=== PATIENT | female | born 1960 | race Caucasian/White ===

== ENCOUNTER 2017-03-21 20:43 | Emergency (ER) | payer SELFPAY ==
[~2017-03-21] VITALS: Ht 180.3 cm; Wt 134.7 kg
[2017-03-21] MEDS ORDERED: CYCLOBENZAPRINE10 MG PO (21:22)
== END 2017-03-21 21:47 | disposition home or self-care (01) ==
LOC: ED 20:43
DX: M62.830 Muscle spasm of back (principal); Z90.49 Acquired absence of other specified parts of digestive tract; Z90.710 Acquired absence of both cervix and uterus; Z91.018 Allergy to other foods; Z88.8 Allergy status to other drugs, medicaments and biological substances; Z88.1 Allergy status to other antibiotic agents; Z88.5 Allergy status to narcotic agent
CPT/HCPCS: 99283

== ENCOUNTER 2020-10-14 17:49 | Emergency (ER) | payer MEDICARE ==
[~2020-10-14] VITALS: Ht 180.3 cm; Wt 141.0 kg
[~2020-10-14 17:49] MED LIST: CYCLOBENZAPRINE10 MG PO
[2020-10-14] MEDS ORDERED: LIPITOR40 MG PO (18:13)
[2020-10-14] MEDS ORDERED: COREG25 MG PO (18:13)
[2020-10-14] MEDS ORDERED: LASIX20 MG PO (18:14)
[2020-10-14] MEDS ORDERED: LEVOTHYROXINE75 MC1 PO (18:14)
[2020-10-14] MEDS ORDERED: NEURONTIN100 MG PO (18:14)
[2020-10-14] MEDS ORDERED: JANTOVEN10 MG PO (18:15)
[2020-10-14] MEDS ORDERED: JANTOVEN7.5 MG PO (18:15)
[2020-10-14] MEDS ORDERED: COZAAR25 MG PO (18:16)
[2020-10-14] MEDS ORDERED: CITALOPRAM HBR10 MG PO (18:16)
[2020-10-14] MEDS ORDERED: POTASSIUM CHLO10 MEQ PO (23:16)
--- NOTE | 2020-10-15 13:01 | EKG ---
[facility] [address] [facility] [place] [address] Signed Sinus rhythm with occasional premature ventricular complexes Possible Left atrial enlargement Inferior infarct , age undetermined Cannot rule out Anteroseptal infarct , age undetermined ST \T\ T wave abnormality, consider lateral ischemia Abnormal ECG No previous ECGs available Confirmed by NATHALIE EDMONDS DO ([id number]) on 10/15/2020 1:01:46 PM Electronically Signed By: NATHALIE EDMONDS DO 10/15/20 1301 PATIENT NAME: NINI MARTINEZ Electrocardiogram DATE OF : 56 PHYSICIAN: NATHALIE EDMONDS DO REPORT #: [id number] REPORT IS CONFIDENTIAL AND NOT TO BE RELEASED WITHOUT AUTHORIZATION
== END 2020-10-14 23:35 | disposition home or self-care (01) ==
LOC: ED 17:49
DX: I50.9 Heart failure, unspecified (principal); Z20.822 Contact with and (suspected) exposure to COVID-19; Z88.8 Allergy status to other drugs, medicaments and biological substances; Z88.1 Allergy status to other antibiotic agents; Z88.5 Allergy status to narcotic agent; Z91.018 Allergy to other foods; Z79.899 Other long term (current) drug therapy; Z79.01 Long term (current) use of anticoagulants
CPT/HCPCS: 71045; 71260; 80053; 83880; 84484; 85025; 85379; 85610; 93005; 93010; 99285-25; C9803; J1940; Q9967; U0003

== ENCOUNTER 2020-11-01 17:13 | Emergency (ER) | payer MEDICARE ==
[~2020-11-01] VITALS: Ht 185.4 cm; Wt 140.6 kg
[~2020-11-01 17:13] MED LIST changes: +CITALOPRAM HBR10 MG PO; +COREG25 MG PO; +COZAAR25 MG PO; +JANTOVEN10 MG PO; +JANTOVEN7.5 MG PO; +LASIX20 MG PO; +LEVOTHYROXINE75 MC1 PO; +LIPITOR40 MG PO; +NEURONTIN100 MG PO; +POTASSIUM CHLO10 MEQ PO
--- NOTE | 2020-11-01 20:21 | EKG ---
[facility] [address] [facility] [place] [address] Signed Sinus rhythm with occasional premature ventricular complexes ST \T\ T wave abnormality, consider inferolateral ischemia Prolonged QT Abnormal ECG When compared with ECG of 14-OCT-2020 18:06, Minimal criteria for Anteroseptal infarct are no longer present Criteria for Inferior infarct are no longer present Confirmed by PLACIDO PAULSON MD ([id number]) on 11/01/2020 8:21:17 PM Electronically Signed By: PLACIDO PAULSON MD 11/01/202020 PATIENT NAME: NINI MARTINEZ Electrocardiogram DATE OF : 56 PHYSICIAN: PLACIDO PAULSON MD REPORT #: [id number] REPORT IS CONFIDENTIAL AND NOT TO BE RELEASED WITHOUT AUTHORIZATION
--- NOTE | 2020-11-01 20:21 | EKG ---
[facility] [address] [facility] [place] [address] Signed Normal sinus rhythm Anteroseptal infarct , age undetermined T wave abnormality, consider inferolateral ischemia Abnormal ECG When compared with ECG of 01-NOV-2020 17:16, (Unconfirmed) premature ventricular complexes are no longer present Confirmed by PLACIDO PAULSON MD ([id number]) on 11/01/2020 8:21:30 PM Electronically Signed By: PLACIDO PAULSON MD 11/01/202020 PATIENT NAME: NINI MARTINEZ Electrocardiogram DATE OF : 56 PHYSICIAN: PLACIDO PAULSON MD REPORT #: [id number] REPORT IS CONFIDENTIAL AND NOT TO BE RELEASED WITHOUT AUTHORIZATION
== END 2020-11-01 21:16 | disposition home or self-care (01) ==
LOC: ED 17:13
DX: R07.2 Precordial pain (principal); Z88.8 Allergy status to other drugs, medicaments and biological substances; Z88.1 Allergy status to other antibiotic agents; Z88.5 Allergy status to narcotic agent; Z79.899 Other long term (current) drug therapy; Z79.01 Long term (current) use of anticoagulants
CPT/HCPCS: 71045; 71275; 80053; 83735; 84484; 85025; 85610; 93005; 93010; 99285-25; Q9967

== ENCOUNTER 2020-12-30 23:38 | Emergency (ER) | payer MEDICARE ==
[~2020-12-30] VITALS: Ht 185.4 cm; Wt 140.6 kg
--- NOTE | 2020-12-31 16:39 | EKG ---
[facility] [address] [facility] [place] [address] Signed Sinus rhythm with occasional premature ventricular complexes Possible Inferior infarct , age undetermined Cannot rule out Anterior infarct (cited on or before 14-OCT-2020) ST \T\ T wave abnormality, consider lateral ischemia Abnormal ECG When compared with ECG of 01-NOV-2020 18:37, premature ventricular complexes are now present Borderline criteria for Inferior infarct are now present Questionable change in initial forces of Septal leads Confirmed by PLACIDO PAULSON MD ([id number]) on 12/31/2020 4:39:43 PM Electronically Signed By: PLACIDO PAULSON MD 12/31/20 1639 PATIENT NAME: NINI MARTINEZ Electrocardiogram DATE OF : 56 PHYSICIAN: PLACIDO PAULSON MD REPORT #: [id number] REPORT IS CONFIDENTIAL AND NOT TO BE RELEASED WITHOUT AUTHORIZATION
== END 2020-12-31 04:06 | disposition home or self-care (01) ==
LOC: ED 23:38
DX: R07.89 Other chest pain (principal); Z88.8 Allergy status to other drugs, medicaments and biological substances; Z88.1 Allergy status to other antibiotic agents; Z88.5 Allergy status to narcotic agent; Z79.899 Other long term (current) drug therapy; Z79.01 Long term (current) use of anticoagulants
CPT/HCPCS: 71045; 71275; 74174; 80053; 83735; 84484; 85025; 85610; 93005; 93010; 99285-25; Q9967

== ENCOUNTER 2021-02-01 04:29 | Emergency (ER) | payer MEDICARE ==
[~2021-02-01] VITALS: Ht 185.4 cm; Wt 140.6 kg
--- NOTE | 2021-02-03 18:03 | EKG ---
[facility] [address] [facility] [place] [address] Signed Sinus rhythm with occasional premature ventricular complexes Septal infarct (cited on or before 14-OCT-2020) Possible Inferior infarct (cited on or before 14-OCT-2020) T wave abnormality, consider lateral ischemia Abnormal ECG When compared with ECG of 30-DEC-2020 23:45, No significant change was found Confirmed by SHAVON MARTIN MD ([id number]) on 02/03/2021 6:03:36 PM Electronically Signed By: SHAVON MARTIN MD 02/03/21 180 PATIENT NAME: NINI MARTINEZ Electrocardiogram DATE OF : 56 PHYSICIAN: SHAVON MARTIN MD REPORT #: [id number] REPORT IS CONFIDENTIAL AND NOT TO BE RELEASED WITHOUT AUTHORIZATION
== END 2021-02-01 07:28 | disposition home or self-care (01) ==
LOC: ED 04:29
DX: R07.9 Chest pain, unspecified (principal); Q87.40 Marfan syndrome, unspecified; Z90.710 Acquired absence of both cervix and uterus; Z90.89 Acquired absence of other organs; Z91.018 Allergy to other foods; Z88.1 Allergy status to other antibiotic agents; Z88.5 Allergy status to narcotic agent; Z88.8 Allergy status to other drugs, medicaments and biological substances; Z79.01 Long term (current) use of anticoagulants; Z79.899 Other long term (current) drug therapy
CPT/HCPCS: 71045; 71275; 74174; 80053; 84484; 85025; 85610; 85730; 93005; 93010; 99285-25; Q9967

== ENCOUNTER 2021-02-13 08:32 | Emergency (ER) | payer MEDICARE ==
[~2021-02-13] VITALS: Ht 185.4 cm; Wt 140.6 kg
--- NOTE | 2021-02-13 17:35 | EKG ---
[facility] [address] [facility] [place] [address] Signed Sinus rhythm with occasional premature ventricular complexes Inferior infarct (cited on or before 14-OCT-2020) Abnormal ECG When compared with ECG of 01-FEB-2021 04:35, Nonspecific T wave abnormality has replaced inverted T waves in Inferior leads Confirmed by PLACIDO PAULSON MD ([id number]) on 02/13/2021 5:35:29 PM Electronically Signed By: PLACIDO PAULSON MD 02/13/21 1735 PATIENT NAME: NINI MARTINEZ Electrocardiogram DATE OF : 56 PHYSICIAN: PLACIDO PAULSON MD REPORT #: [id number] REPORT IS CONFIDENTIAL AND NOT TO BE RELEASED WITHOUT AUTHORIZATION
== END 2021-02-13 13:20 | disposition home or self-care (01) ==
LOC: ED 08:32
DX: R07.2 Precordial pain (principal); Z90.710 Acquired absence of both cervix and uterus; Z90.89 Acquired absence of other organs; Z91.018 Allergy to other foods; Z88.1 Allergy status to other antibiotic agents; Z88.8 Allergy status to other drugs, medicaments and biological substances; Z88.5 Allergy status to narcotic agent; Z79.01 Long term (current) use of anticoagulants; Z79.899 Other long term (current) drug therapy
CPT/HCPCS: 71045; 71275; 74174; 80053; 83735; 84484; 85025; 85610; 93005; 93010; 99285-25; Q9967

== ENCOUNTER 2021-03-25 02:29 | Emergency (ER) | payer MEDICARE ==
[~2021-03-25] VITALS: Ht 185.4 cm; Wt 141.5 kg
[2021-03-25] MEDS ORDERED: OXYCODONE HCL5 MG PO (02:41)
[2021-03-25] MEDS ORDERED: HYDROCODON-ACE1 EA10 PO (05:33)
[2021-03-25] MEDS ORDERED: CEPHALEXIN500 MG PO (05:33)
== END 2021-03-25 05:50 | disposition home or self-care (01) ==
LOC: ED 02:29
DX: R10.9 Unspecified abdominal pain (principal); Z88.8 Allergy status to other drugs, medicaments and biological substances; Z88.1 Allergy status to other antibiotic agents; Z88.5 Allergy status to narcotic agent; Z79.899 Other long term (current) drug therapy; Z79.01 Long term (current) use of anticoagulants
CPT/HCPCS: 74176; 80053; 81001; 85025; 87088; 99284-25; J7030

== ENCOUNTER 2021-04-22 12:09 | Emergency (ER) | payer MEDICARE ==
[~2021-04-22] VITALS: Ht 185.4 cm; Wt 146.4 kg
[~2021-04-22 12:09] MED LIST changes: +CENTRUM SILVER1 EAC3 PO; +CEPHALEXIN500 MG PO; +HYDROCODON-ACE1 EA10 PO; +OXYCODONE HCL5 MG PO
== END 2021-04-22 16:48 | disposition home or self-care (01) ==
LOC: ED 12:09
DX: S70.01XA Contusion of right hip, initial encounter (principal); S90.32XA Contusion of left foot, initial encounter; S80.01XA Contusion of right knee, initial encounter; S40.012A Contusion of left shoulder, initial encounter; S20.212A Contusion of left front wall of thorax, initial encounter; W17.89XA Other fall from one level to another, initial encounter; Z88.8 Allergy status to other drugs, medicaments and biological substances; Z88.5 Allergy status to narcotic agent; Z88.1 Allergy status to other antibiotic agents; Z91.018 Allergy to other foods; Z79.899 Other long term (current) drug therapy; Z79.01 Long term (current) use of anticoagulants
CPT/HCPCS: 71045; 73030; 73502; 73560; 73630; 96374; 99283-25; A9270; J3010

== ENCOUNTER 2021-10-31 19:02 | Emergency (ER) | payer MEDICARE ==
[~2021-10-31] VITALS: Ht 180.3 cm; Wt 142.9 kg
[~2021-10-31 19:02] MED LIST changes: +FUROSEMIDE40 MG PO; +LOSARTAN POTASS25 MG PO; +METOPROLOL SUCC25 MG PO; +VALSARTAN80 MG PO
[2021-11-01] MEDS ORDERED: HYDROCODON-ACE1 EA10 PO (02:01)
== END 2021-11-01 02:15 | disposition home or self-care (01) ==
LOC: ED 19:02
DX: M25.531 Pain in right wrist (principal); Z88.8 Allergy status to other drugs, medicaments and biological substances; Z88.5 Allergy status to narcotic agent; Z88.1 Allergy status to other antibiotic agents; Z88.6 Allergy status to analgesic agent; Z79.899 Other long term (current) drug therapy; Z79.01 Long term (current) use of anticoagulants
CPT/HCPCS: 36415; 73206; 80053; 85025; 85610; 85730; 93931; 96374; 96375; 96376; 99284-25; A9270; J1170; J2405; Q9967

== ENCOUNTER 2022-01-27 11:27 | Emergency (ER) | payer MEDICARE ==
[~2022-01-27] VITALS: Ht 180.3 cm; Wt 142.9 kg
== END 2022-01-27 15:25 | disposition home or self-care (01) ==
LOC: ED 11:27
DX: H43.812 Vitreous degeneration, left eye (principal); M19.90 Unspecified osteoarthritis, unspecified site; Z88.8 Allergy status to other drugs, medicaments and biological substances; Z88.1 Allergy status to other antibiotic agents; Z88.5 Allergy status to narcotic agent; Z79.899 Other long term (current) drug therapy; Z79.01 Long term (current) use of anticoagulants
CPT/HCPCS: 99283

== ENCOUNTER 2022-03-02 02:07 | Emergency (ER) | payer MEDICARE ==
[~2022-03-02] VITALS: Ht 180.3 cm; Wt 143.2 kg
[2022-03-02] MEDS ORDERED: BENZONATATE100 MG PO (04:11)
[2022-03-02] MEDS ORDERED: MILLIPRED DP5 MG PO (04:47)
--- NOTE | 2022-03-03 13:11 | EKG ---
[facility] [address] [facility] [place] [address] Signed Sinus rhythm with marked sinus arrhythmia with frequent premature ventricular complexes Possible Inferior infarct , age undetermined ST \T\ T wave abnormality, consider lateral ischemia Abnormal ECG When compared with ECG of 16-APR-2021 09:37, No significant change was found Confirmed by SHAVON MARTIN MD ([id number]) on 03/03/2022 1:11:02 PM Electronically Signed By: SHAVON MARTIN MD 03/03/22 1311 PATIENT NAME: NINI MARTINEZ Electrocardiogram DATE OF : 56 PHYSICIAN: SHAVON MARTIN MD REPORT #: [id number] REPORT IS CONFIDENTIAL AND NOT TO BE RELEASED WITHOUT AUTHORIZATION
== END 2022-03-02 04:58 | disposition home or self-care (01) ==
LOC: ED 02:07
DX: R05.9 Cough, unspecified (principal); B97.4 Respiratory syncytial virus as the cause of diseases classified elsewhere; M19.90 Unspecified osteoarthritis, unspecified site; Z88.8 Allergy status to other drugs, medicaments and biological substances; Z88.1 Allergy status to other antibiotic agents; Z88.5 Allergy status to narcotic agent; Z79.899 Other long term (current) drug therapy; Z79.01 Long term (current) use of anticoagulants; Z20.822 Contact with and (suspected) exposure to COVID-19
CPT/HCPCS: 36415; 71045; 80053; 81001; 83735; 85025; 87502; 93005; 93010; 96374; 99285-25; C9803; J1170; U0003

== ENCOUNTER 2022-04-22 14:47 | Emergency (ER) | payer MEDICARE ==
[~2022-04-22] VITALS: Ht 180.3 cm; Wt 143.2 kg
[~2022-04-22 14:47] MED LIST changes: +BENZONATATE100 MG PO; +MILLIPRED DP5 MG PO
[2022-04-22] MEDS ORDERED: FUROSEMIDE20 MG PO (15:02)
[2022-04-22] MEDS ORDERED: ATORVASTATIN CA40 MG PO (15:02)
[2022-04-22] MEDS ORDERED: LEVOTHYROXINE75 MCG PO (15:03)
[2022-04-22] MEDS ORDERED: LASIX40 MG PO (19:16)
--- NOTE | 2022-04-25 12:25 | EKG ---
[facility] [address] [facility] [place] [address] Signed Sinus bradycardia Possible Inferior infarct , age undetermined ST \T\ T wave abnormality, consider anterolateral ischemia Abnormal ECG No previous ECGs available Confirmed by Chantelle Eng MD () on 04/23/2022 11:26:16 PM Electronically Signed By: CHANTELLE ENG MD 04/23/22 2326 Electronically Signed By: CHANTELLE ENG MD 04/25/22 1225 PATIENT NAME: OBIE MARTINEZH ROBINSON Electrocardiogram DATE OF : 56 PHYSICIAN: CHANTELLE ENG MD REPORT #: [id number] REPORT IS CONFIDENTIAL AND NOT TO BE RELEASED WITHOUT AUTHORIZATION
== END 2022-04-22 19:27 | disposition home or self-care (01) ==
LOC: ED 14:47
DX: I50.9 Heart failure, unspecified (principal); Z88.8 Allergy status to other drugs, medicaments and biological substances; Z91.018 Allergy to other foods; Z88.5 Allergy status to narcotic agent; Z79.899 Other long term (current) drug therapy; Z79.01 Long term (current) use of anticoagulants; Z20.822 Contact with and (suspected) exposure to COVID-19
CPT/HCPCS: 36415; 71045; 71275; 74174; 80053; 83735; 83880; 84484; 85025; 85610; 87502; 93005; 93010; 99285-25; C9803; U0003

== ENCOUNTER 2022-07-01 10:14 | Emergency (ER) | payer MEDICARE ==
[~2022-07-01] VITALS: Ht 185.4 cm; Wt 156.3 kg
[~2022-07-01 10:14] MED LIST changes: +ATORVASTATIN CA40 MG PO; +ENTRESTO 24 MG1 EACH PO; +FUROSEMIDE20 MG PO; +JARDIANCE10 MG PO; +LASIX40 MG PO; +LEVOTHYROXINE75 MCG PO; +NITROGLYCERIN0.4 MG SL; +SPIRONOLACTONE25 MG PO
--- NOTE | 2022-07-02 07:12 | EKG ---
[facility] [address] [facility] [place] [address] Signed Sinus bradycardia Possible Inferior infarct (cited on or before 02-MAR-2022) ST \T\ T wave abnormality, consider lateral ischemia Abnormal ECG When compared with ECG of 22-APR-2022 14:55, T wave inversion less evident in Inferior leads Confirmed by PLACIDO PAULSON MD ([id number]) on 07/02/2022 7:11:58 AM Electronically Signed By: PLACIDO PAULSON MD 07/02/22 0712 PATIENT NAME: NINI MARTINEZ Electrocardiogram DATE OF : 56 PHYSICIAN: PLACIDO PAULSON MD REPORT #: [id number] REPORT IS CONFIDENTIAL AND NOT TO BE RELEASED WITHOUT AUTHORIZATION
== END 2022-07-01 13:59 | disposition home or self-care (01) ==
LOC: ED 10:14
DX: I67.9 Cerebrovascular disease, unspecified (principal); Q87.40 Marfan syndrome, unspecified; M19.90 Unspecified osteoarthritis, unspecified site; Z88.8 Allergy status to other drugs, medicaments and biological substances; Z91.018 Allergy to other foods; Z88.5 Allergy status to narcotic agent; Z79.899 Other long term (current) drug therapy; Z79.01 Long term (current) use of anticoagulants
CPT/HCPCS: 36415; 70450; 70496; 70498; 71045; 80053; 85025; 85610; 93005; 93010; 96360; 96361; 99285-25; J7030; Q9967

== ENCOUNTER 2022-07-17 20:06 | Emergency (ER) | payer MEDICARE ==
[~2022-07-17] VITALS: Ht 185.4 cm; Wt 152.9 kg
[~2022-07-17 20:06] MED LIST changes: +GABAPENTIN100 MG PO
--- NOTE | 2022-07-19 13:29 | EKG ---
[facility] [address] [facility] [place] [address] Signed Sinus rhythm with frequent and consecutive premature ventricular complexes Possible Inferior infarct (cited on or before 02-MAR-2022) ST \T\ T wave abnormality, consider lateral ischemia Abnormal ECG When compared with ECG of 01-JUL-2022 10:30, premature ventricular complexes are now present Confirmed by SHAVON MARTIN MD ([id number]) on 07/19/2022 1:29:28 PM Electronically Signed By: SHAVON MARTIN MD 07/19/22 1329 PATIENT NAME: NINI MARTINEZ Electrocardiogram DATE OF : 56 PHYSICIAN: SHAVON MARTIN MD REPORT #: [id number] REPORT IS CONFIDENTIAL AND NOT TO BE RELEASED WITHOUT AUTHORIZATION
== END 2022-07-17 23:30 | disposition home or self-care (01) ==
LOC: ED 20:06
DX: I50.9 Heart failure, unspecified (principal); M19.90 Unspecified osteoarthritis, unspecified site; Z88.8 Allergy status to other drugs, medicaments and biological substances; Z88.1 Allergy status to other antibiotic agents; Z91.018 Allergy to other foods; Z79.899 Other long term (current) drug therapy; Z79.01 Long term (current) use of anticoagulants
CPT/HCPCS: 36415; 71045; 71260; 71275; 74175; 80053; 83880; 84484; 85025; 85610; 85730; 93005; 93010; 99285-25; C9803; J1940; Q9967

== ENCOUNTER 2022-11-28 11:30 | Emergency (ER) | payer MEDICARE ==
[~2022-11-28] VITALS: Ht 185.4 cm; Wt 159.7 kg
--- OUTSIDE RECORDS SUMMARY | ~2022-11-28 | XMS | Continuity of Care Document ---
Demographics + + + | Address | [address] | | | [place] [address] | + + + | Preferred Language | Unknown | + + + | Marital Status | | + + + | Mandaen Affiliation | Unknown | + + + | Race | White | + + + | Ethnic Group | Not or | + + + Author + + + | Author | [facility] | + + + | Organization | [facility] | + + + | Address | [address] | | | [place] [address] | + + + | Phone | | + + + Care Team Providers + + + + | Care Overlock Elastic Attacher Name | Role | Phone | + [...] 2022-01-27 00:00 | No vaccine administered | [facility] | + + + + | 2022-03-02 00:00 | No vaccine administered | [facility] | + + + + Medications + + + + | date | description | facility | + + + + | 2022-01-27 00:00 | GABAPENTIN | [facility] | + + + + | 2022-03-02 00:00 | GABAPENTIN | [facility] | + + + + | 2022-04-22 00:00 | GABAPENTIN | [facility] | + + + + | 2022-05-01 00:00 | GABAPENTIN | [facility] | + + + + | 2022-07-01 00:00 | GABAPENTIN | [facility] | + + + + | 2022-01-27 00:00 | gabapentin 100 MG Oral | [facility] | | | Capsule [Neurontin] | | + + + + | 2022-03-02 00:00 | gabapentin 100 MG Oral | [facility] | | | Capsule [Neurontin] | | + + + + | 2022-03-02 00:00 | Millipred DP 6 Day Dose | [facility] | | | Pack | | + + + + | 2022-03-02 00:00 | PREDNISOLONE | [facility] | + + + + | 2022-07-01 00:00 | EMPAGLIFLOZIN | [facility] | + + + + | 2022-07-17 00:00 | EMPAGLIFLOZIN | [facility] | + + + + | 2022-07-01 00:00 | SACUBITRIL/VALSARTAN | [facility] | + + + + | 2022-03-02 00:00 | BENZONATATE | [facility] | + + + + | 2022-03-02 00:00 | BENZONATATE | [facility] | + + + + | 2022-03-02 00:00 | BENZONATATE | [facility] | + + + + | 2022-03-02 00:00 | benzonatate 100 MG Oral | [facility] | | | Capsule | | + + + + | 2022-07-01 00:00 | NITROGLYCERIN | [facility] | + + + + | 2022-07-17 00:00 | NITROGLYCERIN | [facility] | + + + + | 2022-04-22 00:00 | FUROSEMIDE | [facility] | + + + + | 2022-04-22 00:00 | FUROSEMIDE | [facility] | + + + + | 2022-01-27 00:00 | CITALOPRAM HYDROBROMIDE | [facility] | + + + + | 2022-03-02 00:00 | CITALOPRAM HYDROBROMIDE | [facility] | + + + + | 2022-04-22 00:00 | CITALOPRAM HYDROBROMIDE | [facility] | + + + + | 2022-05-01 00:00 | CITALOPRAM HYDROBROMIDE | [facility] | + + + + | 2022-07-01 00:00 | CITALOPRAM HYDROBROMIDE | [facility] | + + + + | 2022-07-17 00:00 | CITALOPRAM HYDROBROMIDE | [facility] | + + + + | 2022-01-27 00:00 | citalopram 10 MG Oral | [facility] | | | Tablet | | + + + + | 2022-03-02 00:00 | citalopram 10 MG Oral | [facility] | | | Tablet | | + + + + | 2022-04-22 00:00 | FUROSEMIDE | [facility] | + + + + | 2022-07-17 00:00 | FUROSEMIDE | [facility] | + + + + | 2022-07-17 00:00 | GABAPENTIN | [facility] | + + + + | 2020-10-14 00:00 | POTASSIUM CHLORIDE | [facility] | + + + + | 2020-10-14 00:00 | POTASSIUM CHLORIDE | [facility] | + + + + | 2020-10-14 00:00 | POTASSIUM CHLORIDE | [facility] | + + + + | 2020-10-14 00:00 | POTASSIUM CHLORIDE | [facility] | + + + + | 2020-10-14 00:00 | POTASSIUM CHLORIDE | [facility] | + + + + | 2020-10-14 00:00 | potassium chloride 10 MEQ | [facility] | | | Extended Release Oral | | | | Capsule | | + + + + | 2022-07-01 00:00 | SPIRONOLACTONE | [facility] | + + + + | 2022-07-17 00:00 | SPIRONOLACTONE | [facility] | + + + + | 2022-01-27 00:00 | FUROSEMIDE | [facility] | + + + + | 2022-03-02 00:00 | FUROSEMIDE | [facility] | + + + + | 2022-01-27 00:00 | furosemide 40 MG Oral | [facility] | | | Tablet | | + + + + | 2022-03-02 00:00 | furosemide 40 MG Oral | [facility] | | | Tablet | | + + + + | 2022-01-27 00:00 | VALSARTAN | [facility] | + + + + | 2022-03-02 00:00 | VALSARTAN | [facility] | + + + + | 2022-04-22 00:00 | VALSARTAN | [facility] | + + + + | 2022-05-01 00:00 | VALSARTAN | [facility] | + + + + | 2022-07-17 00:00 | VALSARTAN | [facility] | + + + + | 2022-01-27 00:00 | valsartan 80 MG Oral | [facility] | | | Tablet | | + + + + | 2022-03-02 00:00 | valsartan 80 MG Oral | [facility] | | | Tablet | | + + + + | 2022-01-27 00:00 | ATORVASTATIN | [facility] | + + + + | 2022-03-02 00:00 | ATORVASTATIN | [facility] | + + + + | 2022-04-22 00:00 | ATORVASTATIN | [facility] | + + + + | 2022-05-01 00:00 | ATORVASTATIN | [facility] | + + + + | 2022-07-01 00:00 | ATORVASTATIN | [facility] | + + + + | 2022-07-17 00:00 | ATORVASTATIN | [facility] | + + + + | 2022-01-27 00:00 | atorvastatin 40 MG Oral | [facility] | | | Tablet [Lipitor] | | + + + + | 2022-03-02 00:00 | atorvastatin 40 MG Oral | [facility] | | | Tablet [Lipitor] | | + + + + | 2017-03-21 00:00 | CYCLOBENZAPRINE HCL | [facility] | + + + + | 2017-03-21 00:00 | CYCLOBENZAPRINE HCL | [facility] | + + + + | 2017-03-21 00:00 | CYCLOBENZAPRINE HCL | [facility] | + + + + | 2017-03-21 00:00 | CYCLOBENZAPRINE HCL | [facility] | + + + + | 2017-03-21 00:00 | CYCLOBENZAPRINE HCL | [facility] | + + + + | 2017-03-21 00:00 | cyclobenzaprine | [facility] | | | hydrochloride 10 MG Oral | | | | Tablet | | + + + + | 2022-01-27 00:00 | WARFARIN SODIUM | [facility] | + + + + | 2022-03-02 00:00 | WARFARIN SODIUM | [facility] | + + + + | 2022-04-22 00:00 | WARFARIN SODIUM | [facility] | + + + + | 2022-05-01 00:00 | WARFARIN SODIUM | [facility] | + + + + | 2022-07-01 00:00 | WARFARIN SODIUM | [facility] | + + + + | 2022-07-17 00:00 | WARFARIN SODIUM | [facility] | + + + + | 2022-01-27 00:00 | warfarin sodium 10 MG Oral | [facility] | | | Tablet [Jantoven] | | + + + + | 2022-03-02 00:00 | warfarin sodium 10 MG Oral | [facility] | | | Tablet [Jantoven] | | + + + + | 2022-01-27 00:00 | 24 HR metoprolol succinate | [facility] | | | 25 MG Extended Release | | | | Oral Table | | + + + + | 2022-03-02 00:00 | 24 HR metoprolol succinate | [facility] | | | 25 MG Extended Release | | | | Oral Table | | + + + + | 2022-01-27 00:00 | METOPROLOL SUCCINATE | [facility] | + + + + | 2022-03-02 00:00 | METOPROLOL SUCCINATE | [facility] | + + + + | 2022-04-22 00:00 | METOPROLOL SUCCINATE | [facility] | + + + + | 2022-05-01 00:00 | METOPROLOL SUCCINATE | [facility] | + + + + | 2022-07-01 00:00 | METOPROLOL SUCCINATE | [facility] | + + + + | 2022-07-17 00:00 | METOPROLOL SUCCINATE | [facility] | + + + + | 2022-01-27 00:00 | Levothyroxine Sodium | [facility] | + + + + | 2022-03-02 00:00 | Levothyroxine Sodium | [facility] | + + + + | 2022-01-27 00:00 | levothyroxine sodium 0.075 | [facility] | | | MG Oral Capsule | | + + + + | 2022-03-02 00:00 | levothyroxine sodium 0.075 | [facility] | | | MG Oral Capsule | | + + + + | 2022-04-22 00:00 | LEVOTHYROXINE SODIUM | [facility] | + + + + | 2022-05-01 00:00 | LEVOTHYROXINE SODIUM | [facility] | + + + + | 2022-07-01 00:00 | LEVOTHYROXINE SODIUM | [facility] | + + + + | 2022-07-17 00:00 | LEVOTHYROXINE SODIUM | [facility] | + + + + | 2022-01-27 00:00 | LOSARTAN POTASSIUM | [facility] | + + + + | 2022-03-02 00:00 | LOSARTAN POTASSIUM | [facility] | + + + + | 2022-04-22 00:00 | LOSARTAN POTASSIUM | [facility] | + + + + | 2022-05-01 00:00 | LOSARTAN POTASSIUM | [facility] | + + + + | 2022-07-01 00:00 | LOSARTAN POTASSIUM | [facility] | + + + + | 2022-07-17 00:00 | LOSARTAN POTASSIUM | [facility] | + + + + | 2022-01-27 00:00 | losartan potassium 25 MG | [facility] | | | Oral Tablet [Cozaar] | | + + + + | 2022-03-02 00:00 | losartan potassium 25 MG | [facility] | | | Oral Tablet [Cozaar] | | + + + + Problems + + + + | date | description | facility | + + + + | 2020-10-14 00:00 | CHF (congestive heart | [facility] | | | failure) | | + + + + | 2020-10-14 00:00 | Congestive heart failure | [facility] | + + + + | 2020-10-14 00:00 | Congestive heart failure | [facility] | + + + + | 2020-10-14 00:00 | Congestive heart failure | [facility] | + + + + | 2020-10-14 00:00 | Congestive heart failure | [facility] | + + + + | 2020-10-14 00:00 | Congestive heart failure | [facility] | + + + + | 2020-10-14 00:00 | Dyspnea | [facility] | + + + + | 2020-10-14 00:00 | Dyspnea | [facility] | + + + + | 2020-10-14 00:00 | Dyspnea | [facility] | + + + + | 2020-10-14 00:00 | Dyspnea | [facility] | + + + + | 2020-10-14 00:00 | Dyspnea | [facility] | + + + + | 2020-11-01 00:00 | Chest pain | [facility] | + + + + | 2020-11-01 00:00 | Chest pain | [facility] | + + + + | 2020-11-01 00:00 | Chest pain | [facility] | + + + + | 2020-11-01 00:00 | Chest pain | [facility] | + + + + | 2020-11-01 00:00 | Chest pain | [facility] | + + + + | 2021-03-25 00:00 | Right flank pain | [facility] | + + + + | 2021-03-25 00:00 | Right flank pain | [facility] | + + + + | 2021-03-25 00:00 | Right flank pain | [facility] | + + + + | 2021-03-25 00:00 | Right flank pain | [facility] | + + + + | 2021-03-25 00:00 | Right flank pain | [facility] | + + + + | 2021-03-25 02:29 | UNSPECIFIED ABDOMINAL PAIN | [facility] | | | | | + + + + | 2021-03-25 02:29 | FDC (CURRENT) USE OF | [facility] | | | 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 | | + + + + | 2021-03-25 02:29 | OTHER FDC (CURRENT) | [facility] | | | DRUG [...] | 2021-04-16 00:00 | Near syncope | [facility] | + + + + | 2021-04-16 00:00 | Transient hypotension | [facility] | + + + + | 2021-04-16 00:00 | Transient hypotension | [facility] | + + + + | 2021-04-16 00:00 | Transient hypotension | [facility] | + + + + | 2021-04-16 00:00 | Transient hypotension | [facility] | + + + + | 2021-04-16 00:00 | Transient hypotension | [facility] | + + + + | 2021-04-16 00:00 | Pre-syncope | [facility] | + + + + | 2021-04-16 00:00 | Pre-syncope | [facility] | + + + + | 2021-04-16 00:00 | Pre-syncope | [facility] | + + + + | 2021-04-16 00:00 | Pre-syncope | [facility] | + + + + | 2021-04-16 00:00 | Pre-syncope | [facility] | + + + + [...] + + + | 2021-04-22 12:11 | FDC (CURRENT) USE OF | [facility] | | | 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 | | + + + + | 2021-04-22 12:11 | OTHER LEAD CYTOGENETIC TECHNOLOGIST (CURRENT) | [facility] | | | DRUG [...] + + + | 2021-05-21 13:05 | LEAD CYTOGENETIC TECHNOLOGIST (CURRENT) USE OF | [facility] | | | 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 | | + + + + | 2021-05-21 13:05 | 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 | | + + + + | 2021-11-01 00:00 | Right wrist pain | [facility] | + + + + | 2021-11-01 00:00 | Right wrist pain | [facility] | + + + + | 2021-11-01 00:00 | Right wrist pain | [facility] | + + + + | 2021-11-01 00:00 | Right wrist pain | [facility] | + + + + | 2021-11-01 00:00 | Right wrist pain | [facility] | + + + + | 2022-01-27 00:00 | Vitreous detachment | [facility] | + + + + | 2022-01-27 00:00 | Vitreous detachment | [facility] | + + + + | 2022-01-27 00:00 | Vitreous detachment | [facility] | + + + + | 2022-01-27 00:00 | Vitreous detachment | [facility] | + + + + | 2022-01-27 00:00 | Vitreous detachment | [facility] | + + + + | 2022-01-27 11:27 | VITREOUS DEGENERATION, | [facility]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 | | + + + + | 2022-01-27 11:27 | UNSPECIFIED | [facility] | | | OSTEOARTHRITIS, UNSPECIFIED | | | | SITE | | + + + + | 2022-01-27 11:27 | FDC (CURRENT) USE OF | [facility] | | | 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 | | + + + + | 2022-01-27 11:27 | OTHER LEAD CYTOGENETIC TECHNOLOGIST (CURRENT) | [facility] | | | DRUG [...] + + + | 2022-02-25 14:00 | FDC (CURRENT) USE OF | [facility] | | | 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 | | + + + + | 2022-02-25 14:00 | 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 | | + + + + | 2022-03-02 00:00 | RSV infection | [facility] | + + + + | 2022-03-02 00:00 | Infection due to | [facility] | | | respiratory syncytial virus | | | | (RSV) | | + + + + | 2022-03-02 00:00 | Infection due to | [facility] | | | respiratory syncytial virus | | | | (RSV) | | + + + + | 2022-03-02 00:00 | Infection due to | [facility] | | | respiratory syncytial virus | | | | (RSV) | | + + + + | 2022-03-02 00:00 | Infection due to | [facility] | | | respiratory syncytial virus | | | | (RSV) | | + + + + | 2022-03-02 00:00 | Infection due to | [facility] | | | respiratory syncytial [...] + + + | 2022-03-02 02:09 | LEAD CYTOGENETIC TECHNOLOGIST (CURRENT) USE OF | [facility] | | | 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 | | + + + + | 2022-03-02 02:09 | OTHER LEAD CYTOGENETIC TECHNOLOGIST (CURRENT) | [facility] | | | DRUG [...] + + + | 2022-03-25 14:30 | LEAD CYTOGENETIC TECHNOLOGIST (CURRENT) USE OF | [facility] | | | 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 | | + + + + | 2022-03-25 14:30 | 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 | | + + + + | 2022-04-22 13:40 | ENCOUNTER FOR THERAPEUTIC | [facility] | | | DRUG LEVEL MONITORING | | + + + + | 2022-04-22 13:40 | LEAD CYTOGENETIC TECHNOLOGIST (CURRENT) USE OF | [facility] | | [...] + + + | 2022-04-22 14:48 | LEAD CYTOGENETIC TECHNOLOGIST (CURRENT) USE OF | [facility] | | | 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 | | + + + + | 2022-04-22 14:48 | OTHER FDC (CURRENT) | [facility] | | | DRUG [...] 2022-05-01 00:00 | Encounter for medical | [facility] | | | screening examination | | + + + + | 2022-05-01 00:00 | Encounter for medical | [facility] | | | screening examination | | + + + + | 2022-05-01 00:00 | Encounter for medical | [facility] | | | screening examination | | + + + + | 2022-05-20 14:30 | ENCOUNTER FOR THERAPEUTIC | [facility] | | | DRUG LEVEL MONITORING | | + + + + | 2022-05-20 14:30 | LEAD CYTOGENETIC TECHNOLOGIST (CURRENT) USE OF | [facility] | | | 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 | | + + + + | 2022-05-20 14:30 | 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 | | + + + + | 2022-06-17 14:20 | ENCOUNTER FOR THERAPEUTIC | [facility] | | | DRUG LEVEL MONITORING | | + + + + | 2022-06-17 14:20 | FDC (CURRENT) USE OF | [facility] | | [...] + + + | 2022-07-01 10:14 | LEAD CYTOGENETIC TECHNOLOGIST (CURRENT) USE OF | [facility] | | | 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 | | + + + + | 2022-07-01 10:14 | OTHER LEAD CYTOGENETIC TECHNOLOGIST (CURRENT) | [facility] | | | DRUG [...] + + + | 2022-07-15 14:20 | FDC (CURRENT) USE OF | [facility] | | [...] + + + | 2022-07-17 20:06 | LEAD CYTOGENETIC TECHNOLOGIST (CURRENT) USE OF | [facility] | | | 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 | | + + + + | 2022-07-17 20:06 | OTHER FDC (CURRENT) | [facility] | | | DRUG [...] + + + | 2022-08-12 14:15 | FDC (CURRENT) USE OF | [facility] | | [...] + + | 2022-08-21 12:31 | OTHER LEAD CYTOGENETIC TECHNOLOGIST (CURRENT) | [facility] | | | DRUG THERAPY | | + + + + | 2022-08-26 14:16 | ENCOUNTER FOR THERAPEUTIC | [facility] | | | DRUG LEVEL MONITORING | | + + + + | 2022-08-26 14:16 | FDC (CURRENT) USE OF | [facility] | | [...] + + + | 2022-09-02 14:55 | FDC (CURRENT) USE OF | [facility] | | [...] + + + | 2022-09-09 14:25 | LEAD CYTOGENETIC TECHNOLOGIST (CURRENT) USE OF | [facility] | | [...] + + + | 2022-09-16 11:00 | LEAD CYTOGENETIC TECHNOLOGIST (CURRENT) USE OF | [facility] | | [...] + + + | 2022-09-30 10:35 | LEAD CYTOGENETIC TECHNOLOGIST (CURRENT) USE OF | [facility] | | [...] + + + | 2022-10-14 14:35 | LEAD CYTOGENETIC TECHNOLOGIST (CURRENT) USE OF | [facility] | | [...] + + + | 2022-10-28 14:40 | LEAD CYTOGENETIC TECHNOLOGIST (CURRENT) USE OF | [facility] | | [...] + + + | 2022-11-25 14:05 | FDC (CURRENT) USE OF | [facility] | | | 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 | | + + + + Procedures [...] 5 | + + + + + +-------+---------+ + | | 2022-03-02 | [facility] | 148 | mg/dL | (missing) | | (unavailable | 02:40 | [facility] | | | | + + + +-------+---------+ + + + | Result panel 6 | + + + + + +------+---------+ + | | 2022-03-02 | [facility] | 24 | mg/dL | (missing) | | (unavailable | 02:40 | [facility] | | | | + + + +------+---------+ + + + | Result panel 7 | + + + + + +--------+---------+ + | | 2022-03-02 | [facility] | 1.12 | mg/dL | (missing) | | (unavailable | 02:40 | [facility] | | | | + + + +--------+---------+ + + + | Result panel 8 | + + + + + +------+ + + | | 2022-03-02 | [facility] | 55 | (missing) | (missing) | | (unavailable | 02:40 | [facility] | | | | + + + +------+ + + + + | Result panel 9 | + + + + + +---------+ + + | | 2022-03-02 | [facility] | 21.42 | (missing) | (missing) | | (unavailable | 02:40 | [facility] | | | | + + + +---------+ + + + + | Result panel 10 | + + + + + +-------+ + + | | 2022-03-02 | [facility] | 136 | (missing) | (missing) | | (unavailable | 02:40 | [facility] | | | | + + + +-------+ + + + + | Result panel 11 | + + + + + +-------+ + + | | 2022-03-02 | [facility] | 4.1 | (missing) | (missing) | | (unavailable | 02:40 | [facility] | | | | + + + +-------+ + + + + | Result panel 12 | + + + + + +-------+ + + | | 2022-03-02 | [facility] | 102 | (missing) | (missing) | | (unavailable | 02:40 | [facility] | | | | + + + +-------+ + + + + | Result panel 13 | + + + + + +------+ [...] 15 | + + + + + +-------+---------+ + | | 2022-03-02 | [facility] | 8.3 | mg/dL | (missing) | | (unavailable | 02:40 | [facility] | | | | + + + +-------+---------+ + + + | Result panel 16 | + + + + + +-------+---------+ + | | 2022-03-02 | [facility] | 2.0 | mg/dL | (missing) | | (unavailable | 02:40 | [facility] | | | | + + + +-------+---------+ + + + | Result panel 17 [...] 19 | + + + + + +-------+ + + | | 2022-03-02 | [facility] | 4.8 | (missing) | (missing) | | (unavailable | 02:40 | [facility] | | | | + + + +-------+ + + + + | Result panel 20 | + + + + + +--------+ + + | | 2022-03-02 | [facility] | 0.67 | (missing) | (missing) | | (unavailable | 02:40 | [facility] | | | | + + + +--------+ + + + + | Result panel 21 | + + + + + +-------+ + + | | 2022-03-02 | [facility] | 0.7 | (missing) | (missing) | | (unavailable | 02:40 | [facility] | | | | + + + +-------+ + + + + | Result panel 22 [...] 23 | + + + + + +------+ [...] 26 | + + + + + +--------+ + + | | 2022-03-02 | [facility] | 4.34 | (missing) | (missing) | | (unavailable | 02:40 | [facility] | | | | + + + +--------+ + + + + | Result panel 27 | + + + + + +--------+ [...] 29 | + + + + + +--------+ + + | | 2022-03-02 | [facility] | 91.3 | (missing) | (missing) | | (unavailable | 02:40 | [facility] | | | | + + + +--------+ + + + + | Result panel 30 | + + + + + +--------+ + + | | 2022-03-02 | [facility] | 29.2 | (missing) | (missing) | | (unavailable | 02:40 | [facility] | | | | + + + +--------+ + + + + | Result panel 31 | + + + + + +--------+ + + | | 2022-03-02 | [facility] | 32.0 | (missing) | (missing) | | (unavailable | 02:40 | [facility] | | | | + + + +--------+ + + + + | Result panel 32 | + + + + + +--------+ [...] 35 | + + + + + +--------+ + + | | 2022-03-02 | [facility] | 13.3 | (missing) | (missing) | | (unavailable | 02:40 | [facility] | | | | + + + +--------+ + + + + | Result panel 36 | + + + + + +--------+ + + | | 2022-03-02 | [facility] | 10.4 | (missing) | (missing) | | (unavailable | 02:40 | [facility] | | | | + + + +--------+ + + + + | Result panel 37 | + + + + + +-------+ [...] 39 | + + + + + +-------+ + + | | 2022-03-02 | [facility] | 0-1 | (missing) | (missing) | | (unavailable | 03:42 | [facility] | | | | + + + +-------+ + + + + | Result panel 40 | + + + + + +-----+ + + | | 2022-03-02 | [facility] | 0 | (missing) | (missing) | | (unavailable | 03:42 | [facility] | | | | + + + +-----+ + + + + | Result panel 41 | + + + + + +------+ + + | | 2022-03-02 | [facility] | No | (missing) | (missing) | | (unavailable | 03:42 | [facility] | | | | + + + +------+ + + + + | Result panel 42 | + + + + + +--------+ [...] 44 | + + + + + +---------+ + + | | 2022-03-02 | [facility] | CLEAR | (missing) | (missing) | | (unavailable | 03:42 | [facility] | | | | + + + +---------+ + + + + | Result panel 45 | + + + + + + + + + | | 2022-03-02 | [facility] | NEGATIVE | (missing) | (missing) | | (unavailable | 03:42 | [facility] | | | | + + + + + + + + + | Result panel 46 | + + + + + + [...] 48 | + + + + + + + + + | | 2022-03-02 | [facility] | >=1.030 | (missing) | (missing) | | (unavailable | 03:42 | [facility] | | | | + + + + + + + + + | Result panel 49 | + + + + + +---------+ + + | | 2022-03-02 | [facility] | SMALL | (missing) | (missing) | | (unavailable | 03:42 | [facility] | | | | + + + +---------+ + + + + | Result panel 50 | + + + + + +-------+ + + | | 2022-03-02 | [facility] | 5.5 | (missing) | (missing) | | (unavailable | 03:42 | [facility] | | | | + + + +-------+ + + + + | Result panel 51 | + + + + + + [...] 53 | + + + + + + + + + | | 2022-03-02 | [facility] | NEGATIVE | (missing) | (missing) | | (unavailable | 03:42 | [facility] | | | | + + + + + + + + + | Result panel 54 | + + + + + + + + + | | 2022-03-02 | [facility] | NEGATIVE | (missing) | (missing) | | (unavailable | 03:42 | [facility] | | | | + + + + + + + + + | Result panel 55 | + + + + + +-------+ [...] (missing) | | (unavailable | 10:45:08 | [facility] | | | | | [...] 176 | + + + + + +-------+ + + | | 2022-07-17 | [facility] | 9.4 | (missing) | (missing) | | (unavailable | 20:20:08 | [facility] | | | | + + + +-------+ + + + + | Result panel 177 | + + + + + +-------+ + + | | 2022-07-17 | [facility] | 3.4 | (missing) | (missing) | | (unavailable | 20:20:08 | [facility] | | | | + + + +-------+ + + + + | Result panel 178 | + + + + + +-------+ [...] 181 | + + + + + +--------+ + + | | 2022-07-17 | [facility] | 36.4 | (missing) | (missing) | | (unavailable | 20:20:08 | [facility] | | | | + + + +--------+ + + + + | Result panel 182 | + + + + + +-------+---------+ + | | 2022-07-17 | [facility] | 101 | mg/dL | (missing) | | (unavailable | 20:20:08 | [facility] | | | | + + + +-------+---------+ + + + | Result panel 183 | + + + + + +------+---------+ + | | 2022-07-17 | [facility] | 13 | mg/dL | (missing) | | (unavailable | 20:20:08 | [facility] | | | | + + + +------+---------+ + + + | Result panel 184 | + + + + + +--------+ + + | | 2022-07-17 | [facility] | 4.23 | (missing) | (missing) | | (unavailable | 20:20:08 | [facility] | | | | + + + +--------+ + + + + | Result panel 185 | + + + + + +--------+---------+ + | | 2022-07-17 | [facility] | 1.10 | mg/dL | (missing) | | (unavailable | 20:20:08 | [facility] | | | | + + + +--------+---------+ + + + | Result panel 186 | + + + + + +------+ + + | | 2022-07-17 | [facility] | 56 | (missing) | (missing) | | (unavailable | 20:20:08 | [facility] | | | | + + + +------+ + + + + | Result panel 187 | + + + + + +---------+ [...] 189 | + + + + + +-------+ + + | | 2022-07-17 | [facility] | 3.4 | (missing) | (missing) | | (unavailable | 20:20:08 | [facility] | | | | + + + +-------+ + + + + | Result panel 190 | + + + + + +-------+ + + | | 2022-07-17 | [facility] | 105 | (missing) | (missing) | | (unavailable | 20:20:08 | [facility] | | | | + + + +-------+ + + + + | Result panel 191 | + + + + + +------+ [...] 193 | + + + + + +-------+---------+ + | | 2022-07-17 | [facility] | 8.4 | mg/dL | (missing) | | (unavailable | 20:20:08 | [facility] | | | | + + + +-------+---------+ + + + | Result panel 194 | + + + + + +-------+ [...] 200 | + + + + + +------+ + + | | 2022-07-17 | [facility] | 17 | (missing) | (missing) | | (unavailable | 20:20:08 | [facility] | | | | + + + +------+ + + + + | Result panel 201 | + + + + + +------+ [...] 205 | + + + + + +--------+ + + | | 2022-07-17 | [facility] | 92.1 | (missing) | (missing) | | (unavailable | 20:20:08 | [facility] | | | | + + + +--------+ + + + + | Result panel 206 | + + + + + +--------+ + + | | 2022-07-17 | [facility] | 29.4 | (missing) | (missing) | | (unavailable | 20:20:08 | [facility] | | | | + + + +--------+ + + + + | Result panel 207 | + + + + + +--------+ + + | | 2022-07-17 | [facility] | 31.9 | (missing) | (missing) | | (unavailable | 20:20:08 | [facility] | | | | + + + +--------+ + + + + | Result panel 208 | + + + + + +--------+ + + | | 2022-07-17 | [facility] | 16.2 | (missing) | (missing) | | (unavailable | 20:20:08 | [facility] | | | | + + + +--------+ + + + + | Result panel 209 | + + + + + +-------+ [...] | 2022-01-27 00:00 | Never smoker | [facility] | + + + + | 2022-03-02 00:00 | Never smoker | [facility] | + + + + [...] 337 | lb | + + + +---------+"
--- OUTSIDE RECORDS SUMMARY | ~2022-11-28 | XMS | Continuity of Care Document ---
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 | Role | Phone | + [...] 2022-01-27 00:00 | No vaccine administered | [facility] | + + + + | 2022-03-02 00:00 | No vaccine administered | [facility] | + + + + Medications + + + + | date | description | facility | + + + + | 2022-01-27 00:00 | GABAPENTIN | [facility] | + + + + | 2022-03-02 00:00 | GABAPENTIN | [facility] | + + + + | 2022-04-22 00:00 | GABAPENTIN | [facility] | + + + + | 2022-05-01 00:00 | GABAPENTIN | [facility] | + + + + | 2022-07-01 00:00 | GABAPENTIN | [facility] | + + + + | 2022-01-27 00:00 | gabapentin 100 MG Oral | [facility] | | | Capsule [Neurontin] | | + + + + | 2022-03-02 00:00 | gabapentin 100 MG Oral | [facility] | | | Capsule [Neurontin] | | + + + + | 2022-03-02 00:00 | Millipred DP 6 Day Dose | [facility] | | | Pack | | + + + + | 2022-03-02 00:00 | PREDNISOLONE | [facility] | + + + + | 2022-07-01 00:00 | EMPAGLIFLOZIN | [facility] | + + + + | 2022-07-17 00:00 | EMPAGLIFLOZIN | [facility] | + + + + | 2022-07-01 00:00 | SACUBITRIL/VALSARTAN | [facility] | + + + + | 2022-03-02 00:00 | BENZONATATE | [facility] | + + + + | 2022-03-02 00:00 | BENZONATATE | [facility] | + + + + | 2022-03-02 00:00 | BENZONATATE | [facility] | + + + + | 2022-03-02 00:00 | benzonatate 100 MG Oral | [facility] | | | Capsule | | + + + + | 2022-07-01 00:00 | NITROGLYCERIN | [facility] | + + + + | 2022-07-17 00:00 | NITROGLYCERIN | [facility] | + + + + | 2022-04-22 00:00 | FUROSEMIDE | [facility] | + + + + | 2022-04-22 00:00 | FUROSEMIDE | [facility] | + + + + | 2022-01-27 00:00 | CITALOPRAM HYDROBROMIDE | [facility] | + + + + | 2022-03-02 00:00 | CITALOPRAM HYDROBROMIDE | [facility] | + + + + | 2022-04-22 00:00 | CITALOPRAM HYDROBROMIDE | [facility] | + + + + | 2022-05-01 00:00 | CITALOPRAM HYDROBROMIDE | [facility] | + + + + | 2022-07-01 00:00 | CITALOPRAM HYDROBROMIDE | [facility] | + + + + | 2022-07-17 00:00 | CITALOPRAM HYDROBROMIDE | [facility] | + + + + | 2022-01-27 00:00 | citalopram 10 MG Oral | [facility] | | | Tablet | | + + + + | 2022-03-02 00:00 | citalopram 10 MG Oral | [facility] | | | Tablet | | + + + + | 2022-04-22 00:00 | FUROSEMIDE | [facility] | + + + + | 2022-07-17 00:00 | FUROSEMIDE | [facility] | + + + + | 2022-07-17 00:00 | GABAPENTIN | [facility] | + + + + | 2020-10-14 00:00 | POTASSIUM CHLORIDE | [facility] | + + + + | 2020-10-14 00:00 | POTASSIUM CHLORIDE | [facility] | + + + + | 2020-10-14 00:00 | POTASSIUM CHLORIDE | [facility] | + + + + | 2020-10-14 00:00 | POTASSIUM CHLORIDE | [facility] | + + + + | 2020-10-14 00:00 | POTASSIUM CHLORIDE | [facility] | + + + + | 2020-10-14 00:00 | potassium chloride 10 MEQ | [facility] | | | Extended Release Oral | | | | Capsule | | + + + + | 2022-07-01 00:00 | SPIRONOLACTONE | [facility] | + + + + | 2022-07-17 00:00 | SPIRONOLACTONE | [facility] | + + + + | 2022-01-27 00:00 | FUROSEMIDE | [facility] | + + + + | 2022-03-02 00:00 | FUROSEMIDE | [facility] | + + + + | 2022-01-27 00:00 | furosemide 40 MG Oral | [facility] | | | Tablet | | + + + + | 2022-03-02 00:00 | furosemide 40 MG Oral | [facility] | | | Tablet | | + + + + | 2022-01-27 00:00 | VALSARTAN | [facility] | + + + + | 2022-03-02 00:00 | VALSARTAN | [facility] | + + + + | 2022-04-22 00:00 | VALSARTAN | [facility] | + + + + | 2022-05-01 00:00 | VALSARTAN | [facility] | + + + + | 2022-07-17 00:00 | VALSARTAN | [facility] | + + + + | 2022-01-27 00:00 | valsartan 80 MG Oral | [facility] | | | Tablet | | + + + + | 2022-03-02 00:00 | valsartan 80 MG Oral | [facility] | | | Tablet | | + + + + | 2022-01-27 00:00 | ATORVASTATIN | [facility] | + + + + | 2022-03-02 00:00 | ATORVASTATIN | [facility] | + + + + | 2022-04-22 00:00 | ATORVASTATIN | [facility] | + + + + | 2022-05-01 00:00 | ATORVASTATIN | [facility] | + + + + | 2022-07-01 00:00 | ATORVASTATIN | [facility] | + + + + | 2022-07-17 00:00 | ATORVASTATIN | [facility] | + + + + | 2022-01-27 00:00 | atorvastatin 40 MG Oral | [facility] | | | Tablet [Lipitor] | | + + + + | 2022-03-02 00:00 | atorvastatin 40 MG Oral | [facility] | | | Tablet [Lipitor] | | + + + + | 2017-03-21 00:00 | CYCLOBENZAPRINE HCL | [facility] | + + + + | 2017-03-21 00:00 | CYCLOBENZAPRINE HCL | [facility] | + + + + | 2017-03-21 00:00 | CYCLOBENZAPRINE HCL | [facility] | + + + + | 2017-03-21 00:00 | CYCLOBENZAPRINE HCL | [facility] | + + + + | 2017-03-21 00:00 | CYCLOBENZAPRINE HCL | [facility] | + + + + | 2017-03-21 00:00 | cyclobenzaprine | [facility] | | | hydrochloride 10 MG Oral | | | | Tablet | | + + + + | 2022-01-27 00:00 | WARFARIN SODIUM | [facility] | + + + + | 2022-03-02 00:00 | WARFARIN SODIUM | [facility] | + + + + | 2022-04-22 00:00 | WARFARIN SODIUM | [facility] | + + + + | 2022-05-01 00:00 | WARFARIN SODIUM | [facility] | + + + + | 2022-07-01 00:00 | WARFARIN SODIUM | [facility] | + + + + | 2022-07-17 00:00 | WARFARIN SODIUM | [facility] | + + + + | 2022-01-27 00:00 | warfarin sodium 10 MG Oral | [facility] | | | Tablet [Jantoven] | | + + + + | 2022-03-02 00:00 | warfarin sodium 10 MG Oral | [facility] | | | Tablet [Jantoven] | | + + + + | 2022-01-27 00:00 | 24 HR metoprolol succinate | [facility] | | | 25 MG Extended Release | | | | Oral Table | | + + + + | 2022-03-02 00:00 | 24 HR metoprolol succinate | [facility] | | | 25 MG Extended Release | | | | Oral Table | | + + + + | 2022-01-27 00:00 | METOPROLOL SUCCINATE | [facility] | + + + + | 2022-03-02 00:00 | METOPROLOL SUCCINATE | [facility] | + + + + | 2022-04-22 00:00 | METOPROLOL SUCCINATE | [facility] | + + + + | 2022-05-01 00:00 | METOPROLOL SUCCINATE | [facility] | + + + + | 2022-07-01 00:00 | METOPROLOL SUCCINATE | [facility] | + + + + | 2022-07-17 00:00 | METOPROLOL SUCCINATE | [facility] | + + + + | 2022-01-27 00:00 | Levothyroxine Sodium | [facility] | + + + + | 2022-03-02 00:00 | Levothyroxine Sodium | [facility] | + + + + | 2022-01-27 00:00 | levothyroxine sodium 0.075 | [facility] | | | MG Oral Capsule | | + + + + | 2022-03-02 00:00 | levothyroxine sodium 0.075 | [facility] | | | MG Oral Capsule | | + + + + | 2022-04-22 00:00 | LEVOTHYROXINE SODIUM | [facility] | + + + + | 2022-05-01 00:00 | LEVOTHYROXINE SODIUM | [facility] | + + + + | 2022-07-01 00:00 | LEVOTHYROXINE SODIUM | [facility] | + + + + | 2022-07-17 00:00 | LEVOTHYROXINE SODIUM | [facility] | + + + + | 2022-01-27 00:00 | LOSARTAN POTASSIUM | [facility] | + + + + | 2022-03-02 00:00 | LOSARTAN POTASSIUM | [facility] | + + + + | 2022-04-22 00:00 | LOSARTAN POTASSIUM | [facility] | + + + + | 2022-05-01 00:00 | LOSARTAN POTASSIUM | [facility] | + + + + | 2022-07-01 00:00 | LOSARTAN POTASSIUM | [facility] | + + + + | 2022-07-17 00:00 | LOSARTAN POTASSIUM | [facility] | + + + + | 2022-01-27 00:00 | losartan potassium 25 MG | [facility] | | | Oral Tablet [Cozaar] | | + + + + | 2022-03-02 00:00 | losartan potassium 25 MG | [facility] | | | Oral Tablet [Cozaar] | | + + + + Problems + + + + | date | description | facility | + + + + | 2020-10-14 00:00 | CHF (congestive heart | [facility] | | | failure) | | + + + + | 2020-10-14 00:00 | Congestive heart failure | [facility] | + + + + | 2020-10-14 00:00 | Congestive heart failure | [facility] | + + + + | 2020-10-14 00:00 | Congestive heart failure | [facility] | + + + + | 2020-10-14 00:00 | Congestive heart failure | [facility] | + + + + | 2020-10-14 00:00 | Congestive heart failure | [facility] | + + + + | 2020-10-14 00:00 | Dyspnea | [facility] | + + + + | 2020-10-14 00:00 | Dyspnea | [facility] | + + + + | 2020-10-14 00:00 | Dyspnea | [facility] | + + + + | 2020-10-14 00:00 | Dyspnea | [facility] | + + + + | 2020-10-14 00:00 | Dyspnea | [facility] | + + + + | 2020-11-01 00:00 | Chest pain | [facility] | + + + + | 2020-11-01 00:00 | Chest pain | [facility] | + + + + | 2020-11-01 00:00 | Chest pain | [facility] | + + + + | 2020-11-01 00:00 | Chest pain | [facility] | + + + + | 2020-11-01 00:00 | Chest pain | [facility] | + + + + | 2021-03-25 00:00 | Right flank pain [facility] | + + + + | 2021-03-25 00:00 | Right flank pain | [facility] | + + + + | 2021-03-25 00:00 | Right flank pain | [facility] | + + + + | 2021-03-25 00:00 | Right flank pain | [facility] | + + + + | 2021-03-25 00:00 | Right flank pain | [facility] | + + + + | 2021-03-25 02:29 | UNSPECIFIED ABDOMINAL PAIN | [facility] | | | | | + + + + | 2021-03-25 02:29 | SHELTER (CURRENT) USE OF | [facility] | | | 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 | | + + + + | 2021-03-25 02:29 | OTHER SHELTER (CURRENT) | [facility] | | | DRUG [...] | 2021-04-16 00:00 | Near syncope | [facility] | + + + + | 2021-04-16 00:00 | Transient hypotension | [facility] | + + + + | 2021-04-16 00:00 | Transient hypotension | [facility] | + + + + | 2021-04-16 00:00 | Transient hypotension | [facility] | + + + + | 2021-04-16 00:00 | Transient hypotension | [facility] | + + + + | 2021-04-16 00:00 | Transient hypotension | [facility] | + + + + | 2021-04-16 00:00 | Pre-syncope | [facility] | + + + + | 2021-04-16 00:00 | Pre-syncope | [facility] | + + + + | 2021-04-16 00:00 | Pre-syncope | [facility] | + + + + | 2021-04-16 00:00 | Pre-syncope | [facility] | + + + + | 2021-04-16 00:00 | Pre-syncope | [facility] | + + + + [...] + + + | 2021-04-22 12:11 | SHELTER (CURRENT) USE OF | [facility] | | | 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 | | + + + + | 2021-04-22 12:11 | OTHER PLAN CHECKER (CURRENT) | [facility] | | | DRUG [...] + + + | 2021-05-21 13:05 | PLAN CHECKER (CURRENT) USE OF | [facility] | | | 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 | | + + + + | 2021-05-21 13:05 | 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 | | + + + + | 2021-11-01 00:00 | Right wrist pain [facility] | + + + + | 2021-11-01 00:00 | Right wrist pain | [facility] | + + + + | 2021-11-01 00:00 | Right wrist pain | [facility] | + + + + | 2021-11-01 00:00 | Right wrist pain | [facility] | + + + + | 2021-11-01 00:00 | Right wrist pain | [facility] | + + + + | 2022-01-27 00:00 | Vitreous detachment | [facility] | + + + + | 2022-01-27 00:00 | Vitreous detachment | [facility] | + + + + | 2022-01-27 00:00 | Vitreous detachment | [facility] | + + + + | 2022-01-27 00:00 | Vitreous detachment | [facility] | + + + + | 2022-01-27 00:00 | Vitreous detachment | [facility] | + + + + | 2022-01-27 11:27 | VITREOUS DEGENERATION, | [facility]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 | | + + + + | 2022-01-27 11:27 | UNSPECIFIED | [facility] | | | OSTEOARTHRITIS, UNSPECIFIED | | | | SITE | | + + + + | 2022-01-27 11:27 | SHELTER (CURRENT) USE OF | [facility] | | | 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 | | + + + + | 2022-01-27 11:27 | OTHER PLAN CHECKER (CURRENT) | [facility] | | | DRUG [...] + + + | 2022-02-25 14:00 | SHELTER (CURRENT) USE OF | [facility] | | | 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 | | + + + + | 2022-02-25 14:00 | 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 | | + + + + | 2022-03-02 00:00 | RSV infection | [facility] | + + + + | 2022-03-02 00:00 | Infection due to | [facility] | | | respiratory syncytial virus | | | | (RSV) | | + + + + | 2022-03-02 00:00 | Infection due to | [facility] | | | respiratory syncytial virus | | | | (RSV) | | + + + + | 2022-03-02 00:00 | Infection due to | [facility] | | | respiratory syncytial virus | | | | (RSV) | | + + + + | 2022-03-02 00:00 | Infection due to | [facility] | | | respiratory syncytial virus | | | | (RSV) | | + + + + | 2022-03-02 00:00 | Infection due to | [facility] | | | respiratory syncytial [...] + + + | 2022-03-02 02:09 | PLAN CHECKER (CURRENT) USE OF | [facility] | | | 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 | | + + + + | 2022-03-02 02:09 | OTHER PLAN CHECKER (CURRENT) | [facility] | | | DRUG [...] + + + | 2022-03-25 14:30 | PLAN CHECKER (CURRENT) USE OF | [facility] | | | 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 | | + + + + | 2022-03-25 14:30 | 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 | | + + + + | 2022-04-22 13:40 | ENCOUNTER FOR THERAPEUTIC | [facility] | | | DRUG LEVEL MONITORING | | + + + + | 2022-04-22 13:40 | PLAN CHECKER (CURRENT) USE OF | [facility] | | [...] + + + | 2022-04-22 14:48 | PLAN CHECKER (CURRENT) USE OF | [facility] | | | 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 | | + + + + | 2022-04-22 14:48 | OTHER SHELTER (CURRENT) | [facility] | | | DRUG [...] 2022-05-01 00:00 | Encounter for medical | [facility] | | | screening examination | | + + + + | 2022-05-01 00:00 | Encounter for medical | [facility] | | | screening examination | | + + + + | 2022-05-01 00:00 | Encounter for medical | [facility] | | | screening examination | | + + + + | 2022-05-20 14:30 | ENCOUNTER FOR THERAPEUTIC | [facility] | | | DRUG LEVEL MONITORING | | + + + + | 2022-05-20 14:30 | PLAN CHECKER (CURRENT) USE OF | [facility] | | | 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 | | + + + + | 2022-05-20 14:30 | 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 | | + + + + | 2022-06-17 14:20 | ENCOUNTER FOR THERAPEUTIC | [facility] | | | DRUG LEVEL MONITORING | | + + + + | 2022-06-17 14:20 | SHELTER (CURRENT) USE OF | [facility] | | [...] + + + | 2022-07-01 10:14 | PLAN CHECKER (CURRENT) USE OF | [facility] | | | 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 | | + + + + | 2022-07-01 10:14 | OTHER PLAN CHECKER (CURRENT) | [facility] | | | DRUG [...] + + + | 2022-07-15 14:20 | SHELTER (CURRENT) USE OF | [facility] | | [...] + + + | 2022-07-17 20:06 | PLAN CHECKER (CURRENT) USE OF | [facility] | | | 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 | | + + + + | 2022-07-17 20:06 | OTHER SHELTER (CURRENT) | [facility] | | | DRUG [...] + + + | 2022-08-12 14:15 | SHELTER (CURRENT) USE OF | [facility] | | [...] + + | 2022-08-21 12:31 | OTHER PLAN CHECKER (CURRENT) | [facility] | | | DRUG THERAPY | | + + + + | 2022-08-26 14:16 | ENCOUNTER FOR THERAPEUTIC | [facility] | | | DRUG LEVEL MONITORING | | + + + + | 2022-08-26 14:16 | SHELTER (CURRENT) USE OF | [facility] | | [...] + + + | 2022-09-02 14:55 | SHELTER (CURRENT) USE OF | [facility] | | [...] + + + | 2022-09-09 14:25 | PLAN CHECKER (CURRENT) USE OF | [facility] | | [...] + + + | 2022-09-16 11:00 | PLAN CHECKER (CURRENT) USE OF | [facility] | | [...] + + + | 2022-09-30 10:35 | PLAN CHECKER (CURRENT) USE OF | [facility] | | [...] + + + | 2022-10-14 14:35 | PLAN CHECKER (CURRENT) USE OF | [facility] | | [...] + + + | 2022-10-28 14:40 | PLAN CHECKER (CURRENT) USE OF | [facility] | | [...] + + + | 2022-11-25 14:05 | SHELTER (CURRENT) USE OF | [facility] | | [...] (missing) | | (unavailable | 20:20:08 | [facility] | | | | | [...] (missing) | | (unavailable | 20:20:08 | [facility] | | | | | [...] | 2022-01-27 00:00 | Never smoker | [facility] | + + + + | 2022-03-02 00:00 | Never smoker | [facility] | + + + + [...]
[~2022-11-28 11:30] MED LIST changes: +AMIODARONE HCL200 MG PO; +FLUCONAZOLE100 MG PO
[2022-11-28] MEDS ORDERED: CITALOPRAM HBR20 MG PO (12:21)
[2022-11-28] MEDS ORDERED: WARFARIN SODIUM10 MG PO (12:23)
[2022-11-28] MEDS ORDERED: K-TAB ER20 MEQ PO (15:17)
[2022-11-28 15:57] VITALS: BP 136/77
--- NOTE | 2022-11-29 06:25 | EKG ---
[facility] [address] [place] [address] Signed Junctional rhythm Possible Inferior infarct (cited on or before 02-MAR-2022) Abnormal ECG When compared with ECG of 17-JUL-2022 20:36, Junctional rhythm has replaced Sinus rhythm ST no longer depressed in Lateral leads Confirmed by ARTIE RAMON MD ([id number]) on 11/29/2022 6:24:43 AM Electronically Signed By: ARTIE RAMON 11/29/22 0625 PATIENT NAME: NINI MARTINEZ Electrocardiogram DATE OF : 56 PHYSICIAN: ARTIE RAMON REPORT #: [id number] REPORT IS CONFIDENTIAL AND NOT TO BE RELEASED WITHOUT AUTHORIZATION
== END 2022-11-28 15:58 | disposition home or self-care (01) ==
LOC: ED 11:30
DX: R06.00 Dyspnea, unspecified (principal); I50.9 Heart failure, unspecified; E87.6 Hypokalemia; Z88.5 Allergy status to narcotic agent; Z88.8 Allergy status to other drugs, medicaments and biological substances; Z91.018 Allergy to other foods; Z79.890 Hormone replacement therapy; Z79.01 Long term (current) use of anticoagulants
CPT/HCPCS: 36415; 71045; 71275; 74174; 80053; 83735; 83880; 84484; 85025; 85379; 85610; 93005; 93010; 94640; A9270; J1170; Q9967

== ENCOUNTER 2022-12-16 18:59 | Emergency (ER) | payer MEDICARE ==
[~2022-12-16] VITALS: Ht 185.4 cm; Wt 159.7 kg
--- OUTSIDE RECORDS SUMMARY | ~2022-12-16 | XMS | Continuity of Care Document ---
Demographics + + + | Address | [address] | | | [place] [address] | + + + | Preferred Language | Unknown | + + + | Marital Status | | + + + | Buddhism Affiliation | Unknown | + + + | Race | White | + + + | Ethnic Group | Not or | + + + Author + + + | Author | [facility] | + + + | Organization | [facility] | + + + | Address | [address] | | | [place] [address] | + + + | Phone | | + + + Care Team Providers + + + + | Care Production Team Leader Name | Role | Phone | + + + + Unavailable | Unavailable | + + + + Unavailable | Unavailable | + + + + Unavailable | Unavailable | + + + + Unavailable | Unavailable | + + + + Unavailable | Unavailable | + + + + Unavailable | Unavailable | + + + + Unavailable | Unavailable | + + + + Allergies and Intolerances + + + + + + | date | description | facility | reaction | severity | + + + + + + | (no date) | Valsartan | [facility] | (no reaction) | (no severity) | | [facility] | | + + + + + + | (no date) | Enoxaparin | [facility] | (no reaction) | (no severity) | | [facility] | | | + + + + + + | (no date) | Silicone | [facility] | (no reaction) | (no severity) | | [facility] | | | + + + + + + | (no date) | Coffee | [facility] | (no reaction) | (no severity) | | [facility] | | | + + + + + + | (no date) | Erythromycin | [facility] | (no reaction) | (no severity) | | [facility] | | | + + + + + + | (no date) | Heparin | [facility] | (no reaction) | (no severity) | | [facility] | | | + + + + + + | (no date) | Morphine | [facility] | (no reaction) | (no severity) | | [facility] | | | + + + + + + | (no date) | Meperidine | [facility] | (no reaction) | (no severity) | | [facility] | | | + + + + + + | (no date) | Anaphylaxis | [facility] | (no reaction) | (no severity) | | [facility] | | + + + + + + | (no date) | Dizziness | [facility] | (no reaction) | (no severity) | | [facility] | | | + + + + + + | (no date) | Itching | [facility] | (no reaction) | (no severity) | | [facility] | | | + + + + + + | (no date) | Heparin | [facility] | (no reaction) | (no severity) | | [facility] | | | + + + + + + | (no date) | heparin | [facility] | (no reaction) | (no severity) | | [facility] | | | + + + + + + | (no date) | Enoxaparin | [facility] | (no reaction) | (no severity) | | [facility] | | | + + + + + + | (no date) | enoxaparin | [facility] | (no reaction) | (no severity) | | [facility] | | + + + + + + | (no date) | Meperidine | [facility] | (no reaction) | (no severity) | | [facility] | | | + + + + + + | (no date) | meperidine | [facility] | (no reaction) | (no severity) | | [facility] | | | + + + + + + | (no date) | Valsartan | [facility] | (no reaction) | (no severity) | | [facility] | | | + + + + + + | (no date) | Morphine | [facility] | (no reaction) | (no severity) | | [facility] | | | + + + + + + | (no date) | morphine | [facility] | (no reaction) | (no severity) | | [facility] | | | + + + + + + | (no date) | Morphine | [facility] | (no reaction) | (no severity) | | [facility] | | | + + + + + + | (no date) | Valsartan | [facility] | (no reaction) | (no severity) | | [facility] | | | + + + + + + | (no date) | Meperidine | [facility] | (no reaction) | (no severity) | | [facility] | | | + + + + + + | (no date) | Enoxaparin | [facility] | (no reaction) | (no severity) | | [facility] | | | + + + + + + | (no date) | morphine | [facility] | (no reaction) | (no severity) | + + + + + + | (no date) | erythromycin | [facility] | (no reaction) | (no severity) | | | base | | | | + + + + + + | (no date) | enoxaparin | [facility] | (no reaction) | (no severity) | + + + + + + | (no date) | meperidine | [facility] | (no reaction) | (no severity) | + + + + + + | (no date) | valsartan | [facility] | (no reaction) | (no severity) | + + + + + + | (no date) | silicone | [facility] | (no reaction) | (no severity) | + + + + + + | (no date) | coffee (Coffea | [facility] | (no reaction) | (no severity) | | | [facility]) | | | | + + + + + + | (no date) | heparin | [facility] | (no reaction) | (no severity) | + + + + + + | (no date) | sacubitril | [facility] | (no reaction) | (no severity) | + + + + + + | (no date) | Coffee | [facility] | (no reaction) | (no severity) | | [facility] | | | + + + + + + | (no date) | coffee (Coffea | [facility] | (no reaction) | (no severity) | | | arabica) | [facility] | | | + + + + + + | (no date) | Silicone | [facility] | (no reaction) | (no severity) | | [facility] | | | + + + + + + | (no date) | silicone | [facility] | (no reaction) | (no severity) | | [facility] | | | + + + + + + | (no date) | Erythromycin | [facility] | (no reaction) | (no severity) | | | base | [facility] | | | + + + + + + | (no date) | erythromycin | [facility] | (no reaction) | (no severity) | | | base | [facility] | | | + + + + + + | (no date) | Heparin | [facility] | (no reaction) | (no severity) | | [facility] | | | + + + + + + Encounters No information. Functional Status No information. Immunizations + + + + | date | description | facility | + + + + | 2022-01-27 00:00 | No vaccine administered | [facility] | + + + + | 2022-03-02 00:00 | No vaccine administered | [facility] | + + + + Medications + + + + | date | description | facility | + + + + | 2022-01-27 00:00 | GABAPENTIN | [facility] | + + + + | 2022-03-02 00:00 | GABAPENTIN | [facility] | + + + + | 2022-04-22 00:00 | GABAPENTIN | [facility] | + + + + | 2022-05-01 00:00 | GABAPENTIN | [facility] | + + + + | 2022-07-01 00:00 | GABAPENTIN | [facility] | + + + + | 2022-01-27 00:00 | gabapentin 100 MG Oral | [facility] | | | Capsule [Neurontin] | | + + + + | 2022-03-02 00:00 | gabapentin 100 MG Oral | [facility] | | | Capsule [Neurontin] | | + + + + | 2022-03-02 00:00 | Millipred DP 6 Day Dose | [facility] | | | Pack | | + + + + | 2022-03-02 00:00 | PREDNISOLONE | [facility] | + + + + | 2022-11-28 00:00 | POTASSIUM CHLORIDE | [facility] | + + + + | 2022-07-01 00:00 | EMPAGLIFLOZIN | [facility] | + + + + | 2022-07-17 00:00 | EMPAGLIFLOZIN | [facility] | + + + + | 2022-11-28 00:00 | EMPAGLIFLOZIN | [facility] | + + + + | 2022-07-01 00:00 | SACUBITRIL/VALSARTAN | [facility] | + + + + | 2022-03-02 00:00 | BENZONATATE | [facility] | + + + + | 2022-03-02 00:00 | BENZONATATE | [facility] | + + + + | 2022-03-02 00:00 | BENZONATATE | [facility] | + + + + | 2022-03-02 00:00 | benzonatate 100 MG Oral | [facility] | | | Capsule | | + + + + | 2022-07-01 00:00 | NITROGLYCERIN | [facility] | + + + + | 2022-07-17 00:00 | NITROGLYCERIN | [facility] | + + + + | 2022-11-28 00:00 | NITROGLYCERIN | [facility] | + + + + | 2022-11-28 00:00 | CITALOPRAM HYDROBROMIDE | [facility] | + + + + | 2022-04-22 00:00 | FUROSEMIDE | [facility] | + + + + | 2022-04-22 00:00 | FUROSEMIDE | [facility] | + + + + | 2022-01-27 00:00 | CITALOPRAM HYDROBROMIDE | [facility] | + + + + | 2022-03-02 00:00 | CITALOPRAM HYDROBROMIDE | [facility] | + + + + | 2022-04-22 00:00 | CITALOPRAM HYDROBROMIDE | [facility] | + + + + | 2022-05-01 00:00 | CITALOPRAM HYDROBROMIDE | [facility] | + + + + | 2022-07-01 00:00 | CITALOPRAM HYDROBROMIDE | [facility] | + + + + | 2022-07-17 00:00 | CITALOPRAM HYDROBROMIDE | [facility] | + + + + | 2022-01-27 00:00 | citalopram 10 MG Oral | [facility] | | | Tablet | | + + + + | 2022-03-02 00:00 | citalopram 10 MG Oral | [facility] | | | Tablet | | + + + + | 2022-04-22 00:00 | FUROSEMIDE | [facility] | + + + + | 2022-07-17 00:00 | FUROSEMIDE | [facility] | + + + + | 2022-07-17 00:00 | GABAPENTIN | [facility] | + + + + | 2022-11-28 00:00 | GABAPENTIN | [facility] | + + + + | 2020-10-14 00:00 | POTASSIUM CHLORIDE | [facility] | + + + + | 2020-10-14 00:00 | POTASSIUM CHLORIDE | [facility] | + + + + | 2020-10-14 00:00 | POTASSIUM CHLORIDE | [facility] | + + + + | 2020-10-14 00:00 | POTASSIUM CHLORIDE | [facility] | + + + + | 2020-10-14 00:00 | POTASSIUM CHLORIDE | [facility] | + + + + | 2020-10-14 00:00 | potassium chloride 10 MEQ | [facility] | | | Extended Release Oral | | | | Capsule | | + + + + | 2022-07-01 00:00 | SPIRONOLACTONE | [facility] | + + + + | 2022-07-17 00:00 | SPIRONOLACTONE | [facility] | + + + + | 2022-11-28 00:00 | SPIRONOLACTONE | [facility] | + + + + | 2022-01-27 00:00 | FUROSEMIDE | [facility] | + + + + | 2022-03-02 00:00 | FUROSEMIDE | [facility] | + + + + | 2022-11-28 00:00 | FUROSEMIDE | [facility] | + + + + | 2022-01-27 00:00 | furosemide 40 MG Oral | [facility] | | | Tablet | | + + + + | 2022-03-02 00:00 | furosemide 40 MG Oral | [facility] | | | Tablet | | + + + + | 2022-01-27 00:00 | VALSARTAN | [facility] | + + + + | 2022-03-02 00:00 | VALSARTAN | [facility] | + + + + | 2022-04-22 00:00 | VALSARTAN | [facility] | + + + + | 2022-05-01 00:00 | VALSARTAN | [facility] | + + + + | 2022-07-17 00:00 | VALSARTAN | [facility] | + + + + | 2022-11-28 00:00 | VALSARTAN | [facility] | + + + + | 2022-01-27 00:00 | valsartan 80 MG Oral | [facility] | | | Tablet | | + + + + | 2022-03-02 00:00 | valsartan 80 MG Oral | [facility] | | | Tablet | | + + + + | 2022-01-27 00:00 | ATORVASTATIN | [facility] | + + + + | 2022-03-02 00:00 | ATORVASTATIN | [facility] | + + + + | 2022-04-22 00:00 | ATORVASTATIN | [facility] | + + + + | 2022-05-01 00:00 | ATORVASTATIN | [facility] | + + + + | 2022-07-01 00:00 | ATORVASTATIN | [facility] | + + + + | 2022-07-17 00:00 | ATORVASTATIN | [facility] | + + + + | 2022-11-28 00:00 | ATORVASTATIN | [facility] | + + + + | 2022-01-27 00:00 | atorvastatin 40 MG Oral | [facility] | | | Tablet [Lipitor] | | + + + + | 2022-03-02 00:00 | atorvastatin 40 MG Oral | [facility] | | | Tablet [Lipitor] | | + + + + | 2017-03-21 00:00 | CYCLOBENZAPRINE HCL | [facility] | + + + + | 2017-03-21 00:00 | CYCLOBENZAPRINE HCL | [facility] | + + + + | 2017-03-21 00:00 | CYCLOBENZAPRINE HCL | [facility] | + + + + | 2017-03-21 00:00 | CYCLOBENZAPRINE HCL | [facility] | + + + + | 2017-03-21 00:00 | CYCLOBENZAPRINE HCL | [facility] | + + + + | 2017-03-21 00:00 | cyclobenzaprine | [facility] | | | hydrochloride 10 MG Oral | | | | Tablet | | + + + + | 2022-11-28 00:00 | AMIODARONE HCL | [facility] | + + + + | 2022-11-28 00:00 | WARFARIN SODIUM | [facility] | + + + + | 2022-01-27 00:00 | WARFARIN SODIUM | [facility] | + + + + | 2022-03-02 00:00 | WARFARIN SODIUM | [facility] | + + + + | 2022-04-22 00:00 | WARFARIN SODIUM | [facility] | + + + + | 2022-05-01 00:00 | WARFARIN SODIUM | [facility] | + + + + | 2022-07-01 00:00 | WARFARIN SODIUM | [facility] | + + + + | 2022-07-17 00:00 | WARFARIN SODIUM | [facility] | + + + + | 2022-11-28 00:00 | WARFARIN SODIUM | [facility] | + + + + | 2022-01-27 00:00 | warfarin sodium 10 MG Oral | [facility] | | | Tablet [Jantoven] | | + + + + | 2022-03-02 00:00 | warfarin sodium 10 MG Oral | [facility] | | | Tablet [Jantoven] | | + + + + | 2022-01-27 00:00 | 24 HR metoprolol succinate | [facility] | | | 25 MG Extended Release | | | | Oral Table | | + + + + | 2022-03-02 00:00 | 24 HR metoprolol succinate | [facility] | | | 25 MG Extended Release | | | | Oral Table | | + + + + | 2022-01-27 00:00 | METOPROLOL SUCCINATE | [facility] | + + + + | 2022-03-02 00:00 | METOPROLOL SUCCINATE | [facility] | + + + + | 2022-04-22 00:00 | METOPROLOL SUCCINATE | [facility] | + + + + | 2022-05-01 00:00 | METOPROLOL SUCCINATE | [facility] | + + + + | 2022-07-01 00:00 | METOPROLOL SUCCINATE | [facility] | + + + + | 2022-07-17 00:00 | METOPROLOL SUCCINATE | [facility] | + + + + | 2022-11-28 00:00 | METOPROLOL SUCCINATE | [facility] | + + + + | 2022-01-27 00:00 | Levothyroxine Sodium | [facility] | + + + + | 2022-03-02 00:00 | Levothyroxine Sodium | [facility] | + + + + | 2022-01-27 00:00 | levothyroxine sodium 0.075 | [facility] | | | MG Oral Capsule | | + + + + | 2022-03-02 00:00 | levothyroxine sodium 0.075 | [facility] | | | MG Oral Capsule | | + + + + | 2022-04-22 00:00 | LEVOTHYROXINE SODIUM | [facility] | + + + + | 2022-05-01 00:00 | LEVOTHYROXINE SODIUM | [facility] | + + + + | 2022-07-01 00:00 | LEVOTHYROXINE SODIUM | [facility] | + + + + | 2022-07-17 00:00 | LEVOTHYROXINE SODIUM | [facility] | + + + + | 2022-11-28 00:00 | LEVOTHYROXINE SODIUM | [facility] | + + + + | 2022-01-27 00:00 | LOSARTAN POTASSIUM | [facility] | + + + + | 2022-03-02 00:00 | LOSARTAN POTASSIUM | [facility] | + + + + | 2022-04-22 00:00 | LOSARTAN POTASSIUM | [facility] | + + + + | 2022-05-01 00:00 | LOSARTAN POTASSIUM | [facility] | + + + + | 2022-07-01 00:00 | LOSARTAN POTASSIUM | [facility] | + + + + | 2022-07-17 00:00 | LOSARTAN POTASSIUM | [facility] | + + + + | 2022-11-28 00:00 | LOSARTAN POTASSIUM | [facility] | + + + + | 2022-01-27 00:00 | losartan potassium 25 MG | [facility] | | | Oral Tablet [Cozaar] | | + + + + | 2022-03-02 00:00 | losartan potassium 25 MG | [facility] | | | Oral Tablet [Cozaar] | | + + + + Problems + + + + | date | description | facility | + + + + | 2020-10-14 00:00 | CHF (congestive heart | [facility] | | | failure) | | + + + + | 2020-10-14 00:00 | Congestive heart failure | [facility] | + + + + | 2020-10-14 00:00 | Congestive heart failure | [facility] | + + + + | 2020-10-14 00:00 | Congestive heart failure | [facility] | + + + + | 2020-10-14 00:00 | Congestive heart failure | [facility] | + + + + | 2020-10-14 00:00 | Congestive heart failure | [facility] | + + + + | 2020-10-14 00:00 | Dyspnea | [facility] | + + + + | 2020-10-14 00:00 | Dyspnea | [facility] | + + + + | 2020-10-14 00:00 | Dyspnea | [facility] | + + + + | 2020-10-14 00:00 | Dyspnea | [facility] | + + + + | 2020-10-14 00:00 | Dyspnea | [facility] | + + + + | 2020-11-01 00:00 | Chest pain | [facility] | + + + + | 2020-11-01 00:00 | Chest pain | [facility] | + + + + | 2020-11-01 00:00 | Chest pain | [facility] | + + + + | 2020-11-01 00:00 | Chest pain | [facility] | + + + + | 2020-11-01 00:00 | Chest pain | [facility] | + + + + | 2021-03-25 00:00 | Right flank pain | [facility] | + + + + | 2021-03-25 00:00 | Right flank pain | [facility] | + + + + | 2021-03-25 00:00 | Right flank pain | [facility] | + + + + | 2021-03-25 00:00 | Right flank pain | [facility] | + + + + | 2021-03-25 00:00 | Right flank pain | [facility] | + + + + | 2021-03-25 02:29 | UNSPECIFIED ABDOMINAL PAIN | [facility] | | | | | + + + + | 2021-03-25 02:29 | 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 | | + + + + | 2021-03-25 02:29 | OTHER CUSTODIAL (CURRENT) | [facility] | | | DRUG THERAPY | | + + + + | 2021-03-25 02:29 | ALLERGY STATUS TO OTHER | [facility] | | | ANTIBIOTIC AGENTS STATUS | | + + + + | 2021-03-25 02:29 | ALLERGY STATUS TO NARCOTIC | [facility] | | | AGENT STATUS | | + + + + | 2021-03-25 02:29 | ALLERGY STATUS TO OTH | [facility] | | | DRUG/MEDS/BIOL SUBST STATUS | | | | | | + + + + | 2021-04-16 00:00 | Near syncope | [facility] | + + + + | 2021-04-16 00:00 | Transient hypotension | [facility] | + + + + | 2021-04-16 00:00 | Transient hypotension | [facility] | + + + + | 2021-04-16 00:00 | Transient hypotension | [facility] | + + + + | 2021-04-16 00:00 | Transient hypotension | [facility] | + + + + | 2021-04-16 00:00 | Transient hypotension | [facility] | + + + + | 2021-04-16 00:00 | Pre-syncope | [facility] | + + + + | 2021-04-16 00:00 | Pre-syncope | [facility] | + + + + | 2021-04-16 00:00 | Pre-syncope | [facility] | + + + + | 2021-04-16 00:00 | Pre-syncope | [facility] | + + + + | 2021-04-16 00:00 | Pre-syncope | [facility] | + + + + | 2021-04-22 12:11 | CHEST PAIN, UNSPECIFIED | [facility] | + + + + | 2021-04-22 12:11 | CONTUSION OF LEFT FRONT | [facility] | | | WALL OF THORAX, INITIAL EN | | + + + + | 2021-04-22 12:11 | CONTUSION OF LEFT | [facility] | | | SHOULDER, INITIAL ENCOUNTER | | | | | | + + + + | 2021-04-22 12:11 | CONTUSION OF RIGHT HIP, | [facility] | | | INITIAL ENCOUNTER | | + + + + | 2021-04-22 12:11 | CONTUSION OF RIGHT KNEE, | [facility] | | | INITIAL ENCOUNTER | | + + + + | 2021-04-22 12:11 | CONTUSION OF LEFT FOOT, | [facility] | | | INITIAL ENCOUNTER | | + + + + | 2021-04-22 12:11 | OTHER FALL FROM ONE LEVEL | [facility] | | | TO ANOTHER, INITIAL ENCO | | + + + + | 2021-04-22 12:11 | 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 | | + + + + | 2021-04-22 12:11 | 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) | [facility] | | | 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 THERAPY | | + + + + | 2021-04-22 12:11 | ALLERGY STATUS TO OTHER | [facility] | | | ANTIBIOTIC AGENTS STATUS | | + + + + | 2021-04-22 12:11 | ALLERGY STATUS TO NARCOTIC | [facility] | | | AGENT STATUS | | + + + + | 2021-04-22 12:11 | ALLERGY STATUS TO OTH | [facility] | | | DRUG/MEDS/BIOL SUBST STATUS | | | | | | + + + + | 2021-04-22 12:11 | ALLERGY TO OTHER FOODS | [facility] | + + + + | 2021-05-21 13:05 | ENCOUNTER FOR THERAPEUTIC | [facility] | | | DRUG LEVEL MONITORING | | + + + + | 2021-05-21 13:05 | CUSTODIAL (CURRENT) USE OF | [facility] | | | 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 | | + + + + | 2021-05-21 13:05 | 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 | | + + + + | 2021-11-01 00:00 | Right wrist pain | [facility] | + + + + | 2021-11-01 00:00 | Right wrist pain | [facility] | + + + + | 2021-11-01 00:00 | Right wrist pain | [facility] | + + + + | 2021-11-01 00:00 | Right wrist pain | [facility] | + + + + | 2021-11-01 00:00 | Right wrist pain | [facility] | + + + + | 2022-01-27 00:00 | Vitreous detachment | [facility] | + + + + | 2022-01-27 00:00 | Vitreous detachment | [facility] | + + + + | 2022-01-27 00:00 | Vitreous detachment | [facility] | + + + + | 2022-01-27 00:00 | Vitreous detachment | [facility] | + + + + | 2022-01-27 00:00 | Vitreous detachment | [facility] | + + + + | 2022-01-27 11:27 | VITREOUS DEGENERATION, | [facility]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 | | + + + + | 2022-01-27 11:27 | UNSPECIFIED | [facility] | | | OSTEOARTHRITIS, UNSPECIFIED | | | | SITE | | + + + + | 2022-01-27 11:27 | CUSTODIAL (CURRENT) USE OF | [facility] | | | 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 | | + + + + | 2022-01-27 11:27 | 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) | [facility] | | | 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 | | + + + + | 2022-01-27 11:27 | ALLERGY STATUS TO OTHER | [facility] | | | ANTIBIOTIC AGENTS STATUS | | + + + + | 2022-01-27 11:27 | ALLERGY STATUS TO NARCOTIC | [facility] | | | AGENT STATUS | | + + + + | 2022-01-27 11:27 | ALLERGY STATUS TO OTH | [facility] | | | DRUG/MEDS/BIOL SUBST STATUS | | | | | | + + + + | 2022-02-25 14:00 | ENCOUNTER FOR THERAPEUTIC | [facility] | | | DRUG LEVEL MONITORING | | + + + + | 2022-02-25 14:00 | CUSTODIAL (CURRENT) USE OF | [facility] | | | 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 | | + + + + | 2022-02-25 14:00 | 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 | | + + + + | 2022-03-02 00:00 | RSV infection | [facility] | + + + + | 2022-03-02 00:00 | Infection due to | [facility] | | | respiratory syncytial virus | | | | (RSV) | | + + + + | 2022-03-02 00:00 | Infection due to | [facility] | | | respiratory syncytial virus | | | | (RSV) | | + + + + | 2022-03-02 00:00 | Infection due to | [facility] | | | respiratory syncytial virus | | | | (RSV) | | + + + + | 2022-03-02 00:00 | Infection due to | [facility] | | | respiratory syncytial virus | | | | (RSV) | | + + + + | 2022-03-02 00:00 | Infection due to | [facility] | | | respiratory syncytial virus | | | | (RSV) | | + + + + | 2022-03-02 02:09 | RESPIRATORY SYNCYTIAL | [facility] | | | VIRUS CAUSING DISEASES | | | | CLASS | | + + + + | 2022-03-02 02:09 | UNSPECIFIED | [facility] | | | OSTEOARTHRITIS, UNSPECIFIED | | | | SITE | | + + + + | 2022-03-02 02:09 | COUGH, UNSPECIFIED | [facility] | + + + + | 2022-03-02 02:09 | 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 | | + + + + | 2022-03-02 02:09 | OTHER CUSTODIAL (CURRENT) | [facility] | | | DRUG THERAPY | | + + + + | 2022-03-02 02:09 | ALLERGY STATUS TO OTHER | [facility] | | | ANTIBIOTIC AGENTS STATUS | | + + + + | 2022-03-02 02:09 | ALLERGY STATUS TO NARCOTIC | [facility] | | | AGENT STATUS | | + + + + | 2022-03-02 02:09 | ALLERGY STATUS TO OTH | [facility] | | | DRUG/MEDS/BIOL SUBST STATUS | | | | | | + + + + | 2022-03-25 14:30 | ENCOUNTER FOR THERAPEUTIC | [facility] | | | DRUG LEVEL MONITORING | | + + + + | 2022-03-25 14:30 | CUSTODIAL (CURRENT) USE OF | [facility] | | | 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 | | + + + + | 2022-03-25 14:30 | 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 | | + + + + | 2022-04-22 13:40 | ENCOUNTER FOR THERAPEUTIC | [facility] | | | DRUG LEVEL MONITORING | | + + + + | 2022-04-22 13:40 | CUSTODIAL (CURRENT) USE OF | [facility] | | | 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 | | + + + + | 2022-04-22 13:40 | 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 | | + + + + | 2022-04-22 14:48 | HEART FAILURE, UNSPECIFIED | [facility] | | | | | + + + + | 2022-04-22 14:48 | PALPITATIONS | [facility] | + + + + | 2022-04-22 14:48 | CUSTODIAL (CURRENT) USE OF | [facility] | | | 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 | | + + + + | 2022-04-22 14:48 | 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) | [facility] | | | DRUG THERAPY | | + + + + | 2022-04-22 14:48 | ALLERGY STATUS TO NARCOTIC | [facility] | | | AGENT STATUS | | + + + + | 2022-04-22 14:48 | ALLERGY STATUS TO OTH | [facility] | | | DRUG/MEDS/BIOL SUBST STATUS | | | | | | + + + + | 2022-04-22 14:48 | ALLERGY TO OTHER FOODS | [facility] | + + + + | 2022-05-01 00:00 | Encounter for medical | [facility] | | | screening examination | | + + + + | 2022-05-01 00:00 | Encounter for medical | [facility] | | | screening examination | | + + + + | 2022-05-01 00:00 | Encounter for medical | [facility] | | | screening examination | | + + + + | 2022-05-20 14:30 | ENCOUNTER FOR THERAPEUTIC | [facility] | | | DRUG LEVEL MONITORING | | + + + + | 2022-05-20 14:30 | CUSTODIAL (CURRENT) USE OF | [facility] | | | 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 | | + + + + | 2022-05-20 14:30 | 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 | | + + + + | 2022-06-17 14:20 | ENCOUNTER FOR THERAPEUTIC | [facility] | | | DRUG LEVEL MONITORING | | + + + + | 2022-06-17 14:20 | 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 | | + + + + | 2022-06-17 14:20 | 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 | | + + + + | 2022-07-01 10:14 | CEREBROVASCULAR DISEASE, | [facility] | | | UNSPECIFIED | | + + + + | 2022-07-01 10:14 | UNSPECIFIED | [facility] | | | OSTEOARTHRITIS, UNSPECIFIED | | | | SITE | | + + + + | 2022-07-01 10:14 | MARFAN'S SYNDROME, | [facility] | | | UNSPECIFIED | | + + + + | 2022-07-01 10:14 | WEAKNESS | [facility] | + + + + | 2022-07-01 10:14 | 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 | | + + + + | 2022-07-01 10:14 | 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) | [facility] | | | DRUG THERAPY | | + + + + | 2022-07-01 10:14 | ALLERGY STATUS TO NARCOTIC | [facility] | | | AGENT STATUS | | + + + + | 2022-07-01 10:14 | ALLERGY STATUS TO OTH | [facility] | | | DRUG/MEDS/BIOL SUBST STATUS | | | | | | + + + + | 2022-07-01 10:14 | ALLERGY TO OTHER FOODS | [facility] | + + + + | 2022-07-08 11:00 | CHRONIC COMBINED SYSTOLIC | [facility] | | | AND DIASTOLIC | | + + + + | 2022-07-08 11:00 | SHORTNESS OF BREATH | [facility] | + + + + | 2022-07-15 14:20 | ENCOUNTER FOR THERAPEUTIC | [facility] | | | DRUG LEVEL MONITORING | | + + + + | 2022-07-15 14:20 | 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 | | + + + + | 2022-07-15 14:20 | 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 | | + + + + | 2022-07-17 20:06 | HEART FAILURE, UNSPECIFIED | [facility] | | | | | + + + + | 2022-07-17 20:06 | UNSPECIFIED | [facility] | | | OSTEOARTHRITIS, UNSPECIFIED | | | | SITE | | + + + + | 2022-07-17 20:06 | SHORTNESS OF BREATH | [facility] | + + + + | 2022-07-17 20:06 | CUSTODIAL (CURRENT) USE OF | [facility] | | | 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 | | + + + + | 2022-07-17 20:06 | OTHER CUSTODIAL (CURRENT) | [facility] | | | DRUG THERAPY | | + + + + | 2022-07-17 20:06 | ALLERGY STATUS TO OTHER | [facility] | | | ANTIBIOTIC AGENTS STATUS | | + + + + | 2022-07-17 20:06 | ALLERGY STATUS TO OTH | [facility] | | | DRUG/MEDS/BIOL SUBST STATUS | | | | | | + + + + | 2022-07-17 20:06 | ALLERGY TO OTHER FOODS | [facility] | + + + + | 2022-08-12 14:15 | CUSTODIAL (CURRENT) USE OF | [facility] | | | 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 | | + + + + | 2022-08-12 14:15 | 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 | | + + + + | 2022-08-13 08:45 | MARFAN'S SYNDROME, | [facility] | | | UNSPECIFIED | | + + + + | 2022-08-19 14:35 | MARFAN'S SYNDROME, | [facility] | | | UNSPECIFIED | | + + + + | 2022-08-21 12:31 | ENCOUNTER FOR THERAPEUTIC | [facility] | | | DRUG LEVEL MONITORING | | + + + + | 2022-08-21 12:31 | OTHER CUSTODIAL (CURRENT) | [facility] | | | DRUG THERAPY | | + + + + | 2022-08-26 14:16 | ENCOUNTER FOR THERAPEUTIC | [facility] | | | DRUG LEVEL MONITORING | | + + + + | 2022-08-26 14:16 | CUSTODIAL (CURRENT) USE OF | [facility] | | | 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 | | + + + + | 2022-08-26 14:16 | 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 | | + + + + | 2022-09-02 14:55 | AORTIC ANEURYSM OF | [facility] | | | UNSPECIFIED SITE, WITHOUT | | | | RUPTU | | + + + + | 2022-09-02 14:55 | MARFAN'S SYNDROME, | [facility] | | | UNSPECIFIED | | + + + + | 2022-09-02 14:55 | ENCOUNTER FOR THERAPEUTIC | [facility] | | | DRUG LEVEL MONITORING | | + + + + | 2022-09-02 14:55 | 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 | | + + + + | 2022-09-02 14:55 | 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 | | + + + + | 2022-09-09 14:25 | AORTIC ANEURYSM OF | [facility] | | | UNSPECIFIED SITE, WITHOUT | | | | RUPTU | | + + + + | 2022-09-09 14:25 | MARFAN'S SYNDROME, | [facility] | | | UNSPECIFIED | | + + + + | 2022-09-09 14:25 | ENCOUNTER FOR THERAPEUTIC | [facility] | | | DRUG LEVEL MONITORING | | + + + + | 2022-09-09 14:25 | CUSTODIAL (CURRENT) USE OF | [facility] | | | 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 | | + + + + | 2022-09-09 14:25 | 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 | | + + + + | 2022-09-16 11:00 | AORTIC ANEURYSM OF | [facility] | | | UNSPECIFIED SITE, WITHOUT | | | | RUPTU | | + + + + | 2022-09-16 11:00 | MARFAN'S SYNDROME, | [facility] | | | UNSPECIFIED | | + + + + | 2022-09-16 11:00 | ENCOUNTER FOR THERAPEUTIC | [facility] | | | DRUG LEVEL MONITORING | | + + + + | 2022-09-16 11:00 | 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 | | + + + + | 2022-09-16 11:00 | 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 | | + + + + | 2022-09-30 10:35 | AORTIC ANEURYSM OF | [facility] | | | UNSPECIFIED SITE, WITHOUT | | | | RUPTU | | + + + + | 2022-09-30 10:35 | MARFAN'S SYNDROME, | [facility] | | | UNSPECIFIED | | + + + + | 2022-09-30 10:35 | ENCOUNTER FOR THERAPEUTIC | [facility] | | | DRUG LEVEL MONITORING | | + + + + | 2022-09-30 10:35 | CUSTODIAL (CURRENT) USE OF | [facility] | | | 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 | | + + + + | 2022-09-30 10:35 | 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 | | + + + + | 2022-10-14 14:35 | AORTIC ANEURYSM OF | [facility] | | | UNSPECIFIED SITE, WITHOUT | | | | RUPTU | | + + + + | 2022-10-14 14:35 | MARFAN'S SYNDROME, | [facility] | | | UNSPECIFIED | | + + + + | 2022-10-14 14:35 | ENCOUNTER FOR THERAPEUTIC | [facility] | | | DRUG LEVEL MONITORING | | + + + + | 2022-10-14 14:35 | CUSTODIAL (CURRENT) USE OF | [facility] | | | 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 | | + + + + | 2022-10-14 14:35 | 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 | | + + + + | 2022-10-28 14:40 | AORTIC ANEURYSM OF | [facility] | | | UNSPECIFIED SITE, WITHOUT | | | | RUPTU | | + + + + | 2022-10-28 14:40 | MARFAN'S SYNDROME, | [facility] | | | UNSPECIFIED | | + + + + | 2022-10-28 14:40 | ENCOUNTER FOR THERAPEUTIC | [facility] | | | DRUG LEVEL MONITORING | | + + + + | 2022-10-28 14:40 | CUSTODIAL (CURRENT) USE OF | [facility] | | | 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 | | + + + + | 2022-10-28 14:40 | 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 | | + + + + | 2022-11-17 10:45 | 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 | | + + + + | 2022-11-17 10:45 | CHRONIC COMBINED SYSTOLIC | [facility] | | | AND DIASTOLIC | | + + + + | 2022-11-17 10:45 | CARDIOMEGALY | [facility] | + + + + | 2022-11-17 11:00 | CHRONIC COMBINED SYSTOLIC | [facility] | | | AND DIASTOLIC | | + + + + | 2022-11-25 14:05 | AORTIC ANEURYSM OF | [facility] | | | UNSPECIFIED SITE, WITHOUT | | | | RUPTU | | + + + + | 2022-11-25 14:05 | ENCOUNTER FOR THERAPEUTIC | [facility] | | | DRUG LEVEL MONITORING | | + + + + | 2022-11-25 14:05 | 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 | | + + + + | 2022-11-28 00:00 | Hypokalemia | [facility] | + + + + | 2022-11-28 00:00 | Dyspnea due to congestive | [facility] | | | heart failure | | + + + + | 2022-11-28 11:31 | HYPOKALEMIA | [facility] | + + + + | 2022-11-28 11:31 | HEART FAILURE, UNSPECIFIED | [facility] | | | | | + + + + | 2022-11-28 11:31 | DYSPNEA, UNSPECIFIED | [facility] | + + + + | 2022-11-28 11:31 | OTHER CHEST PAIN | [facility] | + + + + | 2022-11-28 11:31 | 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 Results/Labs +--------+--------+ +---------+--------+---------+ | test | date | facility | value | unit | notes | +--------+--------+ +---------+--------+---------+ + + | Result panel 1 | + + + + + + + + + | | 2022-03-02 | [facility] | NEGATIVE | (missing) | (missing) | | (unavailable | 02:38 | [facility] | | | | + + + + + + + + + | Result panel 2 | + + + + + + + + + | | 2022-03-02 | [facility] | NEGATIVE | (missing) | (missing) | | (unavailable | 02:38 | [facility] | | | | + + + + + + + + + | Result panel 3 | + + + + + + + + + | | 2022-03-02 | [facility] | NEGATIVE | (missing) | (missing) | | (unavailable | 02:38 | [facility] | | | | + + + + + + + + + | Result panel 4 | + + + + + + + + + | | 2022-03-02 | [facility] | POSITIVE | (missing) | (missing) | | (unavailable | 02:38 | [facility] | | | | + + + + + + + + + | Result panel 5 | + + + + + +-------+ + + | | 2022-03-02 | [facility] | 4.9 | (missing) | (missing) | | (unavailable | 02:40 | [facility] | | | | + + + +-------+ + + + + | Result panel 6 | + + + + + +--------+ + + | | 2022-03-02 | [facility] | 4.34 | (missing) | (missing) | | (unavailable | 02:40 | [facility] | | | | + + + +--------+ + + + + | Result panel 7 | + + + + + +--------+ + + | | 2022-03-02 | [facility] | 12.7 | (missing) | (missing) | | (unavailable | 02:40 | [facility] | | | | + + + +--------+ + + + + | Result panel 8 | + + + + + +--------+ + + | | 2022-03-02 | [facility] | 39.7 | (missing) | (missing) | | (unavailable | 02:40 | [facility] | | | | + + + +--------+ + + + + | Result panel 9 | + + + + + +--------+ + + | | 2022-03-02 | [facility] | 91.3 | (missing) | (missing) | | (unavailable | 02:40 | [facility] | | | | + + + +--------+ + + + + | Result panel 10 | + + + + + +--------+ + + | | 2022-03-02 | [facility] | 29.2 | (missing) | (missing) | | (unavailable | 02:40 | [facility] | | | | + + + +--------+ + + + + | Result panel 11 | + + + + + +--------+ + + | | 2022-03-02 | [facility] | 32.0 | (missing) | (missing) | | (unavailable | 02:40 | [facility] | | | | + + + +--------+ + + + + | Result panel 12 | + + + + + +--------+ + + | | 2022-03-02 | [facility] | 15.9 | (missing) | (missing) | | (unavailable | 02:40 | [facility] | | | | + + + +--------+ + + + + | Result panel 13 | + + + + + +-------+ + + | | 2022-03-02 | [facility] | 232 | (missing) | (missing) | | (unavailable | 02:40 | [facility] | | | | + + + +-------+ + + + + | Result panel 14 | + + + + + +--------+ + + | | 2022-03-02 | [facility] | 70.4 | (missing) | (missing) | | (unavailable | 02:40 | [facility] | | | | + + + +--------+ + + + + | Result panel 15 | + + + + + +--------+ + + | | 2022-03-02 | [facility] | 13.3 | (missing) | (missing) | | (unavailable | 02:40 | [facility] | | | | + + + +--------+ + + + + | Result panel 16 | + + + + + +--------+ + + | | 2022-03-02 | [facility] | 10.4 | (missing) | (missing) | | (unavailable | 02:40 | [facility] | | | | + + + +--------+ + + + + | Result panel 17 | + + + + + +-------+ + + | | 2022-03-02 | [facility] | 5.4 | (missing) | (missing) | | (unavailable | 02:40 | [facility] | | | | + + + +-------+ + + + + | Result panel 18 | + + + + + +-------+ + + | | 2022-03-02 | [facility] | 0.5 | (missing) | (missing) | | (unavailable | 02:40 | [facility] | | | | + + + +-------+ + + + + | Result panel 19 | + + + + + +-------+---------+ + | | 2022-03-02 | [facility] | 148 | mg/dL | (missing) | | (unavailable | 02:40 | [facility] | | | | + + + +-------+---------+ + + + | Result panel 20 | + + + + + +------+---------+ + | | 2022-03-02 | [facility] | 24 | mg/dL | (missing) | | (unavailable | 02:40 | [facility] | | | | + + + +------+---------+ + + + | Result panel 21 | + + + + + +--------+---------+ + | | 2022-03-02 | [facility] | 1.12 | mg/dL | (missing) | | (unavailable | 02:40 | [facility] | | | | + + + +--------+---------+ + + + | Result panel 22 | + + + + + +------+ + + | | 2022-03-02 | [facility] | 55 | (missing) | (missing) | | (unavailable | 02:40 | [facility] | | | | + + + +------+ + + + + | Result panel 23 | + + + + + +---------+ + + | | 2022-03-02 | [facility] | 21.42 | (missing) | (missing) | | (unavailable | 02:40 | [facility] | | | | + + + +---------+ + + + + | Result panel 24 | + + + + + +-------+ + + | | 2022-03-02 | [facility] | 136 | (missing) | (missing) | | (unavailable | 02:40 | [facility] | | | | + + + +-------+ + + + + | Result panel 25 | + + + + + +-------+ + + | | 2022-03-02 | [facility] | 4.1 | (missing) | (missing) | | (unavailable | 02:40 | [facility] | | | | + + + +-------+ + + + + | Result panel 26 | + + + + + +-------+ + + | | 2022-03-02 | [facility] | 102 | (missing) | (missing) | | (unavailable | 02:40 | [facility] | | | | + + + +-------+ + + + + | Result panel 27 | + + + + + +------+ + + | | 2022-03-02 | [facility] | 27 | (missing) | (missing) | | (unavailable | 02:40 | [facility] | | | | + + + +------+ + + + + | Result panel 28 | + + + + + +--------+ + + | | 2022-03-02 | [facility] | 11.1 | (missing) | (missing) | | (unavailable | 02:40 | [facility] | | | | + + + +--------+ + + + + | Result panel 29 | + + + + + +-------+---------+ + | | 2022-03-02 | [facility] | 8.3 | mg/dL | (missing) | | (unavailable | 02:40 | [facility] | | | | + + + +-------+---------+ + + + | Result panel 30 | + + + + + +-------+---------+ + | | 2022-03-02 | [facility] | 2.0 | mg/dL | (missing) | | (unavailable | 02:40 | [facility] | | | | + + + +-------+---------+ + + + | Result panel 31 | + + + + + +-------+ + + | | 2022-03-02 | [facility] | 8.0 | (missing) | (missing) | | (unavailable | 02:40 | [facility] | | | | + + + +-------+ + + + + | Result panel 32 | + + + + + +-------+ + + | | 2022-03-02 | [facility] | 3.2 | (missing) | (missing) | | (unavailable | 02:40 | [facility] | | | | + + + +-------+ + + + + | Result panel 33 | + + + + + +-------+ + + | | 2022-03-02 | [facility] | 4.8 | (missing) | (missing) | | (unavailable | 02:40 | [facility] | | | | + + + +-------+ + + + + | Result panel 34 | + + + + + +--------+ + + | | 2022-03-02 | [facility] | 0.67 | (missing) | (missing) | | (unavailable | 02:40 | [facility] | | | | + + + +--------+ + + + + | Result panel 35 | + + + + + +-------+ + + | | 2022-03-02 | [facility] | 0.7 | (missing) | (missing) | | (unavailable | 02:40 | [facility] | | | | + + + +-------+ + + + + | Result panel 36 | + + + + + +------+ + + | | 2022-03-02 | [facility] | 24 | (missing) | (missing) | | (unavailable | 02:40 | [facility] | | | | + + + +------+ + + + + | Result panel 37 | + + + + + +------+ + + | | 2022-03-02 | [facility] | 22 | (missing) | (missing) | | (unavailable | 02:40 | [facility] | | | | + + + +------+ + + + + | Result panel 38 | + + + + + +-------+ + + | | 2022-03-02 | [facility] | 149 | (missing) | (missing) | | (unavailable | 02:40 | [facility] | | | | + + + +-------+ + + + + | Result panel 39 | + + + + + + + + + | | 2022-03-02 | [facility] | YELLOW | (missing) | (missing) | | (unavailable | 03:42 | [facility] | | | | + + + + + + + + + | Result panel 40 | + + + + + +---------+ + + | | 2022-03-02 | [facility] | CLEAR | (missing) | (missing) | | (unavailable | 03:42 | [facility] | | | | + + + +---------+ + + + + | Result panel 41 | + + + + + + + + + | | 2022-03-02 | [facility] | NEGATIVE | (missing) | (missing) | | (unavailable | 03:42 | [facility] | | | | + + + + + + + + + | Result panel 42 | + + + + + + + + + | | 2022-03-02 | [facility] | NEGATIVE | (missing) | (missing) | | (unavailable | 03:42 | [facility] | | | | + + + + + + + + + | Result panel 43 | + + + + + + + + + | | 2022-03-02 | [facility] | NEGATIVE | (missing) | (missing) | | (unavailable | 03:42 | [facility] | | | | + + + + + + + + + | Result panel 44 | + + + + + + + + + | | 2022-03-02 | [facility] | >=1.030 | (missing) | (missing) | | (unavailable | 03:42 | [facility] | | | | + + + + + + + + + | Result panel 45 | + + + + + +---------+ + + | | 2022-03-02 | [facility] | SMALL | (missing) | (missing) | | (unavailable | 03:42 | [facility] | | | | + + + +---------+ + + + + | Result panel 46 | + + + + + +-------+ + + | | 2022-03-02 | [facility] | 5.5 | (missing) | (missing) | | (unavailable | 03:42 | [facility] | | | | + + + +-------+ + + + + | Result panel 47 | + + + + + + + + + | | 2022-03-02 | [facility] | NEGATIVE | (missing) | (missing) | | (unavailable | 03:42 | [facility] | | | | + + + + + + + + + | Result panel 48 | + + + + + +-------+ + + | | 2022-03-02 | [facility] | 1.0 | (missing) | (missing) | | (unavailable | 03:42 | [facility] | | | | + + + +-------+ + + + + | Result panel 49 | + + + + + + + + + | | 2022-03-02 | [facility] | NEGATIVE | (missing) | (missing) | | (unavailable | 03:42 | [facility] | | | | + + + + + + + + + | Result panel 50 | + + + + + + + + + | | 2022-03-02 | [facility] | NEGATIVE | (missing) | (missing) | | (unavailable | 03:42 | [facility] | | | | + + + + + + + + + | Result panel 51 | + + + + + +-------+ + + | | 2022-03-02 | [facility] | 2-3 | (missing) | (missing) | | (unavailable | 03:42 | [facility] | | | | + + + +-------+ + + + + | Result panel 52 | + + + + + +-------+ + + | | 2022-03-02 | [facility] | 0-1 | (missing) | (missing) | | (unavailable | 03:42 | [facility] | | | | + + + +-------+ + + + + | Result panel 53 | + + + + + +-----+ + + | | 2022-03-02 | [facility] | 0 | (missing) | (missing) | | (unavailable | 03:42 | [facility] | | | | + + + +-----+ + + + + | Result panel 54 | + + + + + +------+ + + | | 2022-03-02 | [facility] | No | (missing) | (missing) | | (unavailable | 03:42 | [facility] | | | | + + + +------+ + + + + | Result panel 55 | + + + + + +--------+ + + | | 2022-03-02 | [facility] | CATH | (missing) | (missing) | | (unavailable | 03:42 | [facility] | | | | + + + +--------+ + + + + | Result panel 56 | + + + + + +-------+ + + | | 2022-04-22 | [facility] | 5.7 | (missing) | (missing) | | (unavailable | 15:09:08 | [facility] | | | | + + + +-------+ + + + + | Result panel 57 | + + + + + +--------+ + + | | 2022-04-22 | [facility] | 4.27 | (missing) | (missing) | | (unavailable | 15:09:08 | [facility] | | | | + + + +--------+ + + + + | Result panel 58 | + + + + + +--------+ + + | | 2022-04-22 | [facility] | 12.9 | (missing) | (missing) | | (unavailable | 15:09:08 | [facility] | | | | + + + +--------+ + + + + | Result panel 59 | + + + + + +--------+ + + | | 2022-04-22 | [facility] | 38.1 | (missing) | (missing) | | (unavailable | 15:09:08 | [facility] | | | | + + + +--------+ + + + + | Result panel 60 | + + + + + +--------+ + + | | 2022-04-22 | [facility] | 89.3 | (missing) | (missing) | | (unavailable | 15::08 | [facility] | | | | + + + +--------+ + + + + | Result panel 61 | + + + + + +--------+ + + | | 2022-04-22 | [facility] | 30.1 | (missing) | (missing) | | (unavailable | 15:09:08 | [facility] | | | | + + + +--------+ + + + + | Result panel 62 | + + + + + +--------+ + + | | 2022-04-22 | [facility] | 33.7 | (missing) | (missing) | | (unavailable | 15:09:08 | [facility] | | | | + + + +--------+ + + + + | Result panel 63 | + + + + + +--------+ + + | | 2022-04-22 | [facility] | 15.8 | (missing) | (missing) | | (unavailable | 15:09:08 | [facility] | | | | + + + +--------+ + + + + | Result panel 64 | + + + + + +-------+ + + | | 2022-04-22 | [facility] | 239 | (missing) | (missing) | | (unavailable | 15:08 | [facility] | | | | + + + +-------+ + + + + | Result panel 65 | + + + + + +--------+ + + | | 2022-04-22 | [facility] | 71.5 | (missing) | (missing) | | (unavailable | 15:09:08 | [facility] | | | | + + + +--------+ + + + + | Result panel 66 | + + + + + +--------+ + + | | 2022-04-22 | [facility] | 14.4 | (missing) | (missing) | | (unavailable | 15:09:08 | [facility] | | | | + + + +--------+ + + + + | Result panel 67 | + + + + + +-------+ + + | | 2022-04-22 | [facility] | 8.8 | (missing) | (missing) | | (unavailable | 15:09:08 | [facility] | | | | + + + +-------+ + + + + | Result panel 68 | + + + + + +-------+ + + | | 2022-04-22 | [facility] | 4.8 | (missing) | (missing) | | (unavailable | 15:09:08 | [facility] | | | | + + + +-------+ + + + + | Result panel 69 | + + + + + +-------+ + + | | 2022-04-22 | [facility] | 0.5 | (missing) | (missing) | | (unavailable | 15::08 | [facility] | | | | + + + +-------+ + + + + | Result panel 70 | + + + + + +--------+ + + | | 2022-04-22 | [facility] | 34.5 | (missing) | (missing) | | (unavailable | 15::08 | [facility] | | | | + + + +--------+ + + + + | Result panel 71 | + + + + + +--------+ + + | | 2022-04-22 | [facility] | 3.55 | (missing) | (missing) | | (unavailable | 15::08 | [facility] | | | | + + + +--------+ + + + + | Result panel 72 | + + + + + +-------+---------+ + | | 2022-04-22 | [facility] | 129 | mg/dL | (missing) | | (unavailable | 15:08 | [facility] | | | | + + + +-------+---------+ + + + | Result panel 73 | + + + + + +------+---------+ + | | 2022-04-22 | [facility] | 20 | mg/dL | (missing) | | (unavailable | 15::08 | [facility] | | | | + + + +------+---------+ + + + | Result panel 74 | + + + + + +--------+---------+ + | | 2022-04-22 | [facility] | 1.26 | mg/dL | (missing) | | (unavailable | 15::08 | [facility] | | | | + + + +--------+---------+ + + + | Result panel 75 | + + + + + +------+ + + | | 2022-04-22 | [facility] | 48 | (missing) | (missing) | | (unavailable | 15::08 | [facility] | | | | + + + +------+ + + + + | Result panel 76 | + + + + + +---------+ + + | | 2022-04-22 | [facility] | 15.87 | (missing) | (missing) | | (unavailable | 15::08 | [facility] | | | | + + + +---------+ + + + + | Result panel 77 | + + + + + +-------+ + + | | 2022-04-22 | [facility] | 139 | (missing) | (missing) | | (unavailable | 15::08 | [facility] | | | | + + + +-------+ + + + + | Result panel 78 | + + + + + +-------+ + + | | 2022-04-22 | [facility] | 4.1 | (missing) | (missing) | | (unavailable | 15:09:08 | [facility] | | | | + + + +-------+ + + + + | Result panel 79 | + + + + + +-------+ + + | | 2022-04-22 | [facility] | 105 | (missing) | (missing) | | (unavailable | 15::08 | [facility] | | | | + + + +-------+ + + + + | Result panel 80 | + + + + + +------+ + + | | 2022-04-22 | [facility] | 26 | (missing) | (missing) | | (unavailable | 15::08 | [facility] | | | | + + + +------+ + + + + | Result panel 81 | + + + + + +--------+ + + | | 2022-04-22 | [facility] | 12.1 | (missing) | (missing) | | (unavailable | 15:08 | [facility] | | | + + + +--------+ + + + + | Result panel 82 | + + + + + +-------+---------+ + | | 2022-04-22 | [facility] | 8.6 | mg/dL | (missing) | | (unavailable | 15:08 | [facility] | | | + + + +-------+---------+ + + + | Result panel 83 | + + + + + +-------+---------+ + | | 2022-04-22 | [facility] | 1.8 | mg/dL | (missing) | | (unavailable | 15:08 | [facility] | | | | + + + +-------+---------+ + + + | Result panel 84 | + + + + + +-------+ + + | | 2022-04-22 | [facility] | 8.0 | (missing) | (missing) | | (unavailable | 15:08 | [facility] | | | + + + +-------+ + + + + | Result panel 85 | + + + + + +-------+ + + | | 2022-04-22 | [facility] | 3.1 | (missing) | (missing) | | (unavailable | 15::08 | [facility] | | | + + + +-------+ + + + + | Result panel 86 | + + + + + +-------+ + + | | 2022-04-22 | [facility] | 4.9 | (missing) | (missing) | | (unavailable | 15::08 | [facility] | | | + + + +-------+ + + + + | Result panel 87 | + + + + + +--------+ + + | | 2022-04-22 | [facility] | 0.63 | (missing) | (missing) | | (unavailable | 15:09:08 | [facility] | | | + + + +--------+ + + + + | Result panel 88 | + + + + + +-------+ + + | | 2022-04-22 | [facility] | 0.6 | (missing) | (missing) | | (unavailable | 15:09:08 | [facility] | | | + + + +-------+ + + + + | Result panel 89 | + + + + + +------+ + + | | 2022-04-22 | [facility] | 19 | (missing) | (missing) | | (unavailable | 15:09:08 | [facility] | | | + + + +------+ + + + + | Result panel 90 | + + + + + +------+ + + | | 2022-04-22 | [facility] | 24 | (missing) | (missing) | | (unavailable | 15:09:08 | [facility] | | | + + + +------+ + + + + | Result panel 91 | + + + + + +-------+ + + | | 2022-04-22 | [facility] | 160 | (missing) | (missing) | | (unavailable | 15:09:08 | [facility] | | | + + + +-------+ + + + + | Result panel 92 | + + + + + +--------+ + + | | 2022-04-22 | [facility] | 13.5 | (missing) | (missing) | | (unavailable | 15:09:08 | [facility] | | | + + + +--------+ + + + + | Result panel 93 | + + + + + +-------+ + + | | 2022-04-22 | [facility] | 5.7 | (missing) | (missing) | | (unavailable | 15:09:08 | [facility] | | | + + + +-------+ + + + + | Result panel 94 | + + + + + +--------+ + + | | 2022-04-22 | [facility] | 4.27 | (missing) | (missing) | | (unavailable | 15::08 | [facility] | | | + + + +--------+ + + + + | Result panel 95 | + + + + + +--------+ + + | | 2022-04-22 | [facility] | 12.9 | (missing) | (missing) | | (unavailable | 15::08 | [facility] | | | + + + +--------+ + + + + | Result panel 96 | + + + + + +--------+ + + | | 2022-04-22 | [facility] | 38.1 | (missing) | (missing) | | (unavailable | 15::08 | [facility] | | | + + + +--------+ + + + + | Result panel 97 | + + + + + +--------+ + + | | 2022-04-22 | [facility] | 89.3 | (missing) | (missing) | | (unavailable | 15::08 | [facility] | | | + + + +--------+ + + + + | Result panel 98 | + + + + + +--------+ + + | | 2022-04-22 | [facility] | 30.1 | (missing) | (missing) | | (unavailable | 15::08 | [facility] | | | + + + +--------+ + + + + | Result panel 99 | + + + + + +--------+ + + | | 2022-04-22 | [facility] | 33.7 | (missing) | (missing) | | (unavailable | 15:09:08 | [facility] | | | + + + +--------+ + + + + | Result panel 100 | + + + + + +--------+ + + | | 2022-04-22 | [facility] | 15.8 | (missing) | (missing) | | (unavailable | 15:09:08 | [facility] | | | + + + +--------+ + + + + | Result panel 101 | + + + + + +-------+ + + | | 2022-04-22 | [facility] | 239 | (missing) | (missing) | | (unavailable | 15:09:08 | [facility] | | | + + + +-------+ + + + + | Result panel 102 | + + + + + +--------+ + + | | 2022-04-22 | [facility] | 71.5 | (missing) | (missing) | | (unavailable | 15:09:08 | [facility] | | | + + + +--------+ + + + + | Result panel 103 | + + + + + +--------+ + + | | 2022-04-22 | [facility] | 14.4 | (missing) | (missing) | | (unavailable | 15:09:08 | [facility] | | | + + + +--------+ + + + + | Result panel 104 | + + + + + +-------+ + + | | 2022-04-22 | [facility] | 8.8 | (missing) | (missing) | | (unavailable | 15:09:08 | [facility] | | | + + + +-------+ + + + + | Result panel 105 | + + + + + +-------+ + + | | 2022-04-22 | [facility] | 4.8 | (missing) | (missing) | | (unavailable | 15::08 | [facility] | | | + + + +-------+ + + + + | Result panel 106 | + + + + + +-------+ + + | | 2022-04-22 | [facility] | 0.5 | (missing) | (missing) | | (unavailable | 15::08 | [facility] | | | + + + +-------+ + + + + | Result panel 107 | + + + + + +--------+ + + | | 2022-04-22 | [facility] | 34.5 | (missing) | (missing) | | (unavailable | 15:09:08 | [facility] | | | + + + +--------+ + + + + | Result panel 108 | + + + + + +--------+ + + | | 2022-04-22 | [facility] | 3.55 | (missing) | (missing) | | (unavailable | 15:09:08 | [facility] | | | + + + +--------+ + + + + | Result panel 109 | + + + + + +-------+---------+ + | | 2022-04-22 | [facility] | 129 | mg/dL | (missing) | | (unavailable | 15:09:08 | [facility] | | | | + + + +-------+---------+ + + + | Result panel 110 | + + + + + +------+---------+ + | | 2022-04-22 | [facility] | 20 | mg/dL | (missing) | | (unavailable | 15:09:08 | [facility] | | | | + + + +------+---------+ + + + | Result panel 111 | + + + + + +--------+---------+ + | | 2022-04-22 | [facility] | 1.26 | mg/dL | (missing) | | (unavailable | 15:09:08 | [facility] | | | + + + +--------+---------+ + + + | Result panel 112 | + + + + + +------+ + + | | 2022-04-22 | [facility] | 48 | (missing) | (missing) | | (unavailable | 15:09:08 | [facility] | | | + + + +------+ + + + + | Result panel 113 | + + + + + +---------+ + + | | 2022-04-22 | [facility] | 15.87 | (missing) | (missing) | | (unavailable | 15:09:08 | [facility] | | | + + + +---------+ + + + + | Result panel 114 | + + + + + +-------+ + + | | 2022-04-22 | [facility] | 139 | (missing) | (missing) | | (unavailable | 15:09:08 | [facility] | | | + + + +-------+ + + + + | Result panel 115 | + + + + + +-------+ + + | | 2022-04-22 | [facility] | 4.1 | (missing) | (missing) | | (unavailable | 15::08 | [facility] | | | + + + +-------+ + + + + | Result panel 116 | + + + + + +-------+ + + | | 2022-04-22 | [facility] | 105 | (missing) | (missing) | | (unavailable | 15:09:08 | [facility] | | | + + + +-------+ + + + + | Result panel 117 | + + + + + +------+ + + | | 2022-04-22 | [facility] | 26 | (missing) | (missing) | | (unavailable | 15:09:08 | [facility] | | | + + + +------+ + + + + | Result panel 118 | + + + + + +--------+ + + | | 2022-04-22 | [facility] | 12.1 | (missing) | (missing) | | (unavailable | 15:09:08 | [facility] | | | + + + +--------+ + + + + | Result panel 119 | + + + + + +-------+---------+ + | | 2022-04-22 | [facility] | 8.6 | mg/dL | (missing) | | (unavailable | 15:08 | [facility] | | | + + + +-------+---------+ + + + | Result panel 120 | + + + + + +-------+---------+ + | | 2022-04-22 | [facility] | 1.8 | mg/dL | (missing) | | (unavailable | 15:09:08 | [facility] | | | + + + +-------+---------+ + + + | Result panel 121 | + + + + + +-------+ + + | | 2022-04-22 | [facility] | 8.0 | (missing) | (missing) | | (unavailable | 15:09:08 | [facility] | | | + + + +-------+ + + + + | Result panel 122 | + + + + + +-------+ + + | | 2022-04-22 | [facility] | 3.1 | (missing) | (missing) | | (unavailable | 15:09:08 | [facility] | | | + + + +-------+ + + + + | Result panel 123 | + + + + + +-------+ + + | | 2022-04-22 | [facility] | 4.9 | (missing) | (missing) | | (unavailable | 15:09:08 | [facility] | | | + + + +-------+ + + + + | Result panel 124 | + + + + + +--------+ + + | | 2022-04-22 | [facility] | 0.63 | (missing) | (missing) | | (unavailable | 15:09:08 | [facility] | | | + + + +--------+ + + + + | Result panel 125 | + + + + + +-------+ + + | | 2022-04-22 | [facility] | 0.6 | (missing) | (missing) | | (unavailable | 15:09:08 | [facility] | | | + + + +-------+ + + + + | Result panel 126 | + + + + + +------+ + + | | 2022-04-22 | [facility] | 19 | (missing) | (missing) | | (unavailable | 15:09:08 | [facility] | | | + + + +------+ + + + + | Result panel 127 | + + + + + +------+ + + | | 2022-04-22 | [facility] | 24 | (missing) | (missing) | | (unavailable | 15:09:08 | [facility] | | | + + + +------+ + + + + | Result panel 128 | + + + + + +-------+ + + | | 2022-04-22 | [facility] | 160 | (missing) | (missing) | | (unavailable | 15::08 | [facility] | | | + + + +-------+ + + + + | Result panel 129 | + + + + + +--------+ + + | | 2022-04-22 | [facility] | 13.5 | (missing) | (missing) | | (unavailable | 15::08 | [facility] | | | + + + +--------+ + + + + | Result panel 130 | + + + + + + + + + | | 2022-04-22 | [facility] | NEGATIVE | (missing) | (missing) | | (unavailable | 15:33:08 | [facility] | | | | + + + + + + + + + | Result panel 131 | + + + + + + + + + | | 2022-04-22 | [facility] | NEGATIVE | (missing) | (missing) | | (unavailable | 15:33:08 | [facility] | | | | + + + + + + + + + | Result panel 132 | + + + + + + + + + | | 2022-04-22 | [facility] | NEGATIVE | (missing) | (missing) | | (unavailable | 15:33:08 | [facility] | | | + + + + + + + + + | Result panel 133 | + + + + + + + + + | | 2022-04-22 | [facility] | NEGATIVE | (missing) | (missing) | | (unavailable | 15:33:08 | [facility] | | | | + + + + + + + + + | Result panel 134 | + + + + + + + + + | | 2022-04-22 | [facility] | NEGATIVE | (missing) | (missing) | | (unavailable | 15:33:08 | [facility] | | | | + + + + + + + + + | Result panel 135 | + + + + + + + + + | | 2022-04-22 | [facility] | NEGATIVE | (missing) | (missing) | | (unavailable | 15:33:08 | [facility] | | | | + + + + + + + + + | Result panel 136 | + + + + + + + + + | | 2022-04-22 | [facility] | NEGATIVE | (missing) | (missing) | | (unavailable | 15:33:08 | [facility] | | | | + + + + + + + + + | Result panel 137 | + + + + + + + + + | | 2022-04-22 | [facility] | NEGATIVE | (missing) | (missing) | | (unavailable | 15:33:08 | [facility] | | | | + + + + + + + + + | Result panel 138 | + + + + + +------+ + + | | 2022-07-01 | [facility] | 25 | (missing) | (missing) | | (unavailable | 10:45:08 | [facility] | | | | + + + +------+ + + + + | Result panel 139 | + + + + + +--------+ + + | | 2022-07-01 | [facility] | 12.6 | (missing) | (missing) | | (unavailable | 10:45:08 | [facility] | | | | + + + +--------+ + + + + | Result panel 140 | + + + + + +-------+---------+ + | | 2022-07-01 | [facility] | 7.7 | mg/dL | (missing) | | (unavailable | 10:45:08 | [facility] | | | | + + + +-------+---------+ + + + | Result panel 141 | + + + + + +-------+ + + | | 2022-07-01 | [facility] | 6.9 | (missing) | (missing) | | (unavailable | 10:45:08 | [facility] | | | | + + + +-------+ + + + + | Result panel 142 | + + + + + +-------+ + + | | 2022-07-01 | [facility] | 2.7 | (missing) | (missing) | | (unavailable | 10:45:08 | [facility] | | | | + + + +-------+ + + + + | Result panel 143 | + + + + + +-------+ + + | | 2022-07-01 | [facility] | 4.2 | (missing) | (missing) | | (unavailable | 10:45:08 | [facility] | | | + + + +-------+ + + + + | Result panel 144 | + + + + + +--------+ + + | | 2022-07-01 | [facility] | 0.64 | (missing) | (missing) | | (unavailable | 10:45:08 | [facility] | | | + + + +--------+ + + + + | Result panel 145 | + + + + + +-------+ + + | | 2022-07-01 | [facility] | 0.6 | (missing) | (missing) | | (unavailable | 10:45:08 | [facility] | | | + + + +-------+ + + + + | Result panel 146 | + + + + + +------+ + + | | 2022-07-01 | [facility] | 18 | (missing) | (missing) | | (unavailable | 10:45:08 | [facility] | | | + + + +------+ + + + + | Result panel 147 | + + + + + +------+ + + | | 2022-07-01 | [facility] | 23 | (missing) | (missing) | | (unavailable | 10:45:08 | [facility] | | | + + + +------+ + + + + | Result panel 148 | + + + + + +-------+ + + | | 2022-07-01 | [facility] | 136 | (missing) | (missing) | | (unavailable | 10:45:08 | [facility] | | | + + + +-------+ + + + + | Result panel 149 | + + + + + +-------+ + + | | 2022-07-01 | [facility] | 4.5 | (missing) | (missing) | | (unavailable | 10:45:08 | [facility] | | | + + + +-------+ + + + + | Result panel 150 | + + + + + +--------+ + + | | 2022-07-01 | [facility] | 3.83 | (missing) | (missing) | | (unavailable | 10:45:08 | [facility] | | | + + + +--------+ + + + + | Result panel 151 | + + + + + +--------+ + + | | 2022-07-01 | [facility] | 11.4 | (missing) | (missing) | | (unavailable | 10:45:08 | [facility] | | | + + + +--------+ + + + + | Result panel 152 | + + + + + +--------+ + + | | 2022-07-01 | [facility] | 35.2 | (missing) | (missing) | | (unavailable | 10:45:08 | [facility] | | | + + + +--------+ + + + + | Result panel 153 | + + + + + +--------+ + + | | 2022-07-01 | [facility] | 91.8 | (missing) | (missing) | | (unavailable | 10:45:08 | [facility] | | | + + + +--------+ + + + + | Result panel 154 | + + + + + +--------+ + + | | 2022-07-01 | [facility] | 29.8 | (missing) | (missing) | | (unavailable | 10:45:08 | [facility] | | | + + + +--------+ + + + + | Result panel 155 | + + + + + +--------+ + + | | 2022-07-01 | [facility] | 32.5 | (missing) | (missing) | | (unavailable | 10:45:08 | [facility] | | | + + + +--------+ + + + + | Result panel 156 | + + + + + +--------+ + + | | 2022-07-01 | [facility] | 16.1 | (missing) | (missing) | | (unavailable | 10:45:08 | [facility] | | | + + + +--------+ + + + + | Result panel 157 | + + + + + +-------+ + + | | 2022-07-01 | [facility] | 208 | (missing) | (missing) | | (unavailable | 10:45:08 | [facility] | | | + + + +-------+ + + + + | Result panel 158 | + + + + + +--------+ + + | | 2022-07-01 | [facility] | 70.3 | (missing) | (missing) | | (unavailable | 10:45:08 | [facility] | | | + + + +--------+ + + + + | Result panel 159 | + + + + + +--------+ + + | | 2022-07-01 | [facility] | 15.6 | (missing) | (missing) | | (unavailable | 10:45:08 | [facility] | | | + + + +--------+ + + + + | Result panel 160 | + + + + + +-------+ + + | | 2022-07-01 | [facility] | 8.8 | (missing) | (missing) | | (unavailable | 10:45:08 [facility] | | | + + + +-------+ + + + + | Result panel 161 | + + + + + +-------+ + + | | 2022-07-01 | [facility] | 4.3 | (missing) | (missing) | | (unavailable | 10:45:08 | [facility] | | | + + + +-------+ + + + + | Result panel 162 | + + + + + +-------+ + + | | 2022-07-01 | [facility] | 1.0 | (missing) | (missing) | | (unavailable | 10:45:08 [facility] | | | + + + +-------+ + + + + | Result panel 163 | + + + + + +--------+ + + | | 2022-07-01 | [facility] | 31.4 | (missing) | (missing) | | (unavailable | 10:45:08 [facility] | | | + + + +--------+ + + + + | Result panel 164 | + + + + + +--------+ + + | | 2022-07-01 | [facility] | 3.15 | (missing) | (missing) | | (unavailable | 10:45:08 [facility] | | | + + + +--------+ + + + + | Result panel 165 | + + + + + +-------+---------+ + | | 2022-07-01 | [facility] | 120 | mg/dL | (missing) | | (unavailable | 10:45:08 | [facility] | | | + + + +-------+---------+ + + + | Result panel 166 | + + + + + +------+---------+ + | | 2022-07-01 | [facility] | 16 | mg/dL | (missing) | | (unavailable | 10:45:08 | [facility] | | | + + + +------+---------+ + + + | Result panel 167 | + + + + + +--------+---------+ + | | 2022-07-01 | [facility] | 1.24 | mg/dL | (missing) | | (unavailable | 10:45:08 [facility] | | | + + + +--------+---------+ + + + | Result panel 168 | + + + + + +------+ + + | | 2022-07-01 | [facility] | 49 | (missing) | (missing) | | (unavailable | 10:45:08 [facility] | | | + + + +------+ + + + + | Result panel 169 | + + + + + +---------+ + + | | 2022-07-01 | [facility] | 12.90 | (missing) | (missing) | | (unavailable | 10:45:08 [facility] | | | + + + +---------+ + + + + | Result panel 170 | + + + + + +-------+ + + | | 2022-07-01 | [facility] | 141 | (missing) | (missing) | | (unavailable | 10:45:08 | [facility] | | | | + + + +-------+ + + + + | Result panel 171 | + + + + + +-------+ + + | | 2022-07-01 | [facility] | 3.6 | (missing) | (missing) | | (unavailable | 10:45:08 [facility] | | | + + + +-------+ + + + + | Result panel 172 | + + + + + +-------+ + + | | 2022-07-01 | [facility] | 107 | (missing) | (missing) | | (unavailable | 10:45:08 [facility] | | | + + + +-------+ + + + + | Result panel 173 | + + + + + +-------+ + + | | 2022-07-17 | [facility] | 5.8 | (missing) | (missing) | | (unavailable | 20:20:08 | [facility] | | | + + + +-------+ + + + + | Result panel 174 | + + + + + +--------+ + + | | 2022-07-17 | [facility] | 4.23 | (missing) | (missing) | | (unavailable | 20:20:08 | [facility] | | | + + + +--------+ + + + + | Result panel 175 | + + + + + +--------+ + + | | 2022-07-17 | [facility] | 12.4 | (missing) | (missing) | | (unavailable | 20:20:08 | [facility] | | | + + + +--------+ + + + + | Result panel 176 | + + + + + +--------+ + + | | 2022-07-17 | [facility] | 39.0 | (missing) | (missing) | | (unavailable | 20:20:08 | [facility] | | | + + + +--------+ + + + + | Result panel 177 | + + + + + +--------+ + + | | 2022-07-17 | [facility] | 92.1 | (missing) | (missing) | | (unavailable | 20:20:08 | [facility] | | | + + + +--------+ + + + + | Result panel 178 | + + + + + +--------+ + + | | 2022-07-17 | [facility] | 29.4 | (missing) | (missing) | | (unavailable | 20:20:08 [facility] | | | + + + +--------+ + + + + | Result panel 179 | + + + + + +--------+ + + | | 2022-07-17 | [facility] | 31.9 | (missing) | (missing) | | (unavailable | 20:20:08 [facility] | | | + + + +--------+ + + + + | Result panel 180 | + + + + + +--------+ + + | | 2022-07-17 | [facility] | 16.2 | (missing) | (missing) | | (unavailable | 20:20:08 | [facility] | | | + + + +--------+ + + + + | Result panel 181 | + + + + + +-------+ + + | | 2022-07-17 | [facility] | 244 | (missing) | (missing) | | (unavailable | 20:20:08 | [facility] | | | + + + +-------+ + + + + | Result panel 182 | + + + + + +--------+ + + | | 2022-07-17 | [facility] | 67.3 | (missing) | (missing) | | (unavailable | 20:20:08 [facility] | | | + + + +--------+ + + + + | Result panel 183 | + + + + + +--------+ + + | | 2022-07-17 | [facility] | 19.2 | (missing) | (missing) | | (unavailable | 20:20:08 | [facility] | | | + + + +--------+ + + + + | Result panel 184 | + + + + + +-------+ + + | | 2022-07-17 | [facility] | 9.4 | (missing) | (missing) | | (unavailable | 20:20:08 | [facility] | | | | + + + +-------+ + + + + | Result panel 185 | + + + + + +-------+ + + | | 2022-07-17 | [facility] | 3.4 | (missing) | (missing) | | (unavailable | 20:20:08 | [facility] | | | | + + + +-------+ + + + + | Result panel 186 | + + + + + +-------+ + + | | 2022-07-17 | [facility] | 0.7 | (missing) | (missing) | | (unavailable | 20:20:08 | [facility] | | | | + + + +-------+ + + + + | Result panel 187 | + + + + + +--------+ + + | | 2022-07-17 | [facility] | 31.9 | (missing) | (missing) | | (unavailable | 20:20:08 | [facility] | | | | + + + +--------+ + + + + | Result panel 188 | + + + + + +--------+ + + | | 2022-07-17 | [facility] | 3.25 | (missing) | (missing) | | (unavailable | 20:20:08 | [facility] | | | | + + + +--------+ + + + + | Result panel 189 | + + + + + +--------+ + + | | 2022-07-17 | [facility] | 36.4 | (missing) | (missing) | | (unavailable | 20:20:08 | [facility] | | | | + + + +--------+ + + + + | Result panel 190 | + + + + + +-------+---------+ + | | 2022-07-17 | [facility] | 101 | mg/dL | (missing) | | (unavailable | 20:20:08 | [facility] | | | | + + + +-------+---------+ + + + | Result panel 191 | + + + + + +------+---------+ + | | 2022-07-17 | [facility] | 13 | mg/dL | (missing) | | (unavailable | 20:20:08 | [facility] | | | | + + + +------+---------+ + + + | Result panel 192 | + + + + + +--------+---------+ + | | 2022-07-17 | [facility] | 1.10 | mg/dL | (missing) | | (unavailable | 20:20:08 | [facility] | | | | + + + +--------+---------+ + + + | Result panel 193 | + + + + + +------+ + + | | 2022-07-17 | [facility] | 56 | (missing) | (missing) | | (unavailable | 20:20:08 | [facility] | | | | + + + +------+ + + + + | Result panel 194 | + + + + + +---------+ + + | | 2022-07-17 | [facility] | 11.81 | (missing) | (missing) | | (unavailable | 20:20:08 | [facility] | | | | + + + +---------+ + + + + | Result panel 195 | + + + + + +-------+ + + | | 2022-07-17 | [facility] | 142 | (missing) | (missing) | | (unavailable | 20:20:08 | [facility] | | | | + + + +-------+ + + + + | Result panel 196 | + + + + + +-------+ + + | | 2022-07-17 | [facility] | 3.4 | (missing) | (missing) | | (unavailable | 20:20:08 | [facility] | | | | + + + +-------+ + + + + | Result panel 197 | + + + + + +-------+ + + | | 2022-07-17 | [facility] | 105 | (missing) | (missing) | | (unavailable | 20:20:08 | [facility] | | | | + + + +-------+ + + + + | Result panel 198 | + + + + + +------+ + + | | 2022-07-17 | [facility] | 29 | (missing) | (missing) | | (unavailable | 20:20:08 | [facility] | | | | + + + +------+ + + + + | Result panel 199 | + + + + + +--------+ + + | | 2022-07-17 | [facility] | 11.4 | (missing) | (missing) | | (unavailable | 20:20:08 | [facility] | | | | + + + +--------+ + + + + | Result panel 200 | + + + + + +-------+---------+ + | | 2022-07-17 | [facility] | 8.4 | mg/dL | (missing) | | (unavailable | 20:20:08 | [facility] | | | | + + + +-------+---------+ + + + | Result panel 201 | + + + + + +-------+ + + | | 2022-07-17 | [facility] | 7.8 | (missing) | (missing) | | (unavailable | 20:20:08 | [facility] | | | | + + + +-------+ + + + + | Result panel 202 | + + + + + +-------+ + + | | 2022-07-17 | [facility] | 3.2 | (missing) | (missing) | | (unavailable | 20:20:08 | [facility] | | | | + + + +-------+ + + + + | Result panel 203 | + + + + + +-------+ + + | | 2022-07-17 | [facility] | 4.6 | (missing) | (missing) | | (unavailable | 20:20:08 | [facility] | | | | + + + +-------+ + + + + | Result panel 204 | + + + + + +--------+ + + | | 2022-07-17 | [facility] | 0.70 | (missing) | (missing) | | (unavailable | 20:20:08 | [facility] | | | | + + + +--------+ + + + + | Result panel 205 | + + + + + +-------+ + + | | 2022-07-17 | [facility] | 0.5 | (missing) | (missing) | | (unavailable | 20:20:08 | [facility] | | | | + + + +-------+ + + + + | Result panel 206 | + + + + + +------+ + + | | 2022-07-17 | [facility] | 17 | (missing) | (missing) | | (unavailable | 20:20:08 | [facility] | | | + + + +------+ + + + + | Result panel 207 | + + + + + +------+ + + | | 2022-07-17 | [facility] | 20 | (missing) | (missing) | | (unavailable | 20:20:08 | [facility] | | | + + + +------+ + + + + | Result panel 208 | + + + + + +-------+ + + | | 2022-07-17 | [facility] | 157 | (missing) | (missing) | | (unavailable | 20:20:08 | [facility] | | | + + + +-------+ + + + + | Result panel 209 | + + + + + +--------+ + + | | 2022-07-17 | [facility] | 23.1 | (missing) | (missing) | | (unavailable | 20:20:08 | [facility] | | | + + + +--------+ + + + + | Result panel 210 | + + + + + +-------+ + + | | 2022-11-28 | [facility] | 4.9 | (missing) | (missing) | | (unavailable | 11:45:07 | [facility] | | | | + + + +-------+ + + + + | Result panel 211 | + + + + + +--------+ + + | | 2022-11-28 | [facility] | 72.1 | (missing) | (missing) | | (unavailable | 11:45:07 | [facility] | | | | + + + +--------+ + + + + | Result panel 212 | + + + + + +--------+ + + | | 2022-11-28 | [facility] | 15.8 | (missing) | (missing) | | (unavailable | 11:45:07 | [facility] | | | | + + + +--------+ + + + + | Result panel 213 | + + + + + +-------+ + + | | 2022-11-28 | [facility] | 8.5 | (missing) | (missing) | | (unavailable | 11:45:07 | [facility] | | | | + + + +-------+ + + + + | Result panel 214 | + + + + + +-------+ + + | | 2022-11-28 | [facility] | 3.0 | (missing) | (missing) | | (unavailable | 11:45:07 | [facility] | | | | + + + +-------+ + + + + | Result panel 215 | + + + + + +-------+ + + | | 2022-11-28 | [facility] | 0.6 | (missing) | (missing) | | (unavailable | 11:45:07 | [facility] | | | | + + + +-------+ + + + + | Result panel 216 | + + + + + +--------+ + + | | 2022-11-28 | [facility] | 4.19 | (missing) | (missing) | | (unavailable | 11:45:07 | [facility] | | | + + + +--------+ + + + + | Result panel 217 | + + + + + +--------+ + + | | 2022-11-28 | [facility] | 12.2 | (missing) | (missing) | | (unavailable | 11:45:07 | [facility] | | | | + + + +--------+ + + + + | Result panel 218 | + + + + + +--------+ + + | | 2022-11-28 | [facility] | 37.5 | (missing) | (missing) | | (unavailable | 11:45:07 | [facility] | | | + + + +--------+ + + + + | Result panel 219 | + + + + + +--------+ + + | | 2022-11-28 | [facility] | 89.4 | (missing) | (missing) | | (unavailable | 11:45:07 | [facility] | | | + + + +--------+ + + + + | Result panel 220 | + + + + + +--------+ + + | | 2022-11-28 | [facility] | 29.2 | (missing) | (missing) | | (unavailable | 11:45:07 | [facility] | | | + + + +--------+ + + + + | Result panel 221 | + + + + + +--------+ + + | | 2022-11-28 | [facility] | 32.6 | (missing) | (missing) | | (unavailable | 11:45:07 | [facility] | | | | + + + +--------+ + + + + | Result panel 222 | + + + + + +--------+ + + | | 2022-11-28 | [facility] | 16.7 | (missing) | (missing) | | (unavailable | 11:45:07 | [facility] | | | | + + + +--------+ + + + + | Result panel 223 | + + + + + +-------+ + + | | 2022-11-28 | [facility] | 253 | (missing) | (missing) | | (unavailable | 11:45:07 | [facility] | | | + + + +-------+ + + + + | Result panel 224 | + + + + + +--------+ + + | | 2022-11-28 | [facility] | 28.5 | (missing) | (missing) | | (unavailable | 12:02:07 | [facility] | | | | + + + +--------+ + + + + | Result panel 225 | + + + + + +--------+ + + | | 2022-11-28 | [facility] | 2.82 | (missing) | (missing) | | (unavailable | 12:02:07 | [facility] | | | | + + + +--------+ + + + + | Result panel 226 | + + + + + +--------+ + + | | 2022-11-28 | [facility] | 2.96 | (missing) | (missing) | | (unavailable | 12:02:07 | [facility] | | | | + + + +--------+ + + + + | Result panel 227 | + + + + + +-------+---------+ + | | 2022-11-28 | [facility] | 115 | mg/dL | (missing) | | (unavailable | 12::07 | [facility] | | | | + + + +-------+---------+ + + + | Result panel 228 | + + + + + +------+---------+ + | | 2022-11-28 | [facility] | 11 | mg/dL | (missing) | | (unavailable | 12::07 | [facility] | | | | + + + +------+---------+ + + + | Result panel 229 | + + + + + +--------+---------+ + | | 2022-11-28 | [facility] | 1.10 | mg/dL | (missing) | | (unavailable | 12:02:07 | [facility] | | | | + + + +--------+---------+ + + + | Result panel 230 | + + + + + +------+ + + | | 2022-11-28 | [facility] | 56 | (missing) | (missing) | | (unavailable | 12:02:07 | [facility] | | | | + + + +------+ + + + + | Result panel 231 | + + + + + +---------+ + + | | 2022-11-28 | [facility] | 10.00 | (missing) | (missing) | | (unavailable | 12:02:07 | [facility] | | | | + + + +---------+ + + + + | Result panel 232 | + + + + + +-------+ + + | | 2022-11-28 | [facility] | 144 | (missing) | (missing) | | (unavailable | 12:02:07 | [facility] | | | | + + + +-------+ + + + + | Result panel 233 | + + + + + +-------+ + + | | 2022-11-28 | [facility] | 2.8 | (missing) | (missing) | | (unavailable | 12:02:07 | [facility] | | | | + + + +-------+ + + + + | Result panel 234 | + + + + + +-------+ + + | | 2022-11-28 | [facility] | 105 | (missing) | (missing) | | (unavailable | 12:02:07 | [facility] | | | | + + + +-------+ + + + + | Result panel 235 | + + + + + +------+ + + | | 2022-11-28 | [facility] | 34 | (missing) | (missing) | | (unavailable | 12::07 | [facility] | | | | + + + +------+ + + + + | Result panel 236 | + + + + + +-------+ + + | | 2022-11-28 | [facility] | 7.8 | (missing) | (missing) | | (unavailable | 12:02:07 | [facility] | | | | + + + +-------+ + + + + | Result panel 237 | + + + + + +-------+---------+ + | | 2022-11-28 | [facility] | 7.6 | mg/dL | (missing) | | (unavailable | | [facility] | | | | + + + +-------+---------+ + + + | Result panel 238 | + + + + + +-------+---------+ + | | 2022-11-28 | [facility] | 1.9 | mg/dL | (missing) | | (unavailable | 12: | [facility] | | | | + + + +-------+---------+ + + + | Result panel 239 | + + + + + +-------+ + + | | 2022-11-28 | [facility] | 7.4 | (missing) | (missing) | | (unavailable | 12: | [facility] | | | | + + + +-------+ + + + + | Result panel 240 | + + + + + +-------+ + + | | 2022-11-28 | [facility] | 2.8 | (missing) | (missing) | | (unavailable | : | [facility] | | | | + + + +-------+ + + + + | Result panel 241 | + + + + + +-------+ + + | | 2022-11-28 | [facility] | 4.6 | (missing) | (missing) | | (unavailable | | [facility] | | | | + + + +-------+ + + + + | Result panel 242 | + + + + + +--------+ + + | | 2022-11-28 | [facility] | 0.61 | (missing) | (missing) | | (unavailable | 12:: | [facility] | | | | + + + +--------+ + + + + | Result panel 243 | + + + + + +-------+ + + | | 2022-11-28 | [facility] | 0.8 | (missing) | (missing) | | (unavailable | 12:02:07 | [facility] | | | | + + + +-------+ + + + + | Result panel 244 | + + + + + +------+ + + | | 2022-11-28 | [facility] | 19 | (missing) | (missing) | | (unavailable | 12:02:07 | [facility] | | | | + + + +------+ + + + + | Result panel 245 | + + + + + +------+ + + | | 2022-11-28 | [facility] | 23 | (missing) | (missing) | | (unavailable | 12:: | [facility] | | | | + + + +------+ + + + + | Result panel 246 | + + + + + +-------+ + + | | 2022-11-28 | [facility] | 138 | (missing) | (missing) | | (unavailable | 12:02:07 | [facility] | | | | + + + +-------+ + + + + | Result panel 247 | + + + + + +--------+ + + | | 2022-11-28 | [facility] | 20.7 | (missing) | (missing) | | (unavailable | 12:02:07 | [facility] | | | | + + + +--------+ + + + + | Automated urine sediment erythrocyte count by microscopy (number/high power field) | + + + + + +-------+ + + | Automated | 2022-03-02 | [facility] | 2-3 | (missing) | (missing) | | urine | 03:42 | [facility] | | | | sediment | | [facility] | | | | | erythrocyte | | | | | | | count by | | | | | | | microscopy | | | | | | | (number/high | | | | | | | power | | | | | | | field) | | | | | | + + + +-------+ + + + + | Serum or plasma alanine aminotransferase measurement (enzymatic activity/volume) | + + + + + +------+ + + | Serum or | 2022-03-02 | [facility] | 22 | (missing) | (missing) | | plasma | 02:40 | [facility] | | | | alanine | | Hospital | | | | | aminotransfe | | | | | | | rase | | | | | | | measurement | | | | | | | (enzymatic | | | | | | | activity/vol | | | | | | | ume) | | | | | | + + + +------+ + + + + | Serum or plasma albumin measurement (mass/volume) | + + + + + +-------+ + + | Serum or | 2022-03-02 | [facility] | 3.2 | (missing) | (missing) | | plasma | 02:40 | [facility] | | | | albumin | | [facility] | | | | | measurement | | | | | | | (mass/volume | | | | | | | ) | | | | | | + + + +-------+ + + + + | Serum or plasma albumin/globulin mass ratio | + + + + + +--------+ + + | Serum or | 2022-03-02 | [facility] | 0.67 | (missing) | (missing) | | plasma | 02:40 | [facility] | | | | albumin/glob | | [facility] | | | | | ulin mass | | | | | | | ratio | | | | | | + + + +--------+ + + + + | Serum or plasma calcium measurement (mass/volume) | + + + + + +-------+ + + | Serum or | 2022-03-02 | [facility] | 8.3 | (missing) | (missing) | | plasma | 02:40 | [facility] | | | | calcium | | [facility] | | | | | measurement | | | | | | | (mass/volume | | | | | | | ) | | | | | | + + + +-------+ + + + + | Serum or plasma anion gap 4 | + + + + + +--------+ + + | Serum or | 2022-03-02 | [facility] | 11.1 | (missing) | (missing) | | plasma anion | 02:40 | [facility] | | | | gap 4 | | [facility] | | | | + + + +--------+ + + + + | Serum or plasma magnesium measurement (mass/volume) | + + + + + +-------+ + + | Serum or | 2022-03-02 | [facility] | 2.0 | (missing) | (missing) | | plasma | 02:40 | [facility] | | | | magnesium | | [facility] | | | | | measurement | | | | | | | (mass/volume | | | | | | | ) | | | | | | + + + +-------+ + + + + | Urinalysis specimen collection method | + + + + + +--------+ + + | Urinalysis | 2022-03-02 | [facility] | CATH | (missing) | (missing) | | specimen | 03:42 | [facility] | | | collection | | [facility] | | | | | method | | | | | | + + + +--------+ + + + + | Serum or plasma aspartate aminotransferase measurement (enzymatic activity/volume) | + + + + + +------+ + + | Serum or | 2022-03-02 | [facility] | 24 | (missing) | (missing) | | plasma | 02:40 | [facility] | | | | | aspartate | | Hospital | | | | | aminotransfe | | | | | | | rase | | | | | | | measurement | | | | | | | (enzymatic | | | | | | | activity/vol | | | | | | | ume) | | | | | | + + + +------+ + + + + | Character of Urine | + + + + + +---------+ + + | Character | 2022-03-02 | [facility] | CLEAR | (missing) | (missing) | | of Urine | 03:42 | [facility] | | | | + + + +---------+ + + + + | Serum or plasma total bilirubin measurement (mass/volume) | + + + + + +-------+ + + | Serum or | 2022-03-02 | [facility] | 0.7 | (missing) | (missing) | | plasma total | 02:40 | [facility] | | | | | bilirubin | | [facility] | | | | | measurement | | | | | | | (mass/volume | | | | | | | ) | | | | | | + + + +-------+ + + + + | Serum or plasma carbon dioxide, total measurement (moles/volume) | + + + + + +------+ + + | Serum or | 2022-03-02 | [facility] | 27 | (missing) | (missing) | | plasma | 02:40 | [facility] | | | | | carbon | | Hospital | | | | | dioxide, | | | | | | | total | | | | | | | measurement | | | | | | | (moles/volum | | | | | | | e) | | | | | | + + + +------+ + + + + | Urobilinogen [Mass/volume] in Urine by Test strip | + + + + + +-------+ + + | | 2022-03-02 | [facility] | 1.0 | (missing) | (missing) | | Urobilinogen | 03:42 | [facility] | | | | | [Mass/volume | | | | | | | ] in Urine | | | | | | | by Test | | | | | | | strip | | | | | | + + + +-------+ + + + + | Serum or plasma chloride measurement (moles/volume) | + + + + + +-------+ + + | Serum or | 2022-03-02 | [facility] | 102 | (missing) | (missing) | | plasma | 02:40 | [facility] | | | | | chloride | | [facility] | | | | | measurement | | | | | | | (moles/volum | | | | | | | e) | | | | | | + + + +-------+ + + + + | Automated erythrocyte distribution width | + + + + + +--------+ + + | Automated | 2022-03-02 | [facility] | 15.9 | (missing) | (missing) | | erythrocyte | 02:40 | [facility] | | | | | distribution | | [facility] | | | | | width | | | | | | + + + +--------+ + + + + | Serum or plasma creatinine measurement (mass/volume) | + + + + + +--------+ + + | Serum or | 2022-03-02 | [facility] | 1.12 | (missing) | (missing) | | plasma | 02:40 | [facility] | | | | creatinine | | [facility] | | | | | measurement | | | | | | | (mass/volume | | | | | | | ) | | | | | | + + + +--------+ + + + + | Serum globulin measurement (mass/volume) | + + + + + +-------+ + + | Serum | 2022-03-02 | [facility] | 4.8 | (missing) | (missing) | | globulin | 02:40 | [facility] | | | | measurement | | [facility] | | | | | (mass/volume | | | | | | | ) | | | | | | + + + +-------+ + + + + | Serum or plasma glucose measurement (mass/volume) | + + + + + +-------+ + + | Serum or | 2022-03-02 | [facility] | 148 | (missing) | (missing) | | plasma | 02:40 | [facility] | | | | | glucose | | [facility] | | | | | measurement | | | | | | | (mass/volume | | | | | | | ) | | | | | | + + + +-------+ + + + + | Urine ketones detection by test strip | + + + + + + + + + | Urine | 2022-03-02 | [facility] | NEGATIVE | (missing) | (missing) | | ketones | 03:42 | [facility] | | | | | detection by | | Hospital | | | | | test strip | | | | | | + + + + + + + + + | Glucose [Presence] in Urine by Test strip | + + + + + + + + + | Glucose | 2022-03-02 | [facility] | NEGATIVE | (missing) | (missing) | | [Presence] | 03:42 | [facility] | | | | | in Urine by | | Hospital | | | | | Test strip | | | | | | + + + + + + + + + | Serum or plasma potassium measurement (moles/volume) | + + + + + +-------+ + + | Serum or | 2022-03-02 | [facility] | 4.1 | (missing) | (missing) | | plasma | 02:40 | [facility] | | | | | potassium | | [facility] | | | | | measurement | | | | | | | (moles/volum | | | | | | | e) | | | | | | + + + +-------+ + + + + | Serum or plasma protein measurement (mass/volume) | + + + + + +-------+ + + | Serum or | 2022-03-02 | [facility] | 8.0 | (missing) | (missing) | | plasma | 02:40 | [facility] | | | | | protein | | [facility] | | | | | measurement | | | | | | | (mass/volume | | | | | | | ) | | | | | | + + + +-------+ + + + + | Serum or plasma sodium measurement (moles/volume) | + + + + + +-------+ + + | Serum or | 2022-03-02 | [facility] | 136 | (missing) | (missing) | | plasma | 02:40 | [facility] | | | | sodium | | [facility] | | | | | measurement | | | | | | | (moles/volum | | | | | | | e) | | | | | | + + + +-------+ + + + + | Serum or plasma urea nitrogen measurement (mass/volume) | + + + + + +------+ + + | Serum or | 2022-03-02 | [facility] | 24 | (missing) | (missing) | | plasma urea | 02:40 | [facility] | | | | | nitrogen | | [facility] | | | | | measurement | | | | | | | (mass/volume | | | | | | | ) | | | | | | + + + +------+ + + + + | Serum or plasma urea nitrogen/creatinine mass ratio | + + + + + +---------+ + + | Serum or | 2022-03-02 | [facility] | 21.42 | (missing) | (missing) | | plasma urea | 02:40 | [facility] | | | | | nitrogen/cre | | [facility] | | | | | atinine mass | | | | | | | ratio | | | | | | + + + +---------+ + + + + | Color of Urine by Auto | + + + + + + + + + | Color of | 2022-03-02 | [facility] | YELLOW | (missing) | (missing) | | Urine by | 03:42 | [facility] | | | | Auto | | [facility] | | | | + + + + + + + + + | Urine total bilirubin detection by test strip | + + + + + + + + + | Urine total | 2022-03-02 | [facility] | NEGATIVE | (missing) | (missing) | | bilirubin | 03:42 | [facility] | | | | | detection by | | Hospital | | | | | test strip | | | | | | + + + + + + + + + | Automated urine sediment epithelial cell count by microscopy (number/high power field) | + + + + + +-----+ + + | Automated | 2022-03-02 | [facility] | 0 | (missing) | (missing) | | urine | 03:42 | [facility] | | | | | sediment | | [facility] | | | | | epithelial | | | | | | | cell count | | | | | | | by | | | | | | | microscopy | | | | | | | (number/high | | | | | | | power | | | | | | | field) | | | | | | + + + +-----+ + + + + | Urine hemoglobin detection by test strip | + + + + + +---------+ + + | Urine | 2022-03-02 | [facility] | SMALL | (missing) | (missing) | | hemoglobin | 03:42 | [facility] | | | | | detection by | | Hospital | | | | | test strip | | | | | | + + + +---------+ + + + + | Urine leukocyte esterase detection by dipstick | + + + + + + + + + | Urine | 2022-03-02 | [facility] | NEGATIVE | (missing) | (missing) | | leukocyte | 03:42 | [facility] | | | | | esterase | | [facility] | | | | | detection by | | | | | | | dipstick | | | | | | + + + + + + + + + | Urine nitrite detection by test strip | + + + + + + + + + | Urine | 2022-03-02 | [facility] | NEGATIVE | (missing) | (missing) | | nitrite | 03:42 | [facility] | | | | | detection by | | Hospital | | | | | test strip | | | | | | + + + + + + + + + | Urine pH measurement by test strip | + + + + + +-------+ + + | Urine pH | 2022-03-02 | [facility] | 5.5 | (missing) | (missing) | | measurement | 03:42 | [facility] | | | | | by test | | Hospital | | | | | strip | | | | | | + + + +-------+ + + + + | Protein urine test strip | + + + + + + + + + | Protein | 2022-03-02 | [facility] | NEGATIVE | (missing) | (missing) | | urine test | 03:42 | [facility] | | | | | strip | | [facility] | | | | + + + + + + + + + | Specific gravity ur dipstick | + + + + + + + + + | Specific | 2022-03-02 | [facility] | >=1.030 | (missing) | (missing) | | gravity ur | 03:42 | [facility] | | | | | dipstick | | [facility] | | | | + + + + + + + + + | Automated urine sediment leukocyte count by microscopy (number/high power field) | + + + + + +-------+ + + | Automated | 2022-03-02 | [facility] | 0-1 | (missing) | (missing) | | urine | 03:42 | [facility] | | | | | sediment | | [facility] | | | | | leukocyte | | | | | | | count by | | | | | | | microscopy | | | | | | | (number/high | | | | | | | power | | | | | | | field) | | | | | | + + + +-------+ + + + + | Automated blood monocyte count as percentage of total leukocytes | + + + + + +--------+ + + | Automated | 2022-03-02 | [facility] | 10.4 | (missing) | (missing) | | blood | 02:40 | [facility] | | | | | monocyte | | [facility] | | | | | count as | | | | | | | percentage | | | | | | | of total | | | | | | | leukocytes | | | | | | + + + +--------+ + + + + | Respiratory syncytial virus (RSV) RNA detection by probe and target amplification | | method in culture isolate | + + + + + + + + + | Respiratory | 2022-03-02 | [facility] | POSITIVE | (missing) | (missing) | | syncytial | 02:38 | [facility] | | | | | virus (RSV) | | Hospital | | | | | RNA | | | | | | | detection by | | | | | | | probe and | | | | | | | target | | | | | | | amplificatio | | | | | | | n method in | | | | | | | culture | | | | | | | isolate | | | | | | + + + + + + + + + | Reflexive urine bacterial culture | + + + + + +------+ + + | Reflexive | 2022-03-02 | [facility] | No | (missing) | (missing) | | urine | 03:42 | [facility] | | | | bacterial | | [facility] | | | | | culture | | | | | | + + + +------+ + + + + | Blood leukocytes automated count (number/volume) | + + + + + +-------+ + + | Blood | 2022-03-02 | [facility] | 4.9 | (missing) | (missing) | | leukocytes | 02:40 | [facility] | | | | | automated | | [facility] | | | | | count | | | | | | | (number/volu | | | | | | | me) | | | | | | + + + +-------+ + + + + | Serum or plasma alkaline phosphatase measurement (enzymatic activity/volume) | + + + + + +-------+ + + | Serum or | 2022-03-02 | [facility] | 149 | (missing) | (missing) | | plasma | 02:40 | [facility] | | | | | alkaline | | [facility] | | | | | phosphatase | | | | | | | measurement | | | | | | | (enzymatic | | | | | | | activity/vol | | | | | | | ume) | | | | | | + + + +-------+ + + + + | Automated blood basophil count as percentage of total leukocytes | + + + + + +-------+ + + | Automated | 2022-03-02 | [facility] | 0.5 | (missing) | (missing) | | blood | 02:40 | [facility] | | | | | basophil | | [facility] | | | | | count as | | | | | | | percentage | | | | | | | of total | | | | | | | leukocytes | | | | | | + + + +-------+ + + + + | Automated blood eosinophil count as percentage of total leukocytes | + + + + + +-------+ + + | Automated | 2022-03-02 | [facility] | 5.4 | (missing) | (missing) | | blood | 02:40 | [facility] | | | | | eosinophil | | Hospital | | | | | count as | | | | | | | percentage | | | | | | | of total | | | | | | | leukocytes | | | | | | + + + +-------+ + + + + | Blood hemoglobin measurement (mass/volume) | + + + + + +--------+ + + | Blood | 2022-03-02 | [facility] | 12.7 | (missing) | (missing) | | hemoglobin | 02:40 | [facility] | | | | | measurement | | Hospital | | | | | (mass/volume | | | | | | | ) | | | | | | + + + +--------+ + + + + | Automated blood hematocrit | + + + + + +--------+ + + | Automated | 2022-03-02 | [facility] | 39.7 | (missing) | (missing) | | blood | 02:40 | [facility] | | | | | hematocrit | | Hospital | | | | + + + +--------+ + + + + | Automated blood lymphocyte count as percentage ot total leukocytes | + + + + + +--------+ + + | Automated | 2022-03-02 | [facility] | 13.3 | (missing) | (missing) | | blood | 02:40 | [facility] | | | | | lymphocyte | | Hospital | | | | | count as | | | | | | | percentage | | | | | | | ot total | | | | | | | leukocytes | | | | | | + + + +--------+ + + + + | Automated blood neutrophil count as percentage of total leukocytes | + + + + + +--------+ + + | Automated | 2022-03-02 | [facility] | 70.4 | (missing) | (missing) | | blood | 02:40 | [facility] | | | | | neutrophil | | Hospital | | | | | count as | | | | | | | percentage | | | | | | | of total | | | | | | | leukocytes | | | | | | + + + +--------+ + + + + | Automated blood platelet count (count/volume) | + + + + + +-------+ + + | Automated | 2022-03-02 | [facility] | 232 | (missing) | (missing) | | blood | 02:40 | [facility] | | | | | platelet | | [facility] | | | | | count | | | | | | | (count/volum | | | | | | | e) | | | | | | + + + +-------+ + + + + | Automated erythrocyte mean corpuscular hemoglobin (mass per erythrocyte) | + + + + + +--------+ + + | Automated | 2022-03-02 | [facility] | 29.2 | (missing) | (missing) | | erythrocyte | 02:40 | [facility] | | | | | mean | | Hospital | | | | | corpuscular | | | | | | | hemoglobin | | | | | | | (mass per | | | | | | | erythrocyte) | | | | | | | | | | | | | + + + +--------+ + + + + | Automated erythrocyte mean corpuscular hemoglobin concentration measurement | | (mass/volume) | + + + + + +--------+ + + | Automated | 2022-03-02 | [facility] | 32.0 | (missing) | (missing) | | erythrocyte | 02:40 | [facility] | | | | | mean | | [facility] | | | | | corpuscular | | | | | | | hemoglobin | | | | | | | concentratio | | | | | | | n | | | | | | | measurement | | | | | | | (mass/volume | | | | | | | ) | | | | | | + + + +--------+ + + + + | Automated erythrocyte mean corpuscular volume | + + + + + +--------+ + + | Automated | 2022-03-02 | [facility] | 91.3 | (missing) | (missing) | | erythrocyte | 02:40 | [facility] | | | | | mean | | [facility] | | | | | corpuscular | | | | | | | volume | | | | | | + + + +--------+ + + + + | Blood erythrocytes automated count (number/volume) | + + + + + +--------+ + + | Blood | 2022-03-02 | [facility] | 4.34 | (missing) | (missing) | | erythrocytes | 02:40 | [facility] | | | | | automated | | [facility] | | | | | count | | | | | | | (number/volu | | | | | | | me) | | | | | | + + + +--------+ + + + + | Influenza virus B RNA [Presence] in Respiratory specimen by [facility] withprobe detection | + + + + + + + + + | Influenza | 2022-03-02 | [facility] | NEGATIVE | (missing) | (missing) | | virus B RNA | 02:38 | [facility] | | | | | [Presence] | | [facility] | | | | | in | | | | | | | Respiratory | | | | | | | specimen by | | | | | | | [facility] | | | | | | | withprobe | | | | | | | detection | | | | | | + + + + + + + + + | Influenza virus A RNA [Presence] in Respiratory specimen by [facility] withprobe detection | + + + + + + + + + | Influenza | 2022-03-02 | [facility] | NEGATIVE | (missing) | (missing) | | virus A RNA | 02:38 | [facility] | | | | | [Presence] | | [facility] | | | | | in | | | | | | | Respiratory | | | | | | | specimen by | | | | | | | [facility] | | | | | | | withprobe | | | | | | | detection | | | | | | + + + + + + + + + | Respiratory specimen 2019 novel coronavirus RNA detection | + + + + + + + + + | Respiratory | 2022-03-02 | [facility] | NEGATIVE | (missing) | (missing) | | specimen | 02:38 | [facility] | | | | | 2019 novel | | Hospital | | | | | coronavirus | | | | | | | RNA | | | | | | | detection | | | | | | + + + + + + + + + | Glomerular filtration rate/1.73 sq M.predicted [Volume Rate/Area] inSerum, Plasma or | | Blood by Creatinine-based formula (CKD-EPI 2020) | + + + + + +------+ + + | Glomerular | 2022-03-02 | [facility] | 55 | (missing) | (missing) | | filtration | 02:40 | [facility] | | | | | rate/1.73 sq | | Hospital | | | | | M.predicted | | | | | | | [Volume | | | | | | | Rate/Area] | | | | | | | inSerum, | | | | | | | Plasma or | | | | | | | Blood by | | | | | | | Creatinine-b | | | | | | | ased formula | | | | | | | (CKD-EPI | | | | | | | 2020) | | | | | | + + + +------+ + + Social History + + + + | date | description | facility | + + + + | 2022-01-27 00:00 | Never smoker | [facility] | + + + + | 2022-03-02 00:00 | Never smoker | [facility] | + + + + Vital Signs + + + +---------+ | date | measurement | value | units | + + + +---------+ | 2022-01-21 00:00 | BP_diastolic | 66 | mmHg | + + + +---------+ | 2022-01-21 00:00 | BP_systolic | 107 | mmHg | + + + +---------+ | 2022-01-21 00:00 | heart_rate | 83 | /min | + + + +---------+ | 2022-01-27 00:00 | BMI | 43.9 | kg/m2 | + + + +---------+ | 2022-01-27 00:00 | BP_diastolic | 70 | mmHg | + + + +---------+ | 2022-01-27 00:00 | BP_systolic | 105 | mmHg | + + + +---------+ | 2022-01-27 00:00 | heart_rate | 68 | /min | + + + +---------+ | 2022-01-27 00:00 | height_metric | 180.34 | cm | + + + +---------+ | 2022-01-27 00:00 | height_standard | 71 | in | + + + +---------+ | 2022-01-27 00:00 | o2_saturation | 99 | % | + + + +---------+ | 2022-01-27 00:00 | respiration_rate | 16 | /min | + + + +---------+ | 2022-01-27 00:00 | temperature_metric | 36.72 | C | | | | | | + + + +---------+ | 2022-01-27 00:00 | | 98.1 | F | | | temperature_standar | | | | | d | | | + + + +---------+ | 2022-01-27 00:00 | weight_metric | 142.88 | kg | + + + +---------+ | 2022-01-27 00:00 | weight_standard | 315 | lb | + + + +---------+ | 2022-02-25 00:00 | BP_diastolic | 70 | mmHg | + + + +---------+ | 2022-02-25 00:00 | BP_systolic | 108 | mmHg | + + + +---------+ | 2022-02-25 00:00 | heart_rate | 40 | /min | + + + +---------+ | 2022-03-02 00:00 | BMI | 44.0 | kg/m2 | + + + +---------+ | 2022-03-02 00:00 | BP_diastolic | 80 | mmHg | + + + +---------+ | 2022-03-02 00:00 | BP_systolic | 142 | mmHg | + + + +---------+ | 2022-03-02 00:00 | heart_rate | 69 | /min | + + + +---------+ | 2022-03-02 00:00 | height_metric | 180.34 | cm | + + + +---------+ | 2022-03-02 00:00 | height_standard | 71 | in | + + + +---------+ | 2022-03-02 00:00 | o2_saturation | 95 | % | + + + +---------+ | 2022-03-02 00:00 | respiration_rate | 28 | /min | + + + +---------+ | 2022-03-02 00:00 | temperature_metric | 36.72 | C | | | | | | + + + +---------+ | 2022-03-02 00:00 | | 98.1 | F | | | temperature_standar | | | | | d | | | + + + +---------+ | 2022-03-02 00:00 | weight_metric | 143.25 | kg | + + + +---------+ | 2022-03-02 00:00 | weight_standard | 315.81 | lb | + + + +---------+ | 2022-03-25 00:00 | BP_diastolic | 66 | mmHg | + + + +---------+ | 2022-03-25 00:00 | BP_systolic | 111 | mmHg | + + + +---------+ | 2022-03-25 00:00 | heart_rate | 66 | /min | + + + +---------+ | 2022-04-22 00:00 | BMI | 44.0 | kg/m2 | + + + +---------+ | 2022-04-22 00:00 | BP_diastolic | 55 | mmHg | + + + +---------+ | 2022-04-22 00:00 | BP_diastolic | 91 | mmHg | + + + +---------+ | 2022-04-22 00:00 | BP_systolic | 150 | mmHg | + + + +---------+ | 2022-04-22 00:00 | BP_systolic | 99 | mmHg | + + + +---------+ | 2022-04-22 00:00 | heart_rate | 66 | /min | + + + +---------+ | 2022-04-22 00:00 | heart_rate | 68 | /min | + + + +---------+ | 2022-04-22 00:00 | height_metric | 180.34 | cm | + + + +---------+ | 2022-04-22 00:00 | height_standard | 71 | in | + + + +---------+ | 2022-04-22 00:00 | o2_saturation | 99 | % | + + + +---------+ | 2022-04-22 00:00 | respiration_rate | 19 | /min | + + + +---------+ | 2022-04-22 00:00 | temperature_metric | 36.22 | C | | | | | | + + + +---------+ | 2022-04-22 00:00 | | 97.2 | F | | | temperature_standar | | | | | d | | | + + + +---------+ | 2022-04-22 00:00 | weight_metric | 143.25 | kg | + + + +---------+ | 2022-04-22 00:00 | weight_standard | 315.81 | lb | + + + +---------+ | 2022-05-01 00:00 | BMI | 46.1 | kg/m2 | + + + +---------+ | 2022-05-01 00:00 | BP_diastolic | 51 | mmHg | + + + +---------+ | 2022-05-01 00:00 | BP_systolic | 110 | mmHg | + + + +---------+ | 2022-05-01 00:00 | heart_rate | 69 | /min | + + + +---------+ | 2022-05-01 00:00 | height_metric | 180.34 | cm | + + + +---------+ | 2022-05-01 00:00 | height_standard | 71 | in | + + + +---------+ | 2022-05-01 00:00 | o2_saturation | 97 | % | + + + +---------+ | 2022-05-01 00:00 | respiration_rate | 18 | /min | + + + +---------+ | 2022-05-01 00:00 | temperature_metric | 36.89 | C | | | | | | + + + +---------+ | 2022-05-01 00:00 | | 98.4 | F | | | temperature_standar | | | | | d | | | + + + +---------+ | 2022-05-01 00:00 | weight_metric | 150 | kg | + + + +---------+ | 2022-05-01 00:00 | weight_standard | 330.69 | lb | + + + +---------+ | 2022-06-17 00:00 | BP_diastolic | 69 | mmHg | + + + +---------+ | 2022-06-17 00:00 | BP_systolic | 105 | mmHg | + + + +---------+ | 2022-06-17 00:00 | heart_rate | 74 | /min | + + + +---------+ | 2022-07-01 00:00 | BMI | 45.5 | kg/m2 | + + + +---------+ | 2022-07-01 00:00 | BP_diastolic | 64 | mmHg | + + + +---------+ | 2022-07-01 00:00 | BP_systolic | 130 | mmHg | + + + +---------+ | 2022-07-01 00:00 | heart_rate | 51 | /min | + + + +---------+ | 2022-07-01 00:00 | height_metric | 185.42 | cm | + + + +---------+ | 2022-07-01 00:00 | height_standard | 73 | in | + + + +---------+ | 2022-07-01 00:00 | o2_saturation | 99 | % | + + + +---------+ | 2022-07-01 00:00 | respiration_rate | 19 | /min | + + + +---------+ | 2022-07-01 00:00 | temperature_metric | 36 | C | | | | | | + + + +---------+ | 2022-07-01 00:00 | | 96.8 | F | | | temperature_standar | | | | | d | | | + + + +---------+ | 2022-07-01 00:00 | weight_metric | 156.3 | kg | + + + +---------+ | 2022-07-01 00:00 | weight_standard | 344.58 | lb | + + + +---------+ | 2022-07-15 00:00 | BP_diastolic | 55 | mmHg | + + + +---------+ | 2022-07-15 00:00 | BP_systolic | 113 | mmHg | + + + +---------+ | 2022-07-15 00:00 | heart_rate | 68 | /min | + + + +---------+ | 2022-07-17 00:00 | BMI | 44.5 | kg/m2 | + + + +---------+ | 2022-07-17 00:00 | BP_diastolic | 70 | mmHg | + + + +---------+ | 2022-07-17 00:00 | BP_systolic | 113 | mmHg | + + + +---------+ | 2022-07-17 00:00 | heart_rate | 65 | /min | + + + +---------+ | 2022-07-17 00:00 | height_metric | 185.42 | cm | + + + +---------+ | 2022-07-17 00:00 | height_standard | 73 | in | + + + +---------+ | 2022-07-17 00:00 | o2_saturation | 96 | % | + + + +---------+ | 2022-07-17 00:00 | respiration_rate | 25 | /min | + + + +---------+ | 2022-07-17 00:00 | temperature_metric | 36.67 | C | | | | | | + + + +---------+ | 2022-07-17 00:00 | | 98 | F | | | temperature_standar | | | | | d | | | + + + +---------+ | 2022-07-17 00:00 | weight_metric | 152.86 | kg | + + + +---------+ | 2022-07-17 00:00 | weight_standard | 337 | lb | + + + +---------+ | 2022-11-25 00:00 | BP_diastolic | 70 | mmHg | + + + +---------+ | 2022-11-25 00:00 | BP_systolic | 105 | mmHg | + + + +---------+ | 2022-11-25 00:00 | heart_rate | 121 | /min | + + + +---------+ | 2022-11-28 00:00 | BMI | 46.4 | kg/m2 | + + + +---------+ | 2022-11-28 00:00 | BP_diastolic | 77 | mmHg | + + + +---------+ | 2022-11-28 00:00 | BP_systolic | 136 | mmHg | + + + +---------+ | 2022-11-28 00:00 | heart_rate | 60 | /min | + + + +---------+ | 2022-11-28 00:00 | height_metric | 185.42 | cm | + + + +---------+ | 2022-11-28 00:00 | height_standard | 73 | in | + + + +---------+ | 2022-11-28 00:00 | o2_saturation | 96 | % | + + + +---------+ | 2022-11-28 00:00 | respiration_rate | 16 | /min | + + + +---------+ | 2022-11-28 00:00 | temperature_metric | 36.78 | C | | | | | | + + + +---------+ | 2022-11-28 00:00 | | 98.2 | F | | | temperature_standar | | | | | d | | | + + + +---------+ | 2022-11-28 00:00 | weight_metric | 159.66 | kg | + + + +---------+ | 2022-11-28 00:00 | weight_standard | 351.99 | lb | + + + +---------+ | 2022-11-28 00:00 | weight_standard | 352 | lb | + + + +---------+"
--- OUTSIDE RECORDS SUMMARY | ~2022-12-16 | XMS | Continuity of Care Document ---
Demographics + + + | Address | [address] | | | [place] [address] | + + + | Preferred Language | Unknown | + + + | Marital Status | | + + + | Episcopal Affiliation | Unknown | + + + | Race | White | + + + | Ethnic Group | Not or | + + + Author + + + | Author | [facility] | + + + | Organization | [facility] | + + + | Address | [address] | | | [place] [address] | + + + | Phone | | + + + Care Team Providers + + + + | Care Group Worker Name | Role | Phone | + [...] | (no severity) | | | | [facility] | | | | | | [facility] [...] 2022-01-27 00:00 | No vaccine administered | [facility] | + + + + | 2022-03-02 00:00 | No vaccine administered | [facility] | + + + + Medications + + + + | date | description | facility | + + + + | 2022-01-27 00:00 | GABAPENTIN | [facility] | + + + + | 2022-03-02 00:00 | GABAPENTIN | [facility] | + + + + | 2022-04-22 00:00 | GABAPENTIN | [facility] | + + + + | 2022-05-01 00:00 | GABAPENTIN | [facility] | + + + + | 2022-07-01 00:00 | GABAPENTIN | [facility] | + + + + | 2022-01-27 00:00 | gabapentin 100 MG Oral | [facility] | | | Capsule [Neurontin] | | + + + + | 2022-03-02 00:00 | gabapentin 100 MG Oral | [facility] | | | Capsule [Neurontin] | | + + + + | 2022-03-02 00:00 | Millipred DP 6 Day Dose | [facility] | | | Pack | | + + + + | 2022-03-02 00:00 | PREDNISOLONE | [facility] | + + + + | 2022-11-28 00:00 | POTASSIUM CHLORIDE | [facility] | + + + + | 2022-07-01 00:00 | EMPAGLIFLOZIN | [facility] | + + + + | 2022-07-17 00:00 | EMPAGLIFLOZIN | [facility] | + + + + | 2022-11-28 00:00 | EMPAGLIFLOZIN | [facility] | + + + + | 2022-07-01 00:00 | SACUBITRIL/VALSARTAN | [facility] | + + + + | 2022-03-02 00:00 | BENZONATATE | [facility] | + + + + | 2022-03-02 00:00 | BENZONATATE | [facility] | + + + + | 2022-03-02 00:00 | BENZONATATE | [facility] | + + + + | 2022-03-02 00:00 | benzonatate 100 MG Oral | [facility] | | | Capsule | | + + + + | 2022-07-01 00:00 | NITROGLYCERIN | [facility] | + + + + | 2022-07-17 00:00 | NITROGLYCERIN | [facility] | + + + + | 2022-11-28 00:00 | NITROGLYCERIN | [facility] | + + + + | 2022-11-28 00:00 | CITALOPRAM HYDROBROMIDE | [facility] | + + + + | 2022-04-22 00:00 | FUROSEMIDE | [facility] | + + + + | 2022-04-22 00:00 | FUROSEMIDE | [facility] | + + + + | 2022-01-27 00:00 | CITALOPRAM HYDROBROMIDE | [facility] | + + + + | 2022-03-02 00:00 | CITALOPRAM HYDROBROMIDE | [facility] | + + + + | 2022-04-22 00:00 | CITALOPRAM HYDROBROMIDE | [facility] | + + + + | 2022-05-01 00:00 | CITALOPRAM HYDROBROMIDE | [facility] | + + + + | 2022-07-01 00:00 | CITALOPRAM HYDROBROMIDE | [facility] | + + + + | 2022-07-17 00:00 | CITALOPRAM HYDROBROMIDE | [facility] | + + + + | 2022-01-27 00:00 | citalopram 10 MG Oral | [facility] | | | Tablet | | + + + + | 2022-03-02 00:00 | citalopram 10 MG Oral | [facility] | | | Tablet | | + + + + | 2022-04-22 00:00 | FUROSEMIDE | [facility] | + + + + | 2022-07-17 00:00 | FUROSEMIDE | [facility] | + + + + | 2022-07-17 00:00 | GABAPENTIN | [facility] | + + + + | 2022-11-28 00:00 | GABAPENTIN | [facility] | + + + + | 2020-10-14 00:00 | POTASSIUM CHLORIDE | [facility] | + + + + | 2020-10-14 00:00 | POTASSIUM CHLORIDE | [facility] | + + + + | 2020-10-14 00:00 | POTASSIUM CHLORIDE | [facility] | + + + + | 2020-10-14 00:00 | POTASSIUM CHLORIDE | [facility] | + + + + | 2020-10-14 00:00 | POTASSIUM CHLORIDE | [facility] | + + + + | 2020-10-14 00:00 | potassium chloride 10 MEQ | [facility] | | | Extended Release Oral | | | | Capsule | | + + + + | 2022-07-01 00:00 | SPIRONOLACTONE | [facility] | + + + + | 2022-07-17 00:00 | SPIRONOLACTONE | [facility] | + + + + | 2022-11-28 00:00 | SPIRONOLACTONE | [facility] | + + + + | 2022-01-27 00:00 | FUROSEMIDE | [facility] | + + + + | 2022-03-02 00:00 | FUROSEMIDE | [facility] | + + + + | 2022-11-28 00:00 | FUROSEMIDE | [facility] | + + + + | 2022-01-27 00:00 | furosemide 40 MG Oral | [facility] | | | Tablet | | + + + + | 2022-03-02 00:00 | furosemide 40 MG Oral | [facility] | | | Tablet | | + + + + | 2022-01-27 00:00 | VALSARTAN | [facility] | + + + + | 2022-03-02 00:00 | VALSARTAN | [facility] | + + + + | 2022-04-22 00:00 | VALSARTAN | [facility] | + + + + | 2022-05-01 00:00 | VALSARTAN | [facility] | + + + + | 2022-07-17 00:00 | VALSARTAN | [facility] | + + + + | 2022-11-28 00:00 | VALSARTAN | [facility] | + + + + | 2022-01-27 00:00 | valsartan 80 MG Oral | [facility] | | | Tablet | | + + + + | 2022-03-02 00:00 | valsartan 80 MG Oral | [facility] | | | Tablet | | + + + + | 2022-01-27 00:00 | ATORVASTATIN | [facility] | + + + + | 2022-03-02 00:00 | ATORVASTATIN | [facility] | + + + + | 2022-04-22 00:00 | ATORVASTATIN | [facility] | + + + + | 2022-05-01 00:00 | ATORVASTATIN | [facility] | + + + + | 2022-07-01 00:00 | ATORVASTATIN | [facility] | + + + + | 2022-07-17 00:00 | ATORVASTATIN | [facility] | + + + + | 2022-11-28 00:00 | ATORVASTATIN | [facility] | + + + + | 2022-01-27 00:00 | atorvastatin 40 MG Oral | [facility] | | | Tablet [Lipitor] | | + + + + | 2022-03-02 00:00 | atorvastatin 40 MG Oral | [facility] | | | Tablet [Lipitor] | | + + + + | 2017-03-21 00:00 | CYCLOBENZAPRINE HCL | [facility] | + + + + | 2017-03-21 00:00 | CYCLOBENZAPRINE HCL | [facility] | + + + + | 2017-03-21 00:00 | CYCLOBENZAPRINE HCL | [facility] | + + + + | 2017-03-21 00:00 | CYCLOBENZAPRINE HCL | [facility] | + + + + | 2017-03-21 00:00 | CYCLOBENZAPRINE HCL | [facility] | + + + + | 2017-03-21 00:00 | cyclobenzaprine | [facility] | | | hydrochloride 10 MG Oral | | | | Tablet | | + + + + | 2022-11-28 00:00 | AMIODARONE HCL | [facility] | + + + + | 2022-11-28 00:00 | WARFARIN SODIUM | [facility] | + + + + | 2022-01-27 00:00 | WARFARIN SODIUM | [facility] | + + + + | 2022-03-02 00:00 | WARFARIN SODIUM | [facility] | + + + + | 2022-04-22 00:00 | WARFARIN SODIUM | [facility] | + + + + | 2022-05-01 00:00 | WARFARIN SODIUM | [facility] | + + + + | 2022-07-01 00:00 | WARFARIN SODIUM | [facility] | + + + + | 2022-07-17 00:00 | WARFARIN SODIUM | [facility] | + + + + | 2022-11-28 00:00 | WARFARIN SODIUM | [facility] | + + + + | 2022-01-27 00:00 | warfarin sodium 10 MG Oral | [facility] | | | Tablet [Jantoven] | | + + + + | 2022-03-02 00:00 | warfarin sodium 10 MG Oral | [facility] | | | Tablet [Jantoven] | | + + + + | 2022-01-27 00:00 | 24 HR metoprolol succinate | [facility] | | | 25 MG Extended Release | | | | Oral Table | | + + + + | 2022-03-02 00:00 | 24 HR metoprolol succinate | [facility] | | | 25 MG Extended Release | | | | Oral Table | | + + + + | 2022-01-27 00:00 | METOPROLOL SUCCINATE | [facility] | + + + + | 2022-03-02 00:00 | METOPROLOL SUCCINATE | [facility] | + + + + | 2022-04-22 00:00 | METOPROLOL SUCCINATE | [facility] | + + + + | 2022-05-01 00:00 | METOPROLOL SUCCINATE | [facility] | + + + + | 2022-07-01 00:00 | METOPROLOL SUCCINATE | [facility] | + + + + | 2022-07-17 00:00 | METOPROLOL SUCCINATE | [facility] | + + + + | 2022-11-28 00:00 | METOPROLOL SUCCINATE | [facility] | + + + + | 2022-01-27 00:00 | Levothyroxine Sodium | [facility] | + + + + | 2022-03-02 00:00 | Levothyroxine Sodium | [facility] | + + + + | 2022-01-27 00:00 | levothyroxine sodium 0.075 | [facility] | | | MG Oral Capsule | | + + + + | 2022-03-02 00:00 | levothyroxine sodium 0.075 | [facility] | | | MG Oral Capsule | | + + + + | 2022-04-22 00:00 | LEVOTHYROXINE SODIUM | [facility] | + + + + | 2022-05-01 00:00 | LEVOTHYROXINE SODIUM | [facility] | + + + + | 2022-07-01 00:00 | LEVOTHYROXINE SODIUM | [facility] | + + + + | 2022-07-17 00:00 | LEVOTHYROXINE SODIUM | [facility] | + + + + | 2022-11-28 00:00 | LEVOTHYROXINE SODIUM | [facility] | + + + + | 2022-01-27 00:00 | LOSARTAN POTASSIUM | [facility] | + + + + | 2022-03-02 00:00 | LOSARTAN POTASSIUM | [facility] | + + + + | 2022-04-22 00:00 | LOSARTAN POTASSIUM | [facility] | + + + + | 2022-05-01 00:00 | LOSARTAN POTASSIUM | [facility] | + + + + | 2022-07-01 00:00 | LOSARTAN POTASSIUM | [facility] | + + + + | 2022-07-17 00:00 | LOSARTAN POTASSIUM | [facility] | + + + + | 2022-11-28 00:00 | LOSARTAN POTASSIUM | [facility] | + + + + | 2022-01-27 00:00 | losartan potassium 25 MG | [facility] | | | Oral Tablet [Cozaar] | | + + + + | 2022-03-02 00:00 | losartan potassium 25 MG | [facility] | | | Oral Tablet [Cozaar] | | + + + + Problems + + + + | date | description | facility | + + + + | 2020-10-14 00:00 | CHF (congestive heart | [facility] | | | failure) | | + + + + | 2020-10-14 00:00 | Congestive heart failure | [facility] | + + + + | 2020-10-14 00:00 | Congestive heart failure | [facility] | + + + + | 2020-10-14 00:00 | Congestive heart failure | [facility] | + + + + | 2020-10-14 00:00 | Congestive heart failure | [facility] | + + + + | 2020-10-14 00:00 | Congestive heart failure | [facility] | + + + + | 2020-10-14 00:00 | Dyspnea | [facility] | + + + + | 2020-10-14 00:00 | Dyspnea | [facility] | + + + + | 2020-10-14 00:00 | Dyspnea | [facility] | + + + + | 2020-10-14 00:00 | Dyspnea | [facility] | + + + + | 2020-10-14 00:00 | Dyspnea | [facility] | + + + + | 2020-11-01 00:00 | Chest pain | [facility] | + + + + | 2020-11-01 00:00 | Chest pain | [facility] | + + + + | 2020-11-01 00:00 | Chest pain | [facility] | + + + + | 2020-11-01 00:00 | Chest pain | [facility] | + + + + | 2020-11-01 00:00 | Chest pain | [facility] | + + + + | 2021-03-25 00:00 | Right flank pain | [facility] | + + + + | 2021-03-25 00:00 | Right flank pain | [facility] | + + + + | 2021-03-25 00:00 | Right flank pain | [facility] | + + + + | 2021-03-25 00:00 | Right flank pain | [facility] | + + + + | 2021-03-25 00:00 | Right flank pain | [facility] | + + + + | 2021-03-25 02:29 | UNSPECIFIED ABDOMINAL PAIN | [facility] | | | | | + + + + | 2021-03-25 02:29 | ANIMAL BEHAVIORIST (CURRENT) USE OF | [facility] | | | 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 | | + + + + | 2021-03-25 02:29 | OTHER HALFWAY (CURRENT) | [facility] | | | DRUG [...] | 2021-04-16 00:00 | Near syncope | [facility] | + + + + | 2021-04-16 00:00 | Transient hypotension | [facility] | + + + + | 2021-04-16 00:00 | Transient hypotension | [facility] | + + + + | 2021-04-16 00:00 | Transient hypotension | [facility] | + + + + | 2021-04-16 00:00 | Transient hypotension | [facility] | + + + + | 2021-04-16 00:00 | Transient hypotension | [facility] | + + + + | 2021-04-16 00:00 | Pre-syncope | [facility] | + + + + | 2021-04-16 00:00 | Pre-syncope | [facility] | + + + + | 2021-04-16 00:00 | Pre-syncope | [facility] | + + + + | 2021-04-16 00:00 | Pre-syncope | [facility] | + + + + | 2021-04-16 00:00 | Pre-syncope | [facility] | + + + + | [...] + + + | 2021-04-22 12:11 | ANIMAL BEHAVIORIST (CURRENT) USE OF | [facility] | | | 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 | | + + + + | 2021-04-22 12:11 | OTHER ANIMAL BEHAVIORIST (CURRENT) | [facility] | | | DRUG [...] + + + | 2021-05-21 13:05 | HALFWAY (CURRENT) USE OF | [facility] | | | 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 | | + + + + | 2021-05-21 13:05 | 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 | | + + + + | 2021-11-01 00:00 | Right wrist pain | [facility] | + + + + | 2021-11-01 00:00 | Right wrist pain | [facility] | + + + + | 2021-11-01 00:00 | Right wrist pain | [facility] | + + + + | 2021-11-01 00:00 | Right wrist pain | [facility] | + + + + | 2021-11-01 00:00 | Right wrist pain | [facility] | + + + + | 2022-01-27 00:00 | Vitreous detachment | [facility] | + + + + | 2022-01-27 00:00 | Vitreous detachment | [facility] | + + + + | 2022-01-27 00:00 | Vitreous detachment | [facility] | + + + + | 2022-01-27 00:00 | Vitreous detachment | [facility] | + + + + | 2022-01-27 00:00 | Vitreous detachment | [facility] | + + + + | 2022-01-27 11:27 | VITREOUS DEGENERATION, | [facility]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 | | + + + + | 2022-01-27 11:27 | UNSPECIFIED | [facility] | | | OSTEOARTHRITIS, UNSPECIFIED | | | | SITE | | + + + + | 2022-01-27 11:27 | HALFWAY (CURRENT) USE OF | [facility] | | | 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 | | + + + + | 2022-01-27 11:27 | OTHER ANIMAL BEHAVIORIST (CURRENT) | [facility] | | | DRUG [...] + + + | 2022-02-25 14:00 | HALFWAY (CURRENT) USE OF | [facility] | | | 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 | | + + + + | 2022-02-25 14:00 | 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 | | + + + + | 2022-03-02 00:00 | RSV infection | [facility] | + + + + | 2022-03-02 00:00 | Infection due to | [facility] | | | respiratory syncytial virus | | | | (RSV) | | + + + + | 2022-03-02 00:00 | Infection due to | [facility] | | | respiratory syncytial virus | | | | (RSV) | | + + + + | 2022-03-02 00:00 | Infection due to | [facility] | | | respiratory syncytial virus | | | | (RSV) | | + + + + | 2022-03-02 00:00 | Infection due to | [facility] | | | respiratory syncytial virus | | | | (RSV) | | + + + + | 2022-03-02 00:00 | Infection due to | [facility] | | | respiratory syncytial virus [...] + + + | 2022-03-02 02:09 | ANIMAL BEHAVIORIST (CURRENT) USE OF | [facility] | | | 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 | | + + + + | 2022-03-02 02:09 | OTHER HALFWAY (CURRENT) | [facility] | | | DRUG [...] + + + | 2022-03-25 14:30 | HALFWAY (CURRENT) USE OF | [facility] | | | 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 | | + + + + | 2022-03-25 14:30 | 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 | | + + + + | 2022-04-22 13:40 | ENCOUNTER FOR THERAPEUTIC | [facility] | | | DRUG LEVEL MONITORING | | + + + + | 2022-04-22 13:40 | HALFWAY (CURRENT) USE OF | [facility] | | [...] + + + | 2022-04-22 14:48 | HALFWAY (CURRENT) USE OF | [facility] | | | 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 | | + + + + | 2022-04-22 14:48 | OTHER ANIMAL BEHAVIORIST (CURRENT) | [facility] | | | DRUG [...] 2022-05-01 00:00 | Encounter for medical | [facility] | | | screening examination | | + + + + | 2022-05-01 00:00 | Encounter for medical | [facility] | | | screening examination | | + + + + | 2022-05-01 00:00 | Encounter for medical | [facility] | | | screening examination | | + + + + | 2022-05-20 14:30 | ENCOUNTER FOR THERAPEUTIC | [facility] | | | DRUG LEVEL MONITORING | | + + + + | 2022-05-20 14:30 | HALFWAY (CURRENT) USE OF | [facility] | | | 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 | | + + + + | 2022-05-20 14:30 | 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 | | + + + + | 2022-06-17 14:20 | ENCOUNTER FOR THERAPEUTIC | [facility] | | | DRUG LEVEL MONITORING | | + + + + | 2022-06-17 14:20 | ANIMAL BEHAVIORIST (CURRENT) USE OF | [facility] | | [...] + + + | 2022-07-01 10:14 | ANIMAL BEHAVIORIST (CURRENT) USE OF | [facility] | | | 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 | | + + + + | 2022-07-01 10:14 | OTHER ANIMAL BEHAVIORIST (CURRENT) | [facility] | | | DRUG [...] + + + | 2022-07-15 14:20 | ANIMAL BEHAVIORIST (CURRENT) USE OF | [facility] | | [...] + + + | 2022-07-17 20:06 | HALFWAY (CURRENT) USE OF | [facility] | | | 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 | | + + + + | 2022-07-17 20:06 | OTHER HALFWAY (CURRENT) | [facility] | | | DRUG [...] + + + | 2022-08-12 14:15 | HALFWAY (CURRENT) USE OF | [facility] | | [...] + + | 2022-08-21 12:31 | OTHER HALFWAY (CURRENT) | [facility] | | | DRUG THERAPY | | + + + + | 2022-08-26 14:16 | ENCOUNTER FOR THERAPEUTIC | [facility] | | | DRUG LEVEL MONITORING | | + + + + | 2022-08-26 14:16 | HALFWAY (CURRENT) USE OF | [facility] | | [...] + + + | 2022-09-02 14:55 | ANIMAL BEHAVIORIST (CURRENT) USE OF | [facility] | | [...] + + + | 2022-09-09 14:25 | HALFWAY (CURRENT) USE OF | [facility] | | [...] + + + | 2022-09-16 11:00 | ANIMAL BEHAVIORIST (CURRENT) USE OF | [facility] | | [...] + + + | 2022-09-30 10:35 | HALFWAY (CURRENT) USE OF | [facility] | | [...] + + + | 2022-10-14 14:35 | HALFWAY (CURRENT) USE OF | [facility] | | [...] + + + | 2022-10-28 14:40 | HALFWAY (CURRENT) USE OF | [facility] | | [...] + + + | 2022-11-25 14:05 | ANIMAL BEHAVIORIST (CURRENT) USE OF | [facility] | | | 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 | | + + + + | 2022-11-28 00:00 | Hypokalemia | [facility] | + + + + | 2022-11-28 00:00 | Dyspnea due to congestive | [facility] | | | heart failure | [...] + + + | 2022-11-28 11:31 | ANIMAL BEHAVIORIST (CURRENT) USE OF | [facility] | | [...] (missing) | | (unavailable | 11:45:07 | [facility] | | | | | ) | [...] | 2022-01-27 00:00 | Never smoker | [facility] | + + + + | 2022-03-02 00:00 | Never smoker | [facility] | + + + + Vital [...]
[~2022-12-16 18:59] MED LIST changes: +CITALOPRAM HBR20 MG PO; +K-TAB ER20 MEQ PO; +WARFARIN SODIUM10 MG PO
[2022-12-17 00:57] VITALS: BP 126/83
== END 2022-12-17 00:58 | disposition home or self-care (01) ==
LOC: ED 18:59
DX: R19.7 Diarrhea, unspecified (principal); E87.6 Hypokalemia; M19.90 Unspecified osteoarthritis, unspecified site; Z88.8 Allergy status to other drugs, medicaments and biological substances; Z88.5 Allergy status to narcotic agent; Z88.1 Allergy status to other antibiotic agents; Z79.899 Other long term (current) drug therapy; Z79.01 Long term (current) use of anticoagulants
CPT/HCPCS: 36415; 74176; 80053; 83690; 85025; 96361; 96374; 99284-25; J2405; J7030

== ENCOUNTER 2022-12-20 12:32 | Inpatient (IN) | payer MEDICARE ==
[~2022-12-20] VITALS: Ht 185.4 cm; Wt 153.1 kg
--- OUTSIDE RECORDS SUMMARY | ~2022-12-20 | XMS | Continuity of Care Document ---
Demographics + + + | Address | [address] | | | [place] [address] | + + + | Preferred Language | Unknown | + + + | Marital Status | | + + + | Mandaen Affiliation | Unknown | + + + | Race | White | + + + | Ethnic Group | Not or | + + + Author + + + | Author | [place] | + + + | Organization | [place] | + + + | Address | [address] | | | [place] [address] | + + + | Phone | | + + + Care Team Providers + + + + | Care Manager Transfer Name | Role | Phone | + [...] 2022-01-27 00:00 | No vaccine administered | [facility] | + + + + | 2022-03-02 00:00 | No vaccine administered | [facility] | + + + + Medications + + + + | date | description | facility | + + + + | 2022-01-27 00:00 | GABAPENTIN | [facility] | + + + + | 2022-03-02 00:00 | GABAPENTIN | [facility] | + + + + | 2022-04-22 00:00 | GABAPENTIN | [facility] | + + + + | 2022-05-01 00:00 | GABAPENTIN | [facility] | + + + + | 2022-07-01 00:00 | GABAPENTIN | [facility] | + + + + | 2022-01-27 00:00 | gabapentin 100 MG Oral | [facility] | | | Capsule [Neurontin] | | + + + + | 2022-03-02 00:00 | gabapentin 100 MG Oral | [facility] | | | Capsule [Neurontin] | | + + + + | 2022-03-02 00:00 | Millipred DP 6 Day Dose | [facility] | | | Pack | | + + + + | 2022-03-02 00:00 | PREDNISOLONE | [facility] | + + + + | 2022-11-28 00:00 | POTASSIUM CHLORIDE | [facility] | + + + + | 2022-11-28 00:00 | POTASSIUM CHLORIDE | [facility] | + + + + | 2022-07-01 00:00 | EMPAGLIFLOZIN | [facility] | + + + + | 2022-07-17 00:00 | EMPAGLIFLOZIN | [facility] | + + + + | 2022-11-28 00:00 | EMPAGLIFLOZIN | [facility] | + + + + | 2022-12-17 00:00 | EMPAGLIFLOZIN | [facility] | + + + + | 2022-07-01 00:00 | SACUBITRIL/VALSARTAN | [facility] | + + + + | 2022-03-02 00:00 | BENZONATATE | [facility] | + + + + | 2022-03-02 00:00 | BENZONATATE | [facility] | + + + + | 2022-03-02 00:00 | BENZONATATE | [facility] | + + + + | 2022-03-02 00:00 | benzonatate 100 MG Oral | [facility] | | | Capsule | | + + + + | 2022-07-01 00:00 | NITROGLYCERIN | [facility] | + + + + | 2022-07-17 00:00 | NITROGLYCERIN | [facility] | + + + + | 2022-11-28 00:00 | NITROGLYCERIN | [facility] | + + + + | 2022-12-17 00:00 | NITROGLYCERIN | [facility] | + + + + | 2022-11-28 00:00 | CITALOPRAM HYDROBROMIDE | [facility] | + + + + | 2022-12-17 00:00 | CITALOPRAM HYDROBROMIDE | [facility] | + + + + | 2022-04-22 00:00 | FUROSEMIDE | [facility] | + + + + | 2022-04-22 00:00 | FUROSEMIDE | [facility] | + + + + | 2022-01-27 00:00 | CITALOPRAM HYDROBROMIDE | [facility] | + + + + | 2022-03-02 00:00 | CITALOPRAM HYDROBROMIDE | [facility] | + + + + | 2022-04-22 00:00 | CITALOPRAM HYDROBROMIDE | [facility] | + + + + | 2022-05-01 00:00 | CITALOPRAM HYDROBROMIDE | [facility] | + + + + | 2022-07-01 00:00 | CITALOPRAM HYDROBROMIDE | [facility] | + + + + | 2022-07-17 00:00 | CITALOPRAM HYDROBROMIDE | [facility] | + + + + | 2022-01-27 00:00 | citalopram 10 MG Oral | [facility] | | | Tablet | | + + + + | 2022-03-02 00:00 | citalopram 10 MG Oral | [facility] | | | Tablet | | + + + + | 2022-04-22 00:00 | FUROSEMIDE | [facility] | + + + + | 2022-07-17 00:00 | FUROSEMIDE | [facility] | + + + + | 2022-07-17 00:00 | GABAPENTIN | [facility] | + + + + | 2022-11-28 00:00 | GABAPENTIN | [facility] | + + + + | 2022-12-17 00:00 | GABAPENTIN | [facility] | + + + + | 2020-10-14 00:00 | POTASSIUM CHLORIDE | [facility] | + + + + | 2020-10-14 00:00 | POTASSIUM CHLORIDE | [facility] | + + + + | 2020-10-14 00:00 | POTASSIUM CHLORIDE | [facility] | + + + + | 2020-10-14 00:00 | POTASSIUM CHLORIDE | [facility] | + + + + | 2020-10-14 00:00 | POTASSIUM CHLORIDE | [facility] | + + + + | 2020-10-14 00:00 | POTASSIUM CHLORIDE | [facility] | + + + + | 2020-10-14 00:00 | potassium chloride 10 MEQ | [facility] | | | Extended Release Oral | | | | Capsule | | + + + + | 2022-07-01 00:00 | SPIRONOLACTONE | [facility] | + + + + | 2022-07-17 00:00 | SPIRONOLACTONE | [facility] | + + + + | 2022-11-28 00:00 | SPIRONOLACTONE | [facility] | + + + + | 2022-12-17 00:00 | SPIRONOLACTONE | [facility] | + + + + | 2022-01-27 00:00 | FUROSEMIDE | [facility] | + + + + | 2022-03-02 00:00 | FUROSEMIDE | [facility] | + + + + | 2022-11-28 00:00 | FUROSEMIDE | [facility] | + + + + | 2022-12-17 00:00 | FUROSEMIDE | [facility] | + + + + | 2022-01-27 00:00 | furosemide 40 MG Oral | [facility] | | | Tablet | | + + + + | 2022-03-02 00:00 | furosemide 40 MG Oral | [facility] | | | Tablet | | + + + + | 2022-01-27 00:00 | VALSARTAN | [facility] | + + + + | 2022-03-02 00:00 | VALSARTAN | [facility] | + + + + | 2022-04-22 00:00 | VALSARTAN | [facility] | + + + + | 2022-05-01 00:00 | VALSARTAN | [facility] | + + + + | 2022-07-17 00:00 | VALSARTAN | [facility] | + + + + | 2022-11-28 00:00 | VALSARTAN | [facility] | + + + + | 2022-12-17 00:00 | VALSARTAN | [facility] | + + + + | 2022-01-27 00:00 | valsartan 80 MG Oral | [facility] | | | Tablet | | + + + + | 2022-03-02 00:00 | valsartan 80 MG Oral | [facility] | | | Tablet | | + + + + | 2022-01-27 00:00 | ATORVASTATIN | [facility] | + + + + | 2022-03-02 00:00 | ATORVASTATIN | [facility] | + + + + | 2022-04-22 00:00 | ATORVASTATIN | [facility] | + + + + | 2022-05-01 00:00 | ATORVASTATIN | [facility] | + + + + | 2022-07-01 00:00 | ATORVASTATIN | [facility] | + + + + | 2022-07-17 00:00 | ATORVASTATIN | [facility] | + + + + | 2022-11-28 00:00 | ATORVASTATIN | [facility] | + + + + | 2022-12-17 00:00 | ATORVASTATIN | [facility] | + + + + | 2022-01-27 00:00 | atorvastatin 40 MG Oral | [facility] | | | Tablet [Lipitor] | | + + + + | 2022-03-02 00:00 | atorvastatin 40 MG Oral | [facility] | | | Tablet [Lipitor] | | + + + + | 2017-03-21 00:00 | CYCLOBENZAPRINE HCL | [facility] | + + + + | 2017-03-21 00:00 | CYCLOBENZAPRINE HCL | [facility] | + + + + | 2017-03-21 00:00 | CYCLOBENZAPRINE HCL | [facility] | + + + + | 2017-03-21 00:00 | CYCLOBENZAPRINE HCL | [facility] | + + + + | 2017-03-21 00:00 | CYCLOBENZAPRINE HCL | [facility] | + + + + | 2017-03-21 00:00 | CYCLOBENZAPRINE HCL | [facility] | + + + + | 2017-03-21 00:00 | cyclobenzaprine | [facility] | | | hydrochloride 10 MG Oral | | | | Tablet | | + + + + | 2022-11-28 00:00 | AMIODARONE HCL | [facility] | + + + + | 2022-12-17 00:00 | AMIODARONE HCL | [facility] | + + + + | 2022-11-28 00:00 | WARFARIN SODIUM | [facility] | + + + + | 2022-12-17 00:00 | WARFARIN SODIUM | [facility] | + + + + | 2022-01-27 00:00 | WARFARIN SODIUM | [facility] | + + + + | 2022-03-02 00:00 | WARFARIN SODIUM | [facility] | + + + + | 2022-04-22 00:00 | WARFARIN SODIUM | [facility] | + + + + | 2022-05-01 00:00 | WARFARIN SODIUM | [facility] | + + + + | 2022-07-01 00:00 | WARFARIN SODIUM | [facility] | + + + + | 2022-07-17 00:00 | WARFARIN SODIUM | [facility] | + + + + | 2022-11-28 00:00 | WARFARIN SODIUM | [facility] | + + + + | 2022-12-17 00:00 | WARFARIN SODIUM | [facility] | + + + + | 2022-01-27 00:00 | warfarin sodium 10 MG Oral | [facility] | | | Tablet [Jantoven] | | + + + + | 2022-03-02 00:00 | warfarin sodium 10 MG Oral | [facility] | | | Tablet [Jantoven] | | + + + + | 2022-01-27 00:00 | 24 HR metoprolol succinate | [facility] | | | 25 MG Extended Release | | | | Oral Table | | + + + + | 2022-03-02 00:00 | 24 HR metoprolol succinate | [facility] | | | 25 MG Extended Release | | | | Oral Table | | + + + + | 2022-01-27 00:00 | METOPROLOL SUCCINATE | [facility] | + + + + | 2022-03-02 00:00 | METOPROLOL SUCCINATE | [facility] | + + + + | 2022-04-22 00:00 | METOPROLOL SUCCINATE | [facility] | + + + + | 2022-05-01 00:00 | METOPROLOL SUCCINATE | [facility] | + + + + | 2022-07-01 00:00 | METOPROLOL SUCCINATE | [facility] | + + + + | 2022-07-17 00:00 | METOPROLOL SUCCINATE | [facility] | + + + + | 2022-11-28 00:00 | METOPROLOL SUCCINATE | [facility] | + + + + | 2022-12-17 00:00 | METOPROLOL SUCCINATE | [facility] | + + + + | 2022-01-27 00:00 | Levothyroxine Sodium | [facility] | + + + + | 2022-03-02 00:00 | Levothyroxine Sodium | [facility] | + + + + | 2022-01-27 00:00 | levothyroxine sodium 0.075 | [facility] | | | MG Oral Capsule | | + + + + | 2022-03-02 00:00 | levothyroxine sodium 0.075 | [facility] | | | MG Oral Capsule | | + + + + | 2022-04-22 00:00 | LEVOTHYROXINE SODIUM | [facility] | + + + + | 2022-05-01 00:00 | LEVOTHYROXINE SODIUM | [facility] | + + + + | 2022-07-01 00:00 | LEVOTHYROXINE SODIUM | [facility] | + + + + | 2022-07-17 00:00 | LEVOTHYROXINE SODIUM | [facility] | + + + + | 2022-11-28 00:00 | LEVOTHYROXINE SODIUM | [facility] | + + + + | 2022-12-17 00:00 | LEVOTHYROXINE SODIUM | [facility] | + + + + | 2022-01-27 00:00 | LOSARTAN POTASSIUM | [facility] | + + + + | 2022-03-02 00:00 | LOSARTAN POTASSIUM | [facility] | + + + + | 2022-04-22 00:00 | LOSARTAN POTASSIUM | [facility] | + + + + | 2022-05-01 00:00 | LOSARTAN POTASSIUM | [facility] | + + + + | 2022-07-01 00:00 | LOSARTAN POTASSIUM | [facility] | + + + + | 2022-07-17 00:00 | LOSARTAN POTASSIUM | [facility] | + + + + | 2022-11-28 00:00 | LOSARTAN POTASSIUM | [facility] | + + + + | 2022-12-17 00:00 | LOSARTAN POTASSIUM | [facility] | + + + + | 2022-01-27 00:00 | losartan potassium 25 MG | [facility] | | | Oral Tablet [Cozaar] | | + + + + | 2022-03-02 00:00 | losartan potassium 25 MG | [facility] | | | Oral Tablet [Cozaar] | | + + + + Problems + + + + | date | description | facility | + + + + | 2020-10-14 00:00 | CHF (congestive heart | [facility] | | | failure) | | + + + + | 2020-10-14 00:00 | Congestive heart failure | [facility] | + + + + | 2020-10-14 00:00 | Congestive heart failure | [facility] | + + + + | 2020-10-14 00:00 | Congestive heart failure | [facility] | + + + + | 2020-10-14 00:00 | Congestive heart failure | [facility] | + + + + | 2020-10-14 00:00 | Congestive heart failure | [facility] | + + + + | 2020-10-14 00:00 | Congestive heart failure | [facility] | + + + + | 2020-10-14 00:00 | Dyspnea | [facility] | + + + + | 2020-10-14 00:00 | Dyspnea | [facility] | + + + + | 2020-10-14 00:00 | Dyspnea | [facility] | + + + + | 2020-10-14 00:00 | Dyspnea | [facility] | + + + + | 2020-10-14 00:00 | Dyspnea | [facility] | + + + + | 2020-10-14 00:00 | Dyspnea | [facility] | + + + + | 2020-11-01 00:00 | Chest pain | [facility] | + + + + | 2020-11-01 00:00 | Chest pain | [facility] | + + + + | 2020-11-01 00:00 | Chest pain | [facility] | + + + + | 2020-11-01 00:00 | Chest pain | [facility] | + + + + | 2020-11-01 00:00 | [facility] | + + + + | 2020-11-01 00:00 | Chest pain | [facility] | + + + + | 2021-03-25 00:00 | Right flank pain | [facility] | + + + + | 2021-03-25 00:00 | Right flank pain | [facility] | + + + + | 2021-03-25 00:00 | Right flank pain | [facility] | + + + + | 2021-03-25 00:00 | Right flank pain | [facility] | + + + + | 2021-03-25 00:00 | Right flank pain | [facility] | + + + + | 2021-03-25 00:00 | Right flank pain | [facility] | + + + + | 2021-03-25 02:29 | UNSPECIFIED ABDOMINAL PAIN | [facility] | | | | | + + + + | 2021-03-25 02:29 | SENIOR CARE (CURRENT) USE OF | [facility] | | | 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 | | + + + + | 2021-03-25 02:29 | OTHER SENIOR CARE (CURRENT) | [facility] | | | DRUG [...] | 2021-04-16 00:00 | Near syncope | [facility] | + + + + | 2021-04-16 00:00 | Transient hypotension | [facility] | + + + + | 2021-04-16 00:00 | Transient hypotension | [facility] | + + + + | 2021-04-16 00:00 | Transient hypotension | [facility] | + + + + | 2021-04-16 00:00 | Transient hypotension | [facility] | + + + + | 2021-04-16 00:00 | Transient hypotension | [facility] | + + + + | 2021-04-16 00:00 | Transient hypotension | [facility] | + + + + | 2021-04-16 00:00 | Pre-syncope | [facility] | + + + + | 2021-04-16 00:00 | Pre-syncope | [facility] | + + + + | 2021-04-16 00:00 | Pre-syncope | [facility] | + + + + | 2021-04-16 00:00 | Pre-syncope | [facility] | + + + + | 2021-04-16 00:00 | Pre-syncope | [facility] | + + + + | 2021-04-16 00:00 | Pre-syncope | [facility] | + + + + | [...] + + + | 2021-04-22 12:11 | SENIOR CARE (CURRENT) USE OF | [facility] | | | 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 | | + + + + | 2021-04-22 12:11 | OTHER BIOMATERIALS ENGINEER (CURRENT) | [facility] | | | DRUG [...] + + + | 2021-05-21 13:05 | SENIOR CARE (CURRENT) USE OF | [facility] | | | 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 | | + + + + | 2021-05-21 13:05 | 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 | | + + + + | 2021-11-01 00:00 | Right wrist pain | [facility] | + + + + | 2021-11-01 00:00 | Right wrist pain | [facility] | + + + + | 2021-11-01 00:00 | Right wrist pain | [facility] | + + + + | 2021-11-01 00:00 | Right wrist pain | [facility] | + + + + | 2021-11-01 00:00 | Right wrist pain | [facility] | + + + + | 2021-11-01 00:00 | Right wrist pain | [facility] | + + + + | 2022-01-27 00:00 | Vitreous detachment | [facility] | + + + + | 2022-01-27 00:00 | Vitreous detachment | [facility] | + + + + | 2022-01-27 00:00 | Vitreous detachment | [facility] | + + + + | 2022-01-27 00:00 | Vitreous detachment | [facility] | + + + + | 2022-01-27 00:00 | Vitreous detachment | [facility] | + + + + | 2022-01-27 00:00 | Vitreous detachment | [facility] | + + + + | 2022-01-27 11:27 | VITREOUS DEGENERATION, | [facility]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 | | + + + + | 2022-01-27 11:27 | UNSPECIFIED | [facility] | | | OSTEOARTHRITIS, UNSPECIFIED | | | | SITE | | + + + + | 2022-01-27 11:27 | SENIOR CARE (CURRENT) USE OF | [facility] | | | 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 | | + + + + | 2022-01-27 11:27 | OTHER SENIOR CARE (CURRENT) | [facility] | | | DRUG [...] + + + | 2022-02-25 14:00 | SENIOR CARE (CURRENT) USE OF | [facility] | | | 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 | | + + + + | 2022-02-25 14:00 | 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 | | + + + + | 2022-03-02 00:00 | RSV infection | [facility] | + + + + | 2022-03-02 00:00 | Infection due to | [facility] | | | respiratory syncytial virus | | | | (RSV) | | + + + + | 2022-03-02 00:00 | Infection due to | [facility] | | | respiratory syncytial virus | | | | (RSV) | | + + + + | 2022-03-02 00:00 | Infection due to | [facility] | | | respiratory syncytial virus | | | | (RSV) | | + + + + | 2022-03-02 00:00 | Infection due to | [facility] | | | respiratory syncytial virus | | | | (RSV) | | + + + + | 2022-03-02 00:00 | Infection due to | [facility] | | | respiratory syncytial virus | | | | (RSV) | | + + + + | 2022-03-02 00:00 | Infection due to | [facility] | | | respiratory syncytial virus [...] + + + | 2022-03-02 02:09 | SENIOR CARE (CURRENT) USE OF | [facility] | | | 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 | | + + + + | 2022-03-02 02:09 | OTHER SENIOR CARE (CURRENT) | [facility] | | | DRUG [...] + + + | 2022-03-25 14:30 | SENIOR CARE (CURRENT) USE OF | [facility] | | | 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 | | + + + + | 2022-03-25 14:30 | 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 | | + + + + | 2022-04-22 13:40 | ENCOUNTER FOR THERAPEUTIC | [facility] | | | DRUG LEVEL MONITORING | | + + + + | 2022-04-22 13:40 | BIOMATERIALS ENGINEER (CURRENT) USE OF | [facility] | | [...] + + + | 2022-04-22 14:48 | SENIOR CARE (CURRENT) USE OF | [facility] | | | 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 | | + + + + | 2022-04-22 14:48 | OTHER SENIOR CARE (CURRENT) | [facility] | | | DRUG [...] 2022-05-01 00:00 | Encounter for medical | [facility] | | | screening examination | | + + + + | 2022-05-01 00:00 | Encounter for medical | [facility] | | | screening examination | | + + + + | 2022-05-01 00:00 | Encounter for medical | [facility] | | | screening examination | | + + + + | 2022-05-01 00:00 | Encounter for medical | [facility] | | | screening examination | | + + + + | 2022-05-20 14:30 | ENCOUNTER FOR THERAPEUTIC | [facility] | | | DRUG LEVEL MONITORING | | + + + + | 2022-05-20 14:30 | BIOMATERIALS ENGINEER (CURRENT) USE OF | [facility] | | | 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 | | + + + + | 2022-05-20 14:30 | 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 | | + + + + | 2022-06-17 14:20 | ENCOUNTER FOR THERAPEUTIC | [facility] | | | DRUG LEVEL MONITORING | | + + + + | 2022-06-17 14:20 | BIOMATERIALS ENGINEER (CURRENT) USE OF | [facility] | | [...] + + + | 2022-07-01 10:14 | SENIOR CARE (CURRENT) USE OF | [facility] | | | 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 | | + + + + | 2022-07-01 10:14 | OTHER SENIOR CARE (CURRENT) | [facility] | | | DRUG [...] + + + | 2022-07-15 14:20 | SENIOR CARE (CURRENT) USE OF | [facility] | | [...] + + + | 2022-07-17 20:06 | BIOMATERIALS ENGINEER (CURRENT) USE OF | [facility] | | | 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 | | + + + + | 2022-07-17 20:06 | OTHER BIOMATERIALS ENGINEER (CURRENT) | [facility] | | | DRUG [...] + + + | 2022-08-12 14:15 | BIOMATERIALS ENGINEER (CURRENT) USE OF | [facility] | | [...] + + | 2022-08-21 12:31 | OTHER BIOMATERIALS ENGINEER (CURRENT) | [facility] | | | DRUG THERAPY | | + + + + | 2022-08-26 14:16 | ENCOUNTER FOR THERAPEUTIC | [facility] | | | DRUG LEVEL MONITORING | | + + + + | 2022-08-26 14:16 | BIOMATERIALS ENGINEER (CURRENT) USE OF | [facility] | | [...] + + + | 2022-09-02 14:55 | SENIOR CARE (CURRENT) USE OF | [facility] | | [...] + + + | 2022-09-09 14:25 | BIOMATERIALS ENGINEER (CURRENT) USE OF | [facility] | | [...] + + + | 2022-09-16 11:00 | SENIOR CARE (CURRENT) USE OF | [facility] | | [...] + + + | 2022-09-30 10:35 | BIOMATERIALS ENGINEER (CURRENT) USE OF | [facility] | | [...] + + + | 2022-10-14 14:35 | BIOMATERIALS ENGINEER (CURRENT) USE OF | [facility] | | [...] + + + | 2022-10-28 14:40 | BIOMATERIALS ENGINEER (CURRENT) USE OF | [facility] | | [...] + + + | 2022-11-25 14:05 | SENIOR CARE (CURRENT) USE OF | [facility] | | | 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 | | + + + + | 2022-11-28 00:00 | Hypokalemia | [facility] | + + + + | 2022-11-28 00:00 | Hypokalemia | [facility] | + + + + | 2022-11-28 00:00 | Dyspnea due to congestive | [facility] | | | heart failure | | + + + + | 2022-11-28 00:00 | Dyspnea due to congestive | [facility] | | | heart failure | [...] + + + | 2022-11-28 11:31 | SENIOR CARE (CURRENT) USE OF | [facility] | | [...] + + + | 2022-12-16 19:00 | BIOMATERIALS ENGINEER (CURRENT) USE OF | [facility] | | | 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 | | + + + + | 2022-12-16 19:00 | OTHER BIOMATERIALS ENGINEER (CURRENT) | [facility] | | | DRUG [...] + | 2022-12-17 00:00 | Diarrhea | [facility] | + + + + Procedures No [...] (missing) | | (unavailable | 15::08 | [facility] | | | | | ) | [...] 174 | + + + + + +-------+ + + | | 2022-07-17 | [facility] | 3.4 | (missing) | (missing) | | (unavailable | 20:20:08 | [facility] | | | | + + + +-------+ + + + + | Result panel 175 | + + + + + +-------+ + + | | 2022-07-17 | [facility] | 105 | (missing) | (missing) | | (unavailable | 20:20:08 | [facility] | | | | + + + +-------+ + + + + | Result panel 176 | + + + + + +------+ [...] 178 | + + + + + +-------+---------+ + | | 2022-07-17 | [facility] | 8.4 | mg/dL | (missing) | | (unavailable | 20:20:08 | [facility] | | | | + + + +-------+---------+ + + + | Result panel 179 | + + + + + +-------+ + + | | 2022-07-17 | [facility] | 7.8 | (missing) | (missing) | | (unavailable | 20:20:08 | [facility] | | | | + + + +-------+ + + + + | Result panel 180 | + + + + + +-------+ [...] 183 | + + + + + +-------+ + + | | 2022-07-17 | [facility] | 0.5 | (missing) | (missing) | | (unavailable | 20:20:08 | [facility] | | | | + + + +-------+ + + + + | Result panel 184 | + + + + + +------+ + + | | 2022-07-17 | [facility] | 17 | (missing) | (missing) | | (unavailable | 20:20:08 | [facility] | | | | + + + +------+ + + + + | Result panel 185 | + + + + + +------+ [...] 188 | + + + + + +-------+ [...] 190 | + + + + + +--------+ + + | | 2022-07-17 | [facility] | 12.4 | (missing) | (missing) | | (unavailable | 20:20:08 | [facility] | | | | + + + +--------+ + + + + | Result panel 191 | + + + + + +--------+ + + | | 2022-07-17 | [facility] | 39.0 | (missing) | (missing) | | (unavailable | 20:20:08 | [facility] | | | | + + + +--------+ + + + + | Result panel 192 | + + + + + +--------+ + + | | 2022-07-17 | [facility] | 92.1 | (missing) | (missing) | | (unavailable | 20:20:08 | [facility] | | | | + + + +--------+ + + + + | Result panel 193 | + + + + + +--------+ + + | | 2022-07-17 | [facility] | 29.4 | (missing) | (missing) | | (unavailable | 20:20:08 | [facility] | | | | + + + +--------+ + + + + | Result panel 194 | + + + + + +--------+ + + | | 2022-07-17 | [facility] | 31.9 | (missing) | (missing) | | (unavailable | 20:20:08 | [facility] | | | | + + + +--------+ + + + + | Result panel 195 | + + + + + +--------+ [...] 197 | + + + + + +--------+ + + | | 2022-07-17 | [facility] | 67.3 | (missing) | (missing) | | (unavailable | 20:20:08 | [facility] | | | | + + + +--------+ + + + + | Result panel 198 | + + + + + +--------+ + + | | 2022-07-17 | [facility] | 19.2 | (missing) | (missing) | | (unavailable | 20:20:08 | [facility] | | | | + + + +--------+ + + + + | Result panel 199 | + + + + + +-------+ + + | | 2022-07-17 | [facility] | 9.4 | (missing) | (missing) | | (unavailable | 20:20:08 | [facility] | | | | + + + +-------+ + + + + | Result panel 200 | + + + + + +-------+ + + | | 2022-07-17 | [facility] | 3.4 | (missing) | (missing) | | (unavailable | 20:20:08 | [facility] | | | | + + + +-------+ + + + + | Result panel 201 [...] 202 | + + + + + +--------+ + + | | 2022-07-17 | [facility] | 31.9 | (missing) | (missing) | | (unavailable | 20:20:08 | [facility] | | | | + + + +--------+ + + + + | Result panel 203 | + + + + + +--------+ [...] 205 | + + + + + +-------+---------+ + | | 2022-07-17 | [facility] | 101 | mg/dL | (missing) | | (unavailable | 20:20:08 | [facility] | | | | + + + +-------+---------+ + + + | Result panel 206 | + + + + + +------+---------+ + | | 2022-07-17 | [facility] | 13 | mg/dL | (missing) | | (unavailable | 20:20:08 | [facility] | | | | + + + +------+---------+ + + + | Result panel 207 | + + + + + +--------+---------+ + | | 2022-07-17 | [facility] | 1.10 | mg/dL | (missing) | | (unavailable | 20:20:08 | [facility] | | | | + + + +--------+---------+ + + + | Result panel 208 | + + + + + +------+ + + | | 2022-07-17 | [facility] | 56 | (missing) | (missing) | | (unavailable | 20:20:08 | [facility] | | | | + + + +------+ + + + + | Result panel 209 | + + + + + +---------+ [...] 214 | + + + + + +--------+ + + | | 2022-11-28 | [facility] | 89.4 | (missing) | (missing) | | (unavailable | 11:45:07 | [facility] | | | | + + + +--------+ + + + + | Result panel 215 | + + + + + +--------+ [...] 218 | + + + + + +-------+ [...] 221 | + + + + + +-------+ + + | | 2022-11-28 | [facility] | 8.5 | (missing) | (missing) | | (unavailable | 11:45:07 | [facility] | | | | + + + +-------+ + + + + | Result panel 222 | + + + + + +-------+ [...] 228 | + + + + + +--------+ + + | | 2022-11-28 | [facility] | 20.7 | (missing) | (missing) | | (unavailable | 12:02:07 | [facility] | | | | + + + +--------+ + + + + | Result panel 229 | + + + + + +--------+ + + | | 2022-11-28 | [facility] | 28.5 | (missing) | (missing) | | (unavailable | 12:02:07 | [facility] | | | | + + + +--------+ + + + + | Result panel 230 | + + + + + +--------+ + + | | 2022-11-28 | [facility] | 2.82 | (missing) | (missing) | | (unavailable | 12:02:07 | [facility] | | | | + + + +--------+ + + + + | Result panel 231 | + + + + + +--------+ + + | | 2022-11-28 | [facility] | 2.96 | (missing) | (missing) | | (unavailable | 12:02:07 | [facility] | | | | + + + +--------+ + + + + | Result panel 232 | + + + + + +-------+---------+ + | | 2022-11-28 | [facility] | 115 | mg/dL | (missing) | | (unavailable | 12:02:07 | [facility] | | | | + + + +-------+---------+ + + + | Result panel 233 | + + + + + +------+---------+ + | | 2022-11-28 | [facility] | 11 | mg/dL | (missing) | | (unavailable | 12:02:07 | [facility] | | | | + + + +------+---------+ + + + | Result panel 234 | + + + + + +--------+---------+ + | | 2022-11-28 | [facility] | 1.10 | mg/dL | (missing) | | (unavailable | 12:02:07 | [facility] | | | | + + + +--------+---------+ + + + | Result panel 235 [...] 236 | + + + + + +---------+ [...] 238 | + + + + + +-------+ + + | | 2022-11-28 | [facility] | 2.8 | (missing) | (missing) | | (unavailable | 12:02:07 | [facility] | | | | + + + +-------+ + + + + | Result panel 239 [...] 240 | + + + + + +------+ [...] 242 | + + + + + +-------+---------+ + | | 2022-11-28 | [facility] | 7.6 | mg/dL | (missing) | | (unavailable | 12:02:07 | [facility] | | | | + + + +-------+---------+ + + + | Result panel 243 | + + + + + +-------+---------+ + | | 2022-11-28 | [facility] | 1.9 | mg/dL | (missing) | | (unavailable | 12:02:07 | [facility] | | | | + + + +-------+---------+ + + + | Result panel 244 [...] 245 | + + + + + +-------+ [...] 248 | + + + + + +-------+ + + | | 2022-11-28 | [facility] | 0.8 | (missing) | (missing) | | (unavailable | 12:02:07 | [facility] | | | | + + + +-------+ + + + + | Result panel 249 | + + + + + +------+ + + | | 2022-11-28 | [facility] | 19 | (missing) | (missing) | | (unavailable | 12:02:07 | [facility] | | | | + + + +------+ + + + + | Result panel 250 | + + + + + +------+ + + | | 2022-11-28 | [facility] | 23 | (missing) | (missing) | | (unavailable | 12:02:07 | [facility] | | | | + + + +------+ + + + + | Result panel 251 | + + + + + +-------+ [...] 253 | + + + + + +-------+ + + | | 2022-12-16 | [facility] | 6.4 | (missing) | (missing) | | (unavailable | 20:56:07 | [facility] | | | | + + + +-------+ + + + + | Result panel 254 [...] 256 | + + + + + +-------+ + + | | 2022-12-16 | [facility] | 8.4 | (missing) | (missing) | | (unavailable | 20:56:07 | [facility] | | | | + + + +-------+ + + + + | Result panel 257 | + + + + + +-------+ + + | | 2022-12-16 | [facility] | 0.2 | (missing) | (missing) | | (unavailable | 20:56:07 | [facility] | | | | + + + +-------+ + + + + | Result panel 258 | + + + + + +-------+ + + | | 2022-12-16 | [facility] | 0.4 | (missing) | (missing) | | (unavailable | 20:56:07 | [facility] | | | | + + + +-------+ + + + + | Result panel 259 | + + + + + +-------+---------+ + | | 2022-12-16 | [facility] | 137 | mg/dL | (missing) | | (unavailable | 20:56:07 | [facility] | | | | + + + +-------+---------+ + + + | Result panel 260 | + + + + + +------+---------+ + | | 2022-12-16 | [facility] | 19 | mg/dL | (missing) | | (unavailable | 20:56:07 | [facility] | | | | + + + +------+---------+ + + + | Result panel 261 | + + + + + +--------+---------+ + | | 2022-12-16 | [facility] | 1.83 | mg/dL | (missing) | | (unavailable | 20:56:07 | [facility] | | | | + + + +--------+---------+ + + + | Result panel 262 | + + + + + +------+ + + | | 2022-12-16 | [facility] | 30 | (missing) | (missing) | | (unavailable | 20:56:07 | [facility] | | | | + + + +------+ + + + + | Result panel 263 | + + + + + +---------+ [...] 267 | + + + + + +------+ + + | | 2022-12-16 | [facility] | 98 | (missing) | (missing) | | (unavailable | 20:56:07 | [facility] | | | | + + + +------+ + + + + | Result panel 268 | + + + + + +------+ + + | | 2022-12-16 | [facility] | 26 | (missing) | (missing) | | (unavailable | 20:56:07 | [facility] | | | | + + + +------+ + + + + | Result panel 269 | + + + + + +--------+ + + | | 2022-12-16 | [facility] | 13.1 | (missing) | (missing) | | (unavailable | 20:56:07 | [facility] | | | | + + + +--------+ + + + + | Result panel 270 | + + + + + +-------+---------+ + | | 2022-12-16 | [facility] | 8.6 | mg/dL | (missing) | | (unavailable | 20:56:07 | [facility] | | | | + + + +-------+---------+ + + + | Result panel 271 | + + + + + +-------+ + + | | 2022-12-16 | [facility] | 8.7 | (missing) | (missing) | | (unavailable | 20:56:07 | [facility] | | | | + + + +-------+ + + + + | Result panel 272 | + + + + + +-------+ + + | | 2022-12-16 | [facility] | 3.1 | (missing) | (missing) | | (unavailable | 20:56:07 | [facility] | | | | + + + +-------+ + + + + | Result panel 273 | + + + + + +-------+ + + | | 2022-12-16 | [facility] | 5.6 | (missing) | (missing) | | (unavailable | 20:56:07 | [facility] | | | | + + + +-------+ + + + + | Result panel 274 | + + + + + +--------+ + + | | 2022-12-16 | [facility] | 0.55 | (missing) | (missing) | | (unavailable | 20:56:07 | [facility] | | | | + + + +--------+ + + + + | Result panel 275 | + + + + + +--------+ + + | | 2022-12-16 | [facility] | 13.9 | (missing) | (missing) | | (unavailable | 20:56:07 | [facility] | | | | + + + +--------+ + + + + | Result panel 276 | + + + + + +-------+ [...] 278 | + + + + + +------+ + + | | 2022-12-16 | [facility] | 18 | (missing) | (missing) | | (unavailable | 20:56:07 | [facility] | | | | + + + +------+ + + + + | Result panel 279 | + + + + + +-------+ + + | | 2022-12-16 | [facility] | 119 | (missing) | (missing) | | (unavailable | 20:56:07 | [facility] | | | | + + + +-------+ + + + + | Result panel 280 | + + + + + +------+ + + | | 2022-12-16 | [facility] | 25 | (missing) | (missing) | | (unavailable | 20:56:07 | [facility] | | | | + + + +------+ + + + + | Result panel 281 | + + + + + +--------+ + + | | 2022-12-16 | [facility] | 41.9 | (missing) | (missing) | | (unavailable | 20:56:07 | [facility] | | | | + + + +--------+ + + + + | Result panel 282 | + + + + + +--------+ [...] 284 | + + + + + +--------+ + + | | 2022-12-16 | [facility] | 33.2 | (missing) | (missing) | | (unavailable | 20:56:07 | [facility] | | | | + + + +--------+ + + + + | Result panel 285 | + + + + + +--------+ + + | | 2022-12-16 | [facility] | 17.6 | (missing) | (missing) | | (unavailable | 20:56:07 | [facility] | | | | + + + +--------+ + + + + | Result panel 286 | + + + + + +-------+ + + | | 2022-12-16 | [facility] | 235 | (missing) | (missing) | | (unavailable | 20:56:07 | [facility] | | | | + + + +-------+ + + + + | Automated urine [...] | [facility] | [facility] | | | [...] | 2022-01-27 00:00 | Never smoker | [facility] | + + + + | 2022-03-02 00:00 | Never smoker | [facility] | + + + + Vital [...]
--- OUTSIDE RECORDS SUMMARY | ~2022-12-20 | XMS | Continuity of Care Document ---
Demographics + + + | Address | [address] | | | [place] [address] | + + + | Preferred Language | Unknown | + + + | Marital Status | | + + + | Temple Affiliation | Unknown | + + + | Race | White | + + + | Ethnic Group | Not or | + + + Author + + + | Author | [facility] | + + + | Organization | [facility] | + + + | Address | [address] | | | [place] [address] | + + + | Phone | | + + + Care Team Providers + + + + | Care Heat Treater Apprentice Name | Role | Phone | + [...] 2022-01-27 00:00 | No vaccine administered | [facility] | + + + + | 2022-03-02 00:00 | No vaccine administered | [facility] | + + + + Medications + + + + | date | description | facility | + + + + | 2022-01-27 00:00 | GABAPENTIN | [facility] | + + + + | 2022-03-02 00:00 | GABAPENTIN | [facility] | + + + + | 2022-04-22 00:00 | GABAPENTIN | [facility] | + + + + | 2022-05-01 00:00 | GABAPENTIN | [facility] | + + + + | 2022-07-01 00:00 | GABAPENTIN | [facility] | + + + + | 2022-01-27 00:00 | gabapentin 100 MG Oral | [facility] | | | Capsule [Neurontin] | | + + + + | 2022-03-02 00:00 | gabapentin 100 MG Oral | [facility] | | | Capsule [Neurontin] | | + + + + | 2022-03-02 00:00 | Millipred DP 6 Day Dose | [facility] | | | Pack | | + + + + | 2022-03-02 00:00 | PREDNISOLONE | [facility] | + + + + | 2022-11-28 00:00 | POTASSIUM CHLORIDE | [facility] | + + + + | 2022-11-28 00:00 | POTASSIUM CHLORIDE | [facility] | + + + + | 2022-07-01 00:00 | EMPAGLIFLOZIN | [facility] | + + + + | 2022-07-17 00:00 | EMPAGLIFLOZIN | [facility] | + + + + | 2022-11-28 00:00 | EMPAGLIFLOZIN | [facility] | + + + + | 2022-12-17 00:00 | EMPAGLIFLOZIN | [facility] | + + + + | 2022-07-01 00:00 | SACUBITRIL/VALSARTAN | [facility] | + + + + | 2022-03-02 00:00 | BENZONATATE | [facility] | + + + + | 2022-03-02 00:00 | BENZONATATE | [facility] | + + + + | 2022-03-02 00:00 | BENZONATATE | [facility] | + + + + | 2022-03-02 00:00 | benzonatate 100 MG Oral | [facility] | | | Capsule | | + + + + | 2022-07-01 00:00 | NITROGLYCERIN | [facility] | + + + + | 2022-07-17 00:00 | NITROGLYCERIN | [facility] | + + + + | 2022-11-28 00:00 | NITROGLYCERIN | [facility] | + + + + | 2022-12-17 00:00 | NITROGLYCERIN | [facility] | + + + + | 2022-11-28 00:00 | CITALOPRAM HYDROBROMIDE | [facility] | + + + + | 2022-12-17 00:00 | CITALOPRAM HYDROBROMIDE | [facility] | + + + + | 2022-04-22 00:00 | FUROSEMIDE | [facility] | + + + + | 2022-04-22 00:00 | FUROSEMIDE | [facility] | + + + + | 2022-01-27 00:00 | CITALOPRAM HYDROBROMIDE | [facility] | + + + + | 2022-03-02 00:00 | CITALOPRAM HYDROBROMIDE | [facility] | + + + + | 2022-04-22 00:00 | CITALOPRAM HYDROBROMIDE | [facility] | + + + + | 2022-05-01 00:00 | CITALOPRAM HYDROBROMIDE | [facility] | + + + + | 2022-07-01 00:00 | CITALOPRAM HYDROBROMIDE | [facility] | + + + + | 2022-07-17 00:00 | CITALOPRAM HYDROBROMIDE | [facility] | + + + + | 2022-01-27 00:00 | citalopram 10 MG Oral | [facility] | | | Tablet | | + + + + | 2022-03-02 00:00 | citalopram 10 MG Oral | [facility] | | | Tablet | | + + + + | 2022-04-22 00:00 | FUROSEMIDE | [facility] | + + + + | 2022-07-17 00:00 | FUROSEMIDE | [facility] | + + + + | 2022-07-17 00:00 | GABAPENTIN | [facility] | + + + + | 2022-11-28 00:00 | GABAPENTIN | [facility] | + + + + | 2022-12-17 00:00 | GABAPENTIN | [facility] | + + + + | 2020-10-14 00:00 | POTASSIUM CHLORIDE | [facility] | + + + + | 2020-10-14 00:00 | POTASSIUM CHLORIDE | [facility] | + + + + | 2020-10-14 00:00 | POTASSIUM CHLORIDE | [facility] | + + + + | 2020-10-14 00:00 | POTASSIUM CHLORIDE | [facility] | + + + + | 2020-10-14 00:00 | POTASSIUM CHLORIDE | [facility] | + + + + | 2020-10-14 00:00 | POTASSIUM CHLORIDE | [facility] | + + + + | 2020-10-14 00:00 | potassium chloride 10 MEQ | [facility] | | | Extended Release Oral | | | | Capsule | | + + + + | 2022-07-01 00:00 | SPIRONOLACTONE | [facility] | + + + + | 2022-07-17 00:00 | SPIRONOLACTONE | [facility] | + + + + | 2022-11-28 00:00 | SPIRONOLACTONE | [facility] | + + + + | 2022-12-17 00:00 | SPIRONOLACTONE | [facility] | + + + + | 2022-01-27 00:00 | FUROSEMIDE | [facility] | + + + + | 2022-03-02 00:00 | FUROSEMIDE | [facility] | + + + + | 2022-11-28 00:00 | FUROSEMIDE | [facility] | + + + + | 2022-12-17 00:00 | FUROSEMIDE | [facility] | + + + + | 2022-01-27 00:00 | furosemide 40 MG Oral | [facility] | | | Tablet | | + + + + | 2022-03-02 00:00 | furosemide 40 MG Oral | [facility] | | | Tablet | | + + + + | 2022-01-27 00:00 | VALSARTAN | [facility] | + + + + | 2022-03-02 00:00 | VALSARTAN | [facility] | + + + + | 2022-04-22 00:00 | VALSARTAN | [facility] | + + + + | 2022-05-01 00:00 | VALSARTAN | [facility] | + + + + | 2022-07-17 00:00 | VALSARTAN | [facility] | + + + + | 2022-11-28 00:00 | VALSARTAN | [facility] | + + + + | 2022-12-17 00:00 | VALSARTAN | [facility] | + + + + | 2022-01-27 00:00 | valsartan 80 MG Oral | [facility] | | | Tablet | | + + + + | 2022-03-02 00:00 | valsartan 80 MG Oral | [facility] | | | Tablet | | + + + + | 2022-01-27 00:00 | ATORVASTATIN | [facility] | + + + + | 2022-03-02 00:00 | ATORVASTATIN | [facility] | + + + + | 2022-04-22 00:00 | ATORVASTATIN | [facility] | + + + + | 2022-05-01 00:00 | ATORVASTATIN | [facility] | + + + + | 2022-07-01 00:00 | ATORVASTATIN | [facility] | + + + + | 2022-07-17 00:00 | ATORVASTATIN | [facility] | + + + + | 2022-11-28 00:00 | ATORVASTATIN | [facility] | + + + + | 2022-12-17 00:00 | ATORVASTATIN | [facility] | + + + + | 2022-01-27 00:00 | atorvastatin 40 MG Oral | [facility] | | | Tablet [Lipitor] | | + + + + | 2022-03-02 00:00 | atorvastatin 40 MG Oral | [facility] | | | Tablet [Lipitor] | | + + + + | 2017-03-21 00:00 | CYCLOBENZAPRINE HCL | [facility] | + + + + | 2017-03-21 00:00 | CYCLOBENZAPRINE HCL | [facility] | + + + + | 2017-03-21 00:00 | CYCLOBENZAPRINE HCL | [facility] | + + + + | 2017-03-21 00:00 | CYCLOBENZAPRINE HCL | [facility] | + + + + | 2017-03-21 00:00 | CYCLOBENZAPRINE HCL | [facility] | + + + + | 2017-03-21 00:00 | CYCLOBENZAPRINE HCL | [facility] | + + + + | 2017-03-21 00:00 | cyclobenzaprine | [facility] | | | hydrochloride 10 MG Oral | | | | Tablet | | + + + + | 2022-11-28 00:00 | AMIODARONE HCL | [facility] | + + + + | 2022-12-17 00:00 | AMIODARONE HCL | [facility] | + + + + | 2022-11-28 00:00 | WARFARIN SODIUM | [facility] | + + + + | 2022-12-17 00:00 | WARFARIN SODIUM | [facility] | + + + + | 2022-01-27 00:00 | WARFARIN SODIUM | [facility] | + + + + | 2022-03-02 00:00 | WARFARIN SODIUM | [facility] | + + + + | 2022-04-22 00:00 | WARFARIN SODIUM | [facility] | + + + + | 2022-05-01 00:00 | WARFARIN SODIUM | [facility] | + + + + | 2022-07-01 00:00 | WARFARIN SODIUM | [facility] | + + + + | 2022-07-17 00:00 | WARFARIN SODIUM | [facility] | + + + + | 2022-11-28 00:00 | WARFARIN SODIUM | [facility] | + + + + | 2022-12-17 00:00 | WARFARIN SODIUM | [facility] | + + + + | 2022-01-27 00:00 | warfarin sodium 10 MG Oral | [facility] | | | Tablet [Jantoven] | | + + + + | 2022-03-02 00:00 | warfarin sodium 10 MG Oral | [facility] | | | Tablet [Jantoven] | | + + + + | 2022-01-27 00:00 | 24 HR metoprolol succinate | [facility] | | | 25 MG Extended Release | | | | Oral Table | | + + + + | 2022-03-02 00:00 | 24 HR metoprolol succinate | [facility] | | | 25 MG Extended Release | | | | Oral Table | | + + + + | 2022-01-27 00:00 | METOPROLOL SUCCINATE | [facility] | + + + + | 2022-03-02 00:00 | METOPROLOL SUCCINATE | [facility] | + + + + | 2022-04-22 00:00 | METOPROLOL SUCCINATE | [facility] | + + + + | 2022-05-01 00:00 | METOPROLOL SUCCINATE | [facility] | + + + + | 2022-07-01 00:00 | METOPROLOL SUCCINATE | [facility] | + + + + | 2022-07-17 00:00 | METOPROLOL SUCCINATE | [facility] | + + + + | 2022-11-28 00:00 | METOPROLOL SUCCINATE | [facility] | + + + + | 2022-12-17 00:00 | METOPROLOL SUCCINATE | [facility] | + + + + | 2022-01-27 00:00 | Levothyroxine Sodium | [facility] | + + + + | 2022-03-02 00:00 | Levothyroxine Sodium | [facility] | + + + + | 2022-01-27 00:00 | levothyroxine sodium 0.075 | [facility] | | | MG Oral Capsule | | + + + + | 2022-03-02 00:00 | levothyroxine sodium 0.075 | [facility] | | | MG Oral Capsule | | + + + + | 2022-04-22 00:00 | LEVOTHYROXINE SODIUM | [facility] | + + + + | 2022-05-01 00:00 | LEVOTHYROXINE SODIUM | [facility] | + + + + | 2022-07-01 00:00 | LEVOTHYROXINE SODIUM | [facility] | + + + + | 2022-07-17 00:00 | LEVOTHYROXINE SODIUM | [facility] | + + + + | 2022-11-28 00:00 | LEVOTHYROXINE SODIUM | [facility] | + + + + | 2022-12-17 00:00 | LEVOTHYROXINE SODIUM | [facility] | + + + + | 2022-01-27 00:00 | LOSARTAN POTASSIUM | [facility] | + + + + | 2022-03-02 00:00 | LOSARTAN POTASSIUM | [facility] | + + + + | 2022-04-22 00:00 | LOSARTAN POTASSIUM | [facility] | + + + + | 2022-05-01 00:00 | LOSARTAN POTASSIUM | [facility] | + + + + | 2022-07-01 00:00 | LOSARTAN POTASSIUM | [facility] | + + + + | 2022-07-17 00:00 | LOSARTAN POTASSIUM | [facility] | + + + + | 2022-11-28 00:00 | LOSARTAN POTASSIUM | [facility] | + + + + | 2022-12-17 00:00 | LOSARTAN POTASSIUM | [facility] | + + + + | 2022-01-27 00:00 | losartan potassium 25 MG | [facility] | | | Oral Tablet [Cozaar] | | + + + + | 2022-03-02 00:00 | losartan potassium 25 MG | [facility] | | | Oral Tablet [Cozaar] | | + + + + Problems + + + + | date | description | facility | + + + + | 2020-10-14 00:00 | CHF (congestive heart | [facility] | | | failure) | | + + + + | 2020-10-14 00:00 | Congestive heart failure | [facility] | + + + + | 2020-10-14 00:00 | Congestive heart failure | [facility] | + + + + | 2020-10-14 00:00 | Congestive heart failure | [facility] | + + + + | 2020-10-14 00:00 | Congestive heart failure | [facility] | + + + + | 2020-10-14 00:00 | Congestive heart failure | [facility] | + + + + | 2020-10-14 00:00 | Congestive heart failure | [facility] | + + + + | 2020-10-14 00:00 | Dyspnea | [facility] | + + + + | 2020-10-14 00:00 | Dyspnea | [facility] | + + + + | 2020-10-14 00:00 | Dyspnea | [facility] | + + + + | 2020-10-14 00:00 | Dyspnea | [facility] | + + + + | 2020-10-14 00:00 | Dyspnea | [facility] | + + + + | 2020-10-14 00:00 | Dyspnea | [facility] | + + + + | 2020-11-01 00:00 | Chest pain | [facility] | + + + + | 2020-11-01 00:00 | Chest pain | [facility] | + + + + | 2020-11-01 00:00 | Chest pain | [facility] | + + + + | 2020-11-01 00:00 | Chest pain | [facility] | + + + + | 2020-11-01 00:00 | Chest [facility] | [facility] | + + + + | 2020-11-01 00:00 | Chest pain | [facility] | + + + + | 2021-03-25 00:00 | Right flank pain | [facility] | + + + + | 2021-03-25 00:00 | Right flank pain | [facility] | + + + + | 2021-03-25 00:00 | Right flank pain | [facility] | + + + + | 2021-03-25 00:00 | Right flank pain | [facility] | + + + + | 2021-03-25 00:00 | Right flank pain | [facility] | + + + + | 2021-03-25 00:00 | Right flank pain | [facility] | + + + + | 2021-03-25 02:29 | UNSPECIFIED ABDOMINAL PAIN | [facility] | | | | | + + + + | 2021-03-25 02:29 | [facility] (CURRENT) USE OF | [facility] | | | 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 | | + + + + | 2021-03-25 02:29 | OTHER [facility] (CURRENT) | [facility] | | | DRUG [...] | 2021-04-16 00:00 | Near syncope | [facility] | + + + + | 2021-04-16 00:00 | Transient hypotension | [facility] | + + + + | 2021-04-16 00:00 | Transient hypotension | [facility] | + + + + | 2021-04-16 00:00 | Transient hypotension | [facility] | + + + + | 2021-04-16 00:00 | Transient hypotension | [facility] | + + + + | 2021-04-16 00:00 | Transient hypotension | [facility] | + + + + | 2021-04-16 00:00 | Transient hypotension | [facility] | + + + + | 2021-04-16 00:00 | Pre-syncope | [facility] | + + + + | 2021-04-16 00:00 | Pre-syncope | [facility] | + + + + | 2021-04-16 00:00 | Pre-syncope | [facility] | + + + + | 2021-04-16 00:00 | Pre-syncope | [facility] | + + + + | 2021-04-16 00:00 | Pre-syncope | [facility] | + + + + | 2021-04-16 00:00 | Pre-syncope | [facility] | + + + + | 2021-04-22 [...] + + + | 2021-04-22 12:11 | [facility] (CURRENT) USE OF | [facility] | | | 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 | | + + + + | 2021-04-22 12:11 | 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 | + + + + | 2021-11-01 00:00 | Right wrist pain | [facility] | + + + + | 2021-11-01 00:00 | Right wrist pain | [facility] | + + + + | 2021-11-01 00:00 | Right wrist pain | [facility] | + + + + | 2022-01-27 00:00 | Vitreous detachment | [facility] | + + + + | 2022-01-27 00:00 | Vitreous detachment | [facility] | + + + + | 2022-01-27 00:00 | Vitreous detachment | [facility] | + + + + | 2022-01-27 00:00 | Vitreous detachment | [facility] | + + + + | 2022-01-27 00:00 | Vitreous detachment | [facility] | + + + + | 2022-01-27 00:00 | Vitreous detachment | [facility] | + + + + | 2022-01-27 11:27 | VITREOUS DEGENERATION, | [facility]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 | | + + + + | 2022-01-27 11:27 | UNSPECIFIED | [facility] | | | OSTEOARTHRITIS, UNSPECIFIED | | | | SITE | | + + + + | 2022-01-27 11:27 | [facility] (CURRENT) USE OF | [facility] | | | 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 | | + + + + | 2022-01-27 11:27 | OTHER [facility] (CURRENT) | [facility] | | | DRUG [...] + + + | 2022-02-25 14:00 | [facility] (CURRENT) USE OF | [facility] | | | 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 | | + + + + | 2022-02-25 14:00 | 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 | | + + + + | 2022-03-02 00:00 | RSV infection | [facility] | + + + + | 2022-03-02 00:00 | Infection due to | [facility] | | | respiratory syncytial virus | | | | (RSV) | | + + + + | 2022-03-02 00:00 | Infection due to | [facility] | | | respiratory syncytial virus | | | | (RSV) | | + + + + | 2022-03-02 00:00 | Infection due to | [facility] | | | respiratory syncytial virus | | | | (RSV) | | + + + + | 2022-03-02 00:00 | Infection due to | [facility] | | | respiratory syncytial virus | | | | (RSV) | | + + + + | 2022-03-02 00:00 | Infection due to | [facility] | | | respiratory syncytial virus | | | | (RSV) | | + + + + | 2022-03-02 00:00 | Infection due to | [facility] | | | respiratory syncytial virus | [...] + + + | 2022-03-02 02:09 | [facility] (CURRENT) USE OF | [facility] | | | 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 | | + + + + | 2022-03-02 02:09 | OTHER [facility] (CURRENT) | [facility] | | | DRUG [...] + + + | 2022-03-25 14:30 | [facility] (CURRENT) USE OF | [facility] | | | 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 | | + + + + | 2022-03-25 14:30 | 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 | | + + + + | 2022-04-22 13:40 | ENCOUNTER FOR THERAPEUTIC | [facility] | | | DRUG LEVEL MONITORING | | + + + + | 2022-04-22 13:40 | 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 | [facility] | | [...] + + + | 2022-04-22 14:48 | [facility] (CURRENT) USE OF | [facility] | | | 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 | | + + + + | 2022-04-22 14:48 | OTHER [facility] (CURRENT) | [facility] | | | DRUG [...] 2022-05-01 00:00 | Encounter for medical | [facility] | | | screening examination | | + + + + | 2022-05-01 00:00 | Encounter for medical | [facility] | | | screening examination | | + + + + | 2022-05-01 00:00 | Encounter for medical | [facility] | | | screening examination | | + + + + | 2022-05-01 00:00 | Encounter for medical | [facility] | | | screening examination | | + + + + | 2022-05-20 14:30 | ENCOUNTER FOR THERAPEUTIC | [facility] | | | DRUG LEVEL MONITORING | | + + + + | 2022-05-20 14:30 | 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 | [facility] | | | 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 | | + + + + | 2022-05-20 14:30 | 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 | | + + + + | 2022-06-17 14:20 | ENCOUNTER FOR THERAPEUTIC | [facility] | | | DRUG LEVEL MONITORING | | + + + + | 2022-06-17 14:20 | 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 | [facility] | | [...] + + + | 2022-07-01 10:14 | [facility] (CURRENT) USE OF | [facility] | | | 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 | | + + + + | 2022-07-01 10:14 | OTHER [facility] (CURRENT) | [facility] | | | DRUG [...] + + + | 2022-07-15 14:20 | [facility] (CURRENT) USE OF | [facility] | | [...] + + + | 2022-07-17 20:06 | 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 | [facility] | | | 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 | | + + + + | 2022-07-17 20:06 | 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) | [facility] | | | DRUG [...] + + + | 2022-08-12 14:15 | 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 | [facility] | | [...] + + | 2022-08-21 12:31 | 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) | [facility] | | | DRUG THERAPY | | + + + + | 2022-08-26 14:16 | ENCOUNTER FOR THERAPEUTIC | [facility] | | | DRUG LEVEL MONITORING | | + + + + | 2022-08-26 14:16 | 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 | [facility] | | [...] + + + | 2022-09-02 14:55 | [facility] (CURRENT) USE OF | [facility] | | [...] + + + | 2022-09-09 14:25 | 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 | [facility] | | [...] + + + | 2022-09-16 11:00 | [facility] (CURRENT) USE OF | [facility] | | [...] + + + | 2022-09-30 10:35 | 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 | [facility] | | [...] + + + | 2022-10-14 14:35 | 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 | [facility] | | [...] + + + | 2022-10-28 14:40 | 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 | [facility] | | [...] + + + | 2022-11-25 14:05 | [facility] (CURRENT) USE OF | [facility] | | | 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 | | + + + + | 2022-11-28 00:00 | Hypokalemia | [facility] | + + + + | 2022-11-28 00:00 | Hypokalemia | [facility] | + + + + | 2022-11-28 00:00 | Dyspnea due to congestive | [facility] | | | heart failure | | + + + + | 2022-11-28 00:00 | Dyspnea due to congestive | [facility] | | | heart failure | | [...] + + + | 2022-11-28 11:31 | [facility] (CURRENT) USE OF | [facility] | | [...] + + + | 2022-12-16 19:00 | 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
--- OUTSIDE RECORDS SUMMARY | ~2022-12-20 | XMS | Continuity of Care Document ---
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 | Role | Phone | + [...] 2022-01-27 00:00 | No vaccine administered | [facility] | + + + + | 2022-03-02 00:00 | No vaccine administered | [facility] | + + + + Medications + + + + | date | description | facility | + + + + | 2022-01-27 00:00 | GABAPENTIN | [facility] | + + + + | 2022-03-02 00:00 | GABAPENTIN | [facility] | + + + + | 2022-04-22 00:00 | GABAPENTIN | [facility] | + + + + | 2022-05-01 00:00 | GABAPENTIN | [facility] | + + + + | 2022-07-01 00:00 | GABAPENTIN | [facility] | + + + + | 2022-01-27 00:00 | gabapentin 100 MG Oral | [facility] | | | Capsule [Neurontin] | | + + + + | 2022-03-02 00:00 | gabapentin 100 MG Oral | [facility] | | | Capsule [Neurontin] | | + + + + | 2022-03-02 00:00 | Millipred DP 6 Day Dose | [facility] | | | Pack | | + + + + | 2022-03-02 00:00 | PREDNISOLONE | [facility] | + + + + | 2022-11-28 00:00 | POTASSIUM CHLORIDE | [facility] | + + + + | 2022-11-28 00:00 | POTASSIUM CHLORIDE | [facility] | + + + + | 2022-07-01 00:00 | EMPAGLIFLOZIN | [facility] | + + + + | 2022-07-17 00:00 | EMPAGLIFLOZIN | [facility] | + + + + | 2022-11-28 00:00 | EMPAGLIFLOZIN | [facility] | + + + + | 2022-12-17 00:00 | EMPAGLIFLOZIN | [facility] | + + + + | 2022-07-01 00:00 | SACUBITRIL/VALSARTAN | [facility] | + + + + | 2022-03-02 00:00 | BENZONATATE | [facility] | + + + + | 2022-03-02 00:00 | BENZONATATE | [facility] | + + + + | 2022-03-02 00:00 | BENZONATATE | [facility] | + + + + | 2022-03-02 00:00 | benzonatate 100 MG Oral | [facility] | | | Capsule | | + + + + | 2022-07-01 00:00 | NITROGLYCERIN | [facility] | + + + + | 2022-07-17 00:00 | NITROGLYCERIN | [facility] | + + + + | 2022-11-28 00:00 | NITROGLYCERIN | [facility] | + + + + | 2022-12-17 00:00 | NITROGLYCERIN | [facility] | + + + + | 2022-11-28 00:00 | CITALOPRAM HYDROBROMIDE | [facility] | + + + + | 2022-12-17 00:00 | CITALOPRAM HYDROBROMIDE | [facility] | + + + + | 2022-04-22 00:00 | FUROSEMIDE | [facility] | + + + + | 2022-04-22 00:00 | FUROSEMIDE | [facility] | + + + + | 2022-01-27 00:00 | CITALOPRAM HYDROBROMIDE | [facility] | + + + + | 2022-03-02 00:00 | CITALOPRAM HYDROBROMIDE | [facility] | + + + + | 2022-04-22 00:00 | CITALOPRAM HYDROBROMIDE | [facility] | + + + + | 2022-05-01 00:00 | CITALOPRAM HYDROBROMIDE | [facility] | + + + + | 2022-07-01 00:00 | CITALOPRAM HYDROBROMIDE | [facility] | + + + + | 2022-07-17 00:00 | CITALOPRAM HYDROBROMIDE | [facility] | + + + + | 2022-01-27 00:00 | citalopram 10 MG Oral | [facility] | | | Tablet | | + + + + | 2022-03-02 00:00 | citalopram 10 MG Oral | [facility] | | | Tablet | | + + + + | 2022-04-22 00:00 | FUROSEMIDE | [facility] | + + + + | 2022-07-17 00:00 | FUROSEMIDE | [facility] | + + + + | 2022-07-17 00:00 | GABAPENTIN | [facility] | + + + + | 2022-11-28 00:00 | GABAPENTIN | [facility] | + + + + | 2022-12-17 00:00 | GABAPENTIN | [facility] | + + + + | 2020-10-14 00:00 | POTASSIUM CHLORIDE | [facility] | + + + + | 2020-10-14 00:00 | POTASSIUM CHLORIDE | [facility] | + + + + | 2020-10-14 00:00 | POTASSIUM CHLORIDE | [facility] | + + + + | 2020-10-14 00:00 | POTASSIUM CHLORIDE | [facility] | + + + + | 2020-10-14 00:00 | POTASSIUM CHLORIDE | [facility] | + + + + | 2020-10-14 00:00 | POTASSIUM CHLORIDE | [facility] | + + + + | 2020-10-14 00:00 | potassium chloride 10 MEQ | [facility] | | | Extended Release Oral | | | | Capsule | | + + + + | 2022-07-01 00:00 | SPIRONOLACTONE | [facility] | + + + + | 2022-07-17 00:00 | SPIRONOLACTONE | [facility] | + + + + | 2022-11-28 00:00 | SPIRONOLACTONE | [facility] | + + + + | 2022-12-17 00:00 | SPIRONOLACTONE | [facility] | + + + + | 2022-01-27 00:00 | FUROSEMIDE | [facility] | + + + + | 2022-03-02 00:00 | FUROSEMIDE | [facility] | + + + + | 2022-11-28 00:00 | FUROSEMIDE | [facility] | + + + + | 2022-12-17 00:00 | FUROSEMIDE | [facility] | + + + + | 2022-01-27 00:00 | furosemide 40 MG Oral | [facility] | | | Tablet | | + + + + | 2022-03-02 00:00 | furosemide 40 MG Oral | [facility] | | | Tablet | | + + + + | 2022-01-27 00:00 | VALSARTAN | [facility] | + + + + | 2022-03-02 00:00 | VALSARTAN | [facility] | + + + + | 2022-04-22 00:00 | VALSARTAN | [facility] | + + + + | 2022-05-01 00:00 | VALSARTAN | [facility] | + + + + | 2022-07-17 00:00 | VALSARTAN | [facility] | + + + + | 2022-11-28 00:00 | VALSARTAN | [facility] | + + + + | 2022-12-17 00:00 | VALSARTAN | [facility] | + + + + | 2022-01-27 00:00 | valsartan 80 MG Oral | [facility] | | | Tablet | | + + + + | 2022-03-02 00:00 | valsartan 80 MG Oral | [facility] | | | Tablet | | + + + + | 2022-01-27 00:00 | ATORVASTATIN | [facility] | + + + + | 2022-03-02 00:00 | ATORVASTATIN | [facility] | + + + + | 2022-04-22 00:00 | ATORVASTATIN | [facility] | + + + + | 2022-05-01 00:00 | ATORVASTATIN | [facility] | + + + + | 2022-07-01 00:00 | ATORVASTATIN | [facility] | + + + + | 2022-07-17 00:00 | ATORVASTATIN | [facility] | + + + + | 2022-11-28 00:00 | ATORVASTATIN | [facility] | + + + + | 2022-12-17 00:00 | ATORVASTATIN | [facility] | + + + + | 2022-01-27 00:00 | atorvastatin 40 MG Oral | [facility] | | | Tablet [Lipitor] | | + + + + | 2022-03-02 00:00 | atorvastatin 40 MG Oral | [facility] | | | Tablet [Lipitor] | | + + + + | 2017-03-21 00:00 | CYCLOBENZAPRINE HCL | [facility] | + + + + | 2017-03-21 00:00 | CYCLOBENZAPRINE HCL | [facility] | + + + + | 2017-03-21 00:00 | CYCLOBENZAPRINE HCL | [facility] | + + + + | 2017-03-21 00:00 | CYCLOBENZAPRINE HCL | [facility] | + + + + | 2017-03-21 00:00 | CYCLOBENZAPRINE HCL | [facility] | + + + + | 2017-03-21 00:00 | CYCLOBENZAPRINE HCL | [facility] | + + + + | 2017-03-21 00:00 | cyclobenzaprine | [facility] | | | hydrochloride 10 MG Oral | | | | Tablet | | + + + + | 2022-11-28 00:00 | AMIODARONE HCL | [facility] | + + + + | 2022-12-17 00:00 | AMIODARONE HCL | [facility] | + + + + | 2022-11-28 00:00 | WARFARIN SODIUM | [facility] | + + + + | 2022-12-17 00:00 | WARFARIN SODIUM | [facility] | + + + + | 2022-01-27 00:00 | WARFARIN SODIUM | [facility] | + + + + | 2022-03-02 00:00 | WARFARIN SODIUM | [facility] | + + + + | 2022-04-22 00:00 | WARFARIN SODIUM | [facility] | + + + + | 2022-05-01 00:00 | WARFARIN SODIUM | [facility] | + + + + | 2022-07-01 00:00 | WARFARIN SODIUM | [facility] | + + + + | 2022-07-17 00:00 | WARFARIN SODIUM | [facility] | + + + + | 2022-11-28 00:00 | WARFARIN SODIUM | [facility] | + + + + | 2022-12-17 00:00 | WARFARIN SODIUM | [facility] | + + + + | 2022-01-27 00:00 | warfarin sodium 10 MG Oral | [facility] | | | Tablet [Jantoven] | | + + + + | 2022-03-02 00:00 | warfarin sodium 10 MG Oral | [facility] | | | Tablet [Jantoven] | | + + + + | 2022-01-27 00:00 | 24 HR metoprolol succinate | [facility] | | | 25 MG Extended Release | | | | Oral Table | | + + + + | 2022-03-02 00:00 | 24 HR metoprolol succinate | [facility] | | | 25 MG Extended Release | | | | Oral Table | | + + + + | 2022-01-27 00:00 | METOPROLOL SUCCINATE | [facility] | + + + + | 2022-03-02 00:00 | METOPROLOL SUCCINATE | [facility] | + + + + | 2022-04-22 00:00 | METOPROLOL SUCCINATE | [facility] | + + + + | 2022-05-01 00:00 | METOPROLOL SUCCINATE | [facility] | + + + + | 2022-07-01 00:00 | METOPROLOL SUCCINATE | [facility] | + + + + | 2022-07-17 00:00 | METOPROLOL SUCCINATE | [facility] | + + + + | 2022-11-28 00:00 | METOPROLOL SUCCINATE | [facility] | + + + + | 2022-12-17 00:00 | METOPROLOL SUCCINATE | [facility] | + + + + | 2022-01-27 00:00 | Levothyroxine Sodium | [facility] | + + + + | 2022-03-02 00:00 | Levothyroxine Sodium | [facility] | + + + + | 2022-01-27 00:00 | levothyroxine sodium 0.075 | [facility] | | | MG Oral Capsule | | + + + + | 2022-03-02 00:00 | levothyroxine sodium 0.075 | [facility] | | | MG Oral Capsule | | + + + + | 2022-04-22 00:00 | LEVOTHYROXINE SODIUM | [facility] | + + + + | 2022-05-01 00:00 | LEVOTHYROXINE SODIUM | [facility] | + + + + | 2022-07-01 00:00 | LEVOTHYROXINE SODIUM | [facility] | + + + + | 2022-07-17 00:00 | LEVOTHYROXINE SODIUM | [facility] | + + + + | 2022-11-28 00:00 | LEVOTHYROXINE SODIUM | [facility] | + + + + | 2022-12-17 00:00 | LEVOTHYROXINE SODIUM | [facility] | + + + + | 2022-01-27 00:00 | LOSARTAN POTASSIUM | [facility] | + + + + | 2022-03-02 00:00 | LOSARTAN POTASSIUM | [facility] | + + + + | 2022-04-22 00:00 | LOSARTAN POTASSIUM | [facility] | + + + + | 2022-05-01 00:00 | LOSARTAN POTASSIUM | [facility] | + + + + | 2022-07-01 00:00 | LOSARTAN POTASSIUM | [facility] | + + + + | 2022-07-17 00:00 | LOSARTAN POTASSIUM | [facility] | + + + + | 2022-11-28 00:00 | LOSARTAN POTASSIUM | [facility] | + + + + | 2022-12-17 00:00 | LOSARTAN POTASSIUM | [facility] | + + + + | 2022-01-27 00:00 | losartan potassium 25 MG | [facility] | | | Oral Tablet [Cozaar] | | + + + + | 2022-03-02 00:00 | losartan potassium 25 MG | [facility] | | | Oral Tablet [Cozaar] | | + + + + Problems + + + + | date | description | facility | + + + + | 2020-10-14 00:00 | CHF (congestive heart | [facility] | | | failure) | | + + + + | 2020-10-14 00:00 | Congestive heart failure | [facility] | + + + + | 2020-10-14 00:00 | Congestive heart failure | [facility] | + + + + | 2020-10-14 00:00 | Congestive heart failure | [facility] | + + + + | 2020-10-14 00:00 | Congestive heart failure | [facility] | + + + + | 2020-10-14 00:00 | Congestive heart failure | [facility] | + + + + | 2020-10-14 00:00 | Congestive heart failure | [facility] | + + + + | 2020-10-14 00:00 | Dyspnea | [facility] | + + + + | 2020-10-14 00:00 | Dyspnea | [facility] | + + + + | 2020-10-14 00:00 | Dyspnea | [facility] | + + + + | 2020-10-14 00:00 | Dyspnea | [facility] | + + + + | 2020-10-14 00:00 | Dyspnea | [facility] | + + + + | 2020-10-14 00:00 | Dyspnea | [facility] | + + + + | 2020-11-01 00:00 | Chest pain | [facility] | + + + + | 2020-11-01 00:00 | Chest pain | [facility] | + + + + | 2020-11-01 00:00 | Chest pain | [facility] | + + + + | 2020-11-01 00:00 | Chest pain | [facility] | + + + + | 2020-11-01 00:00 | Chest pain [facility] | + + + + | 2020-11-01 00:00 | Chest pain | [facility] | + + + + | 2021-03-25 00:00 | Right flank pain | [facility] | + + + + | 2021-03-25 00:00 | Right flank pain | [facility] | + + + + | 2021-03-25 00:00 | Right flank pain | [facility] | + + + + | 2021-03-25 00:00 | Right flank pain | [facility] | + + + + | 2021-03-25 00:00 | Right flank pain | [facility] | + + + + | 2021-03-25 00:00 | Right flank pain | [facility] | + + + + | 2021-03-25 02:29 | UNSPECIFIED ABDOMINAL PAIN | [facility] | | | | | + + + + | 2021-03-25 02:29 | HALFWAY (CURRENT) USE OF | [facility] [...] | 2021-04-16 00:00 | Near syncope | [facility] | + + + + | 2021-04-16 00:00 | Transient hypotension | [facility] | + + + + | 2021-04-16 00:00 | Transient hypotension | [facility] | + + + + | 2021-04-16 00:00 | Transient hypotension | [facility] | + + + + | 2021-04-16 00:00 | Transient hypotension | [facility] | + + + + | 2021-04-16 00:00 | Transient hypotension | [facility] | + + + + | 2021-04-16 00:00 | Transient hypotension | [facility] | + + + + | 2021-04-16 00:00 | Pre-syncope | [facility] | + + + + | 2021-04-16 00:00 | Pre-syncope | [facility] | + + + + | 2021-04-16 00:00 | Pre-syncope | [facility] | + + + + | 2021-04-16 00:00 | Pre-syncope | [facility] | + + + + | 2021-04-16 00:00 | Pre-syncope | [facility] | + + + + | 2021-04-16 00:00 | Pre-syncope | [facility] | + + + + [...] + + + | 2021-04-22 12:11 | HALFWAY (CURRENT) USE OF | [facility] | | | 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 | | + + + + | 2021-04-22 12:11 | OTHER REFRIGERATION INSULATOR (CURRENT) | [facility] | | | DRUG [...] 00:00 | Right wrist pain | [facility] | + + + + | 2021-11-01 00:00 | Right wrist pain | [facility] | + + + + | 2021-11-01 00:00 | Right wrist pain | [facility] | + + + + | 2021-11-01 00:00 | Right wrist pain | [facility] | + + + + | 2021-11-01 00:00 | Right wrist pain | [facility] | + + + + | 2021-11-01 00:00 | Right wrist pain | [facility] | + + + + | 2022-01-27 00:00 | Vitreous detachment | [facility] | + + + + | 2022-01-27 00:00 | Vitreous detachment | [facility] | + + + + | 2022-01-27 00:00 | Vitreous detachment | [facility] | + + + + | 2022-01-27 00:00 | Vitreous detachment | [facility] | + + + + | 2022-01-27 00:00 | Vitreous detachment | [facility] | + + + + | 2022-01-27 00:00 | Vitreous detachment | [facility] | + + + + [...] + + | 2022-01-27 11:27 | OTHER HALFWAY (CURRENT) | [facility] | [...] | 2022-03-02 00:00 | RSV infection | [facility] | + + + + | 2022-03-02 00:00 | Infection due to | [facility] | | | respiratory syncytial virus | | | | (RSV) | | + + + + | 2022-03-02 00:00 | Infection due to | [facility] | | | respiratory syncytial virus | | | | (RSV) | | + + + + | 2022-03-02 00:00 | Infection due to | [facility] | | | respiratory syncytial virus | | | | (RSV) | | + + + + | 2022-03-02 00:00 | Infection due to | [facility] | | | respiratory syncytial virus | | | | (RSV) | | + + + + | 2022-03-02 00:00 | Infection due to | [facility] | | | respiratory syncytial virus | | | | (RSV) | | + + + + | 2022-03-02 00:00 | Infection due to | [facility] | | | respiratory syncytial virus [...] + + + | 2022-03-02 02:09 | HALFWAY (CURRENT) USE OF | [facility] [...] + + + | 2022-04-22 13:40 | REFRIGERATION INSULATOR (CURRENT) USE OF | [facility] | | [...] + + | 2022-04-22 14:48 | OTHER HALFWAY (CURRENT) | [facility] | [...] 2022-05-01 00:00 | Encounter for medical | [facility] | | | screening examination | | + + + + | 2022-05-01 00:00 | Encounter for medical | [facility] | | | screening examination | | + + + + | 2022-05-01 00:00 | Encounter for medical | [facility] | | | screening examination | | + + + + | 2022-05-01 00:00 | Encounter for medical | [facility] | | | screening examination | | + + + + | 2022-05-20 14:30 | ENCOUNTER FOR THERAPEUTIC | [facility] | | | DRUG LEVEL MONITORING | | + + + + | 2022-05-20 14:30 | REFRIGERATION INSULATOR (CURRENT) USE OF | [facility] | | | 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 | | + + + + | 2022-05-20 14:30 | 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 | | + + + + | 2022-06-17 14:20 | ENCOUNTER FOR THERAPEUTIC | [facility] | | | DRUG LEVEL MONITORING | | + + + + | 2022-06-17 14:20 | REFRIGERATION INSULATOR (CURRENT) USE OF | [facility] | | [...] + + + | 2022-07-01 10:14 | HALFWAY (CURRENT) USE OF | [facility] | | | 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 | | + + + + | 2022-07-01 10:14 | OTHER HALFWAY (CURRENT) | [facility] | [...] + + + | 2022-07-15 14:20 | HALFWAY (CURRENT) USE OF | [facility] [...] + + + | 2022-07-17 20:06 | REFRIGERATION INSULATOR (CURRENT) USE OF | [facility] | | | 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 | | + + + + | 2022-07-17 20:06 | OTHER REFRIGERATION INSULATOR (CURRENT) | [facility] | | | DRUG [...] + + + | 2022-08-12 14:15 | REFRIGERATION INSULATOR (CURRENT) USE OF | [facility] | | [...] + + | 2022-08-21 12:31 | OTHER REFRIGERATION INSULATOR (CURRENT) | [facility] | | | DRUG THERAPY | | + + + + | 2022-08-26 14:16 | ENCOUNTER FOR THERAPEUTIC | [facility] | | | DRUG LEVEL MONITORING | | + + + + | 2022-08-26 14:16 | REFRIGERATION INSULATOR (CURRENT) USE OF | [facility] | | [...] + + + | 2022-09-02 14:55 | HALFWAY (CURRENT) USE OF | [facility] [...] + + + | 2022-09-09 14:25 | REFRIGERATION INSULATOR (CURRENT) USE OF | [facility] | | [...] + + + | 2022-09-16 11:00 | HALFWAY (CURRENT) USE OF | [facility] [...] + + + | 2022-09-30 10:35 | REFRIGERATION INSULATOR (CURRENT) USE OF | [facility] | | [...] + + + | 2022-10-14 14:35 | REFRIGERATION INSULATOR (CURRENT) USE OF | [facility] | | [...] + + + | 2022-10-28 14:40 | REFRIGERATION INSULATOR (CURRENT) USE OF | [facility] | | [...] + + + | 2022-11-25 14:05 | HALFWAY (CURRENT) USE OF | [facility] | | | 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 | | + + + + | 2022-11-28 00:00 | Hypokalemia | [facility] | + + + + | 2022-11-28 00:00 | Hypokalemia | [facility] | + + + + | 2022-11-28 00:00 | Dyspnea due to congestive | [facility] | | | heart failure | | + + + + | 2022-11-28 00:00 | Dyspnea due to congestive | [facility] | | | heart failure [...] + + + | 2022-11-28 11:31 | HALFWAY (CURRENT) USE OF | [facility] [...] + + + | 2022-12-16 19:00 | REFRIGERATION INSULATOR (CURRENT) USE OF | [facility] | | | 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 | | + + + + | 2022-12-16 19:00 | OTHER REFRIGERATION INSULATOR (CURRENT) | [facility] | | | DRUG [...] + | 2022-12-17 00:00 | Diarrhea | [facility] | + + + + [...] (missing) | | (unavailable | 02:40 | Kenndey | | | | | [...] (missing) | | (unavailable | 20:20:08 | eKnnedy | | | | | ) | [...] (missing) | | (unavailable | 20:56:07 | Kenndey | | | | | [...] | | plasma urea | 02:40 | Kenendy | | | | | nitrogen | [...] | 2022-01-27 00:00 | Never smoker | [facility] | + + + + | 2022-03-02 00:00 | Never smoker | [facility] | + + + + [...]
[2022-12-20 08:40] VITALS: BP 141/68
[2022-12-20 12:49] LABS: MCHC 33.3 g/dl (30-36)
[2022-12-20 12:53] LABS: HEMATOCRIT 38.8 % (35.0-50.0); HEMOGLOBIN 12.9 g/dL (12.0-18.0); MCH 29.2 (27-36); MCV 87.7 fl (81-99); PLATELET COUNT 279 K/uL (140-440); RBC 4.43 M/ul (4.3-5.7); RDW 17.2 (10.5-15.0)
[2022-12-20 13:00] LABS: INR 4.73 (0.80-1.30); PROTIME 43.1 Sec (11.2-14.2)
[2022-12-20 13:04] LABS: ALBUMIN 2.5 g/dL (3.4-5.0); ALBUMIN/GLOBULIN RATIO 0.48 (1.1-2.4); ANION GAP 9.6 (7-21); BUN/CREATININE RATIO 11.01 (6.0-28.6); CALCIUM 8.4 mg/dL (8.5-10.1); CREATININE, SERUM 1.18 mg/dL (0.55-1.02); POTASSIUM 2.6 mmol/L (3.5-5.1); PROTEIN, TOTAL 7.7 g/dL (6.4-8.2)
[2022-12-20 13:08] LABS: BANDS, MANUAL DIFF 6; LYMPHOCYTES, MANUAL DIFF 9; MONOCYTES, MANUAL DIFF 12; NEUTROPHILS, MANUAL DIFF 73
[2022-12-20 16:59] LABS: INFLUENZA B NAA NEGATIVE (NEGATIVE); RESPIRATORY SYNCYTIAL VIR NAA NEGATIVE (NEGATIVE)
[2022-12-20 18:55] VITALS: BP 147/85
--- NOTE | 2022-12-20 19:05 | NUR ---
pt arrived to unit. she is able to ambulate to bathroom, a/o, respirations even and regular. pt given sandwich. call light within reach.
--- NOTE | 2022-12-20 19:30 | NUR ---
Patient without distress or discomfort. Bedside report given by
[2022-12-20 20:40] VITALS: BP 141/68
--- NOTE | 2022-12-20 23:10 | NUR ---
Patient without distress or discomfort. Bedside report given by
--- NOTE | 2022-12-21 00:45 | NUR ---
call light answered, pt up to [facility] with [facility] to void and have bm. pt reported small amount urine output and moderate liquid bm. pt back in bed. iv site flushed and saline locked,brisk blood return noted. site reinforced with paper tape. call light in reach.
[2022-12-21 02:30] VITALS: BP 136/63
[2022-12-21 05:35] LABS: BASOPHILS 0.5 % (0-2); EOSINOPHILS 1.2 % (0-6); HEMATOCRIT 36.5 % (35.0-50.0); HEMOGLOBIN 11.8 g/dL (12.0-18.0); LYMPHOCYTES 17.2 % (24-44); MCHC 32.3 g/dl (30-36); MCV 89.6 fl (81-99); MONOCYTES 15.6 % (0-12); NEUTROPHILS 65.5 % (39-80); PLATELET COUNT 236 K/uL (140-440); RBC 4.08 M/ul (4.3-5.7); RDW 17.3 (10.5-15.0)
[2022-12-21 05:45] LABS: INR 3.94 (0.80-1.30); PROTIME 37.4 Sec (11.2-14.2)
--- NOTE | 2022-12-21 05:46 | NUR ---
Maryuri is awake. Assisted [place] to [facility] [place]. Minimal assist provided. No complaints, sitting at edge of bed now watching mary. Has had no N/V/D tonight. denies pain. no noted abnormal bruiding/bleeding, Continues to deny any SOB or CP.
[2022-12-21 05:51] LABS: ALBUMIN 2.2 g/dL (3.4-5.0); ALBUMIN/GLOBULIN RATIO 0.47 (1.1-2.4); ANION GAP 9.2 (7-21); BILIRUBIN, TOTAL 0.6 ng/dL (0.2-1.0); BUN/CREATININE RATIO 13.59 (6.0-28.6); CREATININE, SERUM 1.03 mg/dL (0.55-1.02); MAGNESIUM 2.1 mg/dL (1.8-2.4); PHOSPHORUS, INORGANIC 2.8 mg/dL (2.5-4.9); POTASSIUM 3.2 mmol/L (3.5-5.1); PROTEIN, TOTAL 6.9 g/dL (6.4-8.2)
[2022-12-21 06:26] VITALS: BP 137/69
--- NOTE | 2022-12-21 07:19 | NUR ---
RECEIVED REPORT FROM [facility] NURSE. PT APPEARS TO BE SLEEPING COMFORTABLY ON LEFT SIDE. RESPIRATIONS ARE EVEN AND REGULAR.
[2022-12-21 09:21] VITALS: BP 142/68
[2022-12-21] MEDS ORDERED: VALSARTAN80 MG PO (09:55)
--- NOTE | 2022-12-21 11:39 | NUR ---
assisted pt to restroom. pt ambulates well with walker but becomes sob with exertion. she is up to chair for lunch. iv potassium running. call light within reach.
--- NOTE | 2022-12-21 13:02 | NUR ---
Medications reconciled using pharmacy records and patient interview
--- NOTE | 2022-12-21 13:07 | NUR ---
pt appears to be sleeping comfortably, respirations even and regular.
[2022-12-21 14:45] VITALS: BP 118/59
[2022-12-21 17:48] VITALS: BP 140/62
--- NOTE | 2022-12-21 19:05 | NUR ---
SHIFT REPORT RECEIVED FROM SYLVIA BRADSHAW, ASSUMING CARE OF PT.
--- NOTE | 2022-12-21 19:16 | NUR ---
PT APPEARS TO SLEEP ON LEFT, RESP EVEN AND REGULAR.
--- NOTE | 2022-12-21 21:52 | NUR ---
PT RESTING IN BED, AWAKE AND ALERT, VS AND ASSESSMENT DONE, PT UP TO BR, FFW 1PA, PT HAD LIQUID STOOL MIXED WITH URINE, PT BACK TO BED, REQUESTS SODA, GIVEN PER CEMENT SIDE LASTER.
[2022-12-21 22:01] VITALS: BP 123/66
--- NOTE | 2022-12-21 23:35 | NUR ---
PT RESTING IN BED ON LEFT SIDE, READING, DENIES REQUESTS AT THIS TIME.
--- NOTE | 2022-12-22 01:15 | NUR ---
PT REMAINS AWAKE, ALERT, DENIES NEEDS AT THIS TIME, READING.
--- NOTE | 2022-12-22 03:15 | NUR ---
MANAGER GROUP TO ROOM TO HELP PT UP TO BR, HAD LIQUID BROWN STOOL AND UNMEASURED VOID, MANAGER GROUP ASSIST WITH WIPING BUTTOCK DUE TO PT HAVING DIFFICULTY REACHING TO WIPE HERSELF, PT STATES THIS IS A PROBLEM AT HOME SOMETIMES, PT BACK TO BED, DENIES OTHER REQUESTS, PT ATTEMPTING TO REST.
[2022-12-22 05:38] LABS: BASOPHILS 0.6 % (0-2); EOSINOPHILS 1.1 % (0-6); HEMATOCRIT 35.1 % (35.0-50.0); HEMOGLOBIN 11.5 g/dL (12.0-18.0); LYMPHOCYTES 9.9 % (24-44); MCH 29.4 (27-36); MCHC 32.7 g/dl (30-36); MCV 89.9 fl (81-99); NEUTROPHILS 78.4 % (39-80); PLATELET COUNT 253 K/uL (140-440); RBC 3.91 M/ul (4.3-5.7); RDW 17.1 (10.5-15.0)
[2022-12-22 05:54] LABS: ALBUMIN 2.2 g/dL (3.4-5.0); ALBUMIN/GLOBULIN RATIO 0.5 (1.1-2.4); ANION GAP 8.3 (7-21); BILIRUBIN, TOTAL 0.6 ng/dL (0.2-1.0); BUN/CREATININE RATIO 12.62 (6.0-28.6); CALCIUM 7.8 mg/dL (8.5-10.1); CREATININE, SERUM 1.03 mg/dL (0.55-1.02); POTASSIUM 3.3 mmol/L (3.5-5.1); PROTEIN, TOTAL 6.6 g/dL (6.4-8.2)
[2022-12-22 06:13] LABS: INR 2.15 (0.80-1.30); PROTIME 23.1 Sec (11.2-14.2)
[2022-12-22 06:21] VITALS: BP 136/65
--- NOTE | 2022-12-22 06:22 | NUR ---
PT ASLEEP, LAYING ON RIGHT SIDE, VS STABLE, PT BACK TO SLEEP QUICKLY
--- NOTE | 2022-12-22 07:34 | NUR ---
REPORT FROM SENIOR SALES DIRECTOR LIZ. LEEANN
--- NOTE | 2022-12-22 08:16 | NUR ---
MORNING ASSESSMENT IS COMPLETE. PATIENT UP TO BATHROOM TO HAVE LOOSE STOOL, REPORTS THAT STOOL ARE LESS LOOSE THAN PREVIOUS DAY. PATIENT IS SITTING UP TO HAVE BREAKFAST. DENIES OTHER NEEDS.
[2022-12-22 09:33] VITALS: BP 146/84
--- NOTE | 2022-12-22 09:40 | NUR ---
Spoke with Charlotte and her brother. They live in a house with 8 steps. They help each other. Pt does not drive, brother drives her. They grocery shop together, cook together or separate, brother does the cleaning. Per brother their are only trails through the home. He has been cleaning while pt hospialized as she cannot use her walker in the home. HOme is cluttered, he feels this is sisters fault. He states when he lived with , the house was not so cluttered. Pt states she also needs help with caregiving. I gave pt the phone number to [facility] to call to request an evaluation and Rosa M Sampson's name. I also gave her [employer]'s phone number and requested she call them for some cg hours. Pt is wanting someone to come and clean her house out, I gave her [facility] number. Let them know this is an out of pocket expense. Both state understanding. Pt denies other needs. Plans to go home when cleared medically.
--- NOTE | 2022-12-22 10:21 | NUR ---
PATIENT GIVEN FIRST DOSE OF PO FLAGYL. CRACKERS ARE ON BEDSIDE TABLE. PATIENT DENIES OTHER NEEDS AT THIS TIME.
--- NOTE | 2022-12-22 10:57 | NUR ---
AFTER I DID PATIENT'S VITALS. OCCUPATIONAL THERAPY GAVE PATIENT HER SHOWER. TALKED TO OCCUPAIONAL THERAPY AND SHE SAID SHE NEEDS HELP TAKING A SHOWER. BED LINENS CHANGED. PATIENT DIDN'T WANT TO WASH HER HAIR.
--- NOTE | 2022-12-22 11:47 | NUR ---
PATIENT'S BROTHER IN TO VISIT ABOUT PATIENT.
--- NOTE | 2022-12-22 12:54 | NUR ---
PT CALL LIGHT ON. PT REPORTS NEED TO USE RESTROOM. STAND BY ASSIST WITH FWW UP TO RESTROOM. URINE AND STOOL MIX SEEN. ALIZE CARE PER PT. STAND BY ASSIST BACK TO BED. PT RESTING ON LEFT SIDE, READING BOOK ON HER TABLET. PT ATE 90% OF HER LUNCH. NO ADDITIONAL REQUESTS OR COMPLAINTS. PTS PRIMARY RN UPDATED.
[2022-12-22 13:38] LABS: C. DIFF TOXIN B GENE TCDB,PCR Not Detected (())
--- NOTE | 2022-12-22 14:13 | NUR ---
PATIENT IS RESTING IN BED, REQUESTED A 7-UP, NO OTHER NEEDS AT THIS TIME.
[2022-12-22 14:17] VITALS: BP 135/67
--- NOTE | 2022-12-22 16:34 | NUR ---
PATIENT GIVEN AFTERNOON MEDICATIONS. PATIENT DID ASK WHEN SHE WOULD BE RESTARTING HER HOME MEDICATIONS, PLAN TO DISCUSS WITH THE HOSPITALIST.
--- NOTE | 2022-12-22 17:11 | NUR ---
PATIENT RESTARTED ON SEVERAL OF HER HOME MEDICATIONS: AMIODERONE, CELEXA, AND LEVOTHYROXINE. PATIENT IS EATING DINNER, DENIES OTHER NEEDS AT THIS TIME.
[2022-12-22 17:41] VITALS: BP 152/69
--- NOTE | 2022-12-22 19:05 | NUR ---
SHIFT REPORT RECEIVED FROM FILIPPO BRADSHAW, ASSUMING CARE OF PT AT THIS TIME.
--- NOTE | 2022-12-22 19:49 | NUR ---
RN TO ROOM, PT LAYING ON RIGHT SIDE, WATCHING VIDEOS, PT C/O FRONTAL HEADACHE 08/25, STATES SHE HAS HEADACHES PERIODICALLY, OFTEN WITH WEATHER CHANGES, PT MEDICATED WITH TYLENOL 650MG PER ORDER PER HER REQUEST.
[2022-12-22 19:55] VITALS: BP 139/66
--- NOTE | 2022-12-22 19:55 | NUR ---
PT AWAKE AND ALERT, TALKATIVE ABOUT VIDEO SHE IS WATCHING, VS AND ASSESSMENT DONE, SL IN RIGHT AC FLUSHES WELL, SITE INTACT, PT DENIES OTHER REQUESTS AT THIS TIME.
--- NOTE | 2022-12-22 21:09 | NUR ---
RN TO ROOM, PT RESTING WITH HER EYES CLOSED, AWAKENS EASILY, RT MEDS GIVEN WITH PUDDING AND CRACKERS, PT STATES HER HEADACHE IS LESSENING NOW, PROBABLY A 2/10, PT ATTEMPTING TO REST, HOB ELEVATED APPROX 30 DEGREES AND SIDE RAIL UP X 2.
--- NOTE | 2022-12-22 22:10 | NUR ---
PT RESTING QUIETLY, LAYING ON RIGHT SIDE, RESP REG
--- NOTE | 2022-12-22 23:50 | NUR ---
PT APPEARS TO SLEEP, RESP EVEN, REG AND FULL, REMAINS ON RIGHT SIDE, WITHOUT DISTRESS.
--- NOTE | 2022-12-23 01:50 | NUR ---
PT APPEARS TO SLEEP, RESP EVEN AND REG.
--- NOTE | 2022-12-23 02:50 | NUR ---
RM TO ROOM, PT UP IN BR, PT WENT INDEPENDENTLY WITHOUT WALKER, DECLINES ASSIST, DESIRES TO SIT ON COMMODE FOR A FEW MINUTES.
--- NOTE | 2022-12-23 03:05 | NUR ---
RN TO ROOM, PT BACK IN BED, WITHOUT REQUESTS, PT VOIDED 400ML URINE AND HAD SMALL BROWN SOFT-LIQUID STOOL. PT READING EBOOK.
--- NOTE | 2022-12-23 05:25 | NUR ---
LAB REQUEST RN TO ROOM TO CHECK ON PT, PT WITH PAINFUL RESTLESS LEGS, DESIRES TO GET UP AND AMBULATE, UP IN ROOM USING FFW, LAB DRAWN BY RN PER RIGHT AC SL SAMPLE OBTAINED AFTER WASTE OF 10ML OF BLOOD, SL FLUSHES WELL, PT BACK TO BED, MEDICATED WITH TYLENOL FOR PAIN FROM RESTLESS LEGS 08/25, VS DONE AND STABLE.
[2022-12-23 05:30] VITALS: BP 144/88
[2022-12-23 05:42] LABS: INR 1.62 (0.80-1.30); PROTIME 18.5 Sec (11.2-14.2)
--- NOTE | 2022-12-23 06:50 | NUR ---
PT REPORTS TYLENOL HELPED WITH THE PAIN OF HER RESTLESS LEGS, PT DOSING OFF AND ON, WITHOUT OTHER REQUESTS.
--- NOTE | 2022-12-23 07:24 | NUR ---
recieved report from [facility] nurse.
--- NOTE | 2022-12-23 08:15 | NUR ---
pt given morning meds and assessment. no abnormal findings. patient is awake and oriented. currently on moble device. no complaints of pain pt stated pain level at 0. call light within reach.
--- NOTE | 2022-12-23 09:44 | NUR ---
pt is currently resting in bed and on tablet. asked if she needed anything and she stated no. call light within reach.
[2022-12-23 09:56] VITALS: BP 143/70
--- NOTE | 2022-12-23 11:02 | NUR ---
PATIENT LAYING ON HER RIGHT SIDE IN BED READING A BOOK ON HER IPAD OR TABLET.
[2022-12-23] MEDS ORDERED: CULTURELLE1 EAC1 PO (13:01)
[2022-12-23] MEDS ORDERED: METRONIDAZOLE250 MG PO (13:02)
--- NOTE | 2022-12-23 13:04 | NUR ---
DR MORILLO SPOKE WITH PT AND ASKED PT IF SHE WAS READY FOR DISCHARGE. PT STATES YES AND IS CURRENTLY IN BED ON TABLET. CALL LIGHT WITHIN REACH
--- NOTE | 2022-12-23 13:44 | NUR ---
Spoke with pt. She states Dr. Strange spoke with her. She denies needs to go home and states she has the phone numbers I gave her. She states she will call her brother for a ride when she gets closer to going home. Pt states she just wants to snuggle under the covers and rest a while. Home today.
--- NOTE | 2022-12-23 13:46 | NUR ---
I EXERCISED MINISTRY OF PRESENCE PT SHARED STORIES OF LIFE. ENGAGING CONVERSATION. DECLINED PRAYER.
--- NOTE | 2022-12-23 14:11 | NUR ---
Patient ready for discharged. Education done with patient, patient given packet of paperwork. IV removed and intact, education done. Patient has brother at bedside to take her home. Patient dressed in her own clothing. All questions anwsered, denies any other cares. Patient has all belongings, patient will be taken out via wheelchair.
== END 2022-12-23 14:06 | disposition home or self-care (01) | DRG 641 ==
LOC: ED 12:32 → MS 12:34
PROVIDERS: Emergency Medicine; ADMIT Family Medicine; ATTEND Internal Medicine
DX: E87.6 Hypokalemia (principal); I50.22 Chronic systolic (congestive) heart failure; Z68.41 Body mass index [BMI] 40.0-44.9, adult; E86.0 Dehydration; R79.1 Abnormal coagulation profile; R19.7 Diarrhea, unspecified; E66.9 Obesity, unspecified; M19.90 Unspecified osteoarthritis, unspecified site; R10.9 Unspecified abdominal pain; E03.9 Hypothyroidism, unspecified; Z20.822 Contact with and (suspected) exposure to COVID-19; Z96.651 Presence of right artificial knee joint; Z88.5 Allergy status to narcotic agent; Z88.8 Allergy status to other drugs, medicaments and biological substances; Z79.01 Long term (current) use of anticoagulants; Z88.1 Allergy status to other antibiotic agents; Z95.2 Presence of prosthetic heart valve; Z91.018 Allergy to other foods; Z90.710 Acquired absence of both cervix and uterus; Z90.49 Acquired absence of other specified parts of digestive tract; Z98.890 Other specified postprocedural states; Z79.890 Hormone replacement therapy; Z79.899 Other long term (current) drug therapy; Z99.81 Dependence on supplemental oxygen; Z79.02 Long term (current) use of antithrombotics/antiplatelets
CPT/HCPCS: 36415; 80053; 83690; 83735; 84100; 85025; 85610; 87045; 87046; 87493; 87502; 96361; 96374; 96375; 97110; 97116; 97162; 97166; 97535; 99285-25; A9270; C9803; J2405; J3480; J3490; J7030; J7060; U0002

== ENCOUNTER 2022-12-27 10:08 | Emergency (ER) | payer MEDICARE ==
[~2022-12-27] VITALS: Ht 185.4 cm; Wt 153.0 kg
--- OUTSIDE RECORDS SUMMARY | ~2022-12-27 | XMS | Continuity of Care Document ---
Demographics + + + | Address | [address] | | | [place] [address] | + + + | Preferred Language | Unknown | + + + | Marital Status | | + + + | Faith Affiliation | Unknown | + + + | Race | White | + + + | Ethnic Group | Not or | + + + Author + + + | Author | [facility] | + + + | Organization | [facility] | + + + | Address | [address] | | | [place] [address] | + + + | Phone | | + + + Care Team Providers + + + + | Care Child Nurse Name | Role | Phone | + [...] + + + | (no date) | Mild | [facility] | (no reaction) | (no severity) | | | [facility] | | | + + + + + + | (no date) | Dyspnea | [facility] | (no reaction) | [...] + + + | (no date) | marijuana | [facility] | (no reaction) | (no severity) | | | (cannabis) | | | | + + + [...] 2022-01-27 00:00 | No vaccine administered | [facility] | + + + + | 2022-03-02 00:00 | No vaccine administered | [facility] | + + + + Medications + + + + | date | description | facility | + + + + | 2022-01-27 00:00 | GABAPENTIN | [facility] | + + + + | 2022-03-02 00:00 | GABAPENTIN | [facility] | + + + + | 2022-04-22 00:00 | GABAPENTIN | [facility] | + + + + | 2022-05-01 00:00 | GABAPENTIN | [facility] | + + + + | 2022-07-01 00:00 | GABAPENTIN | [facility] | + + + + | 2022-01-27 00:00 | gabapentin 100 MG Oral | [facility] | | | Capsule [Neurontin] | | + + + + | 2022-03-02 00:00 | gabapentin 100 MG Oral | [facility] | | | Capsule [Neurontin] | | + + + + | 2022-03-02 00:00 | Millipred DP 6 Day Dose | [facility] | | | Pack | | + + + + | 2022-03-02 00:00 | PREDNISOLONE | [facility] | + + + + | 2022-11-28 00:00 | POTASSIUM CHLORIDE | [facility] | + + + + | 2022-11-28 00:00 | POTASSIUM CHLORIDE | [facility] | + + + + | 2022-07-01 00:00 | EMPAGLIFLOZIN | [facility] | + + + + | 2022-07-17 00:00 | EMPAGLIFLOZIN | [facility] | + + + + | 2022-11-28 00:00 | EMPAGLIFLOZIN | [facility] | + + + + | 2022-12-17 00:00 | EMPAGLIFLOZIN | [facility] | + + + + | 2022-12-23 00:00 | EMPAGLIFLOZIN | [facility] | + + + + | 2022-07-01 00:00 | SACUBITRIL/VALSARTAN | [facility] | + + + + | 2022-03-02 00:00 | BENZONATATE | [facility] | + + + + | 2022-03-02 00:00 | BENZONATATE | [facility] | + + + + | 2022-03-02 00:00 | BENZONATATE | [facility] | + + + + | 2022-03-02 00:00 | benzonatate 100 MG Oral | [facility] | | | Capsule | | + + + + | 2022-07-01 00:00 | NITROGLYCERIN | [facility] | + + + + | 2022-07-17 00:00 | NITROGLYCERIN | [facility] | + + + + | 2022-11-28 00:00 | NITROGLYCERIN | [facility] | + + + + | 2022-12-17 00:00 | NITROGLYCERIN | [facility] | + + + + | 2022-12-23 00:00 | NITROGLYCERIN | [facility] | + + + + | 2022-11-28 00:00 | CITALOPRAM HYDROBROMIDE | [facility] | + + + + | 2022-12-17 00:00 | CITALOPRAM HYDROBROMIDE | [facility] | + + + + | 2022-12-23 00:00 | CITALOPRAM HYDROBROMIDE | [facility] | + + + + | 2022-04-22 00:00 | FUROSEMIDE | [facility] | + + + + | 2022-04-22 00:00 | FUROSEMIDE | [facility] | + + + + | 2022-01-27 00:00 | CITALOPRAM HYDROBROMIDE | [facility] | + + + + | 2022-03-02 00:00 | CITALOPRAM HYDROBROMIDE | [facility] | + + + + | 2022-04-22 00:00 | CITALOPRAM HYDROBROMIDE | [facility] | + + + + | 2022-05-01 00:00 | CITALOPRAM HYDROBROMIDE | [facility] | + + + + | 2022-07-01 00:00 | CITALOPRAM HYDROBROMIDE | [facility] | + + + + | 2022-07-17 00:00 | CITALOPRAM HYDROBROMIDE | [facility] | + + + + | 2022-01-27 00:00 | citalopram 10 MG Oral | [facility] | | | Tablet | | + + + + | 2022-03-02 00:00 | citalopram 10 MG Oral | [facility] | | | Tablet | | + + + + | 2022-04-22 00:00 | FUROSEMIDE | [facility] | + + + + | 2022-07-17 00:00 | FUROSEMIDE | [facility] | + + + + | 2022-12-23 00:00 | FUROSEMIDE | [facility] | + + + + | 2022-07-17 00:00 | GABAPENTIN | [facility] | + + + + | 2022-11-28 00:00 | GABAPENTIN | [facility] | + + + + | 2022-12-17 00:00 | GABAPENTIN | [facility] | + + + + | 2022-12-23 00:00 | GABAPENTIN | [facility] | + + + + | 2020-10-14 00:00 | POTASSIUM CHLORIDE | [facility] | + + + + | 2020-10-14 00:00 | POTASSIUM CHLORIDE | [facility] | + + + + | 2020-10-14 00:00 | POTASSIUM CHLORIDE | [facility] | + + + + | 2020-10-14 00:00 | POTASSIUM CHLORIDE | [facility] | + + + + | 2020-10-14 00:00 | POTASSIUM CHLORIDE | [facility] | + + + + | 2020-10-14 00:00 | POTASSIUM CHLORIDE | [facility] | + + + + | 2020-10-14 00:00 | POTASSIUM CHLORIDE | [facility] | + + + + | 2020-10-14 00:00 | potassium chloride 10 MEQ | [facility] | | | Extended Release Oral | | | | Capsule | | + + + + | 2022-07-01 00:00 | SPIRONOLACTONE | [facility] | + + + + | 2022-07-17 00:00 | SPIRONOLACTONE | [facility] | + + + + | 2022-11-28 00:00 | SPIRONOLACTONE | [facility] | + + + + | 2022-12-17 00:00 | SPIRONOLACTONE | [facility] | + + + + | 2022-12-23 00:00 | SPIRONOLACTONE | [facility] | + + + + | 2022-01-27 00:00 | FUROSEMIDE | [facility] | + + + + | 2022-03-02 00:00 | FUROSEMIDE | [facility] | + + + + | 2022-11-28 00:00 | FUROSEMIDE | [facility] | + + + + | 2022-12-17 00:00 | FUROSEMIDE | [facility] | + + + + | 2022-01-27 00:00 | furosemide 40 MG Oral | [facility] | | | Tablet | | + + + + | 2022-03-02 00:00 | furosemide 40 MG Oral | [facility] | | | Tablet | | + + + + | 2022-12-23 00:00 | METRONIDAZOLE | [facility] | + + + + | 2022-01-27 00:00 | VALSARTAN | [facility] | + + + + | 2022-03-02 00:00 | VALSARTAN | [facility] | + + + + | 2022-04-22 00:00 | VALSARTAN | [facility] | + + + + | 2022-05-01 00:00 | VALSARTAN | [facility] | + + + + | 2022-07-17 00:00 | VALSARTAN | [facility] | + + + + | 2022-11-28 00:00 | VALSARTAN | [facility] | + + + + | 2022-12-17 00:00 | VALSARTAN | [facility] | + + + + | 2022-01-27 00:00 | valsartan 80 MG Oral | [facility] | | | Tablet | | + + + + | 2022-03-02 00:00 | valsartan 80 MG Oral | [facility] | | | Tablet | | + + + + | 2022-01-27 00:00 | ATORVASTATIN | [facility] | + + + + | 2022-03-02 00:00 | ATORVASTATIN | [facility] | + + + + | 2022-04-22 00:00 | ATORVASTATIN | [facility] | + + + + | 2022-05-01 00:00 | ATORVASTATIN | [facility] | + + + + | 2022-07-01 00:00 | ATORVASTATIN | [facility] | + + + + | 2022-07-17 00:00 | ATORVASTATIN | [facility] | + + + + | 2022-11-28 00:00 | ATORVASTATIN | [facility] | + + + + | 2022-12-17 00:00 | ATORVASTATIN | [facility] | + + + + | 2022-12-23 00:00 | ATORVASTATIN | [facility] | + + + + | 2022-01-27 00:00 | atorvastatin 40 MG Oral | [facility] | | | Tablet [Lipitor] | | + + + + | 2022-03-02 00:00 | atorvastatin 40 MG Oral | [facility] | | | Tablet [Lipitor] | | + + + + | 2017-03-21 00:00 | CYCLOBENZAPRINE HCL | [facility] | + + + + | 2017-03-21 00:00 | CYCLOBENZAPRINE HCL | [facility] | + + + + | 2017-03-21 00:00 | CYCLOBENZAPRINE HCL | [facility] | + + + + | 2017-03-21 00:00 | CYCLOBENZAPRINE HCL | [facility] | + + + + | 2017-03-21 00:00 | CYCLOBENZAPRINE HCL | [facility] | + + + + | 2017-03-21 00:00 | CYCLOBENZAPRINE HCL | [facility] | + + + + | 2017-03-21 00:00 | CYCLOBENZAPRINE HCL | [facility] | + + + + | 2017-03-21 00:00 | cyclobenzaprine | [facility] | | | hydrochloride 10 MG Oral | | | | Tablet | | + + + + | 2022-11-28 00:00 | AMIODARONE HCL | [facility] | + + + + | 2022-12-17 00:00 | AMIODARONE HCL | [facility] | + + + + | 2022-12-23 00:00 | AMIODARONE HCL | [facility] | + + + + | 2022-11-28 00:00 | WARFARIN SODIUM | [facility] | + + + + | 2022-12-17 00:00 | WARFARIN SODIUM | [facility] | + + + + | 2022-01-27 00:00 | WARFARIN SODIUM | [facility] | + + + + | 2022-03-02 00:00 | WARFARIN SODIUM | [facility] | + + + + | 2022-04-22 00:00 | WARFARIN SODIUM | [facility] | + + + + | 2022-05-01 00:00 | WARFARIN SODIUM | [facility] | + + + + | 2022-07-01 00:00 | WARFARIN SODIUM | [facility] | + + + + | 2022-07-17 00:00 | WARFARIN SODIUM | [facility] | + + + + | 2022-11-28 00:00 | WARFARIN SODIUM | [facility] | + + + + | 2022-12-17 00:00 | WARFARIN SODIUM | [facility] | + + + + | 2022-12-23 00:00 | WARFARIN SODIUM | [facility] | + + + + | 2022-01-27 00:00 | warfarin sodium 10 MG Oral | [facility] | | | Tablet [Jantoven] | | + + + + | 2022-03-02 00:00 | warfarin sodium 10 MG Oral | [facility] | | | Tablet [Jantoven] | | + + + + | 2022-01-27 00:00 | 24 HR metoprolol succinate | [facility] | | | 25 MG Extended Release | | | | Oral Table | | + + + + | 2022-03-02 00:00 | 24 HR metoprolol succinate | [facility] | | | 25 MG Extended Release | | | | Oral Table | | + + + + | 2022-01-27 00:00 | METOPROLOL SUCCINATE | [facility] | + + + + | 2022-03-02 00:00 | METOPROLOL SUCCINATE | [facility] | + + + + | 2022-04-22 00:00 | METOPROLOL SUCCINATE | [facility] | + + + + | 2022-05-01 00:00 | METOPROLOL SUCCINATE | [facility] | + + + + | 2022-07-01 00:00 | METOPROLOL SUCCINATE | [facility] | + + + + | 2022-07-17 00:00 | METOPROLOL SUCCINATE | [facility] | + + + + | 2022-11-28 00:00 | METOPROLOL SUCCINATE | [facility] | + + + + | 2022-12-17 00:00 | METOPROLOL SUCCINATE | [facility] | + + + + | 2022-12-23 00:00 | METOPROLOL SUCCINATE | [facility] | + + + + | 2022-01-27 00:00 | Levothyroxine Sodium | [facility] | + + + + | 2022-03-02 00:00 | Levothyroxine Sodium | [facility] | + + + + | 2022-01-27 00:00 | levothyroxine sodium 0.075 | [facility] | | | MG Oral Capsule | | + + + + | 2022-03-02 00:00 | levothyroxine sodium 0.075 | [facility] | | | MG Oral Capsule | | + + + + | 2022-04-22 00:00 | LEVOTHYROXINE SODIUM | [facility] | + + + + | 2022-05-01 00:00 | LEVOTHYROXINE SODIUM | [facility] | + + + + | 2022-07-01 00:00 | LEVOTHYROXINE SODIUM | [facility] | + + + + | 2022-07-17 00:00 | LEVOTHYROXINE SODIUM | [facility] | + + + + | 2022-11-28 00:00 | LEVOTHYROXINE SODIUM | [facility] | + + + + | 2022-12-17 00:00 | LEVOTHYROXINE SODIUM | [facility] | + + + + | 2022-12-23 00:00 | LEVOTHYROXINE SODIUM | [facility] | + + + + | 2022-01-27 00:00 | LOSARTAN POTASSIUM | [facility] | + + + + | 2022-03-02 00:00 | LOSARTAN POTASSIUM | [facility] | + + + + | 2022-04-22 00:00 | LOSARTAN POTASSIUM | [facility] | + + + + | 2022-05-01 00:00 | LOSARTAN POTASSIUM | [facility] | + + + + | 2022-07-01 00:00 | LOSARTAN POTASSIUM | [facility] | + + + + | 2022-07-17 00:00 | LOSARTAN POTASSIUM | [facility] | + + + + | 2022-11-28 00:00 | LOSARTAN POTASSIUM | [facility] | + + + + | 2022-12-17 00:00 | LOSARTAN POTASSIUM | [facility] | + + + + | 2022-12-23 00:00 | LOSARTAN POTASSIUM | [facility] | + + + + | 2022-01-27 00:00 | losartan potassium 25 MG | [facility] | | | Oral Tablet [Cozaar] | | + + + + | 2022-03-02 00:00 | losartan potassium 25 MG | [facility] | | | Oral Tablet [Cozaar] | | + + + + Problems + + + + | date | description | facility | + + + + | 2020-10-14 00:00 | CHF (congestive heart | [facility] | | | failure) | | + + + + | 2020-10-14 00:00 | Congestive heart failure | [facility] | + + + + | 2020-10-14 00:00 | Congestive heart failure | [facility] | + + + + | 2020-10-14 00:00 | Congestive heart failure | [facility] | + + + + | 2020-10-14 00:00 | Congestive heart failure | [facility] | + + + + | 2020-10-14 00:00 | Congestive heart failure | [facility] | + + + + | 2020-10-14 00:00 | Congestive heart failure | [facility] | + + + + | 2020-10-14 00:00 | Congestive heart failure | [facility] | + + + + | 2020-10-14 00:00 | Dyspnea | [facility] | + + + + | 2020-10-14 00:00 | Dyspnea | [facility] | + + + + | 2020-10-14 00:00 | Dyspnea | [facility] | + + + + | 2020-10-14 00:00 | Dyspnea | [facility] | + + + + | 2020-10-14 00:00 | Dyspnea | [facility] | + + + + | 2020-10-14 00:00 | Dyspnea | [facility] | + + + + | 2020-10-14 00:00 | Dyspnea | [facility] | + + + + | 2020-11-01 00:00 | Chest pain | [facility] | + + + + | 2020-11-01 00:00 | Chest pain | [facility] | + + + + | 2020-11-01 00:00 | Chest pain | [facility] | + + + + | 2020-11-01 00:00 | Chest pain | [facility] | + + + + | 2020-11-01 00:00 | Chest pain | [facility] | + + + + | 2020-11-01 00:00 | Chest pain | [facility] | + + + + | 2020-11-01 00:00 | Chest pain | [facility] | + + + + | 2021-03-25 00:00 | Right flank pain | [facility] | + + + + | 2021-03-25 00:00 | Right flank pain | [facility] | + + + + | 2021-03-25 00:00 | Right flank pain | [facility] | + + + + | 2021-03-25 00:00 | Right flank pain | [facility] | + + + + | 2021-03-25 00:00 | Right flank pain | [facility] | + + + + | 2021-03-25 00:00 | Right flank pain | [facility] | + + + + | 2021-03-25 00:00 | Right flank pain | [facility] | + + + + | 2021-03-25 02:29 | UNSPECIFIED ABDOMINAL PAIN | [facility] | | | | | + + + + | 2021-03-25 02:29 | LIQUOR BLENDER (CURRENT) USE OF | [facility] | | | 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 | | + + + + | 2021-03-25 02:29 | OTHER LIQUOR BLENDER (CURRENT) | [facility] | | | DRUG [...] | 2021-04-16 00:00 | Near syncope | [facility] | + + + + | 2021-04-16 00:00 | Transient hypotension | [facility] | + + + + | 2021-04-16 00:00 | Transient hypotension | [facility] | + + + + | 2021-04-16 00:00 | Transient hypotension | [facility] | + + + + | 2021-04-16 00:00 | Transient hypotension | [facility] | + + + + | 2021-04-16 00:00 | Transient hypotension | [facility] | + + + + | 2021-04-16 00:00 | Transient hypotension | [facility] | + + + + | 2021-04-16 00:00 | Transient hypotension | [facility] | + + + + | 2021-04-16 00:00 | Pre-syncope | [facility] | + + + + | 2021-04-16 00:00 | Pre-syncope | [facility] | + + + + | 2021-04-16 00:00 | Pre-syncope | [facility] | + + + + | 2021-04-16 00:00 | Pre-syncope | [facility] | + + + + | 2021-04-16 00:00 | Pre-syncope | [facility] | + + + + | 2021-04-16 00:00 | Pre-syncope | [facility] | + + + + | 2021-04-16 00:00 | Pre-syncope | [facility] | + + + + | 2021-04-22 [...] + + + | 2021-04-22 12:11 | ALF (CURRENT) USE OF | [facility] | | | 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 | | + + + + | 2021-04-22 12:11 | OTHER ALF (CURRENT) | [facility] | | | DRUG [...] + + + | 2021-05-21 13:05 | ALF (CURRENT) USE OF | [facility] | | | 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 | | + + + + | 2021-05-21 13:05 | 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 | | + + + + | 2021-11-01 00:00 | Right wrist pain | [facility] | + + + + | 2021-11-01 00:00 | Right wrist pain | [facility] | + + + + | 2021-11-01 00:00 | Right wrist pain | [facility] | + + + + | 2021-11-01 00:00 | Right wrist pain | [facility] | + + + + | 2021-11-01 00:00 | Right wrist pain | [facility] | + + + + | 2021-11-01 00:00 | Right wrist pain | [facility] | + + + + | 2021-11-01 00:00 | Right wrist pain | [facility] | + + + + | 2022-01-27 00:00 | Vitreous detachment | [facility] | + + + + | 2022-01-27 00:00 | Vitreous detachment | [facility] | + + + + | 2022-01-27 00:00 | Vitreous detachment | [facility] | + + + + | 2022-01-27 00:00 | Vitreous detachment | [facility] | + + + + | 2022-01-27 00:00 | Vitreous detachment | [facility] | + + + + | 2022-01-27 00:00 | Vitreous detachment | [facility] | + + + + | 2022-01-27 00:00 | Vitreous detachment | [facility] | + + + + | 2022-01-27 11:27 | VITREOUS DEGENERATION, | [facility]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 | | + + + + | 2022-01-27 11:27 | UNSPECIFIED | [facility] | | | OSTEOARTHRITIS, UNSPECIFIED | | | | SITE | | + + + + | 2022-01-27 11:27 | LIQUOR BLENDER (CURRENT) USE OF | [facility] | | | 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 | | + + + + | 2022-01-27 11:27 | OTHER LIQUOR BLENDER (CURRENT) | [facility] | | | DRUG [...] + + + | 2022-02-25 14:00 | ALF (CURRENT) USE OF | [facility] | | | 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 | | + + + + | 2022-02-25 14:00 | 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 | | + + + + | 2022-03-02 00:00 | RSV infection | [facility] | + + + + | 2022-03-02 00:00 | Infection due to | [facility] | | | respiratory syncytial virus | | | | (RSV) | | + + + + | 2022-03-02 00:00 | Infection due to | [facility] | | | respiratory syncytial virus | | | | (RSV) | | + + + + | 2022-03-02 00:00 | Infection due to | [facility] | | | respiratory syncytial virus | | | | (RSV) | | + + + + | 2022-03-02 00:00 | Infection due to | [facility] | | | respiratory syncytial virus | | | | (RSV) | | + + + + | 2022-03-02 00:00 | Infection due to | [facility] | | | respiratory syncytial virus | | | | (RSV) | | + + + + | 2022-03-02 00:00 | Infection due to | [facility] | | | respiratory syncytial virus | | | | (RSV) | | + + + + | 2022-03-02 00:00 | Infection due to | [facility] | | | respiratory syncytial virus | [...] + + + | 2022-03-02 02:09 | LIQUOR BLENDER (CURRENT) USE OF | [facility] | | | 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 | | + + + + | 2022-03-02 02:09 | OTHER LIQUOR BLENDER (CURRENT) | [facility] | | | DRUG [...] + + + | 2022-03-25 14:30 | ALF (CURRENT) USE OF | [facility] | | | 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 | | + + + + | 2022-03-25 14:30 | 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 | | + + + + | 2022-04-22 13:40 | ENCOUNTER FOR THERAPEUTIC | [facility] | | | DRUG LEVEL MONITORING | | + + + + | 2022-04-22 13:40 | ALF (CURRENT) USE OF | [facility] | | [...] + + + | 2022-04-22 14:48 | LIQUOR BLENDER (CURRENT) USE OF | [facility] | | | 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 | | + + + + | 2022-04-22 14:48 | OTHER LIQUOR BLENDER (CURRENT) | [facility] | | | DRUG [...] 2022-05-01 00:00 | Encounter for medical | [facility] | | | screening examination | | + + + + | 2022-05-01 00:00 | Encounter for medical | [facility] | | | screening examination | | + + + + | 2022-05-01 00:00 | Encounter for medical | [facility] | | | screening examination | | + + + + | 2022-05-01 00:00 | Encounter for medical | [facility] | | | screening examination | | + + + + | 2022-05-01 00:00 | Encounter for medical | [facility] | | | screening examination | | + + + + | 2022-05-20 14:30 | ENCOUNTER FOR THERAPEUTIC | [facility] | | | DRUG LEVEL MONITORING | | + + + + | 2022-05-20 14:30 | LIQUOR BLENDER (CURRENT) USE OF | [facility] | | | 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 | | + + + + | 2022-05-20 14:30 | 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 | | + + + + | 2022-06-17 14:20 | ENCOUNTER FOR THERAPEUTIC | [facility] | | | DRUG LEVEL MONITORING | | + + + + | 2022-06-17 14:20 | ALF (CURRENT) USE OF | [facility] | | [...] + + + | 2022-07-01 10:14 | LIQUOR BLENDER (CURRENT) USE OF | [facility] | | | 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 | | + + + + | 2022-07-01 10:14 | OTHER LIQUOR BLENDER (CURRENT) | [facility] | | | DRUG [...] + + + | 2022-07-15 14:20 | LIQUOR BLENDER (CURRENT) USE OF | [facility] | | [...] + + + | 2022-07-17 20:06 | LIQUOR BLENDER (CURRENT) USE OF | [facility] | | | 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 | | + + + + | 2022-07-17 20:06 | OTHER LIQUOR BLENDER (CURRENT) | [facility] | | | DRUG [...] + + + | 2022-08-12 14:15 | LIQUOR BLENDER (CURRENT) USE OF | [facility] | | [...] + + | 2022-08-21 12:31 | OTHER LIQUOR BLENDER (CURRENT) | [facility] | | | DRUG THERAPY | | + + + + | 2022-08-26 14:16 | ENCOUNTER FOR THERAPEUTIC | [facility] | | | DRUG LEVEL MONITORING | | + + + + | 2022-08-26 14:16 | ALF (CURRENT) USE OF | [facility] | | [...] + + + | 2022-09-02 14:55 | LIQUOR BLENDER (CURRENT) USE OF | [facility] | | [...] + + + | 2022-09-09 14:25 | ALF (CURRENT) USE OF | [facility] | | [...] + + + | 2022-09-16 11:00 | ALF (CURRENT) USE OF | [facility] | | [...] + + + | 2022-09-30 10:35 | LIQUOR BLENDER (CURRENT) USE OF | [facility] | | [...] + + + | 2022-10-14 14:35 | ALF (CURRENT) USE OF | [facility] | | [...] + + + | 2022-10-28 14:40 | ALF (CURRENT) USE OF | [facility] | | [...] + + + | 2022-11-25 14:05 | LIQUOR BLENDER (CURRENT) USE OF | [facility] | | | 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 | | + + + + | 2022-11-28 00:00 | Hypokalemia | [facility] | + + + + | 2022-11-28 00:00 | Hypokalemia | [facility] | + + + + | 2022-11-28 00:00 | Hypokalemia | [facility] | + + + + | 2022-11-28 00:00 | Dyspnea due to congestive | [facility] | | | heart failure | | + + + + | 2022-11-28 00:00 | Dyspnea due to congestive | [facility] | | | heart failure | | + + + + | 2022-11-28 00:00 | Dyspnea due to congestive | [facility] | | | heart failure | | [...] + + + | 2022-11-28 11:31 | LIQUOR BLENDER (CURRENT) USE OF | [facility] | | [...] [facility] | + + + + | 2022-12-03 08:51 | WEAKNESS | [facility] | + + + + | 2022-12-16 19:00 | HYPOKALEMIA | [facility] | + + + + | 2022-12-16 19:00 | UNSPECIFIED | [facility] | | | OSTEOARTHRITIS, UNSPECIFIED | | | | SITE | | + + + + | 2022-12-16 19:00 | DIARRHEA, UNSPECIFIED | [facility] | + + + + | 2022-12-16 19:00 | LIQUOR BLENDER (CURRENT) USE OF | [facility] | | | 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 | | + + + + | 2022-12-16 19:00 | OTHER ALF (CURRENT) | [facility] | | | DRUG THERAPY | | + + + + | 2022-12-16 19:00 | ALLERGY STATUS TO OTHER | [facility] | | | ANTIBIOTIC AGENTS STATUS | | + + + + | 2022-12-16 19:00 | ALLERGY STATUS TO NARCOTIC | [facility] | | | AGENT STATUS | | + + + + | 2022-12-16 19:00 | ALLERGY STATUS TO OTH | [facility] | | | DRUG/MEDS/BIOL SUBST STATUS | | | | | | + + + + | 2022-12-17 00:00 | Diarrhea | [facility] | + + + + | 2022-12-17 00:00 | Diarrhea | [facility] | + + + + | 2022-12-20 00:00 | Dehydration | [facility] | + + + + | 2022-12-23 07:40 | HYPOTHYROIDISM, | [facility] | | | UNSPECIFIED | | + + + + | 2022-12-23 07:40 | OBESITY, UNSPECIFIED | [facility] | + + + + | 2022-12-23 07:40 | DEHYDRATION | [facility] | + + + + | 2022-12-23 07:40 | HYPOKALEMIA | [facility] | + + + + | 2022-12-23 07:40 | CHRONIC SYSTOLIC | [facility] | | | (CONGESTIVE) HEART FAILURE | | + + + + | 2022-12-23 07:40 | UNSPECIFIED | [facility] | | | OSTEOARTHRITIS, UNSPECIFIED | | | | SITE | | + + + + | 2022-12-23 07:40 | UNSPECIFIED ABDOMINAL PAIN | [facility] | | | | | + + + + | 2022-12-23 07:40 | DIARRHEA, UNSPECIFIED | [facility] | + + + + | 2022-12-23 07:40 | ABNORMAL COAGULATION | [facility] | | | PROFILE | | + + + + | 2022-12-23 07:40 | BODY MASS INDEX [BMI] | [facility] | | | 40.0-44.9, ADULT | | + + + + | 2022-12-23 07:40 | LIQUOR BLENDER (CURRENT) USE OF | [facility] | | | 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 | | + + + + | 2022-12-23 07:40 | ALF (CURRENT) USE OF | [facility] | | | ANTITHROMBOTICS/ANTIPLA | | + + + + | 2022-12-23 07:40 | HORMONE REPLACEMENT | [facility] | | | THERAPY | | + + + + | 2022-12-23 07:40 | OTHER ALF (CURRENT) | [facility] | | | DRUG THERAPY | | + + + + | 2022-12-23 07:40 | ALLERGY STATUS TO OTHER | [facility] | | | ANTIBIOTIC AGENTS STATUS | | + + + + | 2022-12-23 07:40 | ALLERGY STATUS TO NARCOTIC | [facility] | | | AGENT STATUS | | + + + + | 2022-12-23 07:40 | ALLERGY STATUS TO OTH | [facility] | | | DRUG/MEDS/BIOL SUBST STATUS | | | | | | + + + + | 2022-12-23 07:40 | ACQUIRED ABSENCE OF OTHER | [facility] | | | SPECIFIED PARTS OF DIGES | | + + + + | 2022-12-23 07:40 | ACQUIRED ABSENCE OF BOTH | [facility] | | | CERVIX AND UTERUS | | + + + + | 2022-12-23 07:40 | ALLERGY TO OTHER FOODS | [facility] | + + + + | 2022-12-23 07:40 | 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 | | + + + + | 2022-12-23 07:40 | 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 | 11.4 | (missing) | (missing) | | (unavailable | 10:45:08 | [facility] | | | | + + + +--------+ + + + + | Result panel 141 | + + + + + +--------+ + + | | 2022-07-01 | [facility] | 35.2 | (missing) | (missing) | | (unavailable | 10:45:08 | [facility] | | | | + + + +--------+ + + + + | Result panel 142 | + + + + + +--------+ + + | | 2022-07-01 | [facility] | 91.8 | (missing) | (missing) | | (unavailable | 10:45:08 | [facility] | | | | + + + +--------+ + + + + | Result panel 143 | + + + + + +--------+ [...] 145 | + + + + + +--------+ + + | | 2022-07-01 | [facility] | 16.1 | (missing) | (missing) | | (unavailable | 10:45:08 | [facility] | | | | + + + +--------+ + + + + | Result panel 146 | + + + + + +-------+ + + | | 2022-07-01 | [facility] | 208 | (missing) | (missing) | | (unavailable | 10:45:08 | [facility] | | | | + + + +-------+ + + + + | Result panel 147 | + + + + + +--------+ + + | | 2022-07-01 | [facility] | 70.3 | (missing) | (missing) | | (unavailable | 10:45:08 | [facility] | | | | + + + +--------+ + + + + | Result panel 148 | + + + + + +--------+ [...] 150 | + + + + + +-------+ + + | | 2022-07-01 | [facility] | 4.3 | (missing) | (missing) | | (unavailable | 10:45:08 | [facility] | | | | + + + +-------+ + + + + | Result panel 151 | + + + + + +-------+ [...] 154 | + + + + + +-------+---------+ + | | 2022-07-01 | [facility] | 120 | mg/dL | (missing) | | (unavailable | 10:45:08 | [facility] | | | | + + + +-------+---------+ + + + | Result panel 155 | + + + + + +------+---------+ + | | 2022-07-01 | [facility] | 16 | mg/dL | (missing) | | (unavailable | 10:45:08 | [facility] | | | | + + + +------+---------+ + + + | Result panel 156 | + + + + + +--------+---------+ + | | 2022-07-01 | [facility] | 1.24 | mg/dL | (missing) | | (unavailable | 10:45:08 | [facility] | | | | + + + +--------+---------+ + + + | Result panel 157 | + + + + + +------+ + + | | 2022-07-01 | [facility] | 49 | (missing) | (missing) | | (unavailable | 10:45:08 | [facility] | | | | + + + +------+ + + + + | Result panel 158 | + + + + + +---------+ + + | | 2022-07-01 | [facility] | 12.90 | (missing) | (missing) | | (unavailable | 10:45:08 | [facility] | | | | + + + +---------+ + + + + | Result panel 159 | + + + + + +-------+ [...] 162 | + + + + + +------+ [...] 164 | + + + + + +-------+---------+ + | | 2022-07-01 | [facility] | 7.7 | mg/dL | (missing) | | (unavailable | 10:45:08 | [facility] | | | | + + + +-------+---------+ + + + | Result panel 165 | + + + + + +-------+ + + | | 2022-07-01 | [facility] | 6.9 | (missing) | (missing) | | (unavailable | 10:45:08 | [facility] | | | | + + + +-------+ + + + + | Result panel 166 | + + + + + +-------+ + + | | 2022-07-01 | [facility] | 2.7 | (missing) | (missing) | | (unavailable | 10:45:08 | [facility] | | | | + + + +-------+ + + + + | Result panel 167 | + + + + + +-------+ + + | | 2022-07-01 | [facility] | 4.2 | (missing) | (missing) | | (unavailable | 10:45:08 | [facility] | | | | + + + +-------+ + + + + | Result panel 168 | + + + + + +--------+ + + | | 2022-07-01 | [facility] | 0.64 | (missing) | (missing) | | (unavailable | 10:45:08 | [facility] | | | | + + + +--------+ + + + + | Result panel 169 | + + + + + +-------+ + + | | 2022-07-01 | [facility] | 0.6 | (missing) | (missing) | | (unavailable | 10:45:08 | [facility] | | | | + + + +-------+ + + + + | Result panel 170 | + + + + + +------+ + + | | 2022-07-01 | [facility] | 18 | (missing) | (missing) | | (unavailable | 10:45:08 | [facility] | | | | + + + +------+ + + + + | Result panel 171 | + + + + + +------+ [...] 210 | + + + + + +--------+ + + | | 2022-11-28 | [facility] | 16.7 | (missing) | (missing) | | (unavailable | 11:45:07 | [facility] | | | | + + + +--------+ + + + + | Result panel 211 | + + + + + +-------+ [...] 213 | + + + + + +--------+ [...] 216 | + + + + + +-------+ + + | | 2022-11-28 | [facility] | 0.6 | (missing) | (missing) | | (unavailable | 11:45:07 | [facility] | | | | + + + +-------+ + + + + | Result panel 217 | + + + + + +-------+ [...] 223 | + + + + + +--------+ [...] 227 | + + + + + +--------+ + + | | 2022-11-28 | [facility] | 2.96 | (missing) | (missing) | | (unavailable | | [facility] | | | | + + + +--------+ + + + + | Result panel 228 | + + + + + +-------+---------+ + | | 2022-11-28 | [facility] | 115 | mg/dL | (missing) | | (unavailable | : | [facility] | | | | + + + +-------+---------+ + + + | Result panel 229 | + + + + + +------+---------+ + | | 2022-11-28 | [facility] | 11 | mg/dL | (missing) | | (unavailable | | [facility] | | | | + + + +------+---------+ + + + | Result panel 230 | + + + + + +--------+---------+ + | | 2022-11-28 | [facility] | 1.10 | mg/dL | (missing) | | (unavailable | | [facility] | | | | + + + +--------+---------+ + + + | Result panel 231 | + + + + + +------+ + + | | 2022-11-28 | [facility] | 56 | (missing) | (missing) | | (unavailable | : | [facility] | | | | + + + +------+ + + + + | Result panel 232 | + + + + + +---------+ [...] 235 | + + + + + +-------+ + + | | 2022-11-28 | [facility] | 105 | (missing) | (missing) | | (unavailable | 12::07 | [facility] | | | | + + + +-------+ + + + + | Result panel 236 | + + + + + +------+ + + | | 2022-11-28 | [facility] | 34 | (missing) | (missing) | | (unavailable | 12:02:07 | [facility] | | | | + + + +------+ + + + + | Result panel 237 | + + + + + +-------+ + + | | 2022-11-28 | [facility] | 7.8 | (missing) | (missing) | | (unavailable | 12::07 | [facility] | | | | + + + +-------+ + + + + | Result panel 238 [...] 239 | + + + + + +-------+---------+ + | | 2022-11-28 | [facility] | 1.9 | mg/dL | (missing) | | (unavailable | 12::07 | [facility] | | | | + + + +-------+---------+ + + + | Result panel 240 [...] 242 | + + + + + +-------+ + + | | 2022-11-28 | [facility] | 4.6 | (missing) | (missing) | | (unavailable | 12:02:07 | [facility] | | | | + + + +-------+ + + + + | Result panel 243 | + + + + + +--------+ + + | | 2022-11-28 | [facility] | 0.61 | (missing) | (missing) | | (unavailable | 12:: | [facility] | | | | + + + +--------+ + + + + | Result panel 244 | + + + + + +-------+ [...] 246 | + + + + + +------+ + + | | 2022-11-28 | [facility] | 23 | (missing) | (missing) | | (unavailable | 12:02:07 | [facility] | | | | + + + +------+ + + + + | Result panel 247 | + + + + + +-------+ + + | | 2022-11-28 | [facility] | 138 | (missing) | (missing) | | (unavailable | 12:02:07 | [facility] | | | | + + + +-------+ + + + + | Result panel 248 | + + + + + +--------+ + + | | 2022-11-28 | [facility] | 20.7 | (missing) | (missing) | | (unavailable | 12:02:07 | [facility] | | | | + + + +--------+ + + + + | Result panel 249 | + + + + + +--------+ + + | | 2022-11-28 | [facility] | 20.7 | (missing) | (missing) | | (unavailable | 12:02:07 | [facility] | | | | + + + +--------+ + + + + | Result panel 250 | + + + + + +--------+ + + | | 2022-11-28 | [facility] | 28.5 | (missing) | (missing) | | (unavailable | 12:02:07 | [facility] | | | | + + + +--------+ + + + + | Result panel 251 | + + + + + +--------+ + + | | 2022-11-28 | [facility] | 2.82 | (missing) | (missing) | | (unavailable | 12:07 | [facility] | | | | + + + +--------+ + + + + | Result panel 252 | + + + + + +--------+ + + | | 2022-11-28 | [facility] | 2.96 | (missing) | (missing) | | (unavailable | 12::07 | [facility] | | | | + + + +--------+ + + + + | Result panel 253 | + + + + + +-------+---------+ + | | 2022-11-28 | [facility] | 1.9 | mg/dL | (missing) | | (unavailable | 12::07 | [facility] | | | | + + + +-------+---------+ + + + | Result panel 254 | + + + + + +--------+ + + | | 2022-11-28 | [facility] | 20.7 | (missing) | (missing) | | (unavailable | 12::07 | [facility] | | | | + + + +--------+ + + + + | Result panel 255 | + + + + + +-------+ + + | | 2022-12-16 | [facility] | 6.4 | (missing) | (missing) | | (unavailable | 20:56:07 | [facility] | | | | + + + +-------+ + + + + | Result panel 256 | + + + + + +--------+ + + | | 2022-12-16 | [facility] | 4.69 | (missing) | (missing) | | (unavailable | 20:56:07 | [facility] | | | | + + + +--------+ + + + + | Result panel 257 | + + + + + +--------+ + + | | 2022-12-16 | [facility] | 13.9 | (missing) | (missing) | | (unavailable | 20:56:07 | [facility] | | | | + + + +--------+ + + + + | Result panel 258 | + + + + + +--------+ + + | | 2022-12-16 | [facility] | 41.9 | (missing) | (missing) | | (unavailable | 20:56:07 | [facility] | | | | + + + +--------+ + + + + | Result panel 259 | + + + + + +--------+ + + | | 2022-12-16 | [facility] | 89.4 | (missing) | (missing) | | (unavailable | 20:56:07 | [facility] | | | | + + + +--------+ + + + + | Result panel 260 | + + + + + +--------+ + + | | 2022-12-16 | [facility] | 29.7 | (missing) | (missing) | | (unavailable | 20:56:07 | [facility] | | | | + + + +--------+ + + + + | Result panel 261 | + + + + + +--------+ + + | | 2022-12-16 | [facility] | 33.2 | (missing) | (missing) | | (unavailable | 20:56:07 | [facility] | | | | + + + +--------+ + + + + | Result panel 262 | + + + + + +--------+ + + | | 2022-12-16 | [facility] | 17.6 | (missing) | (missing) | | (unavailable | 20:56:07 | [facility] | | | | + + + +--------+ + + + + | Result panel 263 | + + + + + +-------+ + + | | 2022-12-16 | [facility] | 235 | (missing) | (missing) | | (unavailable | 20:56:07 | [facility] | | | | + + + +-------+ + + + + | Result panel 264 | + + + + + +--------+ + + | | 2022-12-16 | [facility] | 81.3 | (missing) | (missing) | | (unavailable | 20:56:07 | [facility] | | | | + + + +--------+ + + + + | Result panel 265 | + + + + + +-------+ + + | | 2022-12-16 | [facility] | 9.7 | (missing) | (missing) | | (unavailable | 20:56:07 | [facility] | | | | + + + +-------+ + + + + | Result panel 266 | + + + + + +-------+ + + | | 2022-12-16 | [facility] | 8.4 | (missing) | (missing) | | (unavailable | 20:56:07 | [facility] | | | | + + + +-------+ + + + + | Result panel 267 | + + + + + +-------+ + + | | 2022-12-16 | [facility] | 0.2 | (missing) | (missing) | | (unavailable | 20:56:07 | [facility] | | | | + + + +-------+ + + + + | Result panel 268 | + + + + + +-------+ + + | | 2022-12-16 | [facility] | 0.4 | (missing) | (missing) | | (unavailable | 20:56:07 | [facility] | | | | + + + +-------+ + + + + | Result panel 269 | + + + + + +-------+---------+ + | | 2022-12-16 | [facility] | 137 | mg/dL | (missing) | | (unavailable | 20:56:07 | [facility] | | | | + + + +-------+---------+ + + + | Result panel 270 | + + + + + +------+---------+ + | | 2022-12-16 | [facility] | 19 | mg/dL | (missing) | | (unavailable | 20:56:07 | [facility] | | | | + + + +------+---------+ + + + | Result panel 271 | + + + + + +--------+---------+ + | | 2022-12-16 | [facility] | 1.83 | mg/dL | (missing) | | (unavailable | 20:56:07 [facility] | | | | + + + +--------+---------+ + + + | Result panel 272 | + + + + + +------+ + + | | 2022-12-16 | [facility] | 30 | (missing) | (missing) | | (unavailable | 20:56:07 | [facility] | | | | + + + +------+ + + + + | Result panel 273 | + + + + + +---------+ + + | | 2022-12-16 | [facility] | 10.38 | (missing) | (missing) | | (unavailable | 20:56:07 | [facility] | | | | + + + +---------+ + + + + | Result panel 274 | + + + + + +-------+ + + | | 2022-12-16 | [facility] | 134 | (missing) | (missing) | | (unavailable | 20:56:07 | [facility] | | | | + + + +-------+ + + + + | Result panel 275 | + + + + + +-------+ + + | | 2022-12-16 | [facility] | 3.1 | (missing) | (missing) | | (unavailable | 20:56:07 [facility] | | | | + + + +-------+ + + + + | Result panel 276 | + + + + + +------+ + + | | 2022-12-16 | [facility] | 98 | (missing) | (missing) | | (unavailable | 20:56:07 [facility] | | | | + + + +------+ + + + + | Result panel 277 | + + + + + +------+ + + | | 2022-12-16 | [facility] | 26 | (missing) | (missing) | | (unavailable | 20:56:07 [facility] | | | | + + + +------+ + + + + | Result panel 278 | + + + + + +--------+ + + | | 2022-12-16 | [facility] | 13.1 | (missing) | (missing) | | (unavailable | 20:56:07 [facility] | | | | + + + +--------+ + + + + | Result panel 279 | + + + + + +-------+---------+ + | | 2022-12-16 | [facility] | 8.6 | mg/dL | (missing) | | (unavailable | 20:56:07 [facility] | | | | + + + +-------+---------+ + + + | Result panel 280 | + + + + + +-------+ + + | | 2022-12-16 | [facility] | 8.7 | (missing) | (missing) | | (unavailable | 20:56:07 [facility] | | | | + + + +-------+ + + + + | Result panel 281 | + + + + + +-------+ + + | | 2022-12-16 | [facility] | 3.1 | (missing) | (missing) | | (unavailable | 20:56:07 [facility] | | | | + + + +-------+ + + + + | Result panel 282 | + + + + + +-------+ + + | | 2022-12-16 | [facility] | 5.6 | (missing) | (missing) | | (unavailable | 20:56:07 [facility] | | | | + + + +-------+ + + + + | Result panel 283 | + + + + + +--------+ + + | | 2022-12-16 | [facility] | 0.55 | (missing) | (missing) | | (unavailable | 20:56:07 [facility] | | | | + + + +--------+ + + + + | Result panel 284 | + + + + + +-------+ + + | | 2022-12-16 | [facility] | 0.8 | (missing) | (missing) | | (unavailable | 20:56:07 [facility] | | | | + + + +-------+ + + + + | Result panel 285 | + + + + + +------+ + + | | 2022-12-16 | [facility] | 24 | (missing) | (missing) | | (unavailable | 20:56:07 [facility] | | | | + + + +------+ + + + + | Result panel 286 | + + + + + +------+ + + | | 2022-12-16 | [facility] | 18 | (missing) | (missing) | | (unavailable | 20:56:07 [facility] | | | | + + + +------+ + + + + | Result panel 287 | + + + + + +-------+ + + | | 2022-12-16 | [facility] | 119 | (missing) | (missing) | | (unavailable | 20:56:07 [facility] | | | | + + + +-------+ + + + + | Result panel 288 | + + + + + +------+ + + | | 2022-12-16 | [facility] | 25 | (missing) | (missing) | | (unavailable | 20:56:07 [facility] | | | | + + + +------+ + + + + | Result panel 289 | + + + + + +------+ + + | | 2022-12-20 | [facility] | 73 | (missing) | (missing) | | (unavailable | 12:43:07 [facility] | | | | + + + +------+ + + + + | Result panel 290 | + + + + + +-----+ + + | | 2022-12-20 | [facility] | 9 | (missing) | (missing) | | (unavailable | 12:43:07 [facility] | | | | + + + +-----+ + + + + | Result panel 291 | + + + + + +------+ + + | | 2022-12-20 | [facility] | 12 | (missing) | (missing) | | (unavailable | 12:43:07 [facility] | | | | + + + +------+ + + + + | Result panel 292 | + + + + + +-----+ + + | | 2022-12-20 | [facility] | 6 | (missing) | (missing) | | (unavailable | 12:43:07 [facility] | | | | + + + +-----+ + + + + | Result panel 293 | + + + + + + + + + | | 2022-12-20 | [facility] | PRESENT | (missing) | (missing) | | (unavailable | 12:43:07 [facility] | | | | + + + + + + + + + | Result panel 294 | + + + + + + + + + | | 2022-12-20 | [facility] | PRESENT | (missing) | (missing) | | (unavailable | 12:43:07 [facility] | | | | + + + + + + + + + | Result panel 295 | + + + + + + + + + | | 2022-12-20 | [facility] | PRESENT | (missing) | (missing) | | (unavailable | 12:43:07 [facility] | | | | + + + + + + + + + | Result panel 296 | + + + + + +------+ + + | | 2022-12-20 | [facility] | 37 | (missing) | (missing) | | (unavailable | 12:43:07 [facility] | | | | + + + +------+ + + + + | Result panel 297 | + + + + + + + + + | | 2022-12-20 | [facility] | NEGATIVE | (missing) | (missing) | | (unavailable | 16:15:07 | [facility] | | | | + + + + + + + + + | Result panel 298 | + + + + + + + + + | | 2022-12-20 | [facility] | NEGATIVE | (missing) | (missing) | | (unavailable | 16:15:07 | [facility] | | | | + + + + + + + + + | Result panel 299 | + + + + + + + + + | | 2022-12-20 | [facility] | NEGATIVE | (missing) | (missing) | | (unavailable | 16:15:07 | [facility] | | | | + + + + + + + + + | Result panel 300 | + + + + + + + + + | | 2022-12-20 | [facility] | NEGATIVE | (missing) | (missing) | | (unavailable | 16:15:07 | [facility] | | | | + + + + + + + + + | Result panel 301 | + + + + + +---------+ + + | | 2022-12-20 | [facility] | Stool | (missing) | (missing) | | (unavailable | 17:38:07 | [facility] | | | | + + + +---------+ + + + + | Result panel 302 | + + + + + + + + + | | 2022-12-20 | [facility] | Not | (missing) | (missing) | | (unavailable | 17:38:07 | [facility] | Detected | | | | ) | | [facility] | | | | + + + + + + + + + | Result panel 303 | + + + + + +-------+---------+ + | | 2022-12-21 | [facility] | 2.8 | mg/dL | (missing) | | (unavailable | 05:30:07 | [facility] | | | | + + + +-------+---------+ + + + | Result panel 304 | + + + + + +-------+---------+ + | | 2022-12-21 | [facility] | 2.1 | mg/dL | (missing) | | (unavailable | 05:30:07 | [facility] | | | | + + + +-------+---------+ + + + | Result panel 305 | + + + + + +--------+ + + | | 2022-12-22 | [facility] | 29.4 | (missing) | (missing) | | (unavailable | 05:33:07 | [facility] | | | | + + + +--------+ + + + + | Result panel 306 | + + + + + +--------+ + + | | 2022-12-22 | [facility] | 32.7 | (missing) | (missing) | | (unavailable | 05:33:07 | [facility] | | | | + + + +--------+ + + + + | Result panel 307 | + + + + + +--------+ + + | | 2022-12-22 | [facility] | 17.1 | (missing) | (missing) | | (unavailable | 05:33:07 | [facility] | | | | + + + +--------+ + + + + | Result panel 308 | + + + + + +-------+ + + | | 2022-12-22 | [facility] | 253 | (missing) | (missing) | | (unavailable | 05:33:07 | [facility] | | | | + + + +-------+ + + + + | Result panel 309 | + + + + + +--------+ + + | | 2022-12-22 | [facility] | 78.4 | (missing) | (missing) | | (unavailable | 05:33:07 | [facility] | | | | + + + +--------+ + + + + | Result panel 310 | + + + + + +-------+ + + | | 2022-12-22 | [facility] | 9.9 | (missing) | (missing) | | (unavailable | 05:33:07 | [facility] | | | | + + + +-------+ + + + + | Result panel 311 | + + + + + +--------+ + + | | 2022-12-22 | [facility] | 10.0 | (missing) | (missing) | | (unavailable | 05:33:07 | [facility] | | | | + + + +--------+ + + + + | Result panel 312 | + + + + + +-------+ + + | | 2022-12-22 | [facility] | 1.1 | (missing) | (missing) | | (unavailable | 05:33:07 | [facility] | | | | + + + +-------+ + + + + | Result panel 313 | + + + + + +-------+ + + | | 2022-12-22 | [facility] | 0.6 | (missing) | (missing) | | (unavailable | 05:33:07 | [facility] | | | | + + + +-------+ + + + + | Result panel 314 | + + + + + +-------+---------+ + | | 2022-12-22 | [facility] | 105 | mg/dL | (missing) | | (unavailable | 05:33:07 | [facility] | | | | + + + +-------+---------+ + + + | Result panel 315 | + + + + + +------+---------+ + | | 2022-12-22 | [facility] | 13 | mg/dL | (missing) | | (unavailable | 05:33:07 | [facility] | | | | + + + +------+---------+ + + + | Result panel 316 | + + + + + +--------+---------+ + | | 2022-12-22 | [facility] | 1.03 | mg/dL | (missing) | | (unavailable | 05:33:07 | [facility] | | | | + + + +--------+---------+ + + + | Result panel 317 | + + + + + +------+ + + | | 2022-12-22 | [facility] | 61 | (missing) | (missing) | | (unavailable | 05:33:07 | [facility] | | | | + + + +------+ + + + + | Result panel 318 | + + + + + +---------+ + + | | 2022-12-22 | [facility] | 12.62 | (missing) | (missing) | | (unavailable | 05:33:07 | [facility] | | | | + + + +---------+ + + + + | Result panel 319 | + + + + + +-------+ + + | | 2022-12-22 | [facility] | 138 | (missing) | (missing) | | (unavailable | 05:33:07 | [facility] | | | | + + + +-------+ + + + + | Result panel 320 | + + + + + +-------+ + + | | 2022-12-22 | [facility] | 3.3 | (missing) | (missing) | | (unavailable | 05:33:07 | [facility] | | | | + + + +-------+ + + + + | Result panel 321 | + + + + + +-------+ + + | | 2022-12-22 | [facility] | 102 | (missing) | (missing) | | (unavailable | 05:33:07 | [facility] | | | | + + + +-------+ + + + + | Result panel 322 | + + + + + +------+ + + | | 2022-12-22 | [facility] | 31 | (missing) | (missing) | | (unavailable | 05:33:07 | [facility] | | | | + + + +------+ + + + + | Result panel 323 | + + + + + +-------+ + + | | 2022-12-22 | [facility] | 8.3 | (missing) | (missing) | | (unavailable | 05:33:07 | [facility] | | | | + + + +-------+ + + + + | Result panel 324 | + + + + + +-------+---------+ + | | 2022-12-22 | [facility] | 7.8 | mg/dL | (missing) | | (unavailable | 05:33:07 | [facility] | | | | + + + +-------+---------+ + + + | Result panel 325 | + + + + + +-------+ + + | | 2022-12-22 | [facility] | 6.6 | (missing) | (missing) | | (unavailable | 05:33:07 | [facility] | | | | + + + +-------+ + + + + | Result panel 326 | + + + + + +-------+ + + | | 2022-12-22 | [facility] | 2.2 | (missing) | (missing) | | (unavailable | 05:33:07 | [facility] | | | | + + + +-------+ + + + + | Result panel 327 | + + + + + +-------+ + + | | 2022-12-22 | [facility] | 4.4 | (missing) | (missing) | | (unavailable | 05:33:07 | [facility] | | | | + + + +-------+ + + + + | Result panel 328 | + + + + + +--------+ + + | | 2022-12-22 | [facility] | 0.50 | (missing) | (missing) | | (unavailable | 05:33:07 | [facility] | | | | + + + +--------+ + + + + | Result panel 329 | + + + + + +-------+ + + | | 2022-12-22 | [facility] | 0.6 | (missing) | (missing) | | (unavailable | 05:33:07 | [facility] | | | | + + + +-------+ + + + + | Result panel 330 | + + + + + +------+ + + | | 2022-12-22 | [facility] | 17 | (missing) | (missing) | | (unavailable | 05:33:07 | [facility] | | | | + + + +------+ + + + + | Result panel 331 | + + + + + +-----+ + + | | 2022-12-22 | [facility] | 9 | (missing) | (missing) | | (unavailable | 05:33:07 | [facility] | | | | + + + +-----+ + + + + | Result panel 332 | + + + + + +------+ + + | | 2022-12-22 | [facility] | 96 | (missing) | (missing) | | (unavailable | 05:33:07 | [facility] | | | | + + + +------+ + + + + | Result panel 333 | + + + + + +-------+ + + | | 2022-12-22 | [facility] | 5.1 | (missing) | (missing) | | (unavailable | 05:33:07 | [facility] | | | | + + + +-------+ + + + + | Result panel 334 | + + + + + +--------+ + + | | 2022-12-22 | [facility] | 3.91 | (missing) | (missing) | | (unavailable | 05:33:07 | [facility] | | | | + + + +--------+ + + + + | Result panel 335 | + + + + + +--------+ + + | | 2022-12-22 | [facility] | 11.5 | (missing) | (missing) | | (unavailable | 05:33:07 | [facility] | | | | + + + +--------+ + + + + | Result panel 336 | + + + + + +--------+ + + | | 2022-12-22 | [facility] | 35.1 | (missing) | (missing) | | (unavailable | 05:33:07 | [facility] | | | | + + + +--------+ + + + + | Result panel 337 | + + + + + +--------+ + + | | 2022-12-22 | [facility] | 89.9 | (missing) | (missing) | | (unavailable | 05:33:07 | [facility] | | | | + + + +--------+ + + + + | Result panel 338 | + + + + + +--------+ + + | | 2022-12-23 | [facility] | 18.5 | (missing) | (missing) | | (unavailable | 05:13:07 | [facility] | | | | + + + +--------+ + + + + | Result panel 339 | + + + + + +--------+ + + | | 2022-12-23 | [facility] | 1.62 | (missing) | (missing) | | (unavailable | 05:13:07 | [facility] | | | | [...] | 2022-01-27 00:00 | Never smoker | [facility] | + + + + | 2022-03-02 00:00 | Never smoker | [facility] | + + + + Vital Signs [...] 352 | lb | + + + +---------+ | 2022-12-16 00:00 | BMI | 46.4 | kg/m2 | + + + +---------+ | 2022-12-16 00:00 | height_metric | 185.42 | cm | + + + +---------+ | 2022-12-16 00:00 | height_standard | 73 | in | + + + +---------+ | 2022-12-16 00:00 | weight_metric | 159.66 | kg | + + + +---------+ | 2022-12-16 00:00 | weight_standard | 351.99 | lb | + + + +---------+ | 2022-12-16 00:00 | weight_standard | 352 | lb | + + + +---------+ | 2022-12-17 00:00 | BP_diastolic | 83 | mmHg | + + + +---------+ | 2022-12-17 00:00 | BP_systolic | 126 | mmHg | + + + +---------+ | 2022-12-17 00:00 | heart_rate | 72 | /min | + + + +---------+ | 2022-12-17 00:00 | o2_saturation | 92 | % | + + + +---------+ | 2022-12-17 00:00 | respiration_rate | 20 | /min | + + + +---------+ | 2022-12-17 00:00 | temperature_metric | 37.5 | C | | | | | | + + + +---------+ | 2022-12-17 00:00 | | 99.5 | F | | | temperature_standar | | | | | d | | | + + + +---------+ | 2022-12-20 00:00 | BMI | 44.5 | kg/m2 | + + + +---------+ | 2022-12-20 00:00 | height_metric | 185.42 | cm | + + + +---------+ | 2022-12-20 00:00 | height_standard | 73 | in | + + + +---------+ | 2022-12-20 00:00 | weight_metric | 153.1 | kg | + + + +---------+ | 2022-12-20 00:00 | weight_standard | 337.53 | lb | + + + +---------+ | 2022-12-23 00:00 | BP_diastolic | 70 | mmHg | + + + +---------+ | 2022-12-23 00:00 | BP_systolic | 143 | mmHg | + + + +---------+ | 2022-12-23 00:00 | heart_rate | 66 | /min | + + + +---------+ | 2022-12-23 00:00 | o2_saturation | 96 | % | + + + +---------+ | 2022-12-23 00:00 | respiration_rate | 20 | /min | + + + +---------+ | 2022-12-23 00:00 | temperature_metric | 36.44 | C | | | | | | + + + +---------+ | 2022-12-23 00:00 | | 97.6 | F | | | temperature_standar | | | | | d | | | + + + +---------+"
--- OUTSIDE RECORDS SUMMARY | ~2022-12-27 | XMS | Continuity of Care Document ---
Demographics + + + | Address | [address] | | | [place] [address] | + + + | Preferred Language | Unknown | + + + | Marital Status | | + + + | Muslim Affiliation | Unknown | + + + | Race | White | + + + | Ethnic Group | Not or | + + + Author + + + | Author | [facility] | + + + | Organization | [facility] | + + + | Address | [address] | | | [place] [address] | + + + | Phone | | + + + Care Team Providers + + + + | Care Relocation Commissioner Name | Role | Phone | + [...] 2022-01-27 00:00 | No vaccine administered | [facility] | + + + + | 2022-03-02 00:00 | No vaccine administered | [facility] | + + + + Medications + + + + | date | description | facility | + + + + | 2022-01-27 00:00 | GABAPENTIN | [facility] | + + + + | 2022-03-02 00:00 | GABAPENTIN | [facility] | + + + + | 2022-04-22 00:00 | GABAPENTIN | [facility] | + + + + | 2022-05-01 00:00 | GABAPENTIN | [facility] | + + + + | 2022-07-01 00:00 | GABAPENTIN | [facility] | + + + + | 2022-01-27 00:00 | gabapentin 100 MG Oral | [facility] | | | Capsule [Neurontin] | | + + + + | 2022-03-02 00:00 | gabapentin 100 MG Oral | [facility] | | | Capsule [Neurontin] | | + + + + | 2022-03-02 00:00 | Millipred DP 6 Day Dose | [facility] | | | Pack | | + + + + | 2022-03-02 00:00 | PREDNISOLONE | [facility] | + + + + | 2022-11-28 00:00 | POTASSIUM CHLORIDE | [facility] | + + + + | 2022-11-28 00:00 | POTASSIUM CHLORIDE | [facility] | + + + + | 2022-07-01 00:00 | EMPAGLIFLOZIN | [facility] | + + + + | 2022-07-17 00:00 | EMPAGLIFLOZIN | [facility] | + + + + | 2022-11-28 00:00 | EMPAGLIFLOZIN | [facility] | + + + + | 2022-12-17 00:00 | EMPAGLIFLOZIN | [facility] | + + + + | 2022-12-23 00:00 | EMPAGLIFLOZIN | [facility] | + + + + | 2022-07-01 00:00 | SACUBITRIL/VALSARTAN | [facility] | + + + + | 2022-03-02 00:00 | BENZONATATE | [facility] | + + + + | 2022-03-02 00:00 | BENZONATATE | [facility] | + + + + | 2022-03-02 00:00 | BENZONATATE | [facility] | + + + + | 2022-03-02 00:00 | benzonatate 100 MG Oral | [facility] | | | Capsule | | + + + + | 2022-07-01 00:00 | NITROGLYCERIN | [facility] | + + + + | 2022-07-17 00:00 | NITROGLYCERIN | [facility] | + + + + | 2022-11-28 00:00 | NITROGLYCERIN | [facility] | + + + + | 2022-12-17 00:00 | NITROGLYCERIN | [facility] | + + + + | 2022-12-23 00:00 | NITROGLYCERIN | [facility] | + + + + | 2022-11-28 00:00 | CITALOPRAM HYDROBROMIDE | [facility] | + + + + | 2022-12-17 00:00 | CITALOPRAM HYDROBROMIDE | [facility] | + + + + | 2022-12-23 00:00 | CITALOPRAM HYDROBROMIDE | [facility] | + + + + | 2022-04-22 00:00 | FUROSEMIDE | [facility] | + + + + | 2022-04-22 00:00 | FUROSEMIDE | [facility] | + + + + | 2022-01-27 00:00 | CITALOPRAM HYDROBROMIDE | [facility] | + + + + | 2022-03-02 00:00 | CITALOPRAM HYDROBROMIDE | [facility] | + + + + | 2022-04-22 00:00 | CITALOPRAM HYDROBROMIDE | [facility] | + + + + | 2022-05-01 00:00 | CITALOPRAM HYDROBROMIDE | [facility] | + + + + | 2022-07-01 00:00 | CITALOPRAM HYDROBROMIDE | [facility] | + + + + | 2022-07-17 00:00 | CITALOPRAM HYDROBROMIDE | [facility] | + + + + | 2022-01-27 00:00 | citalopram 10 MG Oral | [facility] | | | Tablet | | + + + + | 2022-03-02 00:00 | citalopram 10 MG Oral | [facility] | | | Tablet | | + + + + | 2022-04-22 00:00 | FUROSEMIDE | [facility] | + + + + | 2022-07-17 00:00 | FUROSEMIDE | [facility] | + + + + | 2022-12-23 00:00 | FUROSEMIDE | [facility] | + + + + | 2022-07-17 00:00 | GABAPENTIN | [facility] | + + + + | 2022-11-28 00:00 | GABAPENTIN | [facility] | + + + + | 2022-12-17 00:00 | GABAPENTIN | [facility] | + + + + | 2022-12-23 00:00 | GABAPENTIN | [facility] | + + + + | 2020-10-14 00:00 | POTASSIUM CHLORIDE | [facility] | + + + + | 2020-10-14 00:00 | POTASSIUM CHLORIDE | [facility] | + + + + | 2020-10-14 00:00 | POTASSIUM CHLORIDE | [facility] | + + + + | 2020-10-14 00:00 | POTASSIUM CHLORIDE | [facility] | + + + + | 2020-10-14 00:00 | POTASSIUM CHLORIDE | [facility] | + + + + | 2020-10-14 00:00 | POTASSIUM CHLORIDE | [facility] | + + + + | 2020-10-14 00:00 | POTASSIUM CHLORIDE | [facility] | + + + + | 2020-10-14 00:00 | potassium chloride 10 MEQ | [facility] | | | Extended Release Oral | | | | Capsule | | + + + + | 2022-07-01 00:00 | SPIRONOLACTONE | [facility] | + + + + | 2022-07-17 00:00 | SPIRONOLACTONE | [facility] | + + + + | 2022-11-28 00:00 | SPIRONOLACTONE | [facility] | + + + + | 2022-12-17 00:00 | SPIRONOLACTONE | [facility] | + + + + | 2022-12-23 00:00 | SPIRONOLACTONE | [facility] | + + + + | 2022-01-27 00:00 | FUROSEMIDE | [facility] | + + + + | 2022-03-02 00:00 | FUROSEMIDE | [facility] | + + + + | 2022-11-28 00:00 | FUROSEMIDE | [facility] | + + + + | 2022-12-17 00:00 | FUROSEMIDE | [facility] | + + + + | 2022-01-27 00:00 | furosemide 40 MG Oral | [facility] | | | Tablet | | + + + + | 2022-03-02 00:00 | furosemide 40 MG Oral | [facility] | | | Tablet | | + + + + | 2022-12-23 00:00 | METRONIDAZOLE | [facility] | + + + + | 2022-01-27 00:00 | VALSARTAN | [facility] | + + + + | 2022-03-02 00:00 | VALSARTAN | [facility] | + + + + | 2022-04-22 00:00 | VALSARTAN | [facility] | + + + + | 2022-05-01 00:00 | VALSARTAN | [facility] | + + + + | 2022-07-17 00:00 | VALSARTAN | [facility] | + + + + | 2022-11-28 00:00 | VALSARTAN | [facility] | + + + + | 2022-12-17 00:00 | VALSARTAN | [facility] | + + + + | 2022-01-27 00:00 | valsartan 80 MG Oral | [facility] | | | Tablet | | + + + + | 2022-03-02 00:00 | valsartan 80 MG Oral | [facility] | | | Tablet | | + + + + | 2022-01-27 00:00 | ATORVASTATIN | [facility] | + + + + | 2022-03-02 00:00 | ATORVASTATIN | [facility] | + + + + | 2022-04-22 00:00 | ATORVASTATIN | [facility] | + + + + | 2022-05-01 00:00 | ATORVASTATIN | [facility] | + + + + | 2022-07-01 00:00 | ATORVASTATIN | [facility] | + + + + | 2022-07-17 00:00 | ATORVASTATIN | [facility] | + + + + | 2022-11-28 00:00 | ATORVASTATIN | [facility] | + + + + | 2022-12-17 00:00 | ATORVASTATIN | [facility] | + + + + | 2022-12-23 00:00 | ATORVASTATIN | [facility] | + + + + | 2022-01-27 00:00 | atorvastatin 40 MG Oral | [facility] | | | Tablet [Lipitor] | | + + + + | 2022-03-02 00:00 | atorvastatin 40 MG Oral | [facility] | | | Tablet [Lipitor] | | + + + + | 2017-03-21 00:00 | CYCLOBENZAPRINE HCL | [facility] | + + + + | 2017-03-21 00:00 | CYCLOBENZAPRINE HCL | [facility] | + + + + | 2017-03-21 00:00 | CYCLOBENZAPRINE HCL | [facility] | + + + + | 2017-03-21 00:00 | CYCLOBENZAPRINE HCL | [facility] | + + + + | 2017-03-21 00:00 | CYCLOBENZAPRINE HCL | [facility] | + + + + | 2017-03-21 00:00 | CYCLOBENZAPRINE HCL | [facility] | + + + + | 2017-03-21 00:00 | CYCLOBENZAPRINE HCL | [facility] | + + + + | 2017-03-21 00:00 | cyclobenzaprine | [facility] | | | hydrochloride 10 MG Oral | | | | Tablet | | + + + + | 2022-11-28 00:00 | AMIODARONE HCL | [facility] | + + + + | 2022-12-17 00:00 | AMIODARONE HCL | [facility] | + + + + | 2022-12-23 00:00 | AMIODARONE HCL | [facility] | + + + + | 2022-11-28 00:00 | WARFARIN SODIUM | [facility] | + + + + | 2022-12-17 00:00 | WARFARIN SODIUM | [facility] | + + + + | 2022-01-27 00:00 | WARFARIN SODIUM | [facility] | + + + + | 2022-03-02 00:00 | WARFARIN SODIUM | [facility] | + + + + | 2022-04-22 00:00 | WARFARIN SODIUM | [facility] | + + + + | 2022-05-01 00:00 | WARFARIN SODIUM | [facility] | + + + + | 2022-07-01 00:00 | WARFARIN SODIUM | [facility] | + + + + | 2022-07-17 00:00 | WARFARIN SODIUM | [facility] | + + + + | 2022-11-28 00:00 | WARFARIN SODIUM | [facility] | + + + + | 2022-12-17 00:00 | WARFARIN SODIUM | [facility] | + + + + | 2022-12-23 00:00 | WARFARIN SODIUM | [facility] | + + + + | 2022-01-27 00:00 | warfarin sodium 10 MG Oral | [facility] | | | Tablet [Jantoven] | | + + + + | 2022-03-02 00:00 | warfarin sodium 10 MG Oral | [facility] | | | Tablet [Jantoven] | | + + + + | 2022-01-27 00:00 | 24 HR metoprolol succinate | [facility] | | | 25 MG Extended Release | | | | Oral Table | | + + + + | 2022-03-02 00:00 | 24 HR metoprolol succinate | [facility] | | | 25 MG Extended Release | | | | Oral Table | | + + + + | 2022-01-27 00:00 | METOPROLOL SUCCINATE | [facility] | + + + + | 2022-03-02 00:00 | METOPROLOL SUCCINATE | [facility] | + + + + | 2022-04-22 00:00 | METOPROLOL SUCCINATE | [facility] | + + + + | 2022-05-01 00:00 | METOPROLOL SUCCINATE | [facility] | + + + + | 2022-07-01 00:00 | METOPROLOL SUCCINATE | [facility] | + + + + | 2022-07-17 00:00 | METOPROLOL SUCCINATE | [facility] | + + + + | 2022-11-28 00:00 | METOPROLOL SUCCINATE | [facility] | + + + + | 2022-12-17 00:00 | METOPROLOL SUCCINATE | [facility] | + + + + | 2022-12-23 00:00 | METOPROLOL SUCCINATE | [facility] | + + + + | 2022-01-27 00:00 | Levothyroxine Sodium | [facility] | + + + + | 2022-03-02 00:00 | Levothyroxine Sodium | [facility] | + + + + | 2022-01-27 00:00 | levothyroxine sodium 0.075 | [facility] | | | MG Oral Capsule | | + + + + | 2022-03-02 00:00 | levothyroxine sodium 0.075 | [facility] | | | MG Oral Capsule | | + + + + | 2022-04-22 00:00 | LEVOTHYROXINE SODIUM | [facility] | + + + + | 2022-05-01 00:00 | LEVOTHYROXINE SODIUM | [facility] | + + + + | 2022-07-01 00:00 | LEVOTHYROXINE SODIUM | [facility] | + + + + | 2022-07-17 00:00 | LEVOTHYROXINE SODIUM | [facility] | + + + + | 2022-11-28 00:00 | LEVOTHYROXINE SODIUM | [facility] | + + + + | 2022-12-17 00:00 | LEVOTHYROXINE SODIUM | [facility] | + + + + | 2022-12-23 00:00 | LEVOTHYROXINE SODIUM | [facility] | + + + + | 2022-01-27 00:00 | LOSARTAN POTASSIUM | [facility] | + + + + | 2022-03-02 00:00 | LOSARTAN POTASSIUM | [facility] | + + + + | 2022-04-22 00:00 | LOSARTAN POTASSIUM | [facility] | + + + + | 2022-05-01 00:00 | LOSARTAN POTASSIUM | [facility] | + + + + | 2022-07-01 00:00 | LOSARTAN POTASSIUM | [facility] | + + + + | 2022-07-17 00:00 | LOSARTAN POTASSIUM | [facility] | + + + + | 2022-11-28 00:00 | LOSARTAN POTASSIUM | [facility] | + + + + | 2022-12-17 00:00 | LOSARTAN POTASSIUM | [facility] | + + + + | 2022-12-23 00:00 | LOSARTAN POTASSIUM | [facility] | + + + + | 2022-01-27 00:00 | losartan potassium 25 MG | [facility] | | | Oral Tablet [Cozaar] | | + + + + | 2022-03-02 00:00 | losartan potassium 25 MG | [facility] | | | Oral Tablet [Cozaar] | | + + + + Problems + + + + | date | description | facility | + + + + | 2020-10-14 00:00 | CHF (congestive heart | [facility] | | | failure) | | + + + + | 2020-10-14 00:00 | Congestive heart failure | [facility] | + + + + | 2020-10-14 00:00 | Congestive heart failure | [facility] | + + + + | 2020-10-14 00:00 | Congestive heart failure | [facility] | + + + + | 2020-10-14 00:00 | Congestive heart failure | [facility] | + + + + | 2020-10-14 00:00 | Congestive heart failure | [facility] | + + + + | 2020-10-14 00:00 | Congestive heart failure | [facility] | + + + + | 2020-10-14 00:00 | Congestive heart failure | [facility] | + + + + | 2020-10-14 00:00 | Dyspnea | [facility] | + + + + | 2020-10-14 00:00 | Dyspnea | [facility] | + + + + | 2020-10-14 00:00 | Dyspnea | [facility] | + + + + | 2020-10-14 00:00 | Dyspnea | [facility] | + + + + | 2020-10-14 00:00 | Dyspnea | [facility] | + + + + | 2020-10-14 00:00 | Dyspnea | [facility] | + + + + | 2020-10-14 00:00 | Dyspnea | [facility] | + + + + | 2020-11-01 00:00 | Chest pain | [facility] | + + + + | 2020-11-01 00:00 | Chest pain | [facility] | + + + + | 2020-11-01 00:00 | Chest pain | [facility] | + + + + | 2020-11-01 00:00 | Chest pain | [facility] | + + + + | 2020-11-01 00:00 | Chest pain | [facility] | + + + + | 2020-11-01 00:00 | Chest pain | [facility] | + + + + | 2020-11-01 00:00 | Chest pain | [facility] | + + + + | 2021-03-25 00:00 | Right flank pain | [facility] | + + + + | 2021-03-25 00:00 | Right flank pain | [facility] | + + + + | 2021-03-25 00:00 | Right flank pain | [facility] | + + + + | 2021-03-25 00:00 | Right flank pain | [facility] | + + + + | 2021-03-25 00:00 | Right flank pain | [facility] | + + + + | 2021-03-25 00:00 | Right flank pain | [facility] | + + + + | 2021-03-25 00:00 | Right flank pain | [facility] | + + + + | 2021-03-25 02:29 | UNSPECIFIED ABDOMINAL PAIN | [facility] | | | | | + + + + | 2021-03-25 02:29 | ASSISTED LIVING EXECUTIVE DIRECTOR (CURRENT) USE OF | [facility] | | | 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 | | + + + + | 2021-03-25 02:29 | OTHER ASSISTED LIVING EXECUTIVE DIRECTOR (CURRENT) | [facility] | | | DRUG [...] | 2021-04-16 00:00 | Near syncope | [facility] | + + + + | 2021-04-16 00:00 | Transient hypotension | [facility] | + + + + | 2021-04-16 00:00 | Transient hypotension | [facility] | + + + + | 2021-04-16 00:00 | Transient hypotension | [facility] | + + + + | 2021-04-16 00:00 | Transient hypotension | [facility] | + + + + | 2021-04-16 00:00 | Transient hypotension | [facility] | + + + + | 2021-04-16 00:00 | Transient hypotension | [facility] | + + + + | 2021-04-16 00:00 | Transient hypotension | [facility] | + + + + | 2021-04-16 00:00 | Pre-syncope | [facility] | + + + + | 2021-04-16 00:00 | Pre-syncope | [facility] | + + + + | 2021-04-16 00:00 | Pre-syncope | [facility] | + + + + | 2021-04-16 00:00 | Pre-syncope | [facility] | + + + + | 2021-04-16 00:00 | Pre-syncope | [facility] | + + + + | 2021-04-16 00:00 | Pre-syncope | [facility] | + + + + | 2021-04-16 00:00 | Pre-syncope | [facility] | + + + + [...] + + + | 2021-04-22 12:11 | RESIDENTIAL (CURRENT) USE OF | [facility] | | | 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 | | + + + + | 2021-04-22 12:11 | OTHER RESIDENTIAL (CURRENT) | [facility] | | | DRUG [...] + + + | 2021-05-21 13:05 | RESIDENTIAL (CURRENT) USE OF | [facility] | | | 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 | | + + + + | 2021-05-21 13:05 | 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 | | + + + + | 2021-11-01 00:00 | Right wrist pain | [facility] | + + + + | 2021-11-01 00:00 | Right wrist pain | [facility] | + + + + | 2021-11-01 00:00 | Right wrist pain | [facility] | + + + + | 2021-11-01 00:00 | Right wrist pain | [facility] | + + + + | 2021-11-01 00:00 | Right wrist pain | [facility] | + + + + | 2021-11-01 00:00 | Right wrist pain | [facility] | + + + + | 2021-11-01 00:00 | Right wrist pain | [facility] | + + + + | 2022-01-27 00:00 | Vitreous detachment | [facility] | + + + + | 2022-01-27 00:00 | Vitreous detachment | [facility] | + + + + | 2022-01-27 00:00 | Vitreous detachment | [facility] | + + + + | 2022-01-27 00:00 | Vitreous detachment | [facility] | + + + + | 2022-01-27 00:00 | Vitreous detachment | [facility] | + + + + | 2022-01-27 00:00 | Vitreous detachment | [facility] | + + + + | 2022-01-27 00:00 | Vitreous detachment | 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 | + + + + | 2022-03-02 00:00 | Infection due to | [facility] | | | respiratory syncytial virus | | | | (RSV) | | + + + + | 2022-03-02 00:00 | Infection due to | [facility] | | | respiratory syncytial virus | | | | (RSV) | | + + + + | 2022-03-02 00:00 | Infection due to | [facility] | | | respiratory syncytial virus | | | | (RSV) | | + + + + | 2022-03-02 00:00 | Infection due to | [facility] | | | respiratory syncytial virus | | | | (RSV) | | + + + + | 2022-03-02 00:00 | Infection due to | [facility] | | | respiratory syncytial virus | | | | (RSV) | | + + + + | 2022-03-02 00:00 | Infection due to | [facility] | | | respiratory syncytial virus | | | | (RSV) | | + + + + | 2022-03-02 00:00 | Infection due to | [facility] | | | respiratory syncytial virus [...] + + + | 2022-03-02 02:09 | ASSISTED LIVING EXECUTIVE DIRECTOR (CURRENT) USE OF | [facility] | | | 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 | | + + + + | 2022-03-02 02:09 | OTHER ASSISTED LIVING EXECUTIVE DIRECTOR (CURRENT) | [facility] | | | DRUG [...] + + + | 2022-03-25 14:30 | RESIDENTIAL (CURRENT) USE OF | [facility] | | | 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 | | + + + + | 2022-03-25 14:30 | 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 | | + + + + | 2022-04-22 13:40 | ENCOUNTER FOR THERAPEUTIC | [facility] | | | DRUG LEVEL MONITORING | | + + + + | 2022-04-22 13:40 | RESIDENTIAL (CURRENT) USE OF | [facility] | | [...] + + + | 2022-04-22 14:48 | ASSISTED LIVING EXECUTIVE DIRECTOR (CURRENT) USE OF | [facility] | | | 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 | | + + + + | 2022-04-22 14:48 | OTHER ASSISTED LIVING EXECUTIVE DIRECTOR (CURRENT) | [facility] | | | DRUG [...] 2022-05-01 00:00 | Encounter for medical | [facility] | | | screening examination | | + + + + | 2022-05-01 00:00 | Encounter for medical | [facility] | | | screening examination | | + + + + | 2022-05-01 00:00 | Encounter for medical | [facility] | | | screening examination | | + + + + | 2022-05-01 00:00 | Encounter for medical | [facility] | | | screening examination | | + + + + | 2022-05-01 00:00 | Encounter for medical | [facility] | | | screening examination | | + + + + | 2022-05-20 14:30 | ENCOUNTER FOR THERAPEUTIC | [facility] | | | DRUG LEVEL MONITORING | | + + + + | 2022-05-20 14:30 | ASSISTED LIVING EXECUTIVE DIRECTOR (CURRENT) USE OF | [facility] | | | 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 | | + + + + | 2022-05-20 14:30 | 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 | | + + + + | 2022-06-17 14:20 | ENCOUNTER FOR THERAPEUTIC | [facility] | | | DRUG LEVEL MONITORING | | + + + + | 2022-06-17 14:20 | RESIDENTIAL (CURRENT) USE OF | [facility] | | [...] + + + | 2022-07-01 10:14 | ASSISTED LIVING EXECUTIVE DIRECTOR (CURRENT) USE OF | [facility] | | | 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 | | + + + + | 2022-07-01 10:14 | OTHER ASSISTED LIVING EXECUTIVE DIRECTOR (CURRENT) | [facility] | | | DRUG [...] + + + | 2022-07-15 14:20 | ASSISTED LIVING EXECUTIVE DIRECTOR (CURRENT) USE OF | [facility] | | [...] + + + | 2022-07-17 20:06 | ASSISTED LIVING EXECUTIVE DIRECTOR (CURRENT) USE OF | [facility] | | | 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 | | + + + + | 2022-07-17 20:06 | OTHER ASSISTED LIVING EXECUTIVE DIRECTOR (CURRENT) | [facility] | | | DRUG [...] + + + | 2022-08-12 14:15 | ASSISTED LIVING EXECUTIVE DIRECTOR (CURRENT) USE OF | [facility] | | [...] + + | 2022-08-21 12:31 | OTHER ASSISTED LIVING EXECUTIVE DIRECTOR (CURRENT) | [facility] | | | DRUG THERAPY | | + + + + | 2022-08-26 14:16 | ENCOUNTER FOR THERAPEUTIC | [facility] | | | DRUG LEVEL MONITORING | | + + + + | 2022-08-26 14:16 | RESIDENTIAL (CURRENT) USE OF | [facility] | | [...] + + + | 2022-09-02 14:55 | ASSISTED LIVING EXECUTIVE DIRECTOR (CURRENT) USE OF | [facility] | | [...] + + + | 2022-09-09 14:25 | RESIDENTIAL (CURRENT) USE OF | [facility] | | [...] + + + | 2022-09-16 11:00 | RESIDENTIAL (CURRENT) USE OF | [facility] | | [...] + + + | 2022-09-30 10:35 | ASSISTED LIVING EXECUTIVE DIRECTOR (CURRENT) USE OF | [facility] | | [...] + + + | 2022-10-14 14:35 | RESIDENTIAL (CURRENT) USE OF | [facility] | | [...] + + + | 2022-10-28 14:40 | RESIDENTIAL (CURRENT) USE OF | [facility] | | [...] + + + | 2022-11-25 14:05 | ASSISTED LIVING EXECUTIVE DIRECTOR (CURRENT) USE OF | [facility] | | | 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 | | + + + + | 2022-11-28 00:00 | Hypokalemia | [facility] | + + + + | 2022-11-28 00:00 | Hypokalemia | [facility] | + + + + | 2022-11-28 00:00 | Hypokalemia | [facility] | + + + + | 2022-11-28 00:00 | Dyspnea due to congestive | [facility] | | | heart failure | | + + + + | 2022-11-28 00:00 | Dyspnea due to congestive | [facility] | | | heart failure | | + + + + | 2022-11-28 00:00 | Dyspnea due to congestive | 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 | + + + + | 2022-12-17 00:00 | Diarrhea | [facility] | + + + + | 2022-12-20 00:00 | Dehydration | 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 | + + + + | 2022-03-02 00:00 | Never smoker | [facility] | + + + + Vital [...]
[~2022-12-27 10:08] MED LIST changes: +CULTURELLE1 EAC1 PO; +METRONIDAZOLE250 MG PO
[2022-12-27 10:39] LABS: BASOPHILS 0.3 % (0-2); EOSINOPHILS 0.7 % (0-6); HEMATOCRIT 35.7 % (35.0-50.0); HEMOGLOBIN 11.5 g/dL (12.0-18.0); LYMPHOCYTES 7.8 % (24-44); MCH 28.9 (27-36); MCHC 32.2 g/dl (30-36); MCV 89.8 fl (81-99); MONOCYTES 8.7 % (0-12); NEUTROPHILS 82.5 % (39-80); PLATELET COUNT 281 K/uL (140-440); RBC 3.98 M/ul (4.3-5.7); RDW 17.8 (10.5-15.0)
[2022-12-27] MEDS ORDERED: PERCOCET 5-3251 EACH PO (12:19)
[2022-12-27 12:55] VITALS: BP 122/73
== END 2022-12-27 13:49 | disposition home or self-care (01) ==
LOC: ED 10:08
PROVIDERS: Family Medicine
DX: S82.035A Nondisplaced transverse fracture of left patella, initial encounter for closed fracture (principal); W19.XXXA Unspecified fall, initial encounter; I50.9 Heart failure, unspecified; Z88.1 Allergy status to other antibiotic agents; Z88.5 Allergy status to narcotic agent; Z88.8 Allergy status to other drugs, medicaments and biological substances; Z91.018 Allergy to other foods; Z91.048 Other nonmedicinal substance allergy status; Z79.899 Other long term (current) drug therapy; Z79.01 Long term (current) use of anticoagulants
CPT/HCPCS: 29505; 36415; 73560; 85025; 85610; 86140; 99284-25

== ENCOUNTER 2023-03-12 16:56 | Emergency (ER) | payer MEDICARE ==
[~2023-03-12] VITALS: Ht 185.4 cm; Wt 152.1 kg
[~2023-03-12 16:56] MED LIST changes: +ACETAMINOPHEN-1 EAC1 PO; +BUPROPION XL150 MG PO; +COLACE100 MG PO; +CYCLOBENZAPRINE5 MG PO; +PERCOCET 5-3251 EACH PO
[2023-03-12 17:20] LABS: BASOPHILS 0.6 % (0-2); EOSINOPHILS 1.6 % (0-6); HEMATOCRIT 40.8 % (35.0-50.0); HEMOGLOBIN 13.2 g/dL (12.0-18.0); LYMPHOCYTES 18.7 % (24-44); MCH 30.1 (27-36); MCHC 32.5 g/dl (30-36); MCV 92.7 fl (81-99); MONOCYTES 9.4 % (0-12); NEUTROPHILS 69.7 % (39-80); PLATELET COUNT 233 K/uL (140-440); RDW 17.1 (10.5-15.0)
[2023-03-12 17:37] LABS: ALBUMIN 3.3 g/dL (3.4-5.0); ALBUMIN/GLOBULIN RATIO 0.69 (1.1-2.4); ANION GAP 14.7 (7-21); BILIRUBIN, TOTAL 0.6 ng/dL (0.2-1.0); CALCIUM 8.4 mg/dL (8.5-10.1); CREATININE, SERUM 1.3 mg/dL (0.55-1.02); MAGNESIUM 1.8 mg/dL (1.8-2.4); POTASSIUM 3.7 mmol/L (3.5-5.1); PROTEIN, TOTAL 8.1 g/dL (6.4-8.2)
[2023-03-12 18:04] LABS: INR 3.72 (0.80-1.30); PROTIME 35.4 Sec (11.2-14.2)
[2023-03-12 19:44] VITALS: BP 134/74
--- NOTE | 2023-03-13 16:55 | EKG ---
[facility] [address] [place], [place] [address] Signed Normal sinus rhythm Minimal voltage criteria for LVH, may be normal variant ( [place] product ) Possible Inferior infarct , age undetermined ST \T\ T wave abnormality, consider lateral ischemia Abnormal ECG No previous ECGs available Confirmed by DELMAR MORILLO MD ([id number]) on 03/13/2023 4:54:51 PM Electronically Signed By: DELMAR MORILLO 03/13/23 1655 PATIENT NAME: NINI MARTINEZ Electrocardiogram DATE OF : 56 PHYSICIAN: DELMAR MORILLO REPORT #: [id number] REPORT IS CONFIDENTIAL AND NOT TO BE RELEASED WITHOUT AUTHORIZATION
== END 2023-03-12 19:46 | disposition home or self-care (01) ==
LOC: ED 16:56
PROVIDERS: Emergency Medicine
DX: I20.9 Angina pectoris, unspecified (principal); I50.9 Heart failure, unspecified; M19.90 Unspecified osteoarthritis, unspecified site; Z88.8 Allergy status to other drugs, medicaments and biological substances; Z88.5 Allergy status to narcotic agent; Z88.1 Allergy status to other antibiotic agents; Z79.899 Other long term (current) drug therapy; Z79.01 Long term (current) use of anticoagulants
CPT/HCPCS: 36415; 71045; 71275; 74174; 80053; 83735; 84484; 85025; 85610; 93005; 93010; 99285-25; Q9967

== ENCOUNTER 2023-04-03 14:25 | Emergency (ER) | payer MEDICARE ==
[~2023-04-03] VITALS: Ht 185.4 cm; Wt 151.4 kg
[2023-04-03] MEDS ORDERED: NITROFURANTOIN100 M1 PO (14:39)
[2023-04-03 15:45] LABS: BASOPHILS 0.5 % (0-2); EOSINOPHILS 1.6 % (0-6); HEMATOCRIT 41.8 % (35.0-50.0); HEMOGLOBIN 13.7 g/dL (12.0-18.0); LYMPHOCYTES 12.6 % (24-44); MCH 30.1 (27-36); MCHC 32.7 g/dl (30-36); MCV 92.1 fl (81-99); MONOCYTES 10.8 % (0-12); NEUTROPHILS 74.5 % (39-80); PLATELET COUNT 215 K/uL (140-440); RBC 4.54 M/ul (4.3-5.7); RDW 16.2 (10.5-15.0)
[2023-04-03 15:59] LABS: INR 3.07 (0.80-1.30); PROTIME 30.8 Sec (11.2-14.2)
[2023-04-03 16:03] LABS: ALBUMIN 3.1 g/dL (3.4-5.0); ALBUMIN/GLOBULIN RATIO 0.61 (1.1-2.4); BILIRUBIN, TOTAL 1.1 ng/dL (0.2-1.0); BUN/CREATININE RATIO 9.09 (6.0-28.6); CALCIUM 8.2 mg/dL (8.5-10.1); CREATININE, SERUM 1.32 mg/dL (0.55-1.02); PROTEIN, TOTAL 8.2 g/dL (6.4-8.2)
[2023-04-03 17:30] VITALS: BP 122/79
== END 2023-04-03 17:45 | disposition home or self-care (01) ==
LOC: ED 14:25
PROVIDERS: Emergency Medicine
DX: S20.212A Contusion of left front wall of thorax, initial encounter (principal); M54.2 Cervicalgia; M79.622 Pain in left upper arm; M79.621 Pain in right upper arm; W19.XXXA Unspecified fall, initial encounter; I50.9 Heart failure, unspecified; Q87.40 Marfan syndrome, unspecified; Z79.01 Long term (current) use of anticoagulants; Z79.899 Other long term (current) drug therapy; Z95.2 Presence of prosthetic heart valve; Z88.1 Allergy status to other antibiotic agents; Z88.5 Allergy status to narcotic agent; Z88.8 Allergy status to other drugs, medicaments and biological substances; Z91.018 Allergy to other foods; Z91.048 Other nonmedicinal substance allergy status
CPT/HCPCS: 36415; 70450; 70486; 71250; 73060; 80053; 85025; 85610; 99284-25

== ENCOUNTER 2023-05-05 10:33 | Emergency (ER) | payer MEDICARE ==
[~2023-05-05] VITALS: Ht 185.4 cm; Wt 147.8 kg
[~2023-05-05 10:33] MED LIST changes: +NITROFURANTOIN100 M1 PO
[2023-05-05 13:39] LABS: HEMOGLOBIN 13.2 g/dL (12.0-18.0)
[2023-05-05 13:42] LABS: BASOPHILS 0.9 % (0-2); EOSINOPHILS 1.7 % (0-6); HEMATOCRIT 40.2 % (35.0-50.0); LYMPHOCYTES 13.9 % (24-44); MCH 30.4 (27-36); MCHC 32.9 g/dl (30-36); MCV 92.2 fl (81-99); MONOCYTES 10.4 % (0-12); NEUTROPHILS 73.1 % (39-80); PLATELET COUNT 280 K/uL (140-440); RBC 4.36 M/ul (4.3-5.7); RDW 16.7 (10.5-15.0)
[2023-05-05 13:51] LABS: ALBUMIN 3.2 g/dL (3.4-5.0); ALBUMIN/GLOBULIN RATIO 0.65 (1.1-2.4); ANION GAP 12.2 (7-21); BUN/CREATININE RATIO 5.92 (6.0-28.6); CALCIUM 8.1 mg/dL (8.5-10.1); CREATININE, SERUM 1.52 mg/dL (0.55-1.02); POTASSIUM 3.2 mmol/L (3.5-5.1); PROTEIN, TOTAL 8.1 g/dL (6.4-8.2)
[2023-05-05 14:34] LABS: INFLUENZA B NAA NEGATIVE (NEGATIVE); RESPIRATORY SYNCYTIAL VIR NAA NEGATIVE (NEGATIVE)
[2023-05-05 16:23] LABS: BILIRUBIN, URINE NEGATIVE (negative); BLOOD/HGB, URINE TRACE-I (Negative); KETONE, URINE NEGATIVE (Negative); LEUK ESTERASE, URINE SMALL (negative); NITRITE, URINE POSITIVE (negative); PH, URINE 5.5 (5-7)
[2023-05-05 16:30] LABS: BACTERIA, URINE 3+ /hpf (negative); CASTS, URINE NONE SEEN \\lpf; COLLECTION TYPE, URINE CLEAN CATCH; CRYSTALS, URINE NONE SEEN (0-1+); EPITHELIAL CELLS, URINE SQUAMOUS 1+ /lpf (0-1+); RED BLOOD CELLS, URINE 0-1 /hpf (0-5); REFLEX CULTURE, URINE Yes (No); WHITE BLOOD CELLS, URINE >50 /HPF (0-5)
[2023-05-05] MEDS ORDERED: CEFDINIR300 MG PO (17:22)
[2023-05-05 17:55] VITALS: BP 130/82
--- NOTE | 2023-05-05 19:27 | EKG ---
[facility] [address] [facility] [place] [address] Signed Normal sinus rhythm Nonspecific intraventricular block Possible Inferior infarct (cited on or before 02-MAR-2022) T wave abnormality, consider lateral ischemia Abnormal ECG When compared with ECG of 12-MAR-2023 16:52, Non-specific change in ST segment in Anterior leads Nonspecific T wave abnormality, worse in Anterior leads Confirmed by DELMAR MORILLO MD ([id number]) on 05/05/2023 7:27:11 PM Electronically Signed By: DELMAR MORILLO 05/05/23 [id number] PATIENT NAME: NINI MARTINEZ Electrocardiogram DATE OF : 56 PHYSICIAN: DELMAR MORILLO REPORT #: [id number] REPORT IS CONFIDENTIAL AND NOT TO BE RELEASED WITHOUT AUTHORIZATION
== END 2023-05-05 17:37 | disposition home or self-care (01) ==
LOC: ED 10:33
PROVIDERS: Emergency Medicine
DX: N39.0 Urinary tract infection, site not specified (principal); Q87.40 Marfan syndrome, unspecified; I50.9 Heart failure, unspecified; Z11.52 Encounter for screening for COVID-19; Z88.8 Allergy status to other drugs, medicaments and biological substances; Z88.5 Allergy status to narcotic agent; Z88.1 Allergy status to other antibiotic agents; Z91.018 Allergy to other foods; Z79.01 Long term (current) use of anticoagulants; Z79.890 Hormone replacement therapy; Z79.84 Long term (current) use of oral hypoglycemic drugs; Z79.899 Other long term (current) drug therapy
CPT/HCPCS: 36415; 71045; 80053; 81001; 83735; 85025; 87088; 87502; 93005; 93010; 96365; 99285-25; C9803; J0696; U0002

== ENCOUNTER 2023-06-02 10:03 | Emergency (ER) | payer MEDICARE ==
[~2023-06-02] VITALS: Ht 185.4 cm; Wt 146.0 kg
[~2023-06-02 10:03] MED LIST changes: +CEFDINIR300 MG PO; +WARFARIN SODIUM5 MG PO
[2023-06-02 10:58] LABS: BASOPHILS 0.8 % (0-2); EOSINOPHILS 2.7 % (0-6); HEMATOCRIT 37.2 % (35.0-50.0); HEMOGLOBIN 12.4 g/dL (12.0-18.0); LYMPHOCYTES 11.9 % (24-44); MCH 30.6 (27-36); MCHC 33.4 g/dl (30-36); MCV 91.4 fl (81-99); NEUTROPHILS 75.6 % (39-80); PLATELET COUNT 242 K/uL (140-440); RBC 4.07 M/ul (4.3-5.7); RDW 17.5 (10.5-15.0)
[2023-06-02 11:09] LABS: ALBUMIN 2.7 g/dL (3.4-5.0); ALBUMIN/GLOBULIN RATIO 0.55 (1.1-2.4); ANION GAP 10.9 (7-21); BILIRUBIN, TOTAL 0.7 ng/dL (0.2-1.0); BUN/CREATININE RATIO 8.19 (6.0-28.6); CALCIUM 7.8 mg/dL (8.5-10.1); CREATININE, SERUM 1.22 mg/dL (0.55-1.02); POTASSIUM 2.9 mmol/L (3.5-5.1); PROTEIN, TOTAL 7.6 g/dL (6.4-8.2)
[2023-06-02 11:13] LABS: BILIRUBIN, URINE NEGATIVE (negative); BLOOD/HGB, URINE MODERATE (Negative); KETONE, URINE NEGATIVE (Negative); LEUK ESTERASE, URINE TRACE (negative); NITRITE, URINE NEGATIVE (negative)
[2023-06-02 11:22] LABS: BACTERIA, URINE 2+ /hpf (negative); CRYSTALS, URINE NONE SEEN (0-1+); EPITHELIAL CELLS, URINE SQUAMOUS 1+ /lpf (0-1+); WHITE BLOOD CELLS, URINE 21-40 /HPF (0-5)
[2023-06-02 11:23] LABS: CASTS, URINE HYALINE 1+ \\lpf; COLLECTION TYPE, URINE CLEAN CATCH; REFLEX CULTURE, URINE Yes (No)
[2023-06-02 12:05] LABS: INR 3.37 (0.80-1.30); PROTIME 33.8 Sec (11.2-14.2)
[2023-06-02] MEDS ORDERED: CEPHALEXIN500 M1 PO (15:41)
[2023-06-02] MEDS ORDERED: ONDANSETRON ODT4 MG PO (15:41)
[2023-06-02 15:54] VITALS: BP 126/64
[2023-06-08] MEDS ORDERED: CIPRO500 MG PO (11:18)
== END 2023-06-02 15:54 | disposition home or self-care (01) ==
LOC: ED 10:03
PROVIDERS: Emergency Medicine
DX: N12 Tubulo-interstitial nephritis, not specified as acute or chronic (principal); E87.6 Hypokalemia; I50.9 Heart failure, unspecified; Z88.1 Allergy status to other antibiotic agents; Z88.5 Allergy status to narcotic agent; Z88.8 Allergy status to other drugs, medicaments and biological substances; Z91.048 Other nonmedicinal substance allergy status; Z79.899 Other long term (current) drug therapy; Z79.01 Long term (current) use of anticoagulants; Z79.890 Hormone replacement therapy
CPT/HCPCS: 36415; 73060; 74176; 80053; 81001; 85025; 85610; 87088; 96365; 96366; 96368; 96375; 99284-25; A9270; J0696; J1885; J2405; J3480

== ENCOUNTER 2023-07-10 04:14 | Emergency (ER) | payer MEDICARE ==
[~2023-07-10] VITALS: Ht 185.4 cm; Wt 142.6 kg
[~2023-07-10 04:14] MED LIST changes: +CEPHALEXIN500 M1 PO; +CIPRO500 MG PO; +ONDANSETRON ODT4 MG PO
[2023-07-10] MEDS ORDERED: ondansetron HCL 4 MG/2 ML VIAL IV ONE (04:30)
[2023-07-10 04:55] LABS: BASOPHILS 0.3 % (0-2); EOSINOPHILS 1.6 % (0-6); HEMATOCRIT 36.9 % (35.0-50.0); HEMOGLOBIN 12.2 g/dL (12.0-18.0); LYMPHOCYTES 8.8 % (24-44); MCH 30.8 (27-36); MCHC 33.1 g/dl (30-36); MONOCYTES 5.2 % (0-12); NEUTROPHILS 84.1 % (39-80); PLATELET COUNT 231 K/uL (140-440); RBC 3.97 M/ul (4.3-5.7); RDW 16.9 (10.5-15.0)
[2023-07-10] MEDS ORDERED: KETOROLAC TROMETHAMINE 15 MG/ML VIAL IV ONE (05:15)
[2023-07-10] MEDS ORDERED: LACTATED RINGER'S 1,000 ML IV ONE (05:15)
[2023-07-10] MEDS ORDERED: FAMOTIDINE 20 MG/ 2 ML VIAL IV ONE (05:15)
[2023-07-10 05:46] LABS: INFLUENZA B NAA NEGATIVE (NEGATIVE); RESPIRATORY SYNCYTIAL VIR NAA NEGATIVE (NEGATIVE)
[2023-07-10 06:16] LABS: BILIRUBIN, URINE NEGATIVE (negative); BLOOD/HGB, URINE SMALL (Negative); KETONE, URINE NEGATIVE (Negative); LEUK ESTERASE, URINE NEGATIVE (negative); NITRITE, URINE NEGATIVE (negative); PH, URINE 5.5 (5-7)
[2023-07-10 06:17] LABS: INR 1.95 (0.80-1.30); PROTIME 21.8 Sec (11.2-14.2)
[2023-07-10 06:19] LABS: ALBUMIN 2.7 g/dL (3.4-5.0); ALBUMIN/GLOBULIN RATIO 0.52 (1.1-2.4); BILIRUBIN, TOTAL 0.7 ng/dL (0.2-1.0); BUN/CREATININE RATIO 8.44 (6.0-28.6); CALCIUM 8.6 mg/dL (8.5-10.1); CREATININE, SERUM 1.54 mg/dL (0.55-1.02); MAGNESIUM 2.1 mg/dL (1.8-2.4); PROTEIN, TOTAL 7.9 g/dL (6.4-8.2)
[2023-07-10 06:29] LABS: CRYSTALS, URINE NONE SEEN (0-1+); EPITHELIAL CELLS, URINE SQUAMOUS 1+ /lpf (0-1+)
[2023-07-10 06:30] LABS: BACTERIA, URINE 2+ /hpf (negative); COLLECTION TYPE, URINE CLEAN CATCH; REFLEX CULTURE, URINE Yes (No)
[2023-07-10 06:41] LABS: AMPHETAMINES, URINE NEGATIVE (NEGATIVE); BARBITURATES, URINE NEGATIVE (NEGATIVE); BENZODIAZEPINE, URINE NEGATIVE (NEGATIVE); BUPRENORPHINE, URINE NEGATIVE (NEGATIVE); CANNABINOID, URINE NEGATIVE (NEGATIVE); COCAINE, URINE NEGATIVE (NEGATIVE); ECSTASY, URINE POSITIVE (NEGATIVE); FENTANYL, URINE NEGATIVE (NEGATIVE); METHADONE, URINE NEGATIVE (NEGATIVE); OPIATES, URINE NEGATIVE (NEGATIVE); OXYCODONE, URINE NEGATIVE (NEGATIVE); PHENCYCLIDINE, URINE NEGATIVE (NEGATIVE)
[2023-07-10] MEDS ORDERED: K-TAB ER20 MEQ PO (06:43)
[2023-07-10] MEDS ORDERED: GABAPENTIN 100 MG CAP PO ONE (06:45)
[2023-07-10] MEDS ORDERED: POTASSIUM CHLORIDE 10 MEQ TABCR PO ONE ×2 (06:45→07:00)
[2023-07-10 07:24] VITALS: BP 153/92
--- NOTE | 2023-07-12 23:59 | EKG ---
[facility] [address] [facility] [place] [address] Signed Normal sinus rhythm Nonspecific IVCD Possible Inferior infarct (cited on or before 02-MAR-2022) Nonspecific ST and T wave abnormality Prolonged QTc interval Abnormal ECG Confirmed by Anibal Darden M.D. ([id number]) on 07/12/2023 11:59:43 PM Electronically Signed By: ANIBAL DARDEN MD 07/12/23 [id number] PATIENT NAME: NINI MARTINEZ Electrocardiogram DATE OF : 56 PHYSICIAN: ANIBAL DARDEN MD REPORT #: [id number] REPORT IS CONFIDENTIAL AND NOT TO BE RELEASED WITHOUT AUTHORIZATION
== END 2023-07-10 07:24 | disposition home or self-care (01) ==
LOC: ED 04:14
PROVIDERS: Internal Medicine
DX: M17.12 Unilateral primary osteoarthritis, left knee (principal); E87.6 Hypokalemia; I50.9 Heart failure, unspecified; E66.01 Morbid (severe) obesity due to excess calories; Z68.41 Body mass index [BMI] 40.0-44.9, adult; Z88.8 Allergy status to other drugs, medicaments and biological substances; Z88.1 Allergy status to other antibiotic agents; Z88.5 Allergy status to narcotic agent; Z91.018 Allergy to other foods; Z91.048 Other nonmedicinal substance allergy status; Z79.899 Other long term (current) drug therapy; Z79.890 Hormone replacement therapy; Z79.01 Long term (current) use of anticoagulants
CPT/HCPCS: 36415; 51701; 71045; 73560; 80053; 80307; 81001; 82553; 83735; 84484; 84550; 85025; 85379; 85610; 85651; 86140; 87088; 87502; 93005; 93010; 99285-25; A9270; J1885; J2405; J7121; U0002